=== PATIENT | female | born 1950 | race Caucasian/White ===

== ENCOUNTER 2019-07-07 09:30 | Outpatient (CLI) | payer MEDICARE, SELFPAY ==
[2019-07-07 12:10] LABS: Basophils % 0.2 %; Eosinophils # 0.1 10^3/uL (0.0-0.8); Eosinophils % 2.2 %; Hematocrit 41.1 % (37.0-47.0); Hemoglobin 12.5 g/dL (11.5-15.3); Lymphocytes # 1.5 10^3/uL (0.8-4.8); Lymphocytes % 29.2 %; Mean Corpuscular HGB Conc 30.4 g/dL (30.0-36.0); Mean Corpuscular Hemoglobin 26.9 pg (28.0-34.0); Mean Corpuscular Volume 88.4 fL (81-99); Mean Platelet Volume 10.2 fL (7.4-10.4); Monocytes # 0.3 10^3/uL (0.2-0.9); Monocytes % 6.5 %; Neutrophils # 3.1 10^3/uL (1.8-7.7); Neutrophils % 61.5 %; Nucleated Red Blood Cells % 0 %; Platelet Count 188 10^3/cmm (130-400); Red Blood Count 4.65 10^6/uL (4.1-5.3); Red Cell Distribution Width 13.8 % (12.1-15.1); White Blood Count 5.1 10^3/uL (4.0-10.0)
[2019-07-07 12:29] LABS: Alanine Aminotransferase 13 U/L (0-33); Albumin Level 3.9 g/dL (3.5-5.2); Alkaline Phosphatase 105 IU/L (35-105); Anion Gap 13.3 (5-19); Aspartate Amino Transferase 22 U/L (0-32); Blood Urea Nitrogen 20 mg/dL (8-23); Carbon Dioxide 29 mmol/L (22-29); Chloride 99 mmol/L (98-107); Globulin 3.7 g/dL (1.3-4.6); Glomerular Filtration Rate 54.8 mL/min (90-130); Glucose 108 mg/dL (74-106); Potassium 3.3 mmol/L (3.5-5.1); Sodium 138 mmol/L (136-145); Total Bilirubin 0.4 mg/dL (0.15-1.2); Total Protein 7.6 g/dL (6.6-8.7)
== END 2019-07-07 09:31 | disposition home or self-care (01) ==
PROVIDERS: Family Provider Physician Assistant Medical; Visit Provider Internal Medicine Hematology & Oncology
DX: C50.111 Malignant neoplasm of central portion of right female breast (principal)
CPT/HCPCS: 80053; 85025

== ENCOUNTER 2019-07-11 10:58 | Outpatient (CLI) | payer MEDICARE, SELFPAY ==
--- NOTE | 2019-07-11 14:46 | ONC FU_ITS ---
Dr. Burris follow up note Patient: Neeta Roche Unit #: [id number]: 1950 Dicatated By: Gilmer Burris M.D.Date of Visit:Jul 11, 2019 Onc Med Follow-up/Prog Note History of Present Illness: Mrs. Neeta Roche is a 68 -year-old female who was recently diagnosed with right breast cancer. As per patient about 5 months ago she did notice bloody discharge from her right nipple and subsequently felt a mass in her right breast and on 03/01/2018 underwent bilateral mammogram which showed large linear opacity on the posterior nipple line right breast at the 12:00 position measuring 1.9 x 7.1 cm with a diffuse pleomorphic calcification and it was a new finding when compared with mammogram from 2009. Patient underwent ultrasound-guided biopsy of right breast on 06/06/2018 and biopsy showed infiltrating ductal carcinoma ER moderately positive and MS negative and HER-2/yanna negative and with a high Ki-67. CT PET scan done on 06/25/2018 showed 2.8 cm hypermetabolic lesion right breast in the subareolar region with SUV of 5.3 now right exited lymph node present or distant metastases. Status post right modified mastectomy done on 08/03/2018, showed infiltrating ductal carcinoma, tumor size 2.3 x 1.5 cm, 25% of the tumor volume was DCIS. Lymphovascular space involvement was seen. 0 out of 3 right axillary lymph node showed metastatic disease. Oncotype DX is 45, e.g. high, distant recurrence risk at 9 years with aromatase inhibitor or tamoxifen alone is about 33% and absolute chemotherapy benefit more than 15%.Being a high risk patient was offered adjuvant chemotherapy followed by hormonal therapy but patient refused but opted for hormonal therapy so she was started on Arimidex 1 mg by mouth daily for 5 years on 01/24/2019. Patient is wheelchair-bound due to morbid obesity and other comorbid conditions and has chronic back pain and now worsening, denies any trauma to her back, Has history of CVA Came for follow-up, denies any specific complaints, no fever or chills, no nausea or vomiting, no bony pains, no jaundice, no headaches or blurred vision or double vision, occasionally hot flashes, tolerating Arimidex well otherwise Medications: AmLODIPine Besylate 1 Tablet (of 5 mg) Oral b.i.d., Atorvastatin Calcium 1 Tablet (of 40 mg) Oral daily, Citalopram Hydrobromide 1 Tablet (of 20 mg) Oral daily, Furosemide 1 Tablet (of 40 mg) Oral daily, Hydrocodone-Acetaminophen 0.5 Tablet (of 5-325 mg) Oral PRN, LevETIRAcetam 1 Tablet (of 750 mg) Oral daily, Metoprolol Tartrate 1 Tablet (of 100 mg) Oral b.i.d., Montelukast Sodium 1 Tablet (of 10 mg) Oral daily, Oxybutynin Chloride 1 Tablet (of 5 mg) Oral b.i.d., Potassium Chloride ER 1 Tablet (of 20 meq) Tablet, controlled release Oral on Every Other Day Allergies: No Known Allergies. Review of Systems: Constitutional - Appetite is good and weight is stable. No fever, chills, hot flashes, or night sweats. Energy level is poor, ENMT - No sinus congestion/drainage. No mouth sores. No sore throat or difficulty swallowing, Hematologic/Lymphatic - No abnormal bruising or bleeding, Respiratory - Positive for shortness of breath. No cough. No pleuritic pain or hemoptysis, Cardiovascular - No angina pain. No palpitations, Gastrointestinal - No nausea or vomiting. No heartburn or acid reflux. No diarrhea or constipation. No blood in the stool or black stools, Genitourinary (F) - No dysuria or hematuria. No urinary frequency. No urgency or incontinence, Musculoskeletal - No joint or bone pain, Neurologic - No headache or dizziness. No numbness/paresthesias. Pt has hx of CVA, Psychiatric - Positive for anxiety. No insomnia. Vital Signs: Performed on Jul 11, 2019 11:50 Height - 64.00 in Weight - lbs Temperature - 97.4 F (LOW) Pulse - 61 /min Respiration - 22 /min BP - 130/58 mm(hg) O2 Sat - 88 % (LOW) Pain - 7 Performance Status: 2 - Ambulatory/capable of all self-care, unable to perform any work activities. Up and about more than 50% of waking hours. (ECOG) Physical Examination: Respiratory - Lungs are clear to auscultation without rhonchi or wheezing, Cardiovascular - Regular rate and rhythm of heart, Extremities - To 1+ edema. Lab/Imaging: Test performed on Jul 07, 2019 09:30 Glucose 108 mg/dL BUN 20 mg/dL Creatinine 1.0 mg/dL Sodium 138 mmol/L Potassium 3.3 mmol/L Chloride 99 mmol/L CO2 29 mmol/L Calcium 10.0 mg/dL Protein, Total 7.6 g/dL Albumin 3.9 g/dL Globulin 3.7 g/dL Bilirubin, Total 0.4 mg/dL Alkaline Phosphatase 105 IU/L AST (SGOT) 22 IU/L ALT (SGPT) 13 IU/L WBC 5.1 10^9/L RBC 4.65 10^12/L HGB 12.5 g/dL HCT 41.1 % MCV 88.4 fl MCH 26.9 pg MCHC 30.4 g/dL RDW 13.8 % Platelet Count 188 10^9/L MPV 10.2 fL Neutrophils (Gran) 3.1 10^9/L Lymphocytes 1.5 10^9/L Monocytes 0.3 10^9/L Eosinophils 0.1 10^9/L Basophils 0.0 10^9/L Neutrophil % 2.2 % Manual Lymphocytes 29.2 % Manual Monocytes 6.5 % Manual Eosinophils 2.2 % Manual Basophils 0.2 % NRBCs 0.0 /100 WBC Test performed on Jan 23, 2019 07:15 CA 27.29 28.26 U/mL Impression: Status post right modified radical mastectomy done on 08/03/2018 Final pathology report showed infiltrating ductal carcinoma Tumor size 2.3 x 1.5 cm, 25% of tumor volume was DCIS. Clear margins but lymphovascular space invasion seen T2 0 out of 3 right axillary lymph node showed metastatic disease N0 pathological stage IIa estrogen receptor positive, 32% of cells stain e.g. moderate intensity Progesterone receptor less than 1% negative Ki-67 26% unfavorable risk HER-2/yanna 2+, negative for HER-2/yanna overexpression by IHC and over amplification by FISH Oncotype DX score done on 07/12/2018 showed recurrence score 45 e.g. high, distant recurrence risk at 9 years with aromatase inhibitor and tamoxifen alone is about 33%, absolute chemotherapy benefit is more than 15%. Adjuvant chemotherapy was offered but patient refused, knowing all the risk versus benefits involved and agreed for Arimidex 1 mg by mouth daily for 5 years along with vitamin D/calcium supplement which was started on 10/25/2018. Bilateral Mammogram done on 03/01/2018 showed 1.9 x 7.1 cm retroareolar mass in right breast CT PET scan done on 06/25/2018 showed 2.8 cm hypermetabolic mass in the subareolar region of right breast with SUV of 5.3 now right axillary lymphadenopathy or distant metastases. History of CVA in 2017 Morbid obesity, wheelchair-bound Diabetes mellitus Plan: Discussed with patient regarding her labs white blood count 5.1 hemoglobin 12.5 crit 41.1 platelets 188,000 CMP within normal limit except potassium 3.3 Clinically, patient is doing well, tolerating adjuvant therapy with Arimidex well but with expected side effects. Patient has a no signs symptoms suggestive of recurrence of disease. We'll continue with same. As far as mild hypokalemia is concerned patient is noncompliant with her potassium supplement. Patient was advised to take her potassium supplement as directed. And also reorder her follow-up mammogram and then she will return to clinic in 6 months with CBC CMP and mammogram. Signed By: Gilmer Burris M.D. <<Signature on File>>
== END 2019-07-11 10:59 | disposition home or self-care (01) ==
LOC: ONCMED 11:00
PROVIDERS: Family Provider Physician Assistant Medical; Visit Provider Internal Medicine Hematology & Oncology
DX: C50.111 Malignant neoplasm of central portion of right female breast (principal); T50.3X6A Underdosing of electrolytic, caloric and water-balance agents, initial encounter; Z91.128 Patient's intentional underdosing of medication regimen for other reason; Z17.0 Estrogen receptor positive status [ER+]; E66.01 Morbid (severe) obesity due to excess calories; G89.29 Other chronic pain; M54.9 Dorsalgia, unspecified; F41.9 Anxiety disorder, unspecified; E11.9 Type 2 diabetes mellitus without complications; E87.6 Hypokalemia; Z99.3 Dependence on wheelchair; Z79.891 Long term (current) use of opiate analgesic; Z79.811 Long term (current) use of aromatase inhibitors; Z86.73 Personal history of transient ischemic attack (TIA), and cerebral infarction without residual deficits; Z90.11 Acquired absence of right breast and nipple
CPT/HCPCS: 99214

== ENCOUNTER 2020-04-03 14:41 | Outpatient (CLI) | payer MEDICARE, SELFPAY ==
--- NOTE | 2020-04-03 14:44 | MM_ITS ---
WS: [id number] BILATERAL DIGITAL DIAGNOSTIC MAMMOGRAM MAMMOGRAPHY WITH CAD CLINICAL INFORMATION: HX OF BREAST CA HISTORY: History of right breast cancer with partial meniscectomy. COMPARISON: , March 01, 2018, , August 24, 2008. TECHNIQUE: Bilateral CC, MLO, and ML views. 6 FINDINGS: Scattered fibroglandular densities left breast. Right subtotal mastectomy is new since the prior exam ination. Subtotal right mastectomy with a small amount of residual breast tissue. Left breast is unch anged in appearance. Heterogeneous suspicious cluster of indeterminant calcifications involving the residual right breast tissue adjacent to the chest wall inner quadrant. Recommend surgical consultation for resection. Wire localization could be attempted for surgical guidance. Patient is likely not a candidate for stereot actic biopsy considering location adjacent to chest wall and small amount of breast tissue MM/[place] [id number] IMPRESSION: BI-RADS: 4-Suspicious Finding-Biopsy Should Be Considered FOLLOW UP: Surgical Biopsy Recommended
[2020-04-03 15:13] LABS: Basophils % 0.4 %; Eosinophils # 0.1 10^3/uL (0.0-0.8); Eosinophils % 1.4 %; Hematocrit 41.1 % (37.0-47.0); Hemoglobin 11.8 g/dL (11.5-15.3); Lymphocytes % 20.5 %; Mean Corpuscular HGB Conc 28.7 g/dL (30.0-36.0); Mean Corpuscular Hemoglobin 26.2 pg (28.0-34.0); Mean Corpuscular Volume 91.3 fL (81-99); Monocytes # 0.2 10^3/uL (0.2-0.9); Neutrophils # 3.49 10^3/uL (1.8-7.7); Neutrophils % 72.1 %; Nucleated Red Blood Cells % 0 %; Platelet Count 177 10^3/cmm (130-400); Red Cell Distribution Width 14.6 % (12.1-15.1); White Blood Count 4.8 10^3/uL (4.0-10.0)
[2020-04-03 15:31] LABS: Alanine Aminotransferase 9 U/L (0-33); Albumin Level 3.8 g/dL (3.5-5.2); Alkaline Phosphatase 100 IU/L (35-105); Aspartate Amino Transferase 19 U/L (0-32); Blood Urea Nitrogen 22 mg/dL (8-23); Calcium 9.4 mg/dL (8.5-10.5); Carbon Dioxide 24 mmol/L (22-29); Chloride 99 mmol/L (98-107); Globulin 4.1 g/dL (1.3-4.6); Glucose 192 mg/dL (65-115); Osmolality Calculated 289 mOsm/kg (285-295); Sodium 135 mmol/L (136-145); Total Bilirubin 0.4 mg/dL (0.15-1.2); Total Protein 7.9 g/dL (6.6-8.7)
--- NOTE | 2020-04-26 09:24 | ONC FU_ITS ---
Dr. Burris follow up note Patient: Neeta Roche Unit #: [id number]: 1950 Dicatated By: Gilmer Burris M.D.Date of Visit:Apr 03, 2020 Onc Med Follow-up/Prog Note History of Present Illness: Mrs. Neeta Roche is a 69 -year-old female who was recently diagnosed with right breast cancer. As per patient about 5 months ago she did notice bloody discharge from her right nipple and subsequently felt a mass in her right breast and on 03/01/2018 underwent bilateral mammogram which showed large linear opacity on the posterior nipple line right breast at the 12:00 position measuring 1.9 x 7.1 cm with a diffuse pleomorphic calcification and it was a new finding when compared with mammogram from 2009. Patient underwent ultrasound-guided biopsy of right breast on 06/06/2018 and biopsy showed infiltrating ductal carcinoma ER moderately positive and MN negative and HER-2/yanna negative and with a high Ki-67. CT PET scan done on 06/25/2018 showed 2.8 cm hypermetabolic lesion right breast in the subareolar region with SUV of 5.3 now right exited lymph node present or distant metastases. Status post right modified mastectomy done on 08/03/2018, showed infiltrating ductal carcinoma, tumor size 2.3 x 1.5 cm, 25% of the tumor volume was DCIS. Lymphovascular space involvement was seen. 0 out of 3 right axillary lymph node showed metastatic disease. Oncotype DX is 45, e.g. high, distant recurrence risk at 9 years with aromatase inhibitor or tamoxifen alone is about 33% and absolute chemotherapy benefit more than 15%.Being a high risk patient was offered adjuvant chemotherapy followed by hormonal therapy but patient refused but opted for hormonal therapy so she was started on Arimidex 1 mg by mouth daily for 5 years on 01/24/2019. Patient is wheelchair-bound due to morbid obesity and other comorbid conditions and has chronic back pain and now worsening, denies any trauma to her back, Has history of CVA tolerating Arimidex well Came for follow-up, denies any specific complaints, no fever chills, no nausea or vomiting, no diarrhea constipation occasionally hot flashes otherwise no new bony pains. Patient was scheduled for mammogram prior to this visit but she canceled it twice and to this afternoon and no report is pending. Tolerating Arimidex well. Medications: AmLODIPine Besylate 1 Tablet (of 5 mg) Oral b.i.d., Atorvastatin Calcium 1 Tablet (of 40 mg) Oral daily, Citalopram Hydrobromide 1 Tablet (of 20 mg) Oral daily, Furosemide 1 Tablet (of 40 mg) Oral daily, Hydrocodone-Acetaminophen 0.5 Tablet (of 5-325 mg) Oral PRN, LevETIRAcetam 1 Tablet (of 750 mg) Oral daily, Metoprolol Tartrate 1 Tablet (of 100 mg) Oral b.i.d., Montelukast Sodium 1 Tablet (of 10 mg) Oral daily, Oxybutynin Chloride 1 Tablet (of 5 mg) Oral b.i.d., Potassium Chloride ER 1 Tablet (of 20 meq) Tablet, controlled release Oral on Every Other Day Allergies: No Known Allergies. Review of Systems: Review of Systems is not available for this patient. Vital Signs: Performed on Apr 03, 2020 15:25 Height - 64.00 in Weight - lbs Temperature - 98.0 F (LOW) Pulse - 94 /min Respiration - 24 /min BP - 153/108 mm(hg) (HIGH) O2 Sat - 92 % (LOW) Pain - 0 Performance Status: 1 - No physically strenuous activity, but ambulatory and able to carry out light or sedentary work (e.g. office work, light house work). (ECOG) Physical Examination: Respiratory - Lungs are clear to auscultation, Cardiovascular - Regular rate and rhythm of heart, Gastrointestinal - Soft, bowel sounds present, Extremities - 1+ edema bilaterally. Lab/Imaging: Most recent lab results are not available for this patient. Impression: Status post right modified radical mastectomy done on 08/03/2018 Final pathology report showed infiltrating ductal carcinoma Tumor size 2.3 x 1.5 cm, 25% of tumor volume was DCIS. Clear margins but lymphovascular space invasion seen T2 0 out of 3 right axillary lymph node showed metastatic disease N0 pathological stage IIa estrogen receptor positive, 32% of cells stain e.g. moderate intensity Progesterone receptor less than 1% negative Ki-67 26% unfavorable risk HER-2/yanna 2+, negative for HER-2/yanna overexpression by IHC and over amplification by FISH Oncotype DX score done on 07/12/2018 showed recurrence score 45 e.g. high, distant recurrence risk at 9 years with aromatase inhibitor and tamoxifen alone is about 33%, absolute chemotherapy benefit is more than 15%. Adjuvant chemotherapy was offered but patient refused, knowing all the risk versus benefits involved and agreed for Arimidex 1 mg by mouth daily for 5 years along with vitamin D/calcium supplement which was started on 10/25/2018. Bilateral Mammogram done on 03/01/2018 showed 1.9 x 7.1 cm retroareolar mass in right breast CT PET scan done on 06/25/2018 showed 2.8 cm hypermetabolic mass in the subareolar region of right breast with SUV of 5.3 now right axillary lymphadenopathy or distant metastases. History of CVA in 2017 Morbid obesity, wheelchair-bound Diabetes mellitus Plan: Discussed with patient regarding her labs white blood count 4.8 hemoglobin 11.8 hematocrit 41.1 platelets 177,000 CMP within normal limits except glucose 192 Clinically, patient doing well with no signs symptom suggestive of recurrence of disease. Tolerating Arimidex well. Along with vitamin D and calcium supplement. Patient had mammogram done today and will follow the report and then she will return to clinic in 6 months with CBC CMP Signed By: Gilmer Burris M.D. <<Signature on File>>
== END 2020-04-03 14:42 | disposition home or self-care (01) ==
LOC: RADSHAW 14:41
PROVIDERS: PCP Physician Assistant Medical; Visit Provider Internal Medicine Hematology & Oncology
DX: C50.111 Malignant neoplasm of central portion of right female breast (principal); E11.9 Type 2 diabetes mellitus without complications; E66.01 Morbid (severe) obesity due to excess calories; Z17.0 Estrogen receptor positive status [ER+]; Z90.11 Acquired absence of right breast and nipple; Z79.811 Long term (current) use of aromatase inhibitors; Z86.73 Personal history of transient ischemic attack (TIA), and cerebral infarction without residual deficits; Z99.3 Dependence on wheelchair
CPT/HCPCS: 77066; 80053; 85025; 99214

== ENCOUNTER 2020-05-07 13:13 | Inpatient (IN) | payer MEDICARE, SELFPAY ==
[2020-05-07] VITALS (12 sets, daily range): BP systolic 104–181; BP diastolic 83–125; PULSE 100–133; RESP 14–20; TEMP 36.6; O2SAT 96–100; BMI 53.1
--- NOTE | 2020-05-07 14:21 | XR_ITS ---
WS: [id number] XR chest 1V portable [id number] REASON FOR EXAM: dyspnea FINDINGS: The chest is rotated which accounts for the overall slightly increased opacity of the right hemithora x compared to the left side. There is central vascular congestion with large upper lobe pulmonary veins. There are some peripheral interstitial changes which may represent Homer B lines indicative of early congestive heart failure . No other significant interval change. XR/XR chest 1V portable [id number] IMPRESSION: Concern for early congestive heart failure.
--- NOTE | 2020-05-07 15:03 | ED_ITS ---
Documented by User: Maxi Funes DO 05/10/20 06:17 HPI - SOB/Dyspnea General: Chief Complaint: Shortness of Breath/Dyspnea Stated Complaint: trouble breathing, states pcp sent Time Seen by Provider: 05/07/20 14:10 History of Present Illness: HPI Narrative: 69-year-old female comes in complaining of shortness of breath chest discomfort. She is usually on oxygen at home at 2 L/min is now up to 4 L/min. She also has a rapid heart with palpitations. She had a little bit of loose stools as well as some cough and generalized myalgias she recently did have a flu shot a few weeks ago. She has had some loose stools but no watery diarrhea. MD elicited complaint: shortness of breath, cough and chest pain Pertinent past history: congestive heart failure and diabetes Onset (ago): day(s) Context: anxiety Timing: constant Severity: severe Exacerbating factors: exertion, movement and coughing Relieving factors: nothing, oxygen and rest Known history of: COPD and congestive heart failure Associated symptoms: Reports chest congestion and cough; Deny abdominal pain, chest pain, fever(s), nausea, orthopnea or vomiting Treatment prior to arrival: oxygen Review of Systems Const: Denies: fever(s), chills, body aches, change in appetite, fatigue or malaise ENMT: Denies: throat pain, ear or mastoid pain, nasal discharge or nasal congestion Card: Denies: chest pain, edema, dyspnea on exertion or orthopnea Resp: Reports: chest congestion GI: Denies: abdominal pain, nausea, vomiting, hematemesis, coffee ground emesis, diarrhea, constipation, bloating, hematochezia or melena : Denies: flank pain, difficulty voiding, dysuria, urinary frequency or urinary urgency Skin/Breast: Denies: rash or pruritus PFSH ED PFSH: Medical History (Updated 05/08/20 @ 16:03 by Thor Martínez MD) Breakthrough seizure After stroke on Keppra Breast cancer, right Chronic back pain COPD (chronic obstructive pulmonary disease) Diabetes Fibromyalgia Gastritis H/O: CVA (cerebrovascular accident) Hypertension Morbid obesity Oxygen dependent Stroke May 2017 Type 2 diabetes mellitus Surgical History History of bunionectomy History of tonsillectomy Family History (Updated 05/07/20 @ 21:39 by Enrique Lopes MD) Other No pertinent family history Social History (Updated 05/07/20 @ 21:40 by Enrique Lopes MD) Smoking and tobacco status: never smoked Alcohol intake: never Substance/Drug Use: never Household members: spouse Housing: House Physical Exam Const: NUTRITIONAL APPEARANCE: obese morbidly obese ORIENTATION/CONSCIOUSNESS: Yes awake, Yes oriented to person, Yes oriented to place and Yes oriented to time HENMT: COMMON NORMALS: normocephalic, atraumatic and hearing grossly normal bilaterally HEAD & SCALP: normocephalic and atraumatic Eye: COMMON NORMALS: Equal, round and reactive pupils present, EOMs intact bilaterally, conjunctivae normal and no scleral icterus CONJUNCTIVA: Yes conjunctivae normal PUPIL: Yes Equal, round and reactive pupils present Neck/C-Spine: COMMON NORMALS: full ROM, no lymphadenopathy, supple and no JVD Lymph: LYMPHATIC: no lymphadenopathy noted and no lymphedema noted Resp: AUSCULTATION: crackles, wheezes and diminished lung sounds Cardio: COMMON NORMALS: no JVD, regular rate, regular rhythm and No murmurs present (Cardio) RATE: regular rate RHYTHM: regular rhythm GI: COMMON NORMALS: Soft to palpation and No hepatosplenomegaly present AUSCULTATION: Yes normoactive bowel sounds PALPATION: Yes Soft to palpation, No Tenderness to palpation present (GI), No Guarding due to palpation present (GI) and Yes No hepatosplenomegaly present Extremity: COMMON NORMALS: normal to inspection, capillary refill normal, no clubbing, cyanosis or edema, no calf tenderness and no pedal edema Neuro: SENSORIUM/ORIENTATION: Yes oriented to person, Yes oriented to place and Yes oriented to time Skin: COMMON NORMALS: no rashes or lesions noted GENERAL SKIN EXAM: no rashes or lesions noted Course Vital Signs: Vital signs: Vital Signs Temperature 97.8 F 05/09/20 19:04 Pulse Rate 91 05/10/20 04:15 Respiratory Rate 21 H 05/10/20 04:15 Blood Pressure 132/79 05/10/20 04:15 Pulse Oximetry 96 05/10/20 04:15 MDM - SOB/Dyspnea MDM Narrative: Medical decision making narrative: Care turned over to Dr. Kulkarni at change of shift Lab Data: Labs: Lab Results 05/07/20 05/07/20 05/07/20 Range/Units 14:54 14:54 15:43 WBC (4.0-10.0) 10^3/ uL RBC (4.1-5.3) 10^6/u L Hgb (11.5-15.3) g/dL Hct (37.0-47.0) % MCV (81-99) fL MCH (28.0-34.0) pg MCHC (30.0-36.0) g/dL RDW (12.1-15.1) % Plt Count (130-400) 10^3/c mm MPV (7.4-10.4) fL Neut % (Auto) % Lymph % (Auto) % [place] % (Auto) % Eos % (Auto) % Baso % (Auto) % Neut # (Auto) (1.8-7.7) 10^3/u L Lymph # (Auto) (0.8-4.8) 10^3/u L [place] # (Auto) (0.2-0.9) 10^3/u L Eos # (Auto) (0.0-0.8) 10^3/u L Baso # (Auto) (0.0-0.1) 10^3/u L Nucleated RBC % (a uto) % Nucleated RBCs # /100WBC Fibrinogen (174-498) mg/dL D-Dimer (0-0.59) ug/mIFE U Specimen Type Arterial Sample Site Radial, right ABG pH 7.36 (7.35-7.45) ABG pCO2 45.9 H (35-45) mmHg ABG pO2 147.0 H (80.0-100.0) mmH g ABG HCO3 25.9 (22-26) mmol/L ABG Base Excess 0.0 (-2.0-2.0) mmol/ L Timothy Test Pos Hematocrit 38.5 (37-47) % O2 Delivery Device Nc O2 Liters/Min 4.0 % FiO2 36.0 % Internal Controls Analyst ID glc Sodium (136-145) mmol/L Potassium (3.5-5.1) mmol/L Chloride (98-107) mmol/L Carbon Dioxide (22-29) mmol/L Anion Gap (5-19) BUN (8-23) mg/dL Creatinine (0.5-0.9) mg/dL GFR Calculation Glucose (65-115) mg/dL Calculated Osmolal ity (285-295) mOsm/k g Lactic Acid (0.5-2.2) mmol/L Lactic Acid (Sepsi s) (0.5-2.2) mmol/L Calcium (8.5-10.5) mg/dL Ferritin (15-150) ng/mL Total Bilirubin (0.15-1.2) mg/dL AST (0-32) U/L ALT (0-33) U/L Alkaline Phosphata se (35-105) IU/L Lactate Dehydrogen ase (135-214) U/L Troponin T Baselin e (0-10) ng/L C-Reactive Protein (0.0-4.9) mg/L NT-Pro-B Natriuret Pep (0-125) pg/mL Total Protein (6.6-8.7) g/dL Albumin (3.5-5.2) g/dL Globulin (1.3-4.6) g/dL Nasal/Oral COVID-1 9 PCR Influenza Type A A g Negative (Negative) Influenza Type B A g Negative (Negative) SARS-CoV-2 Ag (Rap id) Negative (Negative) 05/07/20 05/07/20 05/07/20 Range/Units 15:53 15:53 15:53 WBC 7.0 (4.0-10.0) 10^3/ uL RBC 4.54 (4.1-5.3) 10^6/u L Hgb 11.9 (11.5-15.3) g/dL Hct 41.1 (37.0-47.0) % MCV 90.5 (81-99) fL MCH 26.2 L (28.0-34.0) pg MCHC 29.0 L (30.0-36.0) g/dL RDW 15.3 H (12.1-15.1) % Plt Count 188 (130-400) 10^3/c mm MPV 9.5 (7.4-10.4) fL Neut % (Auto) 68.6 % Lymph % (Auto) 22.9 % [place] % (Auto) 6.7 % Eos % (Auto) 1.1 % Baso % (Auto) 0.3 % Neut # (Auto) 4.83 (1.8-7.7) 10^3/u L Lymph # (Auto) 1.6 (0.8-4.8) 10^3/u L [place] # (Auto) 0.5 (0.2-0.9) 10^3/u L Eos # (Auto) 0.1 (0.0-0.8) 10^3/u L Baso # (Auto) 0.0 (0.0-0.1) 10^3/u L Nucleated RBC % (a uto) 0 % Nucleated RBCs # 0.0 /100WBC Fibrinogen 307 (174-498) mg/dL D-Dimer 3.23 H (0-0.59) ug/mIFE U Specimen Type Sample Site ABG pH (7.35-7.45) ABG pCO2 (35-45) mmHg ABG pO2 (80.0-100.0) mmH g ABG HCO3 (22-26) mmol/L ABG Base Excess (-2.0-2.0) mmol/ L Timothy Test Hematocrit (37-47) % O2 Delivery Device O2 Liters/Min % FiO2 % Internal Controls Analyst ID Sodium 139 (136-145) mmol/L Potassium 3.9 (3.5-5.1) mmol/L Chloride 99 (98-107) mmol/L Carbon Dioxide 28 (22-29) mmol/L Anion Gap 15.9 (5-19) BUN 21 (8-23) mg/dL Creatinine 1.0 H (0.5-0.9) mg/dL GFR Calculation Not Reportable Glucose 131 H (65-115) mg/dL Calculated Osmolal ity 293 (285-295) mOsm/k g Lactic Acid (0.5-2.2) mmol/L Lactic Acid (Sepsi s) (0.5-2.2) mmol/L Calcium 9.5 (8.5-10.5) mg/dL Ferritin 59 (15-150) ng/mL Total Bilirubin 0.4 (0.15-1.2) mg/dL AST 15 (0-32) U/L ALT 6 (0-33) U/L Alkaline Phosphata se 106 H (35-105) IU/L Lactate Dehydrogen ase 242 H (135-214) U/L Troponin T Baselin e (0-10) ng/L C-Reactive Protein 10.0 H (0.0-4.9) mg/L NT-Pro-B Natriuret Pep 1589 H (0-125) pg/mL Total Protein 8.3 (6.6-8.7) g/dL Albumin 4.1 (3.5-5.2) g/dL Globulin 4.2 (1.3-4.6) g/dL Nasal/Oral COVID-1 9 PCR Influenza Type A A g (Negative) Influenza Type B A g (Negative) SARS-CoV-2 Ag (Rap id) (Negative) 05/07/20 05/07/20 05/07/20 Range/Units 15:53 18:28 18:44 WBC (4.0-10.0) 10^3/ uL RBC (4.1-5.3) 10^6/u L Hgb (11.5-15.3) g/dL Hct (37.0-47.0) % MCV (81-99) fL MCH (28.0-34.0) pg MCHC (30.0-36.0) g/dL RDW (12.1-15.1) % Plt Count (130-400) 10^3/c mm MPV (7.4-10.4) fL Neut % (Auto) % Lymph % (Auto) % [place] % (Auto) % Eos % (Auto) % Baso % (Auto) % Neut # (Auto) (1.8-7.7) 10^3/u L Lymph # (Auto) (0.8-4.8) 10^3/u L [place] # (Auto) (0.2-0.9) 10^3/u L Eos # (Auto) (0.0-0.8) 10^3/u L Baso # (Auto) (0.0-0.1) 10^3/u L Nucleated RBC % (a uto) % Nucleated RBCs # /100WBC Fibrinogen (174-498) mg/dL D-Dimer (0-0.59) ug/mIFE U Specimen Type Sample Site ABG pH (7.35-7.45) ABG pCO2 (35-45) mmHg ABG pO2 (80.0-100.0) mmH g ABG HCO3 (22-26) mmol/L ABG Base Excess (-2.0-2.0) mmol/ L Timothy Test Hematocrit (37-47) % O2 Delivery Device O2 Liters/Min % FiO2 % Internal Controls Analyst ID Sodium (136-145) mmol/L Potassium (3.5-5.1) mmol/L Chloride (98-107) mmol/L Carbon Dioxide (22-29) mmol/L Anion Gap (5-19) BUN (8-23) mg/dL Creatinine (0.5-0.9) mg/dL GFR Calculation Glucose (65-115) mg/dL Calculated Osmolal ity (285-295) mOsm/k g Lactic Acid 2.8 H (0.5-2.2) mmol/L Lactic Acid (Sepsi s) 1.1 (0.5-2.2) mmol/L Calcium (8.5-10.5) mg/dL Ferritin (15-150) ng/mL Total Bilirubin (0.15-1.2) mg/dL AST (0-32) U/L ALT (0-33) U/L Alkaline Phosphata se (35-105) IU/L Lactate Dehydrogen ase (135-214) U/L Troponin T Baselin e (0-10) ng/L C-Reactive Protein (0.0-4.9) mg/L NT-Pro-B Natriuret Pep (0-125) pg/mL Total Protein (6.6-8.7) g/dL Albumin (3.5-5.2) g/dL Globulin (1.3-4.6) g/dL Nasal/Oral COVID-1 9 PCR Negative Influenza Type A A g (Negative) Influenza Type B A g (Negative) SARS-CoV-2 Ag (Rap id) (Negative) 05/07/20 Range/Units 18:44 WBC (4.0-10.0) 10^3/ uL RBC (4.1-5.3) 10^6/u L Hgb (11.5-15.3) g/dL Hct (37.0-47.0) % MCV (81-99) fL MCH (28.0-34.0) pg MCHC (30.0-36.0) g/dL RDW (12.1-15.1) % Plt Count (130-400) 10^3/c mm MPV (7.4-10.4) fL Neut % (Auto) % Lymph % (Auto) % [place] % (Auto) % Eos % (Auto) % Baso % (Auto) % Neut # (Auto) (1.8-7.7) 10^3/u L Lymph # (Auto) (0.8-4.8) 10^3/u L [place] # (Auto) (0.2-0.9) 10^3/u L Eos # (Auto) (0.0-0.8) 10^3/u L Baso # (Auto) (0.0-0.1) 10^3/u L Nucleated RBC % (a uto) % Nucleated RBCs # /100WBC Fibrinogen (174-498) mg/dL D-Dimer (0-0.59) ug/mIFE U Specimen Type Sample Site ABG pH (7.35-7.45) ABG pCO2 (35-45) mmHg ABG pO2 (80.0-100.0) mmH g ABG HCO3 (22-26) mmol/L ABG Base Excess (-2.0-2.0) mmol/ L Timothy Test Hematocrit (37-47) % O2 Delivery Device O2 Liters/Min % FiO2 % Internal Controls Analyst ID Sodium (136-145) mmol/L Potassium (3.5-5.1) mmol/L Chloride (98-107) mmol/L Carbon Dioxide (22-29) mmol/L Anion Gap (5-19) BUN (8-23) mg/dL Creatinine (0.5-0.9) mg/dL GFR Calculation Glucose (65-115) mg/dL Calculated Osmolal ity (285-295) mOsm/k g Lactic Acid (0.5-2.2) mmol/L Lactic Acid (Sepsi s) (0.5-2.2) mmol/L Calcium (8.5-10.5) mg/dL Ferritin (15-150) ng/mL Total Bilirubin (0.15-1.2) mg/dL AST (0-32) U/L ALT (0-33) U/L Alkaline Phosphata se (35-105) IU/L Lactate Dehydrogen ase (135-214) U/L Troponin T Baselin e 41 H (0-10) ng/L C-Reactive Protein (0.0-4.9) mg/L NT-Pro-B Natriuret Pep (0-125) pg/mL Total Protein (6.6-8.7) g/dL Albumin (3.5-5.2) g/dL Globulin (1.3-4.6) g/dL Nasal/Oral COVID-1 9 PCR Influenza Type A A g (Negative) Influenza Type B A g (Negative) SARS-CoV-2 Ag (Rap id) (Negative) Discharge Plan Discharge Patient Disposition: Admitted As Inpatient Admit Provider: Enrique Lopes Clinical Impression: Atrial fibrillation with RVR Congestive heart failure Qualifiers: Heart failure type: unspecified Heart failure chronicity: acute on chronic Qualified Code(s): I50.9 - Heart failure, unspecified Condition: Stable Sign Out Sign Out Data: Patient Sign Out occurred on 05/07/20 at 18:18. Patient's care was discussed, and care was transferred from to Linda Conklin. Coding Level of Care Code ED Percussion Tuner for Chg Fwd Exam Comprehensive Documented by User: Linda Conklin 05/08/20 02:59 HPI - SOB/Dyspnea General: Chief Complaint: Shortness of Breath/Dyspnea Stated Complaint: trouble breathing, states pcp sent Time Seen by Provider: 05/07/20 14:10 [facility] ED PFSH: Medical History (Updated 05/08/20 @ 16:03 by Thor Martínez MD) Breakthrough seizure After stroke on Keppra Breast cancer, right Chronic back pain COPD (chronic obstructive pulmonary disease) Diabetes Fibromyalgia Gastritis H/O: CVA (cerebrovascular accident) Hypertension Morbid obesity Oxygen dependent Stroke May 2017 Type 2 diabetes mellitus Surgical History History of bunionectomy History of tonsillectomy Family History (Updated 05/07/20 @ 21:39 by Enrique Lopes MD) Other No pertinent family history Social History (Updated 05/07/20 @ 21:40 by Enrique Lopes MD) Smoking and tobacco status: never smoked Alcohol intake: never Substance/Drug Use: never Household members: spouse Housing: House Course Vital Signs: Vital signs: Vital Signs Temperature 97.8 F 05/09/20 19:04 Pulse Rate 91 05/10/20 04:15 Respiratory Rate 21 H 05/10/20 04:15 Blood Pressure 132/79 05/10/20 04:15 Pulse Oximetry 96 05/10/20 04:15 MDM - SOB/Dyspnea MDM Narrative: Medical decision making narrative: 1844 -Case turned over to me at change of shift from Dr. Funes. Please see his note for his history, physical exam and medical decision-making notes. The patient at this time still has conversational dyspnea. I have asked the nurse to turn up her Cardizem as her rate is still elevated. It is not appear as though she has diuresed much at this point so we will keep a close eye on that. Patient denies any fevers or chills denies any chest pain currently. Patient has a positive D-dimer but is already anticoagulated with Eliquis but we will go ahead and follow-up on the CTA. 2035 -Case endorsed to Dr. Lopes, he agrees to admit for further evaluation and care. Lab Data: Attestation: I reviewed the patient's lab results. Labs: Lab Results 05/07/20 05/07/20 05/07/20 Range/Units 14:54 14:54 15:43 WBC (4.0-10.0) 10^3/ uL RBC (4.1-5.3) 10^6/u L Hgb (11.5-15.3) g/dL Hct (37.0-47.0) % MCV (81-99) fL MCH (28.0-34.0) pg MCHC (30.0-36.0) g/dL RDW (12.1-15.1) % Plt Count (130-400) 10^3/c mm MPV (7.4-10.4) fL Neut % (Auto) % Lymph % (Auto) % [place] % (Auto) % Eos % (Auto) % Baso % (Auto) % Neut # (Auto) (1.8-7.7) 10^3/u L Lymph # (Auto) (0.8-4.8) 10^3/u L [place] # (Auto) (0.2-0.9) 10^3/u L Eos # (Auto) (0.0-0.8) 10^3/u L Baso # (Auto) (0.0-0.1) 10^3/u L Nucleated RBC % (a uto) % Nucleated RBCs # /100WBC Fibrinogen (174-498) mg/dL D-Dimer (0-0.59) ug/mIFE U Specimen Type Arterial Sample Site Radial, right ABG pH 7.36 (7.35-7.45) ABG pCO2 45.9 H (35-45) mmHg ABG pO2 147.0 H (80.0-100.0) mmH g ABG HCO3 25.9 (22-26) mmol/L ABG Base Excess 0.0 (-2.0-2.0) mmol/ L Timothy Test Pos Hematocrit 38.5 (37-47) % O2 Delivery Device Nc O2 Liters/Min 4.0 % FiO2 36.0 % Internal Controls Analyst ID glc Sodium (136-145) mmol/L Potassium (3.5-5.1) mmol/L Chloride (98-107) mmol/L Carbon Dioxide (22-29) mmol/L Anion Gap (5-19) BUN (8-23) mg/dL Creatinine (0.5-0.9) mg/dL GFR Calculation Glucose (65-115) mg/dL Calculated Osmolal ity (285-295) mOsm/k g Lactic Acid (0.5-2.2) mmol/L Lactic Acid (Sepsi s) (0.5-2.2) mmol/L Calcium (8.5-10.5) mg/dL Ferritin (15-150) ng/mL Total Bilirubin (0.15-1.2) mg/dL AST (0-32) U/L ALT (0-33) U/L Alkaline Phosphata se (35-105) IU/L Lactate Dehydrogen ase (135-214) U/L Troponin T Baselin e (0-10) ng/L C-Reactive Protein (0.0-4.9) mg/L NT-Pro-B Natriuret Pep (0-125) pg/mL Total Protein (6.6-8.7) g/dL Albumin (3.5-5.2) g/dL Globulin (1.3-4.6) g/dL Nasal/Oral COVID-1 9 PCR Influenza Type A A g Negative (Negative) Influenza Type B A g Negative (Negative) SARS-CoV-2 Ag (Rap id) Negative (Negative) 05/07/20 05/07/20 05/07/20 Range/Units 15:53 15:53 15:53 WBC 7.0 (4.0-10.0) 10^3/ uL RBC 4.54 (4.1-5.3) 10^6/u L Hgb 11.9 (11.5-15.3) g/dL Hct 41.1 (37.0-47.0) % MCV 90.5 (81-99) fL MCH 26.2 L (28.0-34.0) pg MCHC 29.0 L (30.0-36.0) g/dL RDW 15.3 H (12.1-15.1) % Plt Count 188 (130-400) 10^3/c mm MPV 9.5 (7.4-10.4) fL Neut % (Auto) 68.6 % Lymph % (Auto) 22.9 % [place] % (Auto) 6.7 % Eos % (Auto) 1.1 % Baso % (Auto) 0.3 % Neut # (Auto) 4.83 (1.8-7.7) 10^3/u L Lymph # (Auto) 1.6 (0.8-4.8) 10^3/u L [place] # (Auto) 0.5 (0.2-0.9) 10^3/u L Eos # (Auto) 0.1 (0.0-0.8) 10^3/u L Baso # (Auto) 0.0 (0.0-0.1) 10^3/u L Nucleated RBC % (a uto) 0 % Nucleated RBCs # 0.0 /100WBC Fibrinogen 307 (174-498) mg/dL D-Dimer 3.23 H (0-0.59) ug/mIFE U Specimen Type Sample Site ABG pH (7.35-7.45) ABG pCO2 (35-45) mmHg ABG pO2 (80.0-100.0) mmH g ABG HCO3 (22-26) mmol/L ABG Base Excess (-2.0-2.0) mmol/ L Timothy Test Hematocrit (37-47) % O2 Delivery Device O2 Liters/Min % FiO2 % Internal Controls Analyst ID Sodium 139 (136-145) mmol/L Potassium 3.9 (3.5-5.1) mmol/L Chloride 99 (98-107) mmol/L Carbon Dioxide 28 (22-29) mmol/L Anion Gap 15.9 (5-19) BUN 21 (8-23) mg/dL Creatinine 1.0 H (0.5-0.9) mg/dL GFR Calculation Not Reportable Glucose 131 H (65-115) mg/dL Calculated Osmolal ity 293 (285-295) mOsm/k g Lactic Acid (0.5-2.2) mmol/L Lactic Acid (Sepsi s) (0.5-2.2) mmol/L Calcium 9.5 (8.5-10.5) mg/dL Ferritin 59 (15-150) ng/mL Total Bilirubin 0.4 (0.15-1.2) mg/dL AST 15 (0-32) U/L ALT 6 (0-33) U/L Alkaline Phosphata se 106 H (35-105) IU/L Lactate Dehydrogen ase 242 H (135-214) U/L Troponin T Baselin e (0-10) ng/L C-Reactive Protein 10.0 H (0.0-4.9) mg/L NT-Pro-B Natriuret Pep 1589 H (0-125) pg/mL Total Protein 8.3 (6.6-8.7) g/dL Albumin 4.1 (3.5-5.2) g/dL Globulin 4.2 (1.3-4.6) g/dL Nasal/Oral COVID-1 9 PCR Influenza Type A A g (Negative) Influenza Type B A g (Negative) SARS-CoV-2 Ag (Rap id) (Negative) 05/07/20 05/07/20 05/07/20 Range/Units 15:53 18:28 18:44 WBC (4.0-10.0) 10^3/ uL RBC (4.1-5.3) 10^6/u L Hgb (11.5-15.3) g/dL Hct (37.0-47.0) % MCV (81-99) fL MCH (28.0-34.0) pg MCHC (30.0-36.0) g/dL RDW (12.1-15.1) % Plt Count (130-400) 10^3/c mm MPV (7.4-10.4) fL Neut % (Auto) % Lymph % (Auto) % [place] % (Auto) % Eos % (Auto) % Baso % (Auto) % Neut # (Auto) (1.8-7.7) 10^3/u L Lymph # (Auto) (0.8-4.8) 10^3/u L [place] # (Auto) (0.2-0.9) 10^3/u L Eos # (Auto) (0.0-0.8) 10^3/u L Baso # (Auto) (0.0-0.1) 10^3/u L Nucleated RBC % (a uto) % Nucleated RBCs # /100WBC Fibrinogen (174-498) mg/dL D-Dimer (0-0.59) ug/mIFE U Specimen Type Sample Site ABG pH (7.35-7.45) ABG pCO2 (35-45) mmHg ABG pO2 (80.0-100.0) mmH g ABG HCO3 (22-26) mmol/L ABG Base Excess (-2.0-2.0) mmol/ L Timothy Test Hematocrit (37-47) % O2 Delivery Device O2 Liters/Min % FiO2 % Internal Controls Analyst ID Sodium (136-145) mmol/L Potassium (3.5-5.1) mmol/L Chloride (98-107) mmol/L Carbon Dioxide (22-29) mmol/L Anion Gap (5-19) BUN (8-23) mg/dL Creatinine (0.5-0.9) mg/dL GFR Calculation Glucose (65-115) mg/dL Calculated Osmolal ity (285-295) mOsm/k g Lactic Acid 2.8 H (0.5-2.2) mmol/L Lactic Acid (Sepsi s) 1.1 (0.5-2.2) mmol/L Calcium (8.5-10.5) mg/dL Ferritin (15-150) ng/mL Total Bilirubin (0.15-1.2) mg/dL AST (0-32) U/L ALT (0-33) U/L Alkaline Phosphata se (35-105) IU/L Lactate Dehydrogen ase (135-214) U/L Troponin T Baselin e (0-10) ng/L C-Reactive Protein (0.0-4.9) mg/L NT-Pro-B Natriuret Pep (0-125) pg/mL Total Protein (6.6-8.7) g/dL Albumin (3.5-5.2) g/dL Globulin (1.3-4.6) g/dL Nasal/Oral COVID-1 9 PCR Negative Influenza Type A A g (Negative) Influenza Type B A g (Negative) SARS-CoV-2 Ag (Rap id) (Negative) 05/07/20 Range/Units 18:44 WBC (4.0-10.0) 10^3/ uL RBC (4.1-5.3) 10^6/u L Hgb (11.5-15.3) g/dL Hct (37.0-47.0) % MCV (81-99) fL MCH (28.0-34.0) pg MCHC (30.0-36.0) g/dL RDW (12.1-15.1) % Plt Count (130-400) 10^3/c mm MPV (7.4-10.4) fL Neut % (Auto) % Lymph % (Auto) % [place] % (Auto) % Eos % (Auto) % Baso % (Auto) % Neut # (Auto) (1.8-7.7) 10^3/u L Lymph # (Auto) (0.8-4.8) 10^3/u L [place] # (Auto) (0.2-0.9) 10^3/u L Eos # (Auto) (0.0-0.8) 10^3/u L Baso # (Auto) (0.0-0.1) 10^3/u L Nucleated RBC % (a uto) % Nucleated RBCs # /100WBC Fibrinogen (174-498) mg/dL D-Dimer (0-0.59) ug/mIFE U Specimen Type Sample Site ABG pH (7.35-7.45) ABG pCO2 (35-45) mmHg ABG pO2 (80.0-100.0) mmH g ABG HCO3 (22-26) mmol/L ABG Base Excess (-2.0-2.0) mmol/ L Timothy Test Hematocrit (37-47) % O2 Delivery Device O2 Liters/Min % FiO2 % Internal Controls Analyst ID Sodium (136-145) mmol/L Potassium (3.5-5.1) mmol/L Chloride (98-107) mmol/L Carbon Dioxide (22-29) mmol/L Anion Gap (5-19) BUN (8-23) mg/dL Creatinine (0.5-0.9) mg/dL GFR Calculation Glucose (65-115) mg/dL Calculated Osmolal ity (285-295) mOsm/k g Lactic Acid (0.5-2.2) mmol/L Lactic Acid (Sepsi s) (0.5-2.2) mmol/L Calcium (8.5-10.5) mg/dL Ferritin (15-150) ng/mL Total Bilirubin (0.15-1.2) mg/dL AST (0-32) U/L ALT (0-33) U/L Alkaline Phosphata se (35-105) IU/L Lactate Dehydrogen ase (135-214) U/L Troponin T Baselin e 41 H (0-10) ng/L C-Reactive Protein (0.0-4.9) mg/L NT-Pro-B Natriuret Pep (0-125) pg/mL Total Protein (6.6-8.7) g/dL Albumin (3.5-5.2) g/dL Globulin (1.3-4.6) g/dL Nasal/Oral COVID-1 9 PCR Influenza Type A A g (Negative) Influenza Type B A g (Negative) SARS-CoV-2 Ag (Rap id) (Negative) Imaging Data^: CXR: Attestation: I personally reviewed and interpreted this imaging study as follows: My impression: Cardiomegaly with moderate pulmonary vascular congestion. CT Chest: Radiologist's impression: [address] [address] [address] Scan Report Signed Patient: Neeta Roche Unit #: [id number] : [id number] Acct#:[id number] Age/Sex: 69 / F ADM Date: 05/07/20 Loc: ER Room/Bed: Attending Dr: Ordering Provider/Ordering MD: Maxi Funes DO Date of Service: 05/07/20 Procedure(s): CT angio chest PE protcl [id number] Accession Number(s): [id number] Report Number: [id number] PROCEDURE INFORMATION: Exam: CT Angiography Chest With Contrast Exam date and time: 05/07/2020 6:27 PM Age: 69 years old Clinical indication: Dyspnea; Prior surgery; Surgery type: RT mastectomy, gb TECHNIQUE: Imaging protocol: Computed tomographic angiography of the chest with intravenous contrast. 3D rendering (Not supervised by radiologist): MIP and/or 3D reconstructed images were created by the technologist. Radiation optimization: All CT scans at this facility use at least one of these dose optimization techniques: automated exposure control; mA and/or kV adjustment per patient size (includes targeted exams where dose is matched to clinical indication); or iterative reconstruction. Contrast material: VISI 320; Contrast volume: 93 ml; Contrast route: INTRAVENOUS (IV); COMPARISON: CT Chest/Abdomen/Pelvis w IV* 06/21/2017 8:57 PM RADIATION DOSE METRICS: Total DLP (mGy-cm): 550.22 FINDINGS: Limitations: Study is limited due to patient body habitus. Pulmonary arteries: There is no evidence of filling defects within the pulmonary arterial circulation to suggest pulmonary embolism. Aorta: Unremarkable. No aortic aneurysm. No aortic dissection. Lungs: There is calcified granuloma in the left upper lobe. There is mosaic attenuation in regions of the lung which may represent mild gas trapping. Pleural space: Unremarkable. No pneumothorax. No pleural effusion. Heart: The heart is moderately enlarged. Lymph nodes: Unremarkable. No enlarged lymph nodes. Intraperitoneal space: There is some ascites in the upper abdomen adjacent to the liver not fully evaluated on this examination. Bones/joints: Unremarkable. No acute fracture. Soft tissues: There is a 7.5 x 7.5 x 3 cm fluid collection in the right chest wall most likely representing postoperative seroma. There has been a right mastectomy. CT/CT angio chest PE protcl [id number] IMPRESSION: 1. Old granulomatous disease. 2. No evidence of pulmonary embolism. 3. Status post right mastectomy with probable postoperative seroma. 4. Ascites Radiation Dose CTDIVOL = (mGy): DLP = 550.22 (mGy-cm) Dictated By: Srinivasan Bolton Signed By: Srinivasan Bolton Signed Date/Time: 05/07/202019 DD/ 17 EKG Data^: EKG 1: Attestation: I personally reviewed and interpreted this EKG as follows: EKG Interpretation Date: 05/07/20 EKG interpretation time: 18:44 Interpretation: Atrial fibrillation with a rapid ventricular response of 132 beats a minute, normal axis, normal intervals, nonspecific ST and T wave changes. Discharge Plan Discharge Patient Disposition: Admitted As Inpatient Admit Provider: Enrique Lopes Clinical Impression: Atrial fibrillation with RVR Congestive heart failure Qualifiers: Heart failure type: unspecified Heart failure chronicity: acute on chronic Qualified Code(s): I50.9 - Heart failure, unspecified Condition: Stable Sign Out Sign Out Data: Patient Sign Out occurred on 05/07/20 at 18:18. Patient's care was discussed, and care was transferred from to Linda Conklin. Coding Level of Care Code ED Percussion Tuner for g Fwd Exam Comprehensive
[2020-05-07 15:51] LABS: Influenza A by IFA Negative (Negative); Influenza B by IFA Negative (Negative); SARS Covid-2 Antigen Negative (Negative)
[2020-05-07 15:55] LABS: ABG PCO2 45.9 mmHg (35-45); ABG PH Result 7.36 (7.35-7.45); Arterial Blood Gas Hematocrit 38.5 % (37-47); Blood Gas Allen Test Pos; Blood Gas Operator Identificat glc; Blood Gas Sample Site Radial, right; Blood Gas Sample Type Arterial; HCO3 ABG 25.9 mmol/L (22-26); Oxygen Device NC
[2020-05-07 16:01] LABS: Basophils % 0.3 %; Eosinophils # 0.1 10^3/uL (0.0-0.8); Eosinophils % 1.1 %; Hematocrit 41.1 % (37.0-47.0); Hemoglobin 11.9 g/dL (11.5-15.3); Lymphocytes # 1.6 10^3/uL (0.8-4.8); Lymphocytes % 22.9 %; Mean Corpuscular Hemoglobin 26.2 pg (28.0-34.0); Mean Corpuscular Volume 90.5 fL (81-99); Mean Platelet Volume 9.5 fL (7.4-10.4); Monocytes # 0.5 10^3/uL (0.2-0.9); Monocytes % 6.7 %; Neutrophils # 4.83 10^3/uL (1.8-7.7); Neutrophils % 68.6 %; Nucleated Red Blood Cells % 0 %; Platelet Count 188 10^3/cmm (130-400); Red Blood Count 4.54 10^6/uL (4.1-5.3); Red Cell Distribution Width 15.3 % (12.1-15.1)
[2020-05-07 16:18] LABS: Fibrinogen 307 mg/dL (174-498)
[2020-05-07 16:21] LABS: D Dimer 3.23 ug/mIFEU (0-0.59)
[2020-05-07 16:22] LABS: Lactic Sepsis W/Reflex 2.8 mmol/L (0.5-2.2)
[2020-05-07 16:32] LABS: Alanine Aminotransferase 6 U/L (0-33); Albumin Level 4.1 g/dL (3.5-5.2); Alkaline Phosphatase 106 IU/L (35-105); Anion Gap 15.9 (5-19); Aspartate Amino Transferase 15 U/L (0-32); Blood Urea Nitrogen 21 mg/dL (8-23); Calcium 9.5 mg/dL (8.5-10.5); Carbon Dioxide 28 mmol/L (22-29); Chloride 99 mmol/L (98-107); Ferritin 59 ng/mL (15-150); Globulin 4.2 g/dL (1.3-4.6); Glucose 131 mg/dL (65-115); Lactate Dehydrogenase 242 U/L (135-214); NT Pro B Type Natriuretic Pept 1589 pg/mL (0-125); Osmolality Calculated 293 mOsm/kg (285-295); Potassium 3.9 mmol/L (3.5-5.1); Sodium 139 mmol/L (136-145); Total Bilirubin 0.4 mg/dL (0.15-1.2); Total Protein 8.3 g/dL (6.6-8.7)
--- NOTE | 2020-05-07 16:48 | CTR_ITS ---
PROCEDURE INFORMATION: Exam: CT Angiography Chest With Contrast Exam date and time: 05/07/2020 6:27 PM Age: 69 years old Clinical indication: Dyspnea; Prior surgery; Surgery type: RT mastectomy, gb TECHNIQUE: Imaging protocol: Computed tomographic angiography of the chest with intravenous contrast. 3D rendering (Not supervised by radiologist): MIP and/or 3D reconstructed images were created by the technologist. Radiation optimization: All CT scans at this facility use at least one of these dose optimization techniques: automated exposure control; mA and/or kV adjustment per patient size (includes targeted exams where dose is matched to clinical indication); or iterative reconstruction. Contrast material: VISI 320; Contrast volume: 93 ml; Contrast route: INTRAVENOUS (IV); COMPARISON: CT Chest/Abdomen/Pelvis w IV* 06/21/2017 8:57 PM RADIATION DOSE METRICS: Total DLP (mGy-cm): 550.22 FINDINGS: Limitations: Study is limited due to patient body habitus. Pulmonary arteries: There is no evidence of filling defects within the pulmonary arterial circulation to suggest pulmonary embolism. Aorta: Unremarkable. No aortic aneurysm. No aortic dissection. Lungs: There is calcified granuloma in the left upper lobe. There is mosaic attenuation in regions of the lung which may represent mild gas trapping. Pleural space: Unremarkable. No pneumothorax. No pleural effusion. Heart: The heart is moderately enlarged. Lymph nodes: Unremarkable. No enlarged lymph nodes. Intraperitoneal space: There is some ascites in the upper abdomen adjacent to the liver not fully evaluated on this examination. Bones/joints: Unremarkable. No acute fracture. Soft tissues: There is a 7.5 x 7.5 x 3 cm fluid collection in the right chest wall most likely representing postoperative seroma. There has been a right mastectomy. CT/CT angio chest PE protcl [id number] IMPRESSION: 1. Old granulomatous disease. 2. No evidence of pulmonary embolism. 3. Status post right mastectomy with probable postoperative seroma. 4. Ascites Radiation Dose CTDIVOL = (mGy): DLP = 550.22 (mGy-cm)
[2020-05-07] MEDS: FUROsemide 10 mg/mL SDV 4mL 40 MG IVP (17:00)
[2020-05-07 17:44] LABS: Reflex Lactate Order REFLEX LACTIC ORDERD
--- NOTE | 2020-05-07 18:32 | ECG_ITS ---
[facility] Test Date: 2020-05-07 Pat Name: Neeta Roche Department: Room: Gender: Female Maxillofacial Pathology: : 1950 Requested By: Linda Jacobo Order Number: [id number] Lilly MD: Amador Lynn M.D. Measurements Intervals Mona Rate: 132 P: UT: -1 QRS: 23 QRSD: 89 T: 60 QT: 331 QTc: 491 Interpretive Statements ATRIAL FIBRILLATION WITH RAPID VENTRICULAR RESPONSE LOW QRS VOLTAGE IN PRECORDIAL LEADS [QRS DEFLECTION < 1.0 mV IN CHEST LEADS] NONSPECIFIC T-WAVE ABNORMALITY ABNORMAL RHYTHM ECG Compared to ECG 07/26/2018 12:49:11 Low QRS voltage now present T-wave abnormality now present Junctional rhythm no longer present Electronically Signed On 05-07-2020 19:20:28 MANAGER LPN by Amador Lynn M.D. [id number]
--- NOTE | 2020-05-07 19:01 | PC.NURSE ---
patient report received from ÁNGEL Perdomo and care transferred to ÁNGEL Worthy
[2020-05-07 19:16] LABS: Lactic Acid level (Lactate) 1.1 mmol/L (0.5-2.2); Troponin(5th) Baseline 41 ng/L (0-10)
--- NOTE | 2020-05-07 19:34 | PC.NURSE ---
patient to CT
[2020-05-07] MEDS: iodixanol 320 mg/mL 100mL Btl IV (19:59)
--- NOTE | 2020-05-07 20:05 | PC.NURSE ---
back from CT
--- NOTE | 2020-05-07 20:32 | ECG_ITS ---
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 Measurements Intervals [place] Rate: 107 P: ME: -1 QRS: 29 QRSD: 90 T: 93 QT: 362 QTc: 485 Interpretive Statements ATRIAL FIBRILLATION WITH RAPID VENTRICULAR RESPONSE LOW QRS VOLTAGE IN PRECORDIAL LEADS [QRS DEFLECTION < 1.0 mV IN CHEST LEADS] NONSPECIFIC T-WAVE ABNORMALITY Compared to ECG 05/07/2020 14:51:57 No significant changes Electronically Signed On 05-08-2020 10:18:50 FLAT HAMMERER by Moris Basilio M.D. [id number]
--- NOTE | 2020-05-07 20:51 | PC.NURSE ---
HOSPITALIST IN ROOM WITH PATIENT
--- NOTE | 2020-05-07 21:12 | PC.NURSE ---
PATIENT READJUSTED IN BED FOR COMFORT, PATIENT GIVEN FOOD PER HCP APPROVAL.
--- NOTE | 2020-05-07 21:21 | PC.NURSE ---
PATIENT DAUGHTER UPDATED ON PATIENT CARE PLAN.
--- NOTE | 2020-05-07 21:31 | PM.HP ---
Providers/Chief Complaint Primary Care Provider: Yaya Lara Chief Complaint: trouble breathing, states pcp sent History of Present Illness Neeta Roche is a 69 year old female who has history of right breast cancer currently on adjuvant therapy with Arimidex, oxygen dependent COPD uses 2 L, morbidly obese, came in with chief complaint of worsening shortness of breath. Patient is stating that her symptoms started about 4 to 6 weeks ago, at baseline she is not very active, she tries to use wheelchair or a walker at home, lately she has been experiencing orthopnea, PND increase swelling of her lower extremities, her PCP increased her Lasix frequency to twice a day, her symptoms did not improve with increasing frequency of Lasix, however she is not sure about the dosage(previous records revealed Lasix 40 mg a day), she decided to come to the hospital for worsening shortness of breath and fatigue. Patient is denying fever, diarrhea, chest pain, productive cough, headaches. Diagnosis in the ER revealed CHF exacerbation, high D-dimer currently she is on Eliquis, patient is stating that she is compliant with her medications, at the time my evaluation she was very upset for being in the bed for so long, she is not endorsing any chest pain, shortness of breath currently she is on 4 L nasal cannula, Currently she is in A. fib RVR heart rate fluctuating between 1 20-1 50s, she is on Cardizem drip at 10. Review of Systems Const: Reports: chills, body aches, change in appetite, fatigue and malaise; Denies: fever(s) Eyes: Denies: change in vision ENMT: Denies: throat pain Card: Reports: chest pain, irregular heart rhythm, swelling of feet/ankles, dyspnea on exertion and orthopnea Resp: Reports: dyspnea; Denies: productive cough or non-productive cough GI: Denies: abdominal pain, nausea, vomiting, diarrhea or constipation : Denies: flank pain Musc: Reports: extremity swelling Skin/Breast: Reports: lesions Neuro: Reports: difficulty walking Psych: Reports: irritability Endo: Denies: polyuria Herb/Lymph: Denies: easy bruising All/Imm: Denies: urticaria Medications/Allergies Home Medications Medication Instructions Recorded Confirmed Last Taken Type atorvastatin 40 mg tablet 40 mg PO DAILY 04/25/20 05/07/20 Unknown History citalopram 20 mg tablet 20 mg PO DAILY 04/25/20 05/07/20 Unknown History furosemide 40 mg tablet 40 mg PO DAILY 04/25/20 05/07/20 Unknown History hydrocodone 5 mg-acetaminophen 325 1 tab PO Q8H PRN MDD 3 TABS 04/25/20 05/07/20 Unknown History mg tablet levetiracetam 750 mg tablet 750 mg PO BID 04/25/20 05/07/20 Unknown History montelukast 10 mg tablet 10 mg PO DAILY 04/25/20 05/07/20 Unknown History [place] See Rx Instructions .ROUTE .COMPLEX 05/07/20 05/07/20 Unknown History amitriptyline 10 mg PO BID 05/07/20 05/07/20 Unknown History anastrozole 1 mg PO DAILY 05/07/20 05/07/20 Unknown History apixaban [Eliquis] 5 mg PO BID 05/07/20 05/07/20 Unknown History aspirin [Aspir-81] 81 mg PO DAILY 05/07/20 05/07/20 Unknown History cholecalciferol (vitamin D3) See Rx Instructions .ROUTE .COMPLEX 05/07/20 05/07/20 Unknown History [Vitamin D3] insulin lispro [Humalog KwikPen 12 unit SUBCUT BID 05/07/20 05/07/20 Unknown History Insulin] Allergies Allergy/AdvReac Type Severity Reaction Status Date / Time No Known Allergies Allergy Verified 05/07/20 16:00 PFSH Acute PFSH: Medical History (Updated 05/07/20 @ 21:44 by Enrique Lopes MD) Breakthrough seizure After stroke on Keppra Breast cancer, right Chronic back pain COPD (chronic obstructive pulmonary disease) Diabetes Fibromyalgia Gastritis H/O: CVA (cerebrovascular accident) Hypertension Morbid obesity Oxygen dependent Stroke May 2017 Type 2 diabetes mellitus Surgical History History of bunionectomy History of tonsillectomy Family History (Updated 05/07/20 @ 21:39 by Enrique Lopes MD) Other No pertinent family history Social History (Updated 05/07/20 @ 21:40 by Enrique Lopes MD) Smoking and tobacco status: never smoked Alcohol intake: never Substance/Drug Use: never Household members: spouse Housing: House Vitals/I&O/Wt Last Vital Signs Temp 97.9 F 05/07/20 13:30 Pulse 115 H 05/07/20 21:11 Resp 17 05/07/20 20:13 BP 137/88 05/07/20 21:11 Pulse Ox 98 05/07/20 21:11 05/07/20 05/07/20 05/07/20 06:59 14:59 22:59 Intake Total 13.75 / 13.75 Balance 13.75 / 13.75 Weight last 48 hrs Weight 136.078 kg Physical Exam Narrative: EXAM NARRATIVE: This is a morbidly obese female no in any acute distress at the time my evaluation Appears stated age Normocephalic atraumatic EOMI, PERRLA Supple neck, Clinically fluid overloaded Variable S1-S2 A. fib RVR 150 currently on Cardizem drip at 10, hypertensive Bilateral breath sounds, shallow, no active wheezing Abdomen soft, distended, obese obesity, abdominal pannus, no active signs of cellulitis Lower extremity venous stasis dermatitis Lower symmetry edema 2+, pedal edema2+ No sign of ischemia or gangrene No active bleeding No cyanosis or clubbing No acute respiratory distress Irritable mood No gross cranial nerve abnormality noted, patient does take some time to answer to my questions Urinary Catheter Management^: Sorensen: Cath Placed During This Visit: yes Urinary Catheter Date of Insertion: 05/07/20 Urinary Catheter Time of Insertion: 18:11 Data : 05/07/20 15:53 05/07/20 15:53 A&P Assessment and plan (1) Atrial fibrillation with RVR: Status: Acute (2) Acute exacerbation of CHF (congestive heart failure): Status: Acute (3) Morbid obesity: Status: Acute (4) Acute and chronic respiratory failure with hypoxia: Status: Acute Additional A&P Information Acute CHF exacerbation Preserved ejection fraction, history of grade 1 diastolic dysfunction EF 55%, echo was done in 2017 High BNP, clinical signs of fluid overload I would use Bumex instead of Lasix No acute signs of ischemia or infarction on EKG, troponin not significantly high Patient might benefit from obstructive sleep apnea evaluation Repeat echo Acute on chronic hypoxic respiratory failure Her oxygen requirement has increased from 2 L to 4 L Currently no acute respiratory stress or chest pain Doing well on 4L nasal cannula saturating well CTA rule out PE, Covid antigen negative No signs of pneumonia Atrial fibrillation with acute onset RVR Heart rate fluctuate between 1 30-1 50s currently on Cardizem drip rate at 10 Admit to telemetry floor Hypertensive Continue Eliquis She does have history of ischemic stroke in the past Full code Cardiac diet DVT prophylaxis not needed currently on Eliquis High inflammatory markers high D-dimer, LDH, COVID-19 PCR has been requested however she has been afebrile no signs of leukocyte abnormality, avoid antibiotics for now Attestations Medical Necessity Statement*: I am anticipating patient might stay more than 2 midnights in the hospital currently she is on Cardizem drip, has acute exacerbation of CHF, acute on chronic hypoxic respiratory failure requiring 4 L of nasal cannula oxygenation Time Spent in Patient Care: (>than 50% of time spent in counselling and/or direct pt care on unit). 40 minutes Coding Level of Care Code Acute Machine Adjuster Helper for Soni [place] Diagnoses Atrial fibrillation with RVR I48.91 Acute exacerbation of CHF (congestive heart failure) I50.9 Morbid obesity E66.01 Acute and chronic respiratory failure with hypoxia J96.21
[2020-05-07 23:18] LABS: Troponin 5 2HR 44.08 ng/L (0-10)
[2020-05-08] VITALS (51 sets, daily range): BP systolic 100–162; BP diastolic 67–120; PULSE 51–123; RESP 10–35; TEMP 35.8–36.7; O2SAT 86–100
--- NOTE | 2020-05-08 00:44 | USCV_ITS ---
Neeta Roche Age: 69 Gender: F : 1950 Exam Date: 05/08/2020 05:45 Ordering Phys: Enrique Lopes MD Technologist: Sandra Gómez [place]am Location[place] [facility] [place]: CHF AFIB BP: 128 / 81 HR: 103 Rhythm: Atrial fibrillation Technical Quality: Very technically difficult study MEASUREMENTS (Male / Female) Normal Values 2D ECHO LV Diastolic Diameter PLAX 4.1 cm 4.2 - 5.9 / 3.9 - 5.3 cm LV Systolic Diameter PLAX 2.6 cm LV Chamber Size 3.6 cm IVS Diastolic Thickness 1.3 cm 0.6 - 1.0 / 0.6 - 0.9 cm IVS Systolic Thickness 1.8 cm LVPW Diastolic Thickness 1.2 cm 0.6 - 1.0 / 0.6 - 0.9 cm LVPW Systolic Thickness 1.6 cm RV Chamber Size 3.1 cm LVOT Diameter 2.0 cm LV Ejection Fraction 2D Teich 65.2 % LV Ejection Fraction MOD 2C 45.7 % LV Ejection Fraction 2C AL 44.8 % LA Diameter 4.4 cm LA Width 2.8 cm LA Height 4.3 cm RA Width 3.9 cm RA Height 5.1 cm Aorta at Sinotubular Diameter 3.2 cm M-MODE LV Diastolic Diameter MM 4.4 cm 4.2 - 5.9 / 3.9 - 5.3 cm LV Systolic Diameter MM 2.8 cm LV Ejection Fraction MM Teich 66.1 % IVS Diastolic Thickness MM 1.3 cm 0.6 - 1.0 / 0.6 - 0.9 cm IVS Systolic Thickness MM 1.6 cm LVPW Diastolic Thickness MM 1.2 cm 0.6 - 1.0 / 0.6 - 0.9 cm LVPW Systolic Thickness MM 1.7 cm RV Diastolic Diameter MM 2.6 cm Aortic Annulus Diameter 2.9 cm LA Ao Ratio MM 1.6 MV E Point Septal Separation 0.7 cm DOPPLER AV Peak Velocity 155.0 cm/s LVOT Peak Velocity 74.8 cm/s AV Area Cont Eq vti 1.5 cm squared AV Area Cont Eq pk 1.5 cm squared MV Area PHT 3.7 cm squared MV E' Velocity 61.0 cm/s Mitral E to MV E' Ratio 12.3 Mitral E to LV E' Lateral Ratio 16.2 Mitral E to LV E' Septal Ratio 9.9 TR Peak Velocity 324.0 cm/s TR Peak Gradient 42.0 mmHg TR Mean Velocity 243.7 cm/s TR Mean Gradient 27.1 mmHg TR Velocity Time Integral 98.0 cm TV Peak E Velocity 97.0 cm/s Right Atrial Pressure 15.0 mmHg Pulmonary Artery Systolic Pressu 57.0 mmHg PV Peak Velocity 66.7 cm/s RV Acceleration Time 0.1 s RV Ejection Time 0.3 s RV AcT/ET 0.3 FINDINGS Left Ventricle Normal left ventricular cavity size. Normal left ventricular systolic function. There appeared to be septal hypokinesis and bounceflattened septum in diastole consistent with right ventricle volume overload. In the presence of atrial fibrillation diastolic function cannot be assessed accurately. Right Ventricle Moderately increased right ventricular size. Severe pulmonary hypertension, RVSP 62 mmHg. Right Atrium Severely increased right atrial size. Left Atrium The left atrium is normal in size. Mitral Valve Mildly thickened mitral valve. No mitral valve stenosis. Trace mitral valve regurgitation. Aortic Valve Moderate aortic valve calcification. No aortic valve stenosis. Trace aortic valve regurgitation. Tricuspid Valve Severe tricuspid valve regurgitation. Pulmonic Valve Structurally normal pulmonic valve without significant stenosis. There is no pulmonic regurgitation. Pericardium Normal pericardium without effusion. Aorta Normal ascending aorta dimension. CONCLUSIONS 1-Normal left ventricular cavity size. Normal left ventricular systolic function. There appeared to be septal hypokinesis and bounceflattened septum in diastole consistent with right ventricle volume overload. In the presence of atrial fibrillation diastolic function cannot be assessed accurately. 2-Moderately increased right ventricular size. Severe pulmonary hypertension, RVSP 62 mmHg. 3-Mildly thickened mitral valve. No mitral valve stenosis. Trace mitral valve regurgitation. 4-Moderate aortic valve calcification. No aortic valve stenosis. Trace aortic valve regurgitation. 5-Severe tricuspid valve regurgitation. 6-There is no pericardial effusion. 7-When compared to the prior echocardiogram dated June 22, 2017 there appeared to be severe tricuspid regurgitation, severe pulmonary hypertension , moderate to severely enlarged right ventricle, severely enlarged right atrium now. Consider pulmonary embolism and pulmonary hypertention. Enrique Roberts MD (Electronically Signed) Final Date: 08 May 2020 19:58 S
[2020-05-08] MEDS: nystatin powder 15 gm Btl 1 APPLIC TOPICAL (01:11)
--- NOTE | 2020-05-08 01:35 | PC.NURSE ---
Sorensen catheter placed while patient was in ED.
[2020-05-08 06:15] LABS: Glucose Point of Care 132 mg/dL (70-110)
[2020-05-08 06:16] LABS: Blood Urea Nitrogen 21 mg/dL (8-23); Carbon Dioxide 27 mmol/L (22-29); Chloride 101 mmol/L (98-107); Glucose 122 mg/dL (65-115); Osmolality Calculated 292 mOsm/kg (285-295); Sodium 139 mmol/L (136-145)
[2020-05-08 06:17] LABS: Anion Gap 15.2 (5-19); Potassium 4.2 mmol/L (3.5-5.1)
--- NOTE | 2020-05-08 06:23 | PC.NURSE ---
SHIFT SUMMARY: PT RESTING IN BED/QUIETLY. DENIES PAIN AT THIS TIME. ALL VS AND ASSESSMENTS CHARTED. NO ACUTE INCIDENTS NOTED.
[2020-05-08] MEDS: metoprolol tartrate 50 mg Tablet 100 MG PO (08:36)
[2020-05-08] MEDS: montelukast sodium 10 mg Tablet PO (08:36)
[2020-05-08] MEDS: levETIRAcetam 500 mg Tablet 750 MG PO ×2 (08:36→17:46)
[2020-05-08] MEDS: apixaban 5 mg Tablet PO ×2 (08:36→17:46)
[2020-05-08] MEDS: HYDROcodone-acetaminophen 5-325 mg Tablet 1 TAB PO ×2 (08:37→16:48)
[2020-05-08] MEDS: bumetanide 1 mg Tablet 2 MG PO (08:37)
[2020-05-08] MEDS: aspirin 81 mg EC Tablet PO (08:37)
[2020-05-08] MEDS: atorvastatin 40 mg Tablet PO (08:37)
--- NOTE | 2020-05-08 10:34 | PM.PN ---
Subjective Subjective: Interval history: Patient SOB has improved.H.R is well controlled.Has good urine output.Remained A.febrile. Labs reviewed Vitals/I&O/Wt Last Vital Signs Temp 96.4 F L 05/08/20 07:22 Pulse 91 05/08/20 07:22 Resp 15 05/08/20 07:22 BP 132/106 05/08/20 07:22 Pulse Ox 99 05/08/20 07:22 05/07/20 05/08/20 05/08/20 22:59 06:59 14:59 Intake Total 13.75 / 13.75 111.250 / 125.000 360 / 360 Output Total 2500 / 2500 Balance 13.75 / 13.75 -2388.750 / -2375.000 360 / 360 Weight last 48 hrs Weight 160.481 kg Weight 136.078 kg Physical Exam Const: COMMON NORMALS: patient oriented x3 HENMT: COMMON NORMALS: normocephalic, atraumatic, hearing grossly normal bilaterally and external ears normal HEAD & SCALP: normocephalic and atraumatic EXTERNAL EAR: Yes external ears normal Eye: COMMON NORMALS: no scleral icterus GENERAL EYE: appearance normal, both eyes and all related structures Chest: COMMONS NORMALS: normal inspection of the chest and normal palpation of entire chest wall CHEST: Yes Symmetrical chest wall rise Resp: COMMON NORMALS: normal respiratory effort, No retractions, No use of accessory muscles and clear to auscultation bilaterally EFFORT & INSPECTION: Yes symmetric chest movement AUSCULTATION: clear to auscultation bilaterally Cardio: COMMON NORMALS: regular rate, regular rhythm, S1 normal heart sound present, S2 normal heart sound present, No gallops present (Cardio), No murmurs present (Cardio), No rub (Cardio) and Peripheral pulses 2+ throughout RATE: regular rate RHYTHM: regular rhythm HEART SOUNDS: S1 normal heart sound present and S2 normal heart sound present PERIPHERAL PULSES: Peripheral pulses 2+ throughout GI: COMMON NORMALS: Normal to inspection, nondistended, normoactive bowel sounds present, Soft to palpation, non-tender, No hepatosplenomegaly present and no masses AUSCULTATION: Yes normoactive bowel sounds PALPATION: Yes Soft to palpation and Yes No hepatosplenomegaly present RECTAL EXAM: deferred OTHER: Abdomen soft, distended, obese obesity, Extremity: NARRATIVE EXTREMITY EXAM: Lower symmetry edema 2+, pedal edema2+, Lower extremity venous stasis dermatitis, No cyanosis or clubbing Neuro: COMMON NORMALS: patient oriented x3 Urinary Catheter Management^: Sorensen: Cath Placed During This Visit: yes Reason for Continuing Indwelling Catheter: Acute Urinary Retention or Obstruction Urinary Catheter Date of Insertion: 05/08/20 Urinary Catheter Time of Insertion: 18:11 Data : 05/07/20 15:53 05/08/20 05:00 A&P Assessment and plan (1) Acute exacerbation of CHF (congestive heart failure): Ac on chronic HFpEF Exacerbation. ( grade 1 diastolic dysfunction EF 55%, echo : 2017) B/L Basal crackles with diminished air entry B/L High BNP ( Even in presence of Morbid obesity ) Bumex 2 mg PO Daily Status: Acute (2) Atrial fibrillation with RVR: Currently rate is well controlled. Off Cardizem Drip Continue Metoprolol .T 100 Mg q12 h daily Status: Acute (3) Acute and chronic respiratory failure with hypoxia: likely 2/2 to Heart failure exacerbation. Currently saturating well on 4-5 Ls oxygen via NC Status: Acute (4) Diabetes: LDSSI FSG Status: Inactive (5) COPD (chronic obstructive pulmonary disease): No wheezing, no Rochii.Not in Exacerbation. Will hold off steroids for now Status: Inactive (6) Stroke: On Eliquis Status: Inactive (7) Breakthrough seizure: On Keppra Status: Inactive (8) Morbid obesity: Status: Acute (9) Breast cancer, right: Status: Inactive (10) Chronic back pain: Status: Inactive Additional A&P Information DVT PPX: On Eliuis Code Status:Full Code Disposition : Home Attestations Medical Necessity Statement*: Patient needs to be in hospital for the management of Ac HFpEF Exacerbation. Coding Level of Care Code Acute Director Of Labor Relations for g Fwd Exam Detailed Diagnoses Acute exacerbation of CHF (congestive heart failure) I50.9 Atrial fibrillation with RVR I48.91 Acute and chronic respiratory failure with hypoxia J96.21 Diabetes E11.9 COPD (chronic obstructive pulmonary disease) J44.9 Stroke I63.9 Breakthrough seizure G40.919 Morbid obesity E66.01 Breast cancer, right C50.911 Chronic back pain M54.9; G89.29
[2020-05-08 11:39] LABS: Glucose Point of Care 295 mg/dL (70-110)
[2020-05-08 16:11] LABS: Glucose Point of Care 191 mg/dL (70-110)
[2020-05-08] MEDS: ondansetron 2 mg/ML SDV 2 mL 4 MG IVP (16:48)
--- NOTE | 2020-05-08 17:12 | PC.RESP ---
Pulmonary Rehab information sent to patient.
[2020-05-08] MEDS: metoprolol tartrate 50 mg Tablet PO (17:46)
--- NOTE | 2020-05-08 18:07 | PC.NURSE ---
notified Dr lagunas of patient heart rate and verified orders to give metoprolol 100 mg PO now instructions to give only 50mg po metoprolol now and monitor Heart rate.
[2020-05-08 22:24] LABS: Glucose Point of Care 164 mg/dL (70-110)
--- NOTE | 2020-05-08 23:13 | PC.NURSE ---
NURSING NOTE: MENTAL STATUS CHANGE: AT APPROXIMATELY 2210, PT PULLING OFF TELEMETRY, PULLED OUT IV, AND NOT ABLE TO ANSWER ORIENTATION QUESTIONS APPROPRIATELY. 02 SATS BOUNCING BETWEEN UPPER 70'S AND 90'S. CONTINUALLY PULLING OFF NASAL CANULA AND THROWING IT IN THE FLOOR. DR. LOZADA TEXTED AT THIS TIME. GAVE ORDER TO OBTAIN ABG'S IF PT'S 02 SAT CONTINUES TO BOUNCE BACK AND FORTH BETWEEN 60%-90'S. CURRENTLY RESTING WITH EYES CLOSED. 02 SAT 95% ON 4L PER NC.
[2020-05-09] VITALS (68 sets, daily range): BP systolic 100–132; BP diastolic 69–101; PULSE 69–100; RESP 6–25; TEMP 36.3–36.7; O2SAT 79–99
--- NOTE | 2020-05-09 06:11 | PC.NURSE ---
NURSING NOTE: URINARY OUTPUT: PT HAS HAD PERIODS OF CONFUSION ALL SHIFT. PT CONTINUES TO PULL ON TUBES AND WIRES AND REMOVE ALL BLANKETS AND CLOTHING. DOES NOT RESPOND APPROPRIATELY TO ORIENTATION QUESTIONS. URINARY OUTPUT GREATLY DECREASED FROM PREVIOUS DAY. URINE CLEAR AT START OF SHIFT AND NOW PRESENTS CLOUDY AND THICK. CALL PLACED TO DR. LOZADA AT THIS TIME. RECEIVED ORDERS FOR UA. SPECIMEN TO LAB PER EMILY BROWN AT THIS TIME. ALL VS AND ASSESSMENTS CHARTED. WILL CONTINUE TO MONITOR.
[2020-05-09 06:30] LABS: Glucose Urine UA Norm (Normal); Protein Urine 3+ (Negative); Urine Color Yellow (Yellow)
[2020-05-09 06:31] LABS: Add Urine Microscopic? YES; Bacteria Urine 3+ /hpf; Bilirubin Urine Neg (Negative); Blood Urine 3+ (Negative); Ketones Urine 1+ (Negative); Leukocyte Esterase Urine 2+ (Negative); Nitrate Urine Negative (Negative); Urobilinogen Urine 1 mg/dL (Negative); WBC Urine TOO NUMEROUS TO CNT /hpf (0-5)
[2020-05-09 06:32] LABS: Add Urine Culture? Yes
--- NOTE | 2020-05-09 07:58 | CT_ITS ---
WS: [id number] CT HEAD TECHNIQUE: Noncontrast CT of the head obtained from the skullbase to the vertex. CLINICAL INFORMATION: mental status change COMPARISON: CT 6 9017 DLP: 709.[address] scans at [facility] use at least one of these dose optimization techniques: automat ed exposure control; mA and/or kV adjustment per patient size (includes targeted exams where dose is matched to clinical indication); or iterative reconstruction. FINDINGS: No evidence of intracranial hemorrhage or mass effect. Ventricular system and basal cisterns are marrero nt. Mild small vessel changes with mild parenchymal volume loss. Chronic appearing left parasagittal occipital and posterior temporal infarct with encephalomalacia. Additional focus of chronic appearin g ischemia in the right ge radiata extending into the internal capsule. Normal posterior fossa. L eft middle cranial fossa arachnoid cyst measuring 3.8 x 2.7 cm unchanged. Mild mucosal thickening right greater than left mastoid air cells. Paranasal sinuses are well aerated . CT/CT head wo con* [id number] IMPRESSION: 1. Chronic appearing infarcts in the left parasagittal occipital lobe and post erior temporal lobes with encephalomalacia. Ex vacuo dilatation left occipital horn. 2. Chronic appearing ischemia right ge radiata. 3. Unchanged left middle cranial fossa arachnoid cyst. 4. Mild small vessel changes with mild parenchymal volume loss. 5. No other significant findings.
--- NOTE | 2020-05-09 08:07 | PC.NURSE ---
upon assessment patient found with altered mental status patient unable to answer questions appropriately patient when asked what year it is patient stated today patient was unable to tell me her name or was able to follow some commands. DR lagunas notified of findings instructions to obtain a Stat CT head and ABG's
[2020-05-09] MEDS: levETIRAcetam 500 mg Tablet 750 MG PO ×2 (09:39→17:50)
[2020-05-09] MEDS: atorvastatin 40 mg Tablet PO (09:40)
[2020-05-09] MEDS: montelukast sodium 10 mg Tablet PO (09:40)
[2020-05-09] MEDS: bumetanide 1 mg Tablet 2 MG PO (09:40)
[2020-05-09] MEDS: apixaban 5 mg Tablet PO ×2 (09:40→17:50)
[2020-05-09] MEDS: aspirin 81 mg EC Tablet PO (09:40)
[2020-05-09] MEDS: metoprolol tartrate 50 mg Tablet PO ×2 (09:48→17:50)
[2020-05-09 09:54] LABS: Glucose Point of Care 115 mg/dL (70-110)
[2020-05-09 10:01] LABS: ABG PCO2 58.4 mmHg (35-45); ABG PH Result 7.31 (7.35-7.45); Arterial Blood Gas Hematocrit 35.7 % (37-47); Base Excess ABG 1.7 mmol/L (-2.0-2.0); Blood Gas Sample Site Brachial, right; Blood Gas Sample Type Arterial; Carboxyhemoglobin 1.6 %THgb (0.4-20.1); HCO3 ABG 29.1 mmol/L (22-26); HGB O2 Sat 94.8 % (95-100); Ionized Calcium Level - ABG 1.2 mmol/L (1.1-1.4); Methemoglobin 0.6 % (0.4-1.5); Oxygen Device NC; Oxygen Saturation ABG 96.9; PO2 ABG 91.9 mmHg (80.0-100.0); Potassium Level - ABG 4.6 mmol/L (3.5-5.0); Total Hemoglobin 11.6 g/dL (12-16)
[2020-05-09 10:09] LABS: Basophils % 0.3 %; Eosinophils # 0.1 10^3/uL (0.0-0.8); Eosinophils % 1.2 %; Hematocrit 40.2 % (37.0-47.0); Hemoglobin 11.2 g/dL (11.5-15.3); Lymphocytes # 1.4 10^3/uL (0.8-4.8); Lymphocytes % 21.1 %; Mean Corpuscular HGB Conc 27.9 g/dL (30.0-36.0); Mean Corpuscular Hemoglobin 25.7 pg (28.0-34.0); Mean Corpuscular Volume 92.2 fL (81-99); Mean Platelet Volume 10.1 fL (7.4-10.4); Monocytes # 0.5 10^3/uL (0.2-0.9); Monocytes % 7.1 %; Neutrophils # 4.54 10^3/uL (1.8-7.7); Nucleated Red Blood Cells % 0 %; Platelet Count 169 10^3/cmm (130-400); Red Blood Count 4.36 10^6/uL (4.1-5.3); Red Cell Distribution Width 15.2 % (12.1-15.1); White Blood Count 6.5 10^3/uL (4.0-10.0)
[2020-05-09 10:19] LABS: Alanine Aminotransferase 7 U/L (0-33); Albumin Level 3.5 g/dL (3.5-5.2); Alkaline Phosphatase 89 IU/L (35-105); Anion Gap 13.5 (5-19); Aspartate Amino Transferase 16 U/L (0-32); Blood Urea Nitrogen 32 mg/dL (8-23); Calcium 9.1 mg/dL (8.5-10.5); Carbon Dioxide 30 mmol/L (22-29); Chloride 99 mmol/L (98-107); Globulin 3.7 g/dL (1.3-4.6); Glucose 116 mg/dL (65-115); Magnesium 2.2 mg/dL (1.7-2.3); Osmolality Calculated 294 mOsm/kg (285-295); Potassium 4.5 mmol/L (3.5-5.1); Sodium 138 mmol/L (136-145); Total Bilirubin 0.4 mg/dL (0.15-1.2); Total Protein 7.2 g/dL (6.6-8.7)
--- NOTE | 2020-05-09 10:44 | PC.RESP ---
Patient refuses to wear bipap. Patient stated that she cannot and will not wear bipap, at all. This RT explained the dangers of her not wearing the bipap and patient still refused.
[2020-05-09 11:40] LABS: Coronavirus Lab Test PTC Negative
--- NOTE | 2020-05-09 11:51 | PC.NURSE ---
Dr Martínez notified of negative covid results ok to dc isolation precaution
--- NOTE | 2020-05-09 12:12 | PM.PN ---
Subjective Subjective: Interval history: Patient was agitated and aggressive this morning, pulling lines and removing clothes.she subsequently settled down.later in day she reported that her SOB has improved.She is making good urine ( U/O since admission 3950 ml LOS : - 2805 ) . Has remained afebrile. HR is well controlled. Medications: Reviewed: Yes Vitals/I&O/Wt Last Vital Signs Temp 97.4 F L 05/09/20 07:19 Pulse 100 05/09/20 07:19 Resp 18 05/09/20 07:19 BP 124/101 05/09/20 07:19 Pulse Ox 99 05/09/20 07:19 05/08/20 05/09/20 05/09/20 22:59 06:59 14:59 Intake Total 120 / 480 Output Total 850 / 850 300 / 1150 Balance -730 / -370 -300 / -670 Weight last 48 hrs Weight 160.481 kg Weight 136.078 kg Physical Exam Const: COMMON NORMALS: patient oriented x3 HENMT: COMMON NORMALS: normocephalic, atraumatic, hearing grossly normal bilaterally and external ears normal HEAD & SCALP: normocephalic and atraumatic EXTERNAL EAR: Yes external ears normal Eye: COMMON NORMALS: no scleral icterus GENERAL EYE: appearance normal, both eyes and all related structures Chest: COMMONS NORMALS: normal inspection of the chest and normal palpation of entire chest wall CHEST: Yes Symmetrical chest wall rise Resp: COMMON NORMALS: normal respiratory effort, No retractions, No use of accessory muscles and clear to auscultation bilaterally EFFORT & INSPECTION: Yes symmetric chest movement AUSCULTATION: clear to auscultation bilaterally Cardio: COMMON NORMALS: regular rate, regular rhythm, S1 normal heart sound present, S2 normal heart sound present, No gallops present (Cardio), No murmurs present (Cardio), No rub (Cardio) and Peripheral pulses 2+ throughout RATE: regular rate RHYTHM: regular rhythm HEART SOUNDS: S1 normal heart sound present and S2 normal heart sound present PERIPHERAL PULSES: Peripheral pulses 2+ throughout GI: COMMON NORMALS: Normal to inspection, nondistended, normoactive bowel sounds present, Soft to palpation, non-tender, No hepatosplenomegaly present and no masses AUSCULTATION: Yes normoactive bowel sounds PALPATION: Yes Soft to palpation and Yes No hepatosplenomegaly present RECTAL EXAM: deferred OTHER: Abdomen soft, distended, obese obesity, Extremity: NARRATIVE EXTREMITY EXAM: B/L L/E 2+ Pitting edema Neuro: COMMON NORMALS: patient oriented x3 Urinary Catheter Management^: Sorensen: Cath Placed During This Visit: yes Reason for Continuing Indwelling Catheter: Accurate Measurement of Urinary Output in Critically Ill Patients Urinary Catheter Date of Insertion: 05/08/20 Urinary Catheter Time of Insertion: 18:11 Data : 05/09/20 09:38 05/09/20 09:38 A&P Assessment and plan (1) Acute exacerbation of CHF (congestive heart failure): Ac on chronic HFpEF Exacerbation. ( grade 1 diastolic dysfunction EF 55%, echo : 2017) High BNP ( Even in presence of Morbid obesity ) Bumex decreased to 1 mg PO Daily from 2mg due to increase in SCR Status: Acute (2) Atrial fibrillation with RVR: Currently rate is well controlled. Off Cardizem Drip Metoprolol .T Decreased to 50 mg q12h daily from 100 Mg q12 h daily Status: Acute (3) Acute and chronic respiratory failure with hypoxia: likely 2/2 to Heart failure exacerbation. Improving Currently saturating well on 4-5 Ls oxygen via [place] moving towards baseline home oxygen (4L) ABG: Chronic (compensated) primary respiratory acidosis Status: Acute (4) Diabetes: LDSSI FSG: Well Controlled. Status: Inactive (5) COPD (chronic obstructive pulmonary disease): No wheezing, no Rochii.Not in Exacerbation. ABG: Chronic (compensated) primary respiratory acidosis. Will hold off steroids for now Status: Inactive (6) Stroke: On Eliquis Status: Inactive (7) Breakthrough seizure: On Keppra Status: Inactive (8) Morbid obesity: Status: Acute (9) Breast cancer, right: Status: Inactive (10) Chronic back pain: Status: Inactive Additional A&P Information DVT PPX: On Eliuis Code Status:Full Code Disposition : Home likely in next 48h Patient was offered BIPAP at night,she refused because of claustrophobia. Attestations Medical Necessity Statement*: Patient needs to be in hospital for the management of respiratory failure 2/2 Ac Heart failure. Coding Level of Care Code Acute Family Life Counselor for Soni Richmond Diagnoses Acute exacerbation of CHF (congestive heart failure) I50.9 Atrial fibrillation with RVR I48.91 Acute and chronic respiratory failure with hypoxia J96.21 Diabetes E11.9 COPD (chronic obstructive pulmonary disease) J44.9 Stroke I63.9 Breakthrough seizure G40.919 Morbid obesity E66.01 Breast cancer, right C50.911 Chronic back pain M54.9; G89.29
[2020-05-09] MEDS: albuterol 8 gm MDI 2 PUFF INHALATION ×2 (12:26→19:46)
[2020-05-09 12:27] LABS: Glucose Point of Care 134 mg/dL (70-110)
--- NOTE | 2020-05-09 16:21 | PC.PT ---
Patient adamantly refused 2 attempts at physical therapy evaluation and out of bed today, stating she gets plenty of exercise at home,???; Will reattempt tomorrow; of note patient refused 2 times yesterday as well.
[2020-05-09 16:35] LABS: Glucose Point of Care 154 mg/dL (70-110)
[2020-05-09 20:00] LABS: Glucose Point of Care 146 mg/dL (70-110)
--- NOTE | 2020-05-09 21:05 | PC.NURSE ---
NURSE NOTE: PT ALERT AND ORIENTED X3-4. GETS CONFUSED ON WHAT DAY IT IS. VERY DROWSY. AROUSES EASILY. MOVES ALL EXTREMITIES AND FOLLOWS ALL COMMANDS. ALL VS AND ASSESSMENTS CHARTED. DENIES PAIN. NO DISTRESS NOTED AT THIS TIME.
[2020-05-10] VITALS (63 sets, daily range): BP systolic 94–139; BP diastolic 66–86; PULSE 73–107; RESP 0–28; TEMP 36.1–37; O2SAT 92–100
--- NOTE | 2020-05-10 05:30 | PC.NURSE ---
NURSE NOTE: SHIFT SUMMARY: BIPAP PLACED ON PT PER RT AT APPROXIMATELY 2330 LAST EVENING. PT HAS TOLERATED WELL. SLEPT MOST OF SHIFT. VERY COOPERATIVE. CURRENTLY RESTING WITH EYES CLOSED. BIPAP IN PLACE. AROUSES EASILY. ALL VS AND ASSESSMENTS CHARTED. NO DISTRESS NOTED AT THIS TIME.
[2020-05-10 07:27] LABS: Glucose Point of Care 97 mg/dL (70-110)
[2020-05-10] MEDS: albuterol 8 gm MDI 2 PUFF INHALATION ×4 (07:40→21:35)
[2020-05-10] MEDS: atorvastatin 40 mg Tablet PO (08:32)
[2020-05-10] MEDS: metoprolol tartrate 50 mg Tablet PO ×2 (08:32→17:52)
[2020-05-10] MEDS: levETIRAcetam 500 mg Tablet 750 MG PO ×2 (08:32→17:51)
[2020-05-10] MEDS: aspirin 81 mg EC Tablet PO (08:32)
[2020-05-10] MEDS: apixaban 5 mg Tablet PO ×2 (08:32→17:53)
[2020-05-10] MEDS: bumetanide 1 mg Tablet PO (08:33)
[2020-05-10] MEDS: montelukast sodium 10 mg Tablet PO (08:33)
--- NOTE | 2020-05-10 09:19 | DCPLANNER ---
IMM completed on 05/10/2020 @ 0910. Copy of rights given to pt.
[2020-05-10 12:22] LABS: Glucose Point of Care 145 mg/dL (70-110)
[2020-05-10 14:44] LABS: Basophils % 0.2 %; Eosinophils # 0.1 10^3/uL (0.0-0.8); Eosinophils % 1.4 %; Hematocrit 37.4 % (37.0-47.0); Hemoglobin 10.7 g/dL (11.5-15.3); Lymphocytes # 0.8 10^3/uL (0.8-4.8); Lymphocytes % 14.5 %; Mean Corpuscular HGB Conc 28.6 g/dL (30.0-36.0); Mean Platelet Volume 9.5 fL (7.4-10.4); Monocytes # 0.3 10^3/uL (0.2-0.9); Monocytes % 5.8 %; Neutrophils % 77.7 %; Nucleated Red Blood Cells % 0 %; Platelet Count 154 10^3/cmm (130-400); Red Blood Count 4.11 10^6/uL (4.1-5.3); Red Cell Distribution Width 15.1 % (12.1-15.1); White Blood Count 5.7 10^3/uL (4.0-10.0)
--- NOTE | 2020-05-10 15:03 | P.PN_ITS ---
Subjective Subjective: Interval history: Patient has improved significantly, her SOB has improved a lot,currently at baseline home oxygen.She was complaining of rt lower extremity pain , which is chronic for her. U/O In the last 24h :750 cc Has remained afebrile, other vitals are stable. Medications: Reviewed: Yes Vitals/I&O/Wt Last Vital Signs Temp 96.9 F L 05/10/20 12:00 Pulse 96 05/10/20 12:00 Resp 22 H 05/10/20 12:00 BP 94/66 05/10/20 12:00 Pulse Ox 92 05/10/20 12:00 05/10/20 05/10/20 05/10/20 06:59 14:59 22:59 Intake Total 562 / 562 Output Total 450 / 900 Balance -450 / -360 562 / 562 Physical Exam Const: COMMON NORMALS: patient oriented x3 HENMT: COMMON NORMALS: normocephalic, atraumatic, hearing grossly normal bila terally and external ears normal HEAD & SCALP: normocephalic and atraumatic EXTERNAL EAR: Yes external ears normal Eye: COMMON NORMALS: no scleral icterus GENERAL EYE: appearance normal, both eyes and all related structures Chest: COMMONS NORMALS: normal inspection of the chest and normal palpation of entire chest wall CHEST: Yes Symmetrical chest wall rise Resp: COMMON NORMALS: normal respiratory effort, No retractions, No use of accessory muscles and clear to auscultation bilaterally EFFORT & INSPECTION: Yes symmetric chest movement AUSCULTATION: clear to auscultation bilaterally Cardio: COMMON NORMALS: regular rate, regular rhythm, S1 normal heart sound present, S2 normal heart sound present, No gallops present (Cardio), No murmurs present (Cardio), No rub (Cardio) and Peripheral pulses 2+ throughout RATE: regular rate RHYTHM: regular rhythm HEART SOUNDS: S1 normal heart sound present and S2 normal heart sound present PERIPHERAL PULSES: Peripheral pulses 2+ throughout GI: COMMON NORMALS: Normal to inspection, nondistended, normoactive bowel sounds present, Soft to palpation, non-tender, No hepatosplenomegaly present and no masses AUSCULTATION: Yes normoactive bowel sounds PALPATION: Yes Soft to palpation and Yes No hepatosplenomegaly present RECTAL EXAM: deferred OTHER: Abdomen soft, distended, obese obesity, Extremity: NARRATIVE EXTREMITY EXAM: 1+ b/l /edema Present Neuro: COMMON NORMALS: patient oriented x3 Urinary Catheter Management^: Sorensen: Cath Placed During This Visit: yes Reason for Continuing Indwelling Catheter: Acute Urinary Retention or Obstruction Urinary Catheter Date of Insertion: 05/08/20 Urinary Catheter Time of Insertion: 18:11 Data : 05/10/20 14:34 05/09/20 09:38 Micro: Microbiology 05/09/20 06:00 Urine Culture - Preliminary Urine,Clean Catch Gram Negative Rods A&P Assessment and plan (1) Acute exacerbation of CHF (congestive heart failure): Ac on chronic HFpEF Exacerbation. ( grade 1 diastolic dysfunction EF 55%, echo : 2017) High BNP ( Even in presence of Morbid obesity ) Continue Bumex 1 mg PO Daily Status: Acute (2) Atrial fibrillation with RVR: Currently rate is well controlled. Off Cardizem Drip Metoprolol .T Decreased to 50 mg q12h daily from 100 Mg q12 h daily Status: Acute (3) Acute and chronic respiratory failure with hypoxia: likely 2/2 to Heart failure exacerbation. Improving Currently saturating well on 3l Ls oxygen via [place] baseline home oxygen (4L) ABG: Chronic (compensated) primary respiratory acidosis Status: Acute (4) Diabetes: LDSSI FSG: Well Controlled. Status: Inactive (5) COPD (chronic obstructive pulmonary disease): No wheezing, no Rochii.Not in Exacerbation. ABG: Chronic (compensated) primary respiratory acidosis. Will hold off steroids for now Status: Inactive (6) Stroke: On Eliquis Status: Inactive (7) Breakthrough seizure: On Keppra Status: Inactive (8) Morbid obesity: Status: Acute (9) Breast cancer, right: Status: Inactive (10) Chronic back pain: Status: Inactive Additional A&P Information DVT PPX: On Eliuis Code Status:Full Code Disposition : Home likely in next 48h Patient was offered BIPAP at night,she refused because of claustrophobia. Attestations Medical Necessity Statement*: Patient needs to be in hospital for the management of Heart failure and hypoxic respiratory failure. Coding Level of Care Code Acute Supervisor Photocomposition for g Fwd Diagnoses Acute exacerbation of CHF (congestive heart failure) I50.9 Atrial fibrillation with RVR I48.91 Acute and chronic respiratory failure with hypoxia J96.21 Diabetes E11.9 COPD (chronic obstructive pulmonary disease) J44.9 Stroke I63.9 Breakthrough seizure G40.919 Morbid obesity E66.01 Breast cancer, right C50.911 Chronic back pain M54.9; G89.29
[2020-05-10 15:06] LABS: Alanine Aminotransferase 10 U/L (0-33); Albumin Level 3.4 g/dL (3.5-5.2); Alkaline Phosphatase 89 IU/L (35-105); Anion Gap 11.7 (5-19); Aspartate Amino Transferase 19 U/L (0-32); Blood Urea Nitrogen 35 mg/dL (8-23); Carbon Dioxide 29 mmol/L (22-29); Chloride 99 mmol/L (98-107); Globulin 3.3 g/dL (1.3-4.6); Glucose 169 mg/dL (65-115); Magnesium 2.2 mg/dL (1.7-2.3); Osmolality Calculated 292 mOsm/kg (285-295); Potassium 4.7 mmol/L (3.5-5.1); Sodium 135 mmol/L (136-145); Total Bilirubin 0.3 mg/dL (0.15-1.2); Total Protein 6.7 g/dL (6.6-8.7)
[2020-05-10 16:35] LABS: Glucose Point of Care 165 mg/dL (70-110)
[2020-05-10] MEDS: HYDROcodone-acetaminophen 5-325 mg Tablet 1 TAB PO (18:34)
[2020-05-10 20:40] LABS: Glucose Point of Care 197 mg/dL (70-110)
[2020-05-11] VITALS (77 sets, daily range): BP systolic 127–141; BP diastolic 84–117; PULSE 72–108; RESP 15–27; TEMP 36.4–37.1; O2SAT 91–99
[2020-05-11 06:35] LABS: Glucose Point of Care 123 mg/dL (70-110)
[2020-05-11] MEDS: albuterol 8 gm MDI 2 PUFF INHALATION ×4 (07:42→20:28)
[2020-05-11] MEDS: metoprolol tartrate 50 mg Tablet PO ×2 (08:29→19:19)
[2020-05-11] MEDS: atorvastatin 40 mg Tablet PO (08:29)
[2020-05-11] MEDS: levETIRAcetam 500 mg Tablet 750 MG PO ×2 (08:30→19:18)
[2020-05-11] MEDS: apixaban 5 mg Tablet PO ×2 (08:32→19:18)
[2020-05-11] MEDS: montelukast sodium 10 mg Tablet PO (08:32)
[2020-05-11] MEDS: bumetanide 1 mg Tablet PO (08:33)
[2020-05-11] MEDS: aspirin 81 mg EC Tablet PO (08:33)
[2020-05-11 10:12] LABS: Basophils % 0.2 %; Eosinophils # 0.1 10^3/uL (0.0-0.8); Eosinophils % 1.2 %; Hematocrit 37.1 % (37.0-47.0); Hemoglobin 10.4 g/dL (11.5-15.3); Lymphocytes % 19.2 %; Mean Corpuscular Hemoglobin 25.6 pg (28.0-34.0); Mean Corpuscular Volume 91.2 fL (81-99); Mean Platelet Volume 10.1 fL (7.4-10.4); Monocytes # 0.4 10^3/uL (0.2-0.9); Monocytes % 7.6 %; Neutrophils # 3.65 10^3/uL (1.8-7.7); Neutrophils % 71.4 %; Nucleated Red Blood Cells % 0 %; Platelet Count 156 10^3/cmm (130-400); Red Blood Count 4.07 10^6/uL (4.1-5.3); Red Cell Distribution Width 14.9 % (12.1-15.1); White Blood Count 5.1 10^3/uL (4.0-10.0)
[2020-05-11 10:28] LABS: Alanine Aminotransferase 8 U/L (0-33); Albumin Level 3.2 g/dL (3.5-5.2); Alkaline Phosphatase 82 IU/L (35-105); Anion Gap 14.5 (5-19); Aspartate Amino Transferase 14 U/L (0-32); Blood Urea Nitrogen 36 mg/dL (8-23); Calcium 8.8 mg/dL (8.5-10.5); Carbon Dioxide 27 mmol/L (22-29); Chloride 100 mmol/L (98-107); Globulin 3.5 g/dL (1.3-4.6); Glucose 116 mg/dL (65-115); Magnesium 2.1 mg/dL (1.7-2.3); Osmolality Calculated 293 mOsm/kg (285-295); Potassium 4.5 mmol/L (3.5-5.1); Sodium 137 mmol/L (136-145); Total Bilirubin 0.3 mg/dL (0.15-1.2); Total Protein 6.7 g/dL (6.6-8.7)
--- NOTE | 2020-05-11 11:17 | PC.CHAP ---
Pastoral Care Encounter/Spiritual Assessment Type of Contact [] Declined blackjack supervisor visit [] Patient/Family/Request visit [] Outpatient visit [] Follow-up visit [] Physician referral [] Code/Alert [] Routine visit [] Staff referral [] Actively dying [X] Patient sleeping [] Family support [] [] Out of room [] Palliative care [] [] Receiving care in room [] Pre-surgical visit [] Trauma [] Long length of stay [] ICU visit [] Other: Relational/Emotional Strength [] Patient feels connected with others/family/visitors/staff [] Distress [] Loneliness/isolation [] Abandonment Spirituality of Patient [] Person of Cha [] Attends Scientologist of their Cha [] Believes in Prayer [] Reads Bible or Scientologist materials [] There are Spiritual issues to be addressed Testing Consultant Interventions [] Prayer [] Active listening [] Non-anxious presence [] Spiritual/emotional support [] Crisis/trauma care [] Spiritual counseling [] Bereavement support [] Provided bereavement packet [] Provided Bible/devotional materials [] Provided toy/stuffed animal, coloring book to patient or family member [] Provided Communion [] Anointing/Castell [] Salvation [] Completed spiritual assessment [] Other: Impact on Illness or Injury [] Angry [] Fearful [] Anxious [] Often cries [] Exhaustion [] Unable to work [] Unable to attend temple [] Unable to walk/stand [] Unable to read [] Unable to drive [] Unable to eat/drink [] Unable to sleep [] Unable to be with family [] Patient intubated [] Other: Summary Time spent with patient
--- NOTE | 2020-05-11 11:36 | PM.PN ---
Subjective Subjective: Interval history: She was examined at bedside.She fells she has significant weakness as well as she still has SOB. She willing to let PT work with her. Vitals are stable. Labs have been reviewed. Medications: Reviewed: Yes Vitals/I&O/Wt Last Vital Signs Temp 97.7 F 05/11/20 08:00 Pulse 105 H 05/11/20 11:32 Resp 20 H 05/11/20 11:32 BP 141/117 05/11/20 11:32 Pulse Ox 96 05/11/20 11:32 05/10/20 05/11/20 05/11/20 22:59 06:59 14:59 Intake Total 422 / 984 240 / 240 Output Total 1350 / 1350 400 / 1750 200 / 200 Balance -928 / -366 -400 / -766 40 / 40 Physical Exam Const: COMMON NORMALS: patient oriented x3 HENMT: COMMON NORMALS: normocephalic and atraumatic HEAD & SCALP: normocephalic and atraumatic Eye: GENERAL EYE: appearance normal, both eyes and all related structures Resp: COMMON NORMALS: normal respiratory effort and clear to auscultation bilaterally EFFORT & INSPECTION: Yes symmetric chest movement AUSCULTATION: clear to auscultation bilaterally Cardio: COMMON NORMALS: regular rate, regular rhythm, S1 normal heart sound present, S2 normal heart sound present, No gallops present (Cardio), No murmurs present (Cardio), No rub (Cardio) and Peripheral pulses 2+ throughout RATE: regular rate RHYTHM: regular rhythm HEART SOUNDS: S1 normal heart sound present and S2 normal heart sound present PERIPHERAL PULSES: Peripheral pulses 2+ throughout GI: COMMON NORMALS: Normal to inspection, nondistended, normoactive bowel sounds present, Soft to palpation, non-tender, No hepatosplenomegaly present and no masses AUSCULTATION: Yes normoactive bowel sounds PALPATION: Yes Soft to palpation and Yes No hepatosplenomegaly present RECTAL EXAM: deferred OTHER: Obese Abdomen Extremity: NARRATIVE EXTREMITY EXAM: Trace b/l l/e edema Neuro: COMMON NORMALS: patient oriented x3 Urinary Catheter Management^: Sorensen: Cath Placed During This Visit: yes Reason for Continuing Indwelling Catheter: Accurate Measurement of Urinary Output in Critically Ill Patients Urinary Catheter Date of Insertion: 05/08/20 Urinary Catheter Time of Insertion: 18:11 Data : 05/11/20 09:14 05/11/20 09:14 Micro: Microbiology 05/09/20 06:00 Urine Culture - Preliminary Urine,Clean Catch Gram Negative Rods A&P Assessment and plan (1) Acute exacerbation of CHF (congestive heart failure): Ac on chronic HFpEF Exacerbation. ( grade 1 diastolic dysfunction EF 55%, echo : 2017) High BNP ( Even in presence of Morbid obesity ) Bumex 1 mg PO Daily held from tomorrow as SCR is trending up. Will reacess her in am for the need of Diuresis Status: Acute (2) Atrial fibrillation with RVR: Currently rate is well controlled. Off Cardizem Drip Metoprolol .T Decreased to 50 mg q12h daily from 100 Mg q12 h daily Status: Acute (3) Acute and chronic respiratory failure with hypoxia: likely 2/2 to Heart failure exacerbation. Improving Currently saturating well on 2l Ls oxygen via [place] baseline home oxygen (4L) ABG: Chronic (compensated) primary respiratory acidosis Status: Acute (4) Diabetes: LDSSI FSG: Well Controlled. Status: Inactive (5) COPD (chronic obstructive pulmonary disease): No wheezing, no Rochii.Not in Exacerbation. ABG: Chronic (compensated) primary respiratory acidosis. Will hold off steroids for now Status: Inactive (6) Stroke: On Eliquis Status: Inactive (7) Breakthrough seizure: On Keppra Status: Inactive (8) Morbid obesity: Status: Acute (9) Breast cancer, right: Status: Inactive (10) Chronic back pain: Status: Inactive Additional A&P Information DVT PPX: On Eliuis Code Status:Full Code Disposition : Home likely in next 48h Patient was offered BIPAP at night,she refused because of claustrophobia.Patient has also refused to work with PT. We had detailed discussion today and explained her the need to participate with PT.She told she will try and work with PT. Attestations Medical Necessity Statement*: Patient needs to be in hospital for the management of HF Exacerbation. Coding Level of Care Code Acute Medical Staff Credentialing Coordinator for Soni Richmond Diagnoses Acute exacerbation of CHF (congestive heart failure) I50.9 Atrial fibrillation with RVR I48.91 Acute and chronic respiratory failure with hypoxia J96.21 Diabetes E11.9 COPD (chronic obstructive pulmonary disease) J44.9 Stroke I63.9 Breakthrough seizure G40.919 Morbid obesity E66.01 Breast cancer, right C50.911 Chronic back pain M54.9; G89.29
[2020-05-11 11:38] LABS: Glucose Point of Care 110 mg/dL (70-110)
[2020-05-11 19:14] LABS: Glucose Point of Care 156 mg/dL (70-110)
--- NOTE | 2020-05-11 19:41 | PC.NURSE ---
Shift summary: Uneventful day. patient refused many assistance/consult from physical therapy. refused turning, and refused pain medication despite reporting pain. After rounding with Dr Martínez, the patient agreed to participate in PT tommorow, which we are thinking will progress patient towards discharge.
[2020-05-11 21:24] LABS: Glucose Point of Care 160 mg/dL (70-110)
[2020-05-12] VITALS (65 sets, daily range): BP systolic 118–139; BP diastolic 75–88; PULSE 79–100; RESP 14–29; TEMP 36.4–37.2; O2SAT 88–96
[2020-05-12 05:28] LABS: Basophils % 0.2 %; Eosinophils # 0.1 10^3/uL (0.0-0.8); Eosinophils % 2.1 %; Hematocrit 35.5 % (37.0-47.0); Hemoglobin 10.1 g/dL (11.5-15.3); Mean Corpuscular HGB Conc 28.5 g/dL (30.0-36.0); Mean Corpuscular Hemoglobin 25.5 pg (28.0-34.0); Mean Corpuscular Volume 89.6 fL (81-99); Mean Platelet Volume 10.3 fL (7.4-10.4); Monocytes # 0.4 10^3/uL (0.2-0.9); Neutrophils # 3.37 10^3/uL (1.8-7.7); Neutrophils % 69.5 %; Nucleated Red Blood Cells % 0 %; Platelet Count 164 10^3/cmm (130-400); Red Blood Count 3.96 10^6/uL (4.1-5.3); Red Cell Distribution Width 14.9 % (12.1-15.1); White Blood Count 4.9 10^3/uL (4.0-10.0)
[2020-05-12 05:53] LABS: Alanine Aminotransferase 7 U/L (0-33); Albumin Level 3.2 g/dL (3.5-5.2); Alkaline Phosphatase 85 IU/L (35-105); Anion Gap 11.4 (5-19); Aspartate Amino Transferase 13 U/L (0-32); Blood Urea Nitrogen 36 mg/dL (8-23); Calcium 9.2 mg/dL (8.5-10.5); Carbon Dioxide 32 mmol/L (22-29); Chloride 100 mmol/L (98-107); Globulin 3.4 g/dL (1.3-4.6); Glucose 141 mg/dL (65-115); Osmolality Calculated 299 mOsm/kg (285-295); Potassium 4.4 mmol/L (3.5-5.1); Sodium 139 mmol/L (136-145); Total Bilirubin 0.3 mg/dL (0.15-1.2); Total Protein 6.6 g/dL (6.6-8.7)
[2020-05-12 07:07] LABS: Glucose Point of Care 132 mg/dL (70-110)
[2020-05-12] MEDS: albuterol 8 gm MDI 2 PUFF INHALATION (07:32)
--- NOTE | 2020-05-12 08:39 | PC.SOCIAL ---
IMM Update Pg. 2 of IMM Updated and reviewed with patient who verbalized understanding. Copy provided.
[2020-05-12] MEDS: levETIRAcetam 500 mg Tablet 750 MG PO ×2 (09:02→17:45)
[2020-05-12] MEDS: aspirin 81 mg EC Tablet PO (09:02)
[2020-05-12] MEDS: montelukast sodium 10 mg Tablet PO (09:02)
[2020-05-12] MEDS: apixaban 5 mg Tablet PO ×2 (09:03→17:46)
[2020-05-12] MEDS: atorvastatin 40 mg Tablet PO (09:03)
[2020-05-12] MEDS: metoprolol tartrate 50 mg Tablet PO ×2 (09:03→17:46)
--- NOTE | 2020-05-12 09:11 | PC.NURSE ---
pt states that she is going home today. she is not staying again. she knows where she lives, how to get there, wants to get home to her boy and his girlfriend and the old man. pt states that she is not scared. pt asked multiple times if she felt like she was good enough to go home today and stated yes, how many times do i have to tell you. pt asked if she would participate with physical therapy so we could see how she does, she refused and says that she uses her walker at home.
--- NOTE | 2020-05-12 11:06 | PM.DCS ---
Discharge Providers Date of Admission: 05/07/20 21:59 Date of Discharge: May 12, 2020 Attending Provider at Admission: Enrique Lopes MD Attending Provider at Discharge: Thor Martínez MD Primary Care Provider: Yaya Lara Diagnoses at Discharge Discharge Diagnosis (1) Acute exacerbation of CHF (congestive heart failure): Status: Acute (2) Atrial fibrillation with RVR: Status: Acute (3) Acute and chronic respiratory failure with hypoxia: Status: Acute (4) Diabetes: Status: Inactive (5) COPD (chronic obstructive pulmonary disease): Status: Inactive (6) Stroke: Status: Inactive Permanent problem details: May 2017 (7) Breakthrough seizure: Status: Inactive Permanent problem details: After stroke on Keppra (8) Morbid obesity: Status: Acute (9) Breast cancer, right: Status: Inactive (10) Chronic back pain: Status: Inactive Reason for Visit Reason for Visit: trouble breathing, states pcp sent Hospital Course Hospital Course 69 year old female with PMH of of right breast cancer currently on adjuvant therapy with Arimidex, oxygen dependent COPD uses 2 L, HFpEF , A. fib ,morbidly obese came in with chief complaint of worsening shortness of breath, going on for the last 4 to 6 weeks, PND and orthopnea, worsening lower extremity swelling, prior to the admission, she has gone to the PCP with similar complaints, at that time her Lasix frequency was increased to every 12 hours daily, to which she did not responded well, she continued to have the symptoms. She was admitted for the management of acute on chronic exacerbation of HFpEF as well as A. fib with RVR. For heart failure exacerbation, she was kept on Bumex 1 mg p.o. daily, to which she responded very well, no shortness of breath markedly improved, and her supplemental oxygen requirement, came back to the baseline of 2 L at the time of discharge. She is being discharged on Bumex 1 mg p.o. daily. Upon admission CTA chest was done PE was ruled out, it was suggestive of old granulomatous disease, no signs of pneumonia. She was started on Cardizem drip, and later switched to metoprolol tartrate 50 mg every 12 hours daily. Her heart rate was well controlled, on the current regimen, she is being discharged on, she is being discharged on metoprolol succinate 50 mg every 12 hours daily. We encouraged the patient to participate in physical therapy, but she consistently refused, to do so. 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 2D ECHO : Done during this admission: Showed:Normal left ventricular cavity size. Normal left ventricular systolic function. Severe pulmonary hypertension, RVSP 62 mmHg.When compared to the prior echocardiogram dated June 22, 2017 there appeared to be severe tricuspid regurgitation, severe pulmonary hypertension. Physical Exam Const: COMMON NORMALS: patient oriented x3 HENMT: COMMON NORMALS: normocephalic, atraumatic, hearing grossly normal bilaterally and external ears normal HEAD & SCALP: normocephalic and atraumatic EXTERNAL EAR: Yes external ears normal Eye: COMMON NORMALS: no scleral icterus GENERAL EYE: appearance normal, both eyes and all related structures Chest: COMMONS NORMALS: normal inspection of the chest and normal palpation of entire chest wall CHEST: Yes Symmetrical chest wall rise Resp: COMMON NORMALS: normal respiratory effort, No retractions, No use of accessory muscles and clear to auscultation bilaterally EFFORT & INSPECTION: Yes symmetric chest movement AUSCULTATION: clear to auscultation bilaterally Cardio: COMMON NORMALS: regular rate, regular rhythm, S1 normal heart sound present, S2 normal heart sound present, No gallops present (Cardio), No murmurs present (Cardio), No rub (Cardio) and Peripheral pulses 2+ throughout RATE: regular rate RHYTHM: regular rhythm HEART SOUNDS: S1 normal heart sound present and S2 normal heart sound present PERIPHERAL PULSES: Peripheral pulses 2+ throughout GI: COMMON NORMALS: Normal to inspection, nondistended, normoactive bowel sounds present, Soft to palpation, non-tender, No hepatosplenomegaly present and no masses AUSCULTATION: Yes normoactive bowel sounds PALPATION: Yes Soft to palpation and Yes No hepatosplenomegaly present RECTAL EXAM: deferred Neuro: COMMON NORMALS: patient oriented x3 Urinary Catheter Management^: Sorensen: Cath Placed During This Visit: yes Reason for Continuing Indwelling Catheter: Acute Urinary Retention or Obstruction Urinary Catheter Date of Insertion: 05/08/20 Urinary Catheter Time of Insertion: 18:11 Discharge Data Data Completed and Pending: Completed Studies During Hospitalization Category Date Time Status CT angio chest PE protcl [id number] Urge nt Cat Scan 05/07/20 16:[address] head wo con* 7 0450 Stat Cat Scan 05/09/20 07:58 Completed XR chest 1V sowmya ble [id number] Stat Exams 05/07/20 14:21 Completed CV echo complete* [id number] Routine Ultrasound 05/08/20 00:44 Completed Pending at discharge Category Date Time Status CBC Auto Diff [Co mplete Blood Count w/Auto] AM LABS Lab 05/13/20 04:00 Ordered CBC Auto Diff [Co mplete Blood Count w/Auto] AM LABS Lab 05/14/20 04:00 Ordered CMP [Comprehensiv e Metabolic Panel] AM LABS Lab 05/13/20 04:00 Ordered CMP [Comprehensiv e Metabolic Panel] AM LABS Lab 05/14/20 04:00 Ordered Magnesium AM LABS Lab 05/13/20 04:00 Ordered Magnesium AM LABS Lab 05/14/20 04:00 Ordered Labs from last 24 hours 05/12/20 05/12/20 05/12/20 07:05 04:28 04:28 WBC 4.9 RBC 3.96 L Hgb 10.1 L Hct 35.5 L MCV 89.6 MCH 25.5 L MCHC 28.5 L RDW 14.9 Plt Count 164 MPV 10.3 Neut % (Auto) 69.5 Lymph % (Auto) 20.0 [place] % (Auto) 8.0 Eos % (Auto) 2.1 Baso % (Auto) 0.2 Neut # (Auto) 3.37 Lymph # (Auto) 1.0 [place] # (Auto) 0.4 Eos # (Auto) 0.1 Baso # (Auto) 0.0 Nucleated RBC % (a uto) 0 Nucleated RBCs # 0.0 Sodium 139 Potassium 4.4 Chloride 100 Carbon Dioxide 32 H Anion Gap 11.4 BUN 36 H Creatinine 1.2 H GFR Calculation Not Reportable Glucose 141 H POC Glucose 132 Calculated Osmolal ity 299 H Calcium 9.2 Magnesium 2.0 Total Bilirubin 0.3 AST 13 ALT 7 Alkaline Phosphata se 85 Total Protein 6.6 Albumin 3.2 L Globulin 3.4 05/11/20 05/11/20 05/11/20 21:09 19:11 11:30 WBC RBC Hgb Hct MCV MCH MCHC RDW Plt Count MPV Neut % (Auto) Lymph % (Auto) [place] % (Auto) Eos % (Auto) Baso % (Auto) Neut # (Auto) Lymph # (Auto) [place] # (Auto) Eos # (Auto) Baso # (Auto) Nucleated RBC % (a uto) Nucleated RBCs # Sodium Potassium Chloride Carbon Dioxide Anion Gap BUN Creatinine GFR Calculation Glucose POC Glucose 160 156 110 Calculated Osmolal ity Calcium Magnesium Total Bilirubin AST ALT Alkaline Phosphata se Total Protein Albumin Globulin Vitals: Last Vital Signs Temp 97.7 F 05/12/20 08:00 Pulse 96 05/12/20 08:00 Resp 23 H 05/12/20 08:00 BP 132/80 05/12/20 08:00 Pulse Ox 96 05/12/20 08:00 Discharge Plan Discharge Patient Disposition: Home Condition: Stable Prescriptions: New metoprolol succinate 100 mg tablet extended release 24 hr 50 mg PO Q12H Qty: 60 RF: 0 bumetanide 1 mg tablet 1 mg PO DAILY Qty: 30 RF: 0 potassium chloride 20 mEq tablet extended release 20 meq PO DAILY Qty: 30 RF: 0 levofloxacin 500 mg tablet 500 mg PO DAILY 5 Days RF: 0 Continued atorvastatin 40 mg tablet 40 mg PO DAILY RF: 0 citalopram 20 mg tablet 20 mg PO DAILY RF: 0 hydrocodone-acetaminophen [[place]] 5-325 mg tablet 1 tab PO Q8H MDD 3 TABS PRN (Reason: Pain) RF: 0 levetiracetam 750 mg tablet 750 mg PO BID RF: 0 montelukast [Singulair] 10 mg tablet 10 mg PO DAILY RF: 0 Britney-Richardson See Rx Instructions .ROUTE .COMPLEX RF: 0 anastrozole 1 mg tablet 1 mg PO DAILY RF: 0 amitriptyline 10 mg tablet 10 mg PO BID RF: 0 Vitamin D3 25 mcg (1,000 unit) Capsule See Rx Instructions .ROUTE .COMPLEX RF: 0 Humalog KwikPen Insulin 100 unit/mL Insulin Pen 12 unit SUBCUT BID RF: 0 Eliquis 5 mg tablet 5 mg PO BID RF: 0 aspirin 81 mg Tablet,Delayed Release (Dr/Ec) 81 mg PO DAILY RF: 0 Discontinued furosemide 40 mg tablet 40 mg PO DAILY RF: 0 Discharge Orders: Discharge Order (Routine); Ordered 05/12/20 Ordered By: Thor Martínez Referrals: Yaya Lara [Primary Care Provider] - (You will have a hospital follow up with Yaya Lara within one week. His office will call you with an appointment date and time. If you don't hear from them by Wednesday evening call the office to schedule an appointment. ) April Goldman FNP [Nurse Practitioner] - (You will have a Cardiology appointment arranged for you. [facility] will be calling you to arrange a date and time. If you don't hear from them soon, please call their office. ) Discharge Diet: Diabetic Discharge Activity: Increase activity as tolerated Patient Instructions: Metoprolol (By mouth), Bumetanide (By mouth), Potassium Chloride (By mouth), Atrial Fibrillation (DC), Obesity (DC), CHF Stoplight Discharge Attestations Time Spent in Discharge Care*: greater than 30 min Specific Discharge Activities: educating patient, educating and/or supporting family/caregiver, discussing with pcp/other providers, discussing with business case analyst/social workers/dc planners, documenting/other paperwork and evaluating patient/reviewing data Status at Discharge: Cognitive status at discharge: cognitively intact, Behavioral status at discharge: cooperative, Functional status at discharge: uses cane/walker Overall status at discharge: patient is back to baseline Quality Metrics Clinical Quality Measures During this hospital stay, did patient experience: None Coding Level of Care Code 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
[2020-05-12 11:22] LABS: Glucose Point of Care 293 mg/dL (70-110)
--- NOTE | 2020-05-12 12:11 | PC.CHAP ---
Pastoral Care Encounter/Spiritual Assessment Type of Contact [] Declined legal administrator visit [] Patient/Family/Request visit [] Outpatient visit [] Follow-up visit [] Physician referral [] Code/Alert [] Routine visit [] Staff referral [] Actively dying [] Patient sleeping [] Family support [] [] Out of room [] Palliative care [] [X] Receiving care in room [] Pre-surgical visit [] Trauma [] Long length of stay [] ICU visit [] Other: Relational/Emotional Strength [] Patient feels connected with others/family/visitors/staff [] Distress [] Loneliness/isolation [] Abandonment Spirituality of Patient [] Person of Cha [] Attends Hoahaoism of their Cha [] Believes in Prayer [] Reads Bible or Adventism materials [] There are Spiritual issues to be addressed Medical Insurance Claims Specialist Interventions [] Prayer [] Active listening [] Non-anxious presence [] Spiritual/emotional support [] Crisis/trauma care [] Spiritual counseling [] Bereavement support [] Provided bereavement packet [] Provided Bible/devotional materials [] Provided toy/stuffed animal, coloring book to patient or family member [] Provided Communion [] Anointing/[place] [] Salvation [] Completed spiritual assessment [] Other: Impact on Illness or Injury [] Angry [] Fearful [] Anxious [] Often cries [] Exhaustion [] Unable to work [] Unable to attend jehovah's witness [] Unable to walk/stand [] Unable to read [] Unable to drive [] Unable to eat/drink [] Unable to sleep [] Unable to be with family [] Patient intubated [] Other: Summary Time spent with patient
--- NOTE | 2020-05-12 13:00 | PC.NURSE ---
patient is outside trying to get into vehicle at this time.
--- NOTE | 2020-05-12 13:42 | PC.NURSE ---
PATIENT SHOWED UP WITH MOTORIZED WHEELCHAIR, PATIENT TO BE PLACED IN IT AND THEN TRANSFERRED TO CAR. WAS UPSET THAT WE ARE DISCHARGING HER WITH HER BEING WEAK . HE WANTED HER TO RECEIVE HOME HEALTH, DR ENNIS NOTIFIED AND ORDERED MED SET UP SINCE PATIENT HAS REFUSED PHYSICAL THERAPY SINCE BEING HERE. SAID HE FORGOT TO BRING HER OXYGEN, [facility] CONTACTED HOME, WHICH WILL BE BRINGING A TANK FOR PATIENT. AT THIS TIME WE ARE JUST AWAITING OXYGEN TANK TO BE DELIVERED SO WE CAN GET PATIENT IN WHEELCHAIR AND DISCHARGE HER.
--- NOTE | 2020-05-12 14:00 | PC.NURSE ---
patient is outside trying to get into car at this time.
--- NOTE | 2020-05-12 15:00 | PC.NURSE ---
patient is outside trying to get into vehicle at this time
[2020-05-12 17:07] LABS: Glucose Point of Care 166 mg/dL (70-110)
--- NOTE | 2020-05-12 17:10 | PC.NURSE ---
HOME fleet driver called and said it would be awhile to send patient home with portable oxygen tank that we have to ambulate patients with. nurses attempted to get patient in wheelchair. patient could not get herself to edge of the bed. nurse from er that transported patient from chair to bed upon admission came to help get patient in wheelchair. patient transferred to wheelchair with max assist and refused to use walker. patient then taken to exit where private vehicle awaited for her, patient family, and 3 staff members tried to help patient stand and get on step stool to get into the car. patient was unable to transfer like this. patient was placed back in wheelchair. patient was able to move her legs to try to get into the car. house detective contacted about helping to transfer. social service was asked about ready transport or someone that she could drive her wheelchair into, got a [facility] quote of $190. house detective, director social welfare, security and two [facility] staff members attempted to get patient into vehicle again with no success. director social welfare expressed concern about patient getting home and not being able to get back into the house. family stated that they had plenty of help to get her into the house. family was informed of the transportation [facility], and denied. after multiple attempts dr lagunas was contacted and said that patient could stay tonight, family was agreeable to [facility] placement, choices were obtained from patient and . director social welfare faxed both choices and we are awaiting responses from the facilities.
--- NOTE | 2020-05-12 17:21 | PC.NURSE ---
dr lagunas verbal order for patient to not have an iv as discharge plan is for tomorrow to a nursing facility.
[2020-05-12 20:03] LABS: Glucose Point of Care 169 mg/dL (70-110)
--- NOTE | 2020-05-12 23:06 | PC.NURSE ---
2119 patient refused letting me reposition b/p cuff and patient care. Stated Get out and leave me alone.
[2020-05-13] VITALS (8 sets, daily range): BP systolic 123–165; BP diastolic 83–121; PULSE 72–111; RESP 18–29; TEMP 36–36.8; O2SAT 2–97
--- NOTE | 2020-05-13 00:19 | PC.NURSE ---
6930 Patient awakened briefly for rounding and states she just wants to be left alone. Will continue to monitor telemetry.
[2020-05-13 04:20] LABS: Basophils % 0.2 %; Eosinophils # 0.1 10^3/uL (0.0-0.8); Hematocrit 37.3 % (37.0-47.0); Hemoglobin 10.8 g/dL (11.5-15.3); Lymphocytes # 0.9 10^3/uL (0.8-4.8); Lymphocytes % 20.8 %; Mean Corpuscular Hemoglobin 25.8 pg (28.0-34.0); Mean Corpuscular Volume 89.2 fL (81-99); Monocytes # 0.4 10^3/uL (0.2-0.9); Monocytes % 8.5 %; Neutrophils # 3.05 10^3/uL (1.8-7.7); Neutrophils % 68.3 %; Nucleated Red Blood Cells % 0 %; Platelet Count 162 10^3/cmm (130-400); Red Blood Count 4.18 10^6/uL (4.1-5.3); Red Cell Distribution Width 14.9 % (12.1-15.1); White Blood Count 4.5 10^3/uL (4.0-10.0)
[2020-05-13 04:42] LABS: Alanine Aminotransferase 8 U/L (0-33); Albumin Level 3.3 g/dL (3.5-5.2); Alkaline Phosphatase 86 IU/L (35-105); Anion Gap 11.1 (5-19); Aspartate Amino Transferase 16 U/L (0-32); Blood Urea Nitrogen 29 mg/dL (8-23); Calcium 9.1 mg/dL (8.5-10.5); Carbon Dioxide 30 mmol/L (22-29); Chloride 100 mmol/L (98-107); Globulin 3.6 g/dL (1.3-4.6); Glucose 97 mg/dL (65-115); Magnesium 2.1 mg/dL (1.7-2.3); Osmolality Calculated 290 mOsm/kg (285-295); Potassium 4.1 mmol/L (3.5-5.1); Sodium 137 mmol/L (136-145); Total Bilirubin 0.4 mg/dL (0.15-1.2); Total Protein 6.9 g/dL (6.6-8.7)
--- NOTE | 2020-05-13 06:09 | PC.NURSE ---
0530 Patient much more pleasant and cooperative incontinent of urine. PBB and CLC done,
[2020-05-13 07:05] LABS: Glucose Point of Care 106 mg/dL (70-110)
[2020-05-13] MEDS: levETIRAcetam 500 mg Tablet 750 MG PO ×2 (09:15→17:44)
[2020-05-13] MEDS: montelukast sodium 10 mg Tablet PO (09:15)
[2020-05-13] MEDS: bumetanide 1 mg Tablet PO (09:15)
[2020-05-13] MEDS: aspirin 81 mg EC Tablet PO (09:15)
[2020-05-13] MEDS: metoprolol tartrate 50 mg Tablet PO ×3 (09:16→17:45)
[2020-05-13] MEDS: apixaban 5 mg Tablet PO ×2 (09:16→17:45)
[2020-05-13] MEDS: atorvastatin 40 mg Tablet PO (09:16)
--- NOTE | 2020-05-13 10:03 | P.PN_ITS ---
Subjective Subjective: Interval history: is doing good.No Fresh complain. Vital is stable and labs reviewed. Medications: Reviewed: Yes Vitals/I&O/Wt Last Vital Signs Temp 97.6 F 05/13/20 07:45 Pulse 108 H 05/13/20 09:55 Resp 18 05/13/20 09:55 BP 165/121 05/13/20 07:45 Pulse Ox 92 05/13/20 09:55 05/12/20 05/13/20 05/13/20 22:59 06:59 14:59 Intake Total 240 / 720 120 / 840 240 / 240 Balance 240 / 240 120 / 360 240 / 240 Physical Exam Const: COMMON NORMALS: patient oriented x3 Chest: COMMONS NORMALS: normal inspection of the chest and normal palpation of entire chest wall CHEST: Yes Symmetrical chest wall rise Resp: COMMON NORMALS: normal respiratory effort and clear to auscultation bilaterally AUSCULTATION: clear to auscultation bilaterally Cardio: COMMON NORMALS: regular rate, regular rhythm, S1 normal heart sound present, S2 normal heart sound present, No gallops present (Cardio), No murmurs present (Cardio), No rub (Cardio) and Peripheral pulses 2+ throughout RATE: regular rate RHYTHM: regular rhythm HEART SOUNDS: S1 normal heart sound present and S2 normal heart sound present PERIPHERAL PULSES: Peripheral pulses 2+ throughout OTHER: S1 AND S2 Of Variable intensity, irregularly irregular GI: COMMON NORMALS: Normal to inspection, nondistended, normoactive bowel sounds present, Soft to palpation, non-tender, No hepatosplenomegaly present and no masses AUSCULTATION: Yes normoactive bowel sounds PALPATION: Yes Soft to palpation and Yes No hepatosplenomegaly present RECTAL EXAM: deferred OTHER: Obese abdomen Extremity: NARRATIVE EXTREMITY EXAM: Trace b/l l/e edema Neuro: COMMON NORMALS: patient oriented x3 Urinary Catheter Management^: Sorensen: Cath Placed During This Visit: yes, but has since been removed by the nurse Reason for Continuing Indwelling Catheter: Acute Urinary Retention or O bstruction Urinary Catheter Date of Insertion: 05/08/20 Urinary Catheter Time of Insertion: 18:11 Date Urinary Catheter Removed: 05/12/20 Time Urinary Catheter Discontinued: 12:00 Data : 05/13/20 03:45 05/13/20 03:45 A&P Assessment and plan (1) Acute exacerbation of CHF (congestive heart failure): Ac on chronic HFpEF Exacerbation. Currently Compensated. grade 1 diastolic dysfunction EF 55%, echo : 2017 High BNP ( Even in presence of Morbid obesity ) Continue Bumex 1 mg PO Daily. I/O Charting Daily weight Keep k> 4 and Mg>2 Status: Acute (2) Atrial fibrillation with RVR: Currently rate is well controlled. Off Cardizem Drip Heart rate well controlled. Metoprolol .T Decreased to 50 mg q12h daily Status: Acute (3) Acute and chronic respiratory failure with hypoxia: likely 2/2 to Heart failure exacerbation. Improving Currently saturating well on 2l Ls oxygen via [place] baseline home oxygen (4L) ABG: Chronic (compensated) primary respiratory acidosis Status: Acute (4) Diabetes: LDSSI FSG: Well Controlled. Status: Inactive (5) COPD (chronic obstructive pulmonary disease): No wheezing, no Rochii.Not in Exacerbation. ABG: Chronic (compensated) primary respiratory acidosis. Will hold off steroids for now Status: Inactive (6) Stroke: On Eliquis Status: Inactive (7) Breakthrough seizure: On Keppra Status: Inactive (8) Morbid obesity: Status: Acute (9) Breast cancer, right: Status: Inactive (10) Chronic back pain: Status: Inactive Additional A&P Information DVT PPX: On Eliuis Code Status:Full Code Disposition : Home likely in next 48h Patient was offered BIPAP at night,she refused because of claustrophobia.Patient has also refused to work with PT. We had detailed discussion today and explained her the need to participate with PT.She told she will try and work with PT. Attestations Medical Necessity Statement*: Patient is awaiting placement to SNF. 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
[2020-05-13 11:23] LABS: Glucose Point of Care 118 mg/dL (70-110)
--- NOTE | 2020-05-13 13:38 | PC.NURSE ---
Patient has refused physical therapy this morning and this afternoon.
[2020-05-13 16:04] LABS: Glucose Point of Care 177 mg/dL (70-110)
--- NOTE | 2020-05-13 18:00 | PC.NURSE ---
funeral service manager incuraged pt to get up to use bsc pt stated that she wont and refused to even try to get up pt has been inconet all day
--- NOTE | 2020-05-13 19:24 | PC.NURSE ---
Rounding: Patient resting with eyes closed at this time. telemetry stable at this time.
[2020-05-13 20:51] LABS: Glucose Point of Care 113 mg/dL (70-110)
[2020-05-14 01:18] VITALS: PULSE 100; RESP 18; O2SAT 93
[2020-05-14 04:00] VITALS: BP 148/92; PULSE 96; RESP 23; TEMP 36.8; O2SAT 95
[2020-05-14 05:39] LABS: Basophils % 0.2 %; Eosinophils # 0.1 10^3/uL (0.0-0.8); Eosinophils % 2.3 %; Hematocrit 36.1 % (37.0-47.0); Hemoglobin 10.4 g/dL (11.5-15.3); Lymphocytes % 23.6 %; Mean Corpuscular HGB Conc 28.8 g/dL (30.0-36.0); Mean Corpuscular Hemoglobin 25.6 pg (28.0-34.0); Mean Corpuscular Volume 88.7 fL (81-99); Mean Platelet Volume 9.7 fL (7.4-10.4); Monocytes # 0.3 10^3/uL (0.2-0.9); Monocytes % 7.3 %; Neutrophils # 2.91 10^3/uL (1.8-7.7); Neutrophils % 66.1 %; Nucleated Red Blood Cells % 0 %; Platelet Count 158 10^3/cmm (130-400); Red Blood Count 4.07 10^6/uL (4.1-5.3); White Blood Count 4.4 10^3/uL (4.0-10.0)
[2020-05-14 06:11] LABS: Alanine Aminotransferase 8 U/L (0-33); Albumin Level 3.2 g/dL (3.5-5.2); Alkaline Phosphatase 82 IU/L (35-105); Anion Gap 12.2 (5-19); Aspartate Amino Transferase 17 U/L (0-32); Blood Urea Nitrogen 25 mg/dL (8-23); Calcium 9.1 mg/dL (8.5-10.5); Carbon Dioxide 31 mmol/L (22-29); Chloride 101 mmol/L (98-107); Globulin 3.3 g/dL (1.3-4.6); Glucose 90 mg/dL (65-115); Osmolality Calculated 294 mOsm/kg (285-295); Potassium 4.2 mmol/L (3.5-5.1); Sodium 140 mmol/L (136-145); Total Bilirubin 0.4 mg/dL (0.15-1.2); Total Protein 6.5 g/dL (6.6-8.7)
--- NOTE | 2020-05-14 06:15 | PC.NURSE ---
Patient has had a uneventful shift. At 2200 patient was changed and laughing with staff. Voiced no concerns. patient rested the rest of the shift and did not wear her bipap. At 0500 patient was upset wanting to go home today. convinced patient to let me change her explained why pillows were underneath her to keep her from getting pressure sores. Patient understood this education. Patient was asking questions about why she needed to PT I educated the patient on benefits of PT. Patient voiced understanding. Patient was laughing and smiling by the end of the discussion.
[2020-05-14 06:40] LABS: Glucose Point of Care 88 mg/dL (70-110)
[2020-05-14 07:17] VITALS: BP 134/95; PULSE 101; RESP 27; TEMP 36.9; O2SAT 99
[2020-05-14] MEDS: aspirin 81 mg EC Tablet PO (08:06)
[2020-05-14] MEDS: bumetanide 1 mg Tablet PO (08:06)
[2020-05-14] MEDS: atorvastatin 40 mg Tablet PO (08:06)
[2020-05-14] MEDS: levETIRAcetam 500 mg Tablet 750 MG PO (08:07)
[2020-05-14] MEDS: metoprolol tartrate 50 mg Tablet PO (08:07)
[2020-05-14] MEDS: montelukast sodium 10 mg Tablet PO (08:07)
[2020-05-14] MEDS: apixaban 5 mg Tablet PO (08:07)
--- NOTE | 2020-05-14 09:57 | PC.NURSE ---
pt refuses for me to change her
--- NOTE | 2020-05-14 10:29 | PC.NURSE ---
Patient reported to nurse that she needed cleaned up because she had voided. 2 nurse assist to change linens and perform carisa care. Barrier cream applied. No skin issues noted. Patient positioned left side lying with pillows placed to support pressure areas. No further needs identified at this time. Nurse to continue to monitor.
[2020-05-14 11:00] VITALS: PULSE 97; RESP 16; O2SAT 92
[2020-05-14 11:27] VITALS: BP 145/94; PULSE 81; RESP 18; TEMP 36.6; O2SAT 98
[2020-05-14 11:33] LABS: Glucose Point of Care 123 mg/dL (70-110)
--- NOTE | 2020-05-14 11:36 | PC.NURSE ---
Patient experienced a nose bleed, states nose is dry from oxygen. Humidified applied to O2.
--- NOTE | 2020-05-14 12:10 | PC.NURSE ---
Discharge instructions given per the physicians orders. Patient verbalized understanding and did not have any further questions. Patient assisted into private vehicle by primary nurse and 3 ancillary staff. Patient did not tolerate well. Max assist and gait belt required. Patient was educated on safety and fall prevention measures. Patient verbalized understanding and did not have any further questions.
--- NOTE | 2020-05-14 12:28 | DCPLANNER ---
IMM completed on 05/14/2020 @ 0900. Copy of rights given to pt.
[2020-05-14 12:52] VITALS: BP 145/94; PULSE 81; RESP 18; TEMP 36.6; O2SAT 98
--- NOTE | 2020-05-17 09:05 | PC.SOCIAL ---
Spoke with Kiarra Hollingsworth from [employer] [facility]. She had questions regarding pt illness and we discussed she does seem to be alert and oriented however she has poor decision making regard to her care. She would not participate in therapy while here much. Risk of injury once return home. Reviewed questions that PCP office talked to Kiarra about was O2 and CPAP. We did not change her order for O2 she was to return with baseline O2 at 2L. We did not order CPAP here. Gave Kiarra my cell phone and let her PCP office can also call me. No further questions received.
== END 2020-05-14 12:10 | disposition skilled nursing facility (03) | DRG 291 ==
LOC: ER 20:37 → CSU 22:11
PROVIDERS: Family Medicine; Admitting Provider Internal Medicine; Emergency Provider Emergency Medicine; PCP Physician Assistant Medical; Visit Provider Internal Medicine
DX: I11.0 Hypertensive heart disease with heart failure (principal); J96.21 Acute and chronic respiratory failure with hypoxia; Z68.44 Body mass index [BMI] 60.0-69.9, adult; E87.2 Acidosis; I50.33 Acute on chronic diastolic (congestive) heart failure; C50.911 Malignant neoplasm of unspecified site of right female breast; Z79.811 Long term (current) use of aromatase inhibitors; Z99.81 Dependence on supplemental oxygen; J44.9 Chronic obstructive pulmonary disease, unspecified; E66.01 Morbid (severe) obesity due to excess calories; Z79.01 Long term (current) use of anticoagulants; I48.91 Unspecified atrial fibrillation; Z86.73 Personal history of transient ischemic attack (TIA), and cerebral infarction without residual deficits; G89.29 Other chronic pain; M54.9 Dorsalgia, unspecified; E11.9 Type 2 diabetes mellitus without complications; M79.7 Fibromyalgia; F40.240 Claustrophobia; I27.20 Pulmonary hypertension, unspecified; I07.1 Rheumatic tricuspid insufficiency; Z79.891 Long term (current) use of opiate analgesic; Z79.4 Long term (current) use of insulin; Z79.82 Long term (current) use of aspirin
CPT/HCPCS: 12345; 36415; 36416; 36600; 51702; 70450; 71045; 71275; 80048; 80051; 80053; 81001; 82330; 82728; 82803; 82805; 82962; 83605; 83615; 83735; 83880; 84484; 85025; 85378; 85384; 86140; 87077; 87086; 87186; 87426; 87635; 87804; 90935; 93005; 93306; 94640; 94660; 96372; 96375; 97110; 97162; 97166; 97530; 97535; 99284; J1815; J1940; J2405; J3490; J3535; Q9967

== ENCOUNTER → 2020-08-23 11:43 | Outpatient (BNVA) | payer MEDICARE, SELFPAY | PROVIDERS: PCP Physician Assistant Medical; Visit Provider Surgery | DX: Z01.812 Encounter for preprocedural laboratory examination (principal); C50.911 Malignant neoplasm of unspecified site of right female breast | CPT/HCPCS: 87635 ==

== ENCOUNTER → 2020-09-27 00:01 | Outpatient (BNVA) | payer MEDICARE, SELFPAY | PROVIDERS: PCP Physician Assistant Medical; Visit Provider Surgery | DX: Z20.822 Contact with and (suspected) exposure to COVID-19 (principal) | CPT/HCPCS: 87635 ==

== ENCOUNTER 2020-10-02 10:18 | Day surgery (SDC) | payer MEDICARE, SELFPAY ==
[2020-10-01 13:57] VITALS: BMI 49.2
--- NOTE | 2020-10-02 10:37 | US_ITS ---
WS: [id number] INDICATION: Right breast seroma TECHNIQUE: The procedure including risks benefits and complications were discussed with the patient w ho agreed to proceed. Using sterile technique patient was prepped and draped in usual sterile fashion . After 1% lidocaine, Using ultrasound guidance the right breast seroma was aspirated with a 4 [place] Yueh catheter. Approximately 40 cc of thick serosanguineous fluid was aspirated. Small residual sero ma. Ultrasound was performed an attempt to localize the calcifications seen on the prior diagnostic mammo gram March 2020. No calcifications were visualized. Patient is status post right mastectomy. Recomm end right diagnostic mammography for further evaluation. Patient is currently due for six-month follo w-up right diagnostic mammography. US/ softtissue fl dr murray [id number] IMPRESSION: 1. No calcifications were visualized on the ultrasound post seroma drainage fo r needle localization. Patient status post mastectomy and stereotactic localiza tion is not an option due to medical condition and mastectomy. 2. Recommend follow-up RIGHT diagnostic mammography with magnification views. Patient currently due for six-month follow-up from March 2020. Discussed with Mic Villar MD at 10/02/2020 12:58 PM.
[2020-10-02 10:51] VITALS: BP 140/96; PULSE 115; RESP 18; TEMP 36.6; O2SAT 97
--- NOTE | 2020-10-02 11:36 | SUR.PREOP ---
Patient sent to ultrasound by bed for needle localization at 1119
--- NOTE | 2020-10-02 11:47 | P.HP_ITS ---
Same Day Surgery H&P Indication for Procedure/HPI DATE OF PROCEDURE: October 02, 2020 CHIEF COMPLAINT/INDICATIONFOR SURGICAL PROCEDURE: Right breast calcification PREOP DIAGNOSIS: Nodule right mastectomy scar PLANNED PROCEDRUE: Operation Date: 10/02/20 11:50 Proposed Procedures p right Breast Biopsy Needle Localization and lumpectomy 59834 16683 C50.91 1(Right) - Mic Villar MD Medications/Allergies* Home Medications Medication Instructions Recorded Confirmed Type atorvastatin 40 mg tablet 40 mg PO DAILY 04/25/20 10/02/20 History citalopram 20 mg tablet 20 mg PO DAILY 04/25/20 10/02/20 History hydrocodone 5 mg-acetaminophen 325 1 tab PO Q8H PRN MDD 3 TABS 04/25/20 10/02/20 History mg tablet levetiracetam 750 mg tablet 750 mg PO BID 04/25/20 10/02/20 History montelukast 10 mg tablet 10 mg PO DAILY 04/25/20 10/02/20 History Lesli See Rx Instructions .ROUTE .COMPLEX 05/07/20 10/02/20 History Eliquis 5 mg PO BID 05/07/20 10/01/20 History amitriptyline 10 mg PO BID 05/07/20 10/02/20 History anastrozole 1 mg PO DAILY 05/07/20 10/02/20 History aspirin 81 mg PO DAILY 05/07/20 10/02/20 History cholecalciferol (vitamin D3) See Rx Instructions .ROUTE .COMPLEX 05/07/20 10/02/20 History [Vitamin D3] insulin lispro [Humalog KwikPen 12 unit SUBCUT BID 05/07/20 10/02/20 History Insulin] Allergies/Adverse Reactions Allergy/AdvReac Type Severity Reaction Status Date / Time adhesive tape Allergy ALGY-Bliste Verified 08/27/20 14:48 r Pertinent History/Comorbid Conditions* Medical History (Updated 07/06/20 @ 09:47 by Mic Villar MD) Acute and chronic respiratory failure with hypoxia Acute exacerbation of CHF (congestive heart failure) Atrial fibrillation with RVR Breakthrough seizure After stroke on Keppra Breast cancer, right Chronic back pain Congestive heart failure COPD (chronic obstructive pulmonary disease) Diabetes Fibromyalgia Gastritis H/O: CVA (cerebrovascular accident) Hypertension Oxygen dependent Stroke May 2017 Type 2 diabetes mellitus Surgical History (Updated 07/06/20 @ 09:47 by Mic Villar MD) H/O right mastectomy History of bunionectomy History of tonsillectomy Hx of cholecystectomy Family History (Updated 07/05/20 @ 11:10 by Linda Boyer LPN) No pertinent family history Denies family history of Anesthesia complication Bleeding disorder Social History Smoking and tobacco status: never smoked Alcohol intake: never Household members: spouse Housing: House Marital status: Current occupational status: retired History of recent travel: No Pertinent Exam Findings alert, oriented x 3 and regular rate & rhythm Recommendations Surgery/Procedure today Coding Level of Care Code Acute Revenue Cycle Specialist for Chg Basilio
--- NOTE | 2020-10-02 12:28 | SUR.PREOP ---
Patient returned from [facility] at 1215. Patient surgery canceled.
== END 2020-10-02 13:10 | disposition home or self-care (01) ==
PROVIDERS: PCP Physician Assistant Medical; Visit Provider Surgery
DX: N64.89 Other specified disorders of breast (principal); Z79.01 Long term (current) use of anticoagulants; I50.9 Heart failure, unspecified; J44.9 Chronic obstructive pulmonary disease, unspecified; E11.9 Type 2 diabetes mellitus without complications; Z79.4 Long term (current) use of insulin; M79.7 Fibromyalgia; Z86.73 Personal history of transient ischemic attack (TIA), and cerebral infarction without residual deficits; I10 Essential (primary) hypertension; Z99.81 Dependence on supplemental oxygen; Z53.9 Procedure and treatment not carried out, unspecified reason
CPT/HCPCS: 10030

== ENCOUNTER 2021-08-14 14:15 | Inpatient (IN) | payer MEDICARE, SELFPAY ==
[2021-08-14] VITALS (22 sets, daily range): BP systolic 113–146; BP diastolic 72–105; PULSE 103–156; RESP 18–24; TEMP 36.7–36.9; O2SAT 94–98; BMI 51.5
--- NOTE | 2021-08-14 14:34 | ECG_ITS ---
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 Measurements Intervals [place] Rate: 148 P: ME: QRS: 34 QRSD: 90 T: 0 QT: 271 QTc: 425 Interpretive Statements ATRIAL FIBRILLATION WITH RAPID VENTRICULAR RESPONSE NONSPECIFIC ST & T-WAVE ABNORMALITY Compared to ECG 05/07/2020 23:26:38 No significant changes Electronically Signed On 08-14-2021 20:48:10 PETROPHYSICIST by Moris Basilio M.D. [id number]
[2021-08-14] MEDS: magnesium sulfate premix 2 GM/50 ML PIGGYBACK IV ×2 (15:05→15:26)
[2021-08-14] MEDS: metoprolol tartrate 1 mg/1 mL SDV 5 mL 10 MG IVP (15:06)
[2021-08-14 15:09] LABS: Basophils % 0.2 %; Eosinophils # 0.1 10^3/uL (0.0-0.8); Eosinophils % 0.6 %; Hematocrit 45.7 % (37.0-47.0); Hemoglobin 14.4 g/dL (11.5-15.3); Lymphocytes % 11.6 %; Mean Corpuscular HGB Conc 31.5 g/dL (30.0-36.0); Mean Corpuscular Hemoglobin 26.7 pg (28.0-34.0); Mean Corpuscular Volume 84.8 fl (81-99); Mean Platelet Volume 10.3 fL (7.4-10.4); Monocytes # 0.4 10^3/uL (0.2-0.9); Monocytes % 4.5 %; Neutrophils # 6.87 10^3/uL (1.8-7.7); Neutrophils % 82.3 %; Nucleated Red Blood Cells % 0 %; Platelet Count 242 10^3/cmm (130-400); Red Blood Count 5.39 10^6/uL (4.1-5.3); Red Cell Distribution Width 17.6 % (12.1-15.1); White Blood Count 8.4 10^3/uL (4.0-10.0)
[2021-08-14] MEDS: sodium chloride 0.9% 1,000 ML 999 ML IV (15:10)
[2021-08-14 15:14] LABS: SARS Covid-2 Antigen Negative (Negative)
[2021-08-14] MEDS: ondansetron 2 mg/ML SDV 2 mL 4 MG IVP ×2 (15:14→15:24)
--- NOTE | 2021-08-14 15:24 | ED_ITS ---
HPI - General Adult General: Chief complaint: Nausea/Vomiting/Diarrhea Stated complaint: BED SORES Time Seen by Provider: 08/14/21 14:21 History of Present Illness: Patient is a 71-year-old female with history of atrial fibrillation, hypertension, CHF who presents the emergency room for urgent bedsore. Patient currently lives at home with his son. On arrival, patient is disheveled, covered in dirty linen. Rest of history limited given baseline altered mental status. Patient was noted to be in A. fib with RVR with heart rate to the 180s. She has had 2 episodes of vomiting in the emergency room. Onset:unknown Duration:ongoing Location:home Severity:severe Associated symptoms: Reports nausea and vomiting; Deny dyspnea Review of Systems General: Reports: ROS unobtainable due to mental status Resp: Denies: dyspnea GI: Reports: nausea and vomiting Skin/Breast: Reports: other (+Per EMS, multiple abrasions over the back) PFSH ED 2 PFSH: Medical History Acute and chronic respiratory failure with hypoxia Acute exacerbation of CHF (congestive heart failure) Atrial fibrillation with RVR Breakthrough seizure After stroke on Keppra Breast cancer, right Chronic back pain Congestive heart failure COPD (chronic obstructive pulmonary disease) Diabetes Fibromyalgia Gastritis H/O: CVA (cerebrovascular accident) Hypertension Oxygen dependent Stroke May 2017 Type 2 diabetes mellitus Surgical History H/O right mastectomy History of bunionectomy History of tonsillectomy Hx of cholecystectomy Family History Other No pertinent family history Denies family history of Anesthesia complication Bleeding disorder Social History Smoking and tobacco status: never smoked Alcohol intake: never Household members: spouse Housing: House Marital status: Current occupational status: retired History of recent travel: No Physical Exam HENMT: COMMON NORMALS: atraumatic HEAD & SCALP: atraumatic MOUTH: moist mucous membranes abnormal Eye: COMMON NORMALS: EOMs intact bilaterally and conjunctivae normal CONJUNCTIVA: Yes conjunctivae normal Neck/C-Spine: COMMON NORMALS: full ROM and supple Resp: COMMON NORMALS: normal respiratory effort and clear to auscultation bilaterally AUSCULTATION: clear to auscultation bilaterally Cardio: RATE: tachycardic and Other (irregular irregular tachycardia) GI: COMMON NORMALS: Soft to palpation and non-tender PALPATION: Yes Soft to palpation Extremity: COMMON NORMALS: full ROM Neuro: SENSORIUM/ORIENTATION: Yes Orientation impaired OTHER: +Confusion, occasionally tracking and no following commands, occasionally moving L arm to pain Psych: OTHER: +Unable to assess given baseline mental status Skin: NARRATIVE SKIN EXAM: +Disheveled, multiple abrasions of thoracic and lower back with dried poop and soiled sheets Course Vital Signs: Vital signs: Vital Signs Temperature 97.8 F 08/15/21 05:12 Pulse Rate 89 08/15/21 18:49 Respiratory Rate 14 08/15/21 18:49 Blood Pressure 119/77 08/15/21 18:49 Pulse Oximetry 93 08/15/21 18:49 MDM - General Adult Medical Decision Making 71-year-old female with history atrial fibrillation, hypertension, diabetes the emergency room with concerns for altered renal status inability to care for self and A. fib with RVR. On arrival, patient is noted to be in regular tachycardia to the 160s to 180s. + Two episodes of emesis. She received diltiazem, metoprolol, IVF, digoxin, magnesium with significant improvement in A. fib. Now afib apperasto be controlled in the low 100s. Patient is not currently on any drips. Is noted to have a lactate of 3.7. She received vancomycin and cefepime. We will fluid restrict given concerns for CHF. Patient is afebrile, has minimal white count I do not suspect active infection but will give empiric antibiotics given elevated lactic acid. Dimer appears to be elevated at 1.7. CTA is negative for PE. CT brain negative for any acute finding. Blood culture pending. Repeat lactic acid pending. Covid test positive today. She will be admitted to the hospital for needing placement, atrial fibrillation management, and evaluation of altered mental status Disposition: admission Lab Data : 08/15/21 04:04 08/15/21 04:04 Radiology Impressions Chest X-Ray 08/14/21 15:49 IMPRESSION: Stable exam, no acute findings. Head CT 08/14/21 15:49 IMPRESSION: Stable exam, no acute intracranial abnormality. Humerus X-Ray 08/14/21 15:49 IMPRESSION: No acute findings. Shoulder X-Ray 08/14/21 15:49 IMPRESSION: No acute findings. Chest/Abdomen/Pelvis CT 08/14/21 16:24 IMPRESSION: 1. Negative for pulmonary embolus. 2. Scattered prominent mediastinal lymph nodes measuring up to 11 mm short axis, nonspecific. 3. Cardiomegaly. 4. Patchy bilateral subsegmental atelectasis versus infiltrate. IMPRESSION: 1. Negative for acute inflammatory process in the abdomen or pelvis. 2. Cholecystectomy. 3. Diverticulosis without diverticulitis. Laboratory Results WBC 8.4 10^3/uL (4.0-10.0) 08/14/21 15:00 RBC 5.39 10^6/uL (4.1-5.3) H 08/14/21 15:00 Hgb 14.4 g/dL (11.5-15.3) 08/14/21 15:00 Hct 45.7 % (37.0-47.0) 08/14/21 15:00 MCV 84.8 fl (81-99) 08/14/21 15:00 MCH 26.7 pg (28.0-34.0) L 08/14/21 15:00 MCHC 31.5 g/dL (30.0-36.0) 08/14/21 15:00 RDW 17.6 % (12.1-15.1) H 08/14/21 15:00 Plt Count 242 10^3/cmm (130-400) 08/14/21 15:00 MPV 10.3 fL (7.4-10.4) 08/14/21 15:00 Neut % (Auto) 82.3 % 08/14/21 15:00 Lymph % (Auto) 11.6 % 08/14/21 15:00 Bucks % (Auto) 4.5 % 08/14/21 15:00 Eos % (Auto) 0.6 % 08/14/21 15:00 Baso % (Auto) 0.2 % 08/14/21 15:00 Neut # (Auto) 6.87 10^3/uL (1.8-7.7) 08/14/21 15:00 Lymph # (Auto) 1.0 10^3/uL (0.8-4.8) 08/14/21 15:00 Bucks # (Auto) 0.4 10^3/uL (0.2-0.9) 08/14/21 15:00 Eos # (Auto) 0.1 10^3/uL (0.0-0.8) 08/14/21 15:00 Baso # (Auto) 0.0 10^3/uL (0.0-0.1) 08/14/21 15:00 Nucleated RBC % (auto) 0 % 08/14/21 15:00 Nucleated RBCs # 0.0 /100WBC 08/14/21 15:00 D-Dimer 1.69 ug/mIFEU (0-0.59) H 08/14/21 15:51 Sodium 131 mmol/L (136-145) L 08/14/21 15:51 Potassium 4.1 mmol/L (3.5-5.1) 08/14/21 15:51 Chloride 92 mmol/L (98-107) L 08/14/21 15:51 Carbon Dioxide 24 mmol/L (22-29) 08/14/21 15:51 Anion Gap 19.1 (5-19) H 08/14/21 15:51 BUN 23 mg/dL (8-23) 08/14/21 15:51 Creatinine 0.9 mg/dL (0.5-0.9) 08/14/21 15:51 GFR Calculation Not Reportable 08/14/21 15:51 Glucose 153 mg/dL (65-115) H 08/14/21 15:51 Calculated Osmolality 279 mOsm/kg (285-295) L 08/14/21 15:51 Lactate 3.6 mmol/L (0.5-2.2) H 08/14/21 15:51 Calcium 9.6 mg/dL (8.5-10.5) 08/14/21 15:51 Total Bilirubin 0.8 mg/dL (0.15-1.2) 08/14/21 15:51 AST 26 U/L (0-32) 08/14/21 15:51 ALT 16 U/L (0-33) 08/14/21 15:51 Alkaline Phosphatase 116 IU/L (35-105) H 08/14/21 15:51 Creatine Kinase 59 U/L (26-192) 08/14/21 15:51 Troponin T Baseline 47 ng/L (0-10) H 08/14/21 15:51 Troponin T 120 Minute 44.82 ng/L (0-10) H 08/14/21 18:30 Delta Troponin T -2.18 ABS# (0-10) L 08/14/21 18:30 NT-Pro-B Natriuret Pep 2104 pg/mL (0-125) H 08/14/21 15:51 Total Protein 7.1 g/dL (6.6-8.7) 08/14/21 15:51 Albumin 2.7 g/dL (3.5-5.2) L 08/14/21 15:51 Globulin 4.4 g/dL (1.3-4.6) 08/14/21 15:51 Lipase 29 U/L (13-60) 08/14/21 15:51 Procalcitonin 0.22 ng/mL (0-0.5) 08/14/21 15:51 TSH 3.89 uIU/mL (0.27-4.20) 08/14/21 15:51 Free T4 1.08 ng/dL (0.82-1.77) 08/14/21 15:51 Urine Color Dark yellow (Yellow) 08/14/21 18:06 Urine Appearance Hazy (CLEAR) A 08/14/21 18:06 Urine pH 5 (5-7) 08/14/21 18:06 Ur Specific [place] 1.015 (1.005-1.030) 08/14/21 18:06 Urine Protein Trace (Negative) 08/14/21 18:06 Urine Glucose (UA) Norm (Normal) 08/14/21 18:06 Urine Ketones 1+ (Negative) H 08/14/21 18:06 Urine Blood 3+ (Negative) H 08/14/21 18:06 Urine Nitrate Positive (Negative) H 08/14/21 18:06 Urine Bilirubin Neg (Negative) 08/14/21 18:06 Urine Urobilinogen 1 mg/dL (Negative) H 08/14/21 18:06 Ur Leukocyte Esterase 2+ (Negative) H 08/14/21 18:06 Urine RBC 0-4 /hpf (0-2) H 08/14/21 18:06 Urine WBC 25-40 /hpf (0-5) H 08/14/21 18:06 Ur Squamous Epith Cells 0-4 /hpf (0-5) H 08/14/21 18:06 Amorphous Sediment Not Reportable 08/14/21 18:06 Urine Bacteria 2+ /hpf (NONE) H 08/14/21 18:06 Coronavirus 229E (PCR) Not detected (NOT DETECT) 08/14/21 14:44 SARS-CoV-2 (PCR) Detected (NOT DETECT) A 08/14/21 14:44 SARS-CoV-2 Ag (Rapid) Negative (Negative) 08/14/21 14:44 Imaging Data Other Imaging: Radiologist's impression: [employer] [address] XRay Report Signed Patient: Neeta Roche Unit #: [id number] : 1950 Age/Sex: 71 / F ADM Date: 08/14/21 Loc: ER Room/Bed: Attending Dr: Ordering Provider/Ordering MD: Bhavani Quiroz MD Date of Service: 08/14/21 Procedure(s): XR shoulder LT min 2V* [id number] Accession Number(s): [id number] Report Number: [id number] PROCEDURE INFORMATION: Exam: XR Left Shoulder Exam date and time: 08/14/2021 3:49 PM Age: 71 years old Clinical indication: Pain; Shoulder; Left; Patient HX: Bed sores, AMS; Additional info: Shoulder pain TECHNIQUE: Imaging protocol: XR Left shoulder. Views: 2 or more views. COMPARISON: CR XR chest 1V portable [id number] 05/07/2020 3:17 PM FINDINGS: Bones/joints: Negative for fracture or dislocation. Soft tissues: Normal. XR/XR shoulder LT min 2V* [id number] IMPRESSION: No acute findings. ? Dictated By: Baldo Payton DO Signed By: Baldo Payton DO Signed Date/Time: 08/14/21 1718 DD/ 1549 [employer] [address] XRay Report Signed Patient: Neeta Roche Unit #: [id number] : 1950 Age/Sex: 71 / F ADM Date: 08/14/21 Loc: ER Room/Bed: Attending Dr: Ordering Provider/Ordering MD: Bhavani Quiroz MD Date of Service: 08/14/21 Procedure(s): [place] [address] Accession Number(s): [id number] Report Number: [id number] PROCEDURE INFORMATION: Exam: XR Left Humerus Exam date and time: 08/14/2021 3:49 PM Age: 71 years old Clinical indication: Pain; Upper arm; Left; Patient HX: Bed sores, AMS; Additional info: Humerus pain TECHNIQUE: Imaging protocol: XR Left humerus. Views: 2 or more views. COMPARISON: CR XR chest 1V portable [id number] 05/07/2020 3:17 PM FINDINGS: Bones/joints: Left humerus is intact. Negative for fracture. Soft tissues: Normal. XR/[place] [id number] IMPRESSION: No acute findings. ? Dictated By: Baldo Payton DO Signed By: Baldo Payton DO Signed Date/Time: 08/14/21 1712 DD/ [address] [address] [address] Scan Report Signed Patient: Neeta Roche Unit #: [id number] : 1950 Age/Sex: 71 / F ADM Date: 08/14/21 Loc: ER Room/Bed: Attending Dr: Ordering Provider/Ordering MD: Bhavani Quiroz MD Date of Service: 08/14/21 Procedure(s): CT head wo con* [id number] Accession Number(s): [id number] Report Number: [id number] PROCEDURE INFORMATION: Exam: CT Head Without Contrast Exam date and time: 08/14/2021 3:49 PM Age: 71 years old Clinical indication: Altered mental status/memory loss; Additional info: AMS TECHNIQUE: Imaging protocol: Computed tomography of the head without contrast. Radiation optimization: All CT scans at this facility use at least one of these dose optimization techniques: automated exposure control; mA and/or kV adjustment per patient size (includes targeted exams where dose is matched to clinical indication); or iterative reconstruction. COMPARISON: CT head wo con* [id number] 05/09/2020 8:20 AM RADIATION DOSE METRICS: Total DLP (mGy-cm): 2177.2 FINDINGS: Brain: No hemorrhage. Redemonstrated encephalomalacia from prior infarct within the left occipital and posterior temporal lobes. Similar appearance of a 3.6 cm arachnoid cyst in the left middle cranial fossa anterior to the left temporal lobe. Moderate diffuse cerebral atrophy and sequela of chronic small vessel ischemic disease. Cerebral ventricles: No ventriculomegaly. Ex vacuo dilation of the atria of the left lateral ventricle. Paranasal sinuses: Trace fluid left ethmoid and sphenoid sinuses. Otherwise the paranasal sinuses are well pneumatized. Mastoid air cells: Visualized mastoid air cells are well aerated. Bones/joints: Unremarkable. No acute fracture. Soft tissues: Unremarkable. CT/CT head wo con* [id number] IMPRESSION: Stable exam, no acute intracranial abnormality. ? Dictated By: Baldo Payton DO Signed By: Baldo Payton DO Signed Date/Time: 08/14/21 1740 DD/ [address] [address] XRay Report Signed Patient: Neeta Roche Unit #: [id number] : 1950 Age/Sex: 71 / F ADM Date: 08/14/21 Loc: ER Room/Bed: Attending Dr: Ordering Provider/Ordering MD: Bhavani Quiroz MD Date of Service: 08/14/21 Procedure(s): XR chest 1V portable [id number] Accession Number(s): [id number] Report Number: [id number] PROCEDURE INFORMATION: Exam: XR Chest Exam date and time: 08/14/2021 3:49 PM Age: 71 years old Clinical indication: Patient HX: Bed sores, AMS TECHNIQUE: Imaging protocol: XR of the chest. Views: 1 view. COMPARISON: CR XR chest 1V portable [id number] 05/07/2020 3:17 PM FINDINGS: Lungs: Calcified granuloma at the left lung apex. No consolidation. Pleural spaces: Unremarkable. No pleural effusion. No pneumothorax. Heart/Mediastinum: Mild cardiomegaly. Bones/joints: Visualized osseous structures are intact. XR/XR chest 1V portable [id number] IMPRESSION: Stable exam, no acute findings. ? Dictated By: Baldo Payton DO Signed By: Baldo Payton DO Signed Date/Time: 08/14/21 1726 DD/ 1549 [employer] [address] [address] Scan Report Signed Patient: Neeta Roche Unit #: [id number] : 1950 Age/Sex: 71 / F ADM Date: 08/14/21 Loc: ER Room/Bed: Attending Dr: Ordering Provider/Ordering MD: Bhavani Quiroz MD Date of Service: 08/14/21 Procedure(s): CT angio chest w abd pel w con Accession Number(s): [id number] Report Number: [id number] PROCEDURE INFORMATION: Exam: CTA Chest With Contrast Exam date and time: 08/14/2021 4:24 PM Age: 71 years old Clinical indication: Nausea and vomiting; Shortness of breath; Additional info: Eval for pe TECHNIQUE: Imaging protocol: Computed tomographic angiography of the chest with contrast. 3D rendering (Not supervised by radiologist): MIP and/or 3D reconstructed images were created by the technologist. Radiation optimization: All CT scans at this facility use at least one of these dose optimization techniques: automated exposure control; mA and/or kV adjustment per patient size (includes targeted exams where dose is matched to clinical indication); or iterative reconstruction. Contrast material: OMNI 350; Contrast volume: 95 ml; Contrast route: INTRAVENOUS (IV);? COMPARISON: CT angio chest PE protcl [id number] 05/07/2020 7:55 PM RADIATION DOSE METRICS: Total DLP (mGy-cm): 2119.81 FINDINGS: Pulmonary arteries: Normal. No pulmonary emboli. Aorta: Unremarkable. No aortic aneurysm. No aortic dissection. Lungs: Patchy bilateral subsegmental atelectasis versus infiltrate. Pleural spaces: Unremarkable. No pneumothorax. No pleural effusion. Heart: Cardiomegaly. Lymph nodes: Scattered prominent mediastinal lymph nodes measuring up to 11 mm short axis, nonspecific. Bones/joints: Unremarkable. No acute fracture. Soft tissues: Unremarkable. PROCEDURE INFORMATION: Exam: CT Abdomen And Pelvis With Contrast Exam date and time: 08/14/2021 4:24 PM Age: 71 years old Clinical indication: Nausea and vomiting; Shortness of breath; Additional info: Eval for pe TECHNIQUE: Imaging protocol: Computed tomography of the abdomen and pelvis with contrast. Radiation optimization: All CT scans at this facility use at least one of these dose optimization techniques: automated exposure control; mA and/or kV adjustment per patient size (includes targeted exams where dose is matched to clinical indication); or iterative reconstruction. Contrast material: OMNI 350; Contrast volume: 95 ml; Contrast route: INTRAVENOUS (IV);? COMPARISON: CT angio chest PE protcl [id number] 05/07/2020 7:55 PM RADIATION DOSE METRICS: Total DLP (mGy-cm): 2119.81 FINDINGS: Liver: Normal. No mass. Gallbladder and bile ducts: Cholecystectomy. Pancreas: Normal. No ductal dilation. Spleen: Normal. No splenomegaly. Adrenal glands: Normal. No mass. Kidneys and ureters: Normal. No hydronephrosis. Stomach and bowel: Diverticulosis without diverticulitis. Appendix: No evidence of appendicitis. Intraperitoneal space: Unremarkable. No free air. No significant fluid collection. Vasculature: Unremarkable. No abdominal aortic aneurysm. Lymph nodes: Unremarkable. No enlarged lymph nodes. Urinary bladder: Unremarkable as visualized. Reproductive: Unremarkable as visualized. Bones/joints: Unremarkable. No acute fracture. Soft tissues: Unremarkable. CT/CT angio chest w abd pel w con IMPRESSION: 1. Negative for pulmonary embolus. 2. Scattered prominent mediastinal lymph nodes measuring up to 11 mm short axis, nonspecific. 3. Cardiomegaly. 4. Patchy bilateral subsegmental atelectasis versus infiltrate. ? ? IMPRESSION: 1. Negative for acute inflammatory process in the abdomen or pelvis. 2. Cholecystectomy. 3. Diverticulosis without diverticulitis. ? Dictated By: Osbaldo Alonso MD Signed By: Osbaldo Alonso MD Signed Date/Time: 08/14/21 2963 DD/ 1624 Critical Care Time Critical Care Time: Critical Care Time: Yes Total Critical Care Time: 35 Attestation: The high probability of a clinically significant, sudden or life threatening deterioration of the patient's Cardiovascular system(s) required my full and direct attention, intervention and personal management. The critical care time is as shown. This time is in addition to time spent performing any reported procedures but includes the following: [x] Data and vital sign review and interpretation [x] Patient assessment, examination and intervention [x] Documentation [x] Medication orders and management Discharge Plan Discharge Patient Disposition: Admitted As Inpatient Admit Provider: Enrique Lopes Clinical Impression: Atrial fibrillation with RVR, Altered mental status, COVID Condition: Stable Coding Level of Care Code ED Choke Setter for oSni Fwd Exam Comprehensive
[2021-08-14] MEDS: digoxin 250 mcg/ml INJ 2 mL IVP (15:31)
--- NOTE | 2021-08-14 15:49 | XRR_ITS ---
PROCEDURE INFORMATION: Exam: XR Chest Exam date and time: 08/14/2021 3:49 PM Age: 71 years old Clinical indication: Patient HX: Bed sores, AMS TECHNIQUE: Imaging protocol: XR of the chest. Views: 1 view. COMPARISON: CR XR chest 1V portable [id number] 05/07/2020 3:17 PM FINDINGS: Lungs: Calcified granuloma at the left lung apex. No consolidation. Pleural spaces: Unremarkable. No pleural effusion. No pneumothorax. Heart/Mediastinum: Mild cardiomegaly. Bones/joints: Visualized osseous structures are intact. XR/XR chest 1V portable [id number] IMPRESSION: Stable exam, no acute findings.
--- NOTE | 2021-08-14 15:49 | XRR_ITS ---
PROCEDURE INFORMATION: Exam: XR Left Humerus Exam date and time: 08/14/2021 3:49 PM Age: 71 years old Clinical indication: Pain; Upper arm; Left; Patient HX: Bed sores, AMS; Additional info: Humerus pain TECHNIQUE: Imaging protocol: XR Left humerus. Views: 2 or more views. COMPARISON: CR XR chest 1V portable [id number] 05/07/2020 3:17 PM FINDINGS: Bones/joints: Left humerus is intact. Negative for fracture. Soft tissues: Normal. XR/[place] [id number] IMPRESSION: No acute findings.
--- NOTE | 2021-08-14 15:49 | XRR_ITS ---
PROCEDURE INFORMATION: Exam: XR Left Shoulder Exam date and time: 08/14/2021 3:49 PM Age: 71 years old Clinical indication: Pain; Shoulder; Left; Patient HX: Bed sores, AMS; Additional info: Shoulder pain TECHNIQUE: Imaging protocol: XR Left shoulder. Views: 2 or more views. COMPARISON: CR XR chest 1V portable [id number] 05/07/2020 3:17 PM FINDINGS: Bones/joints: Negative for fracture or dislocation. Soft tissues: Normal. XR/XR shoulder LT min 2V* [id number] IMPRESSION: No acute findings.
--- NOTE | 2021-08-14 15:49 | CTR_ITS ---
PROCEDURE INFORMATION: Exam: CT Head Without Contrast Exam date and time: 08/14/2021 3:49 PM Age: 71 years old Clinical indication: Altered mental status/memory loss; Additional info: AMS TECHNIQUE: Imaging protocol: Computed tomography of the head without contrast. Radiation optimization: All CT scans at this facility use at least one of these dose optimization techniques: automated exposure control; mA and/or kV adjustment per patient size (includes targeted exams where dose is matched to clinical indication); or iterative reconstruction. COMPARISON: CT head wo con* [id number] 05/09/2020 8:20 AM RADIATION DOSE METRICS: Total DLP (mGy-cm): 2177.2 FINDINGS: Brain: No hemorrhage. Redemonstrated encephalomalacia from prior infarct within the left occipital and posterior temporal lobes. Similar appearance of a 3.6 cm arachnoid cyst in the left middle cranial fossa anterior to the left temporal lobe. Moderate diffuse cerebral atrophy and sequela of chronic small vessel ischemic disease. Cerebral ventricles: No ventriculomegaly. Ex vacuo dilation of the atria of the left lateral ventricle. Paranasal sinuses: Trace fluid left ethmoid and sphenoid sinuses. Otherwise the paranasal sinuses are well pneumatized. Mastoid air cells: Visualized mastoid air cells are well aerated. Bones/joints: Unremarkable. No acute fracture. Soft tissues: Unremarkable. CT/CT head wo con* [id number] IMPRESSION: Stable exam, no acute intracranial abnormality.
[2021-08-14] MEDS: morphine 4 mg/mL SDV 1 mL 2 MG IVP (15:56)
[2021-08-14 16:20] LABS: Lactate (Lactic Acid level) 3.6 mmol/L (0.5-2.2)
[2021-08-14 16:23] LABS: D Dimer 1.69 ug/mIFEU (0-0.59)
[2021-08-14 16:24] LABS: Troponin(5th) Baseline 47 ng/L (0-10)
--- NOTE | 2021-08-14 16:24 | CTR_ITS ---
PROCEDURE INFORMATION: Exam: CTA Chest With Contrast Exam date and time: 08/14/2021 4:24 PM Age: 71 years old Clinical indication: Nausea and vomiting; Shortness of breath; Additional info: Eval for pe TECHNIQUE: Imaging protocol: Computed tomographic angiography of the chest with contrast. 3D rendering (Not supervised by radiologist): MIP and/or 3D reconstructed images were created by the technologist. Radiation optimization: All CT scans at this facility use at least one of these dose optimization techniques: automated exposure control; mA and/or kV adjustment per patient size (includes targeted exams where dose is matched to clinical indication); or iterative reconstruction. Contrast material: OMNI 350; Contrast volume: 95 ml; Contrast route: INTRAVENOUS (IV); COMPARISON: CT angio chest PE protcl [id number] 05/07/2020 7:55 PM RADIATION DOSE METRICS: Total DLP (mGy-cm): FINDINGS: Pulmonary arteries: Normal. No pulmonary emboli. Aorta: Unremarkable. No aortic aneurysm. No aortic dissection. Lungs: Patchy bilateral subsegmental atelectasis versus infiltrate. Pleural spaces: Unremarkable. No pneumothorax. No pleural effusion. Heart: Cardiomegaly. Lymph nodes: Scattered prominent mediastinal lymph nodes measuring up to 11 mm short axis, nonspecific. Bones/joints: Unremarkable. No acute fracture. Soft tissues: Unremarkable. PROCEDURE INFORMATION: Exam: CT Abdomen And Pelvis With Contrast Exam date and time: 08/14/2021 4:24 PM Age: 71 years old Clinical indication: Nausea and vomiting; Shortness of breath; Additional info: Eval for pe TECHNIQUE: Imaging protocol: Computed tomography of the abdomen and pelvis with contrast. Radiation optimization: All CT scans at this facility use at least one of these dose optimization techniques: automated exposure control; mA and/or kV adjustment per patient size (includes targeted exams where dose is matched to clinical indication); or iterative reconstruction. Contrast material: OMNI 350; Contrast volume: 95 ml; Contrast route: INTRAVENOUS (IV); COMPARISON: CT angio chest PE protcl [id number] 05/07/2020 7:55 PM RADIATION DOSE METRICS: Total DLP (mGy-cm): 2118. FINDINGS: Liver: Normal. No mass. Gallbladder and bile ducts: Cholecystectomy. Pancreas: Normal. No ductal dilation. Spleen: Normal. No splenomegaly. Adrenal glands: Normal. No mass. Kidneys and ureters: Normal. No hydronephrosis. Stomach and bowel: Diverticulosis without diverticulitis. Appendix: No evidence of appendicitis. Intraperitoneal space: Unremarkable. No free air. No significant fluid collection. Vasculature: Unremarkable. No abdominal aortic aneurysm. Lymph nodes: Unremarkable. No enlarged lymph nodes. Urinary bladder: Unremarkable as visualized. Reproductive: Unremarkable as visualized. Bones/joints: Unremarkable. No acute fracture. Soft tissues: Unremarkable. CT/CT angio chest w abd pel w con IMPRESSION: 1. Negative for pulmonary embolus. 2. Scattered prominent mediastinal lymph nodes measuring up to 11 mm short axis, nonspecific. 3. Cardiomegaly. 4. Patchy bilateral subsegmental atelectasis versus infiltrate. IMPRESSION: 1. Negative for acute inflammatory process in the abdomen or pelvis. 2. Cholecystectomy. 3. Diverticulosis without diverticulitis.
[2021-08-14 16:30] LABS: Alanine Aminotransferase 16 U/L (0-33); Albumin Level 2.7 g/dL (3.5-5.2); Alkaline Phosphatase 116 IU/L (35-105); Anion Gap 19.1 (5-19); Aspartate Amino Transferase 26 U/L (0-32); Blood Urea Nitrogen 23 mg/dL (8-23); Calcium 9.6 mg/dL (8.5-10.5); Carbon Dioxide 24 mmol/L (22-29); Chloride 92 mmol/L (98-107); Creatine Phosphokinase 59 U/L (26-192); Free T4 Free Thyroxine 1.08 ng/dL (0.82-1.77); Globulin 4.4 g/dL (1.3-4.6); Glucose 153 mg/dL (65-115); Lipase 29 U/L (13-60); NT Pro B Type Natriuretic Pept 2104 pg/mL (0-125); Osmolality Calculated 279 mOsm/kg (285-295); Potassium 4.1 mmol/L (3.5-5.1); Sodium 131 mmol/L (136-145); Thyroid Stimulating Hormone 3.89 uIU/mL (0.27-4.20); Total Bilirubin 0.8 mg/dL (0.15-1.2); Total Protein 7.1 g/dL (6.6-8.7)
--- NOTE | 2021-08-14 16:34 | ECG_ITS ---
[facility] Test Date: 2021-08-14 Pat Name: Neeta Roche Department: Room: 111 Gender: Female Magento Developer: : 1950 Requested By: Bhavani Quiroz Order Number: [id number] Reading MD: Idania Tinajero M.D. Measurements Intervals [place] Rate: 108 P: [place]: QRS: 27 QRSD: 102 T: 163 QT: 342 QTc: 460 Interpretive Statements ATRIAL FIBRILLATION WITH RAPID VENTRICULAR RESPONSE NONSPECIFIC ST & T-WAVE ABNORMALITY Compared to ECG 08/14/2021 17:33:13 No significant changes Electronically Signed On 08-15-2021 15:29:38 REGIONAL TRAINER by Idania Tinajero M.D. [email or web address] medical [email or web address] Solutions Consulting/store/[id number]
[2021-08-14 16:39] LABS: Adenovirus Not Detected (NOT DETECT); Chlamydia Pneumoniae Not Detected (NOT DETECT); Coronavirus 229E,HKU1,NL63,OC4 Not Detected (NOT DETECT); Human Metapneumovirus Not Detected (NOT DETECT); Human Rhinovirus/Enterovirus Not Detected (NOT DETECT); Influenza A Not Detected (NOT DETECT); Influenza A H1 Not Detected (NOT DETECT); Influenza A H1-2009 Not Detected (NOT DETECT); Influenza A H3 Not Detected (NOT DETECT); Influenza B Not Detected (NOT DETECT); Mycoplasma Pneumoniae Not Detected (NOT DETECT); Parainfluenza Virus Type 1 Not Detected (NOT DETECT); Parainfluenza Virus Type 2 Not Detected (NOT DETECT); Parainfluenza Virus Type 3 Not Detected (NOT DETECT); Parainfluenza Virus Type 4 Not Detected (NOT DETECT); Respiratory Syncytial Virus A Not Detected (NOT DETECT); Respiratory Syncytial Virus B Not Detected (NOT DETECT); SARS-COV-2 Detected (NOT DETECT)
[2021-08-14] MEDS: iohexol 350 mg/mL 100 mL Btl IV (17:12)
[2021-08-14] MEDS: vancomycin 1,000 MG in sodium chloride 0.9% 250 ML 250 MG IV (17:33)
[2021-08-14] MEDS: cefepime 1,000 MG in sodium chloride 0.9% (plus) 50 ML 100 MG IV (17:33)
[2021-08-14] MEDS: eucerin cream 113 gm Jar 1 APPLIC TOPICAL (17:34)
--- NOTE | 2021-08-14 18:11 | PC.NURSE ---
1500- patient placed on tank erector and found to be tachycardic at 141 bpm irregular. provider informed and at bedside.
[2021-08-14] MEDS: dilTIAZem ER (24HR) 180 mg Capsule PO (18:33)
--- NOTE | 2021-08-14 18:39 | PM.HP ---
Providers/Chief Complaint Primary Care Provider: Yaya Lara Chief Complaint: BED SORES History of Present Illness Neeta Roche is a 71 year old female who has history of multiple strokes in the past, A. fib, breast cancer, A. fib, chronic anticoagulation with Eliquis, bedbound secondary to fibromyalgia, osteoarthritis of knees presented to the hospital from home for evaluation because of her declining functional status. Patient is not able to provide any history because of her confusion. I called her son, son and stating that her on 07/31, autopsy is pending, cause of is unknown at this point, he was not diagnosed with COVID, he was taking care of Neeta, since then her health has been declining. At baseline she is not very mobile, not been able to get up on her own for last 2 to 3 months as per the son, she is not vaccinated for COVID-19. Today when son got her up noticed multiple sacral ulcers and that prompted him to bring her to the ER for further evaluation. In the ER patient was diagnosed with A. fib RVR received digoxin, diltiazem, cefepime, vancomycin, for treatment of A. fib RVR and possible community-acquired pneumonia, COVID-19 PCR returned positive I will give her Decadron and remdesivir I updated the family Patient is currently on 2 L nasal cannula Oriented to herself Moving her upper extremities Morbid obesity Patient was pretty disabled, unkempt Foul-smelling clothes Sorensen catheter draining concentrated urine Hypertensive CTA ruled out pulmonary embolism Review of Systems General: Reports: ROS unobtainable due to medical condition (COVID-19 delirium) Medications/Allergies Home Medications Medication Instructions Recorded Confirmed Last Taken Type atorvastatin 40 mg tablet 40 mg PO DAILY 04/25/20 08/14/21 10/01/20 History citalopram 20 mg tablet 20 mg PO DAILY 04/25/20 08/14/21 10/01/20 History levetiracetam 750 mg tablet 750 mg PO BID 04/25/20 08/14/21 10/02/20 07:00 History montelukast 10 mg tablet 10 mg PO DAILY 04/25/20 08/14/21 10/01/20 History (Singulair) amitriptyline 10 mg tablet 10 mg PO BID 05/07/20 08/14/21 10/01/20 History anastrozole 1 mg tablet 1 mg PO DAILY 05/07/20 08/14/21 10/01/20 History apixaban 5 mg tablet (Eliquis) 5 mg PO BID 05/07/20 08/14/21 09/30/20 History aspirin 81 mg tablet,delayed 81 mg PO DAILY 05/07/20 08/14/21 09/30/20 History release cholecalciferol (vitamin D3) 25 25 mcg PO DAILY 05/07/20 08/14/21 10/01/20 History mcg (1,000 unit) capsule (Vitamin D3) insulin lispro 100 unit/mL 12 unit SUBCUT BID 05/07/20 08/14/21 10/01/20 20:00 History subcutaneous pen (Humalog KwikPen (U-100) Insulin) bumetanide 1 mg tablet 1 mg PO DAILY #30 tab 05/12/20 08/14/21 10/01/20 Rx metoprolol succinate 100 mg 50 mg PO Q12H #60 tab 05/12/20 08/14/21 10/02/20 07:00 Rx tablet,extended release 24 hr potassium chloride 20 mEq 20 meq PO DAILY #30 tab 05/12/20 08/14/21 10/01/20 Rx tablet,extended release hydrocodone 5 mg-acetaminophen 325 1 tab PO Q8H PRN 08/14/21 08/14/21 Unknown History mg tablet Allergies Allergy/AdvReac Type Severity Reaction Status Date / Time adhesive tape Allergy NABEELPinky-Julese Verified 08/27/20 14:48 r PFSH Acute PFSH: Medical History Acute and chronic respiratory failure with hypoxia Acute exacerbation of CHF (congestive heart failure) Atrial fibrillation with RVR Breakthrough seizure After stroke on Keppra Breast cancer, right Chronic back pain Congestive heart failure COPD (chronic obstructive pulmonary disease) Diabetes Fibromyalgia Gastritis H/O: CVA (cerebrovascular accident) Hypertension Oxygen dependent Stroke May 2017 Type 2 diabetes mellitus Surgical History H/O right mastectomy History of bunionectomy History of tonsillectomy Hx of cholecystectomy Family History Other No pertinent family history Denies family history of Anesthesia complication Bleeding disorder Social History Smoking and tobacco status: never smoked Alcohol intake: never Household members: spouse Housing: House Marital status: Current occupational status: retired History of recent travel: No Vitals/I&O/Wt Last Vital Signs Temp 98.2 F 08/14/21 17:36 Pulse 114 H 08/14/21 18:33 Resp 22 H 08/14/21 18:33 BP 129/89 08/14/21 18:33 Pulse Ox 96 08/14/21 18:33 Weight last 48 hrs Weight 136.078 kg Physical Exam Narrative: Morbidly obese elderly female Currently on 2 L nasal cannula No active conversational dyspnea Confused Moving her upper extremities I did not appreciate slurring of speech Morbid obesity Unkept disheveled appearance Distended abdomen nontender no signs of peritonitis Right mastectomy Venous stasis dermatitis Scratch carmichael on her legs No signs of cellulitis Sacral ulcer present on admission Data : 08/14/21 15:00 08/14/21 15:51 A&P Assessment and plan (1) Atrial fibrillation with RVR: Status: Acute (2) Altered mental status: Status: Acute (3) COVID: Status: Acute (4) UTI (urinary tract infection): Status: Acute Plan COVID-19 related hypoxia with underlying severe pulmonary hypertension COVID-19 related metabolic encephalopathy Currently on 2 L nasal cannula Start Decadron and remdesivir Patient is full code DuoNeb Respiratory to assess and treat Requested procalcitonin we will keep her empirical coverage with ceftriaxone She received cefepime and vancomycin in the ER Morbid obesity D-dimer is high PE ruled out A. fib RVR Continue Eliquis, AV magdiel blocking agent Might need Cardizem drip if blood pressure allows and heart rate above 110 Continue diltiazem 180 mg daily Potassium 4.1, check magnesium level TSH 3.8 Preserved ejection fraction heart failure acute exacerbation Severe tricuspid valve regurgitation Severe pulmonary hypertension Enlarged ventricle We will start Bumex from tomorrow Because of her high BMI is hard to assess her volume status Dark yellow concentrated urine noted in the ER, I would not continue fluids from 08/15 High risk intubation if needed She does not meet sepsis criteria however lactic acid is 3.6 Which could be related to increased work of breathing due to hypoxia Serial troponin and EKG Morbid obesity, sedentary lifestyle Family is requesting placement to a fpc as son is not able to take care of her anymore Consistent carb diet Sliding scale Full code, goals of care discussed with her son Attestations Medical Necessity Statement*: Monitor in CSU more than 2 midnights anticipated Time Spent in Patient Care: 35mins Coding Level of Care Code Acute Category Development Analyst for Chg Fwd Diagnoses Atrial fibrillation with RVR I48.91 Altered mental status R41.82 COVID U07.1 UTI (urinary tract infection) N39.0
[2021-08-14 18:56] LABS: Protein Urine Trace (Negative); Specific Gravity, Urine 1.015 (1.005-1.030); Urine Appearance Hazy (CLEAR); Urine Color Dark Yellow (Yellow); pH Urine 5 (5-7)
[2021-08-14 18:57] LABS: Add Urine Microscopic? YES; Bilirubin Urine Neg (Negative); Blood Urine 3+ (Negative); Glucose Urine UA Norm (Normal); Ketones Urine 1+ (Negative); Leukocyte Esterase Urine 2+ (Negative); Nitrate Urine Positive (Negative); Urobilinogen Urine 1 mg/dL (Negative)
[2021-08-14 18:58] LABS: Add Urine Culture? Yes; Bacteria Urine 2+ /hpf; RBC Urine 0-4 /hpf (0-2); Squamous Epithelial Cell Urine 0-4 /hpf (0-5); WBC Urine 25-40 /hpf (0-5)
[2021-08-14 19:02] LABS: Troponin 5 2HR 44.82 ng/L (0-10)
[2021-08-14 19:08] LABS: Troponin 5 2HR Delta -2.18 ABS# (0-10)
[2021-08-14 19:15] LABS: Procalcitonin 0.22 ng/mL (0-0.5)
--- NOTE | 2021-08-14 20:34 | ECG_ITS ---
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 Measurements Intervals [place] Rate: 109 P: [place]: QRS: 31 QRSD: 101 T: 165 QT: 340 QTc: 459 Interpretive Statements ATRIAL FIBRILLATION WITH RAPID VENTRICULAR RESPONSE LOW QRS VOLTAGE IN PRECORDIAL LEADS [QRS DEFLECTION < 1.0 mV IN CHEST LEADS] NONSPECIFIC ST & T-WAVE ABNORMALITY Compared to ECG 08/14/2021 14:28:54 Low QRS voltage now present T-wave abnormality still present Electronically Signed On 08-14-2021 20:52:31 GRINDER OUTSIDE DIAMETER by Moris Basilio M.D. [email or web address] medical [email or web address] [email or web address].[email or web address]/store/[id number]
--- NOTE | 2021-08-14 20:41 | PC.NURSE ---
Unable to complete admission assessment. When asking patient where she is, she states [facility]. When asking patient what year it is, patient states, [place]. When asking patient what month it is, patient does not reply to me. When asking patient if she wears oxygen at home, she states I don't know what happened to me. Patient appears to be hard of hearing as well as confused. Patient has multiple large areas of maceration and sloughing. Patient has multiple open wounds/pressure ulcers to inner thighs and sacrum. Interdry placed to groin areas Optifoam placed to left buttock.
[2021-08-14 21:20] LABS: Glucose Point of Care 153 mg/dL (70-110)
[2021-08-14] MEDS: dexamethasone 10 mg/mL INJ IVP (21:30)
[2021-08-14] MEDS: remdesivir 200 MG in sodium chloride 0.9% (100 ml) 60 ML 100 MG IV (21:35)
[2021-08-14] MEDS: metoprolol succinate ER (24 HR) 50 mg Tablet PO (21:35)
[2021-08-14 22:14] LABS: Troponin 5 6HR 40.98 ng/L (0-10)
[2021-08-14 22:24] LABS: Troponin 5 6HR Delta -6.02 ng/L (0-12)
--- NOTE | 2021-08-14 23:45 | PC.NURSE ---
Addendum entered by Mary Ellen English RN 08/14/21 23:53: Dr. Kohler notified of current heart rate. Original Note: Patient's heart rate ranging 80s to 90s at this time. Will continue to monitor.
[2021-08-15] VITALS (13 sets, daily range): BP systolic 118–132; BP diastolic 70–87; PULSE 69–102; RESP 14–22; TEMP 36.4–36.6; O2SAT 93–97
[2021-08-15 04:15] LABS: Basophils % 0.2 %; Hematocrit 42.1 % (37.0-47.0); Hemoglobin 12.8 g/dL (11.5-15.3); Lymphocytes # 0.5 10^3/uL (0.8-4.8); Lymphocytes % 8.2 %; Mean Corpuscular HGB Conc 30.4 g/dL (30.0-36.0); Mean Corpuscular Volume 85.6 fl (81-99); Mean Platelet Volume 9.7 fL (7.4-10.4); Monocytes # 0.1 10^3/uL (0.2-0.9); Monocytes % 1.2 %; Neutrophils # 5.15 10^3/uL (1.8-7.7); Neutrophils % 89.9 %; Nucleated Red Blood Cells % 0 %; Platelet Count 165 10^3/cmm (130-400); Red Blood Count 4.92 10^6/uL (4.1-5.3); White Blood Count 5.7 10^3/uL (4.0-10.0)
[2021-08-15 04:23] LABS: ABG PCO2 43.5 mmHg (35-45); ABG PH Result 7.41 (7.35-7.45); Arterial Blood Gas Hematocrit 40.8 % (37-47); Base Excess ABG 2.4 mmol/L (-2.0-2.0); Blood Gas Allen Test Pos; Blood Gas Sample Type Arterial; HCO3 ABG 27.5 mmol/L (22-26); PO2 ABG 71.7 mmHg (80.0-100.0)
[2021-08-15 04:24] LABS: Blood Gas Sample Site Radial, left; Oxygen Device NC
[2021-08-15 04:28] LABS: Partial Thromboplastin Time 30.3 SECONDS (23.9-36.7)
[2021-08-15 04:33] LABS: Alanine Aminotransferase 15 U/L (0-33); Albumin Level 2.3 g/dL (3.5-5.2); Alkaline Phosphatase 102 IU/L (35-105); Anion Gap 16.9 (5-19); Aspartate Amino Transferase 23 U/L (0-32); Blood Urea Nitrogen 26 mg/dL (8-23); Calcium 9.5 mg/dL (8.5-10.5); Carbon Dioxide 23 mmol/L (22-29); Chloride 95 mmol/L (98-107); Globulin 4.2 g/dL (1.3-4.6); Glucose 157 mg/dL (65-115); Osmolality Calculated 278 mOsm/kg (285-295); Potassium 4.9 mmol/L (3.5-5.1); Sodium 130 mmol/L (136-145); Total Bilirubin 0.5 mg/dL (0.15-1.2); Total Protein 6.5 g/dL (6.6-8.7)
[2021-08-15 04:34] LABS: C Reactive Protein 168.3 mg/L (0.0-4.9); Lactic Sepsis W/Reflex 1.1 mmol/L (0.5-2.2); Magnesium 2.5 mg/dL (1.7-2.3)
[2021-08-15 06:33] LABS: Glucose Point of Care 160 mg/dL (70-110)
[2021-08-15] MEDS: cefTRIAXone 1,000 MG in sodium chloride 0.9% (plus) 100 ML 200 MG IV (07:55)
[2021-08-15] MEDS: insulin lispro 100 unit/1 mL SUBCUT ×3 (07:55→20:29)
[2021-08-15] MEDS: montelukast sodium 10 mg Tablet PO (07:56)
[2021-08-15] MEDS: metoprolol succinate ER (24 HR) 50 mg Tablet PO ×2 (07:57→20:30)
[2021-08-15] MEDS: potassium chloride ER 20 mEq Tablet PO (07:57)
[2021-08-15] MEDS: cholecalciferol (vitamin D3) 1,000 unit Tablet 1000 UNIT PO (07:57)
[2021-08-15] MEDS: bumetanide 1 mg Tablet PO (07:57)
[2021-08-15] MEDS: levETIRAcetam 500 mg Tablet 750 MG PO ×2 (07:57→17:05)
[2021-08-15] MEDS: sennosides-docusate Tablet 1 TAB PO (07:57)
[2021-08-15] MEDS: aspirin 81 mg EC Tablet PO (07:58)
[2021-08-15] MEDS: apixaban 5 mg Tablet PO ×2 (07:58→17:05)
[2021-08-15] MEDS: benzonatate 100 mg Capsule PO ×3 (09:09→20:23)
[2021-08-15] MEDS: zinc gluconate 50 mg Tablet PO (09:09)
--- NOTE | 2021-08-15 10:00 | PC.NURSE ---
Informed CSU floor nurse of Positive COVID test.
[2021-08-15 11:01] LABS: Glucose Point of Care 160 mg/dL (70-110)
[2021-08-15] MEDS: famotidine 20 mg/2 mL INJ IVP ×2 (11:44→20:31)
[2021-08-15 13:21] LABS: Iron 28 ug/dL (37-145); Percent Saturation 17.7 % (20-50); Total Iron Binding Capacity 158 mcg/dl; Unsaturated Iron Binding 130 ug/dL (112-347)
--- NOTE | 2021-08-15 14:43 | PC.NURSE ---
Patient was seen by speech therapy. Speech recommends a puree diet. Thin liquids are adequate, however.
[2021-08-15 15:27] LABS: Glucose Point of Care 150 mg/dL (70-110)
--- NOTE | 2021-08-15 15:53 | P.PN_ITS ---
Subjective Subjective: Hospital course, labs appreciated. Examination patient is lying comfortably in bed, confused. As per the nursing staff and patient's son this is her baseline. Has remained hemodynamically stable and afebrile. Currently on 2 L saturating 97%. Diet change as per speech and swallow evaluation. Vitals/I&O/Wt Last Vital Signs Temp 97.8 F 08/15/21 05:12 Pulse 77 08/15/21 14:00 Resp 22 H 08/15/21 11:39 BP 132/77 08/15/21 11:39 Pulse Ox 97 08/15/21 11:39 08/15/21 08/15/21 08/15/21 06:59 14:59 22:59 Intake Total 100 / 1500 220 / 220 Output Total 350 / 1550 250 / 250 Balance -250 / -50 -30 / -30 Weight last 48 hrs Weight 128.684 kg Weight 136.078 kg Physical Exam Narrative: General: No acute distress, AO x1, on 2 L HEENT: PERRLA, pupils bilaterally equal and reactive Chest: Normal vesicular breath sounds, bilateral rhonchi diffuse all over the lung sanchez equal good air entry bilaterally CVS: S1-S2 irregularly irregular, pansystolic murmur at fourth intercostal parasternal region, no tachycardia, no gallops, no rubs Abdomen: Soft, nontender, no organomegaly, bowel sounds present Neuro: No focal deficits, no facial deformity, AO x3, power 5/5 in all limbs Urinary Catheter Management: Sorensen Latex: Cath Placed During This Visit: yes Reason for Continuing Indwelling Catheter: Assist Healing of Perineal & Sacral Wounds- Incontinent Patients Urinary Catheter Date of Insertion: 08/14/21 Urinary Catheter Time of Insertion: 17:00 Data : 08/15/21 04:04 08/15/21 04:04 Micro: Microbiology 08/14/21 21:00 MRSA Culture - Final Nose A&P Assessment and plan (1) Hypoxia: Status: Acute (2) COVID: Status: Acute (3) Atrial fibrillation with RVR: Status: Acute (4) Altered mental status: Status: Acute (5) UTI (urinary tract infection): Status: Acute Plan Hypoxia secondary to COVID-19 pneumonia: Mild to moderate disease. Oxygen supplementation keeping saturation over 88%. Dexamethasone 6 mg daily. Remdesivir to finish a 5-day course. Vitamin C, zinc. Advair, Spiriva. Pulmonary toilet with incentive spirometry flutter valve. We will monitor inflammatory markers including CRP and D-dimer every 48 hourly. D-dimer elevated. CT done negative for pulmonary embolism. Continue with home dose of Eliquis. Will monitor for anemia or blood loss. Calcitonin negative. Urine Legionella bacterial antigen not sent. Check blood cultures. Low suspicion of bacterial pneumonia. For now continue with ceftriaxone to finish a 5-day course. Given hypoxia will try to keep patient as negative as possible. Patient clinically dehydrated for now. Hold off on any further Bumex or IV hydration for now. Strict input output charting, daily weights. Atrial fibrillation: Currently rate controlled. Continue with Eliquis. Continue with home dose of metoprolol. TSH 3.8 Severe pulmonary hypertension: Echocardiogram done in 2019 shows RVSP of 62. Supposed to be on Bumex at as an outpatient. Will hold off. We will continue to monitor. UTI: Urinalysis on admission positive for nitrite and leuk esterase. History of Klebsiella UTI. Ceftriaxone will cover the UTI as well. Type 2 diabetes mellitus: Takes lispro 12 units twice daily at home. Insulin sliding scale before meals and at bedtime. Check A1c. CODE STATUS: Full code. We will confirm with the DPOA again. Swallow evaluation. Change diet accordingly. High risk of aspiration pneumonia. Famotidine for PUD prophylaxis. Eliquis has been DVT prophylaxis as well. Called son Mr. Javier on [phone]. No answer so left a message. Will call again. Attestations Medical Necessity Statement*: Requires further hospitalization for management of hypoxia secondary COVID-19 pneumonia, atrial fibrillation, UTI, dementia while safe discharge planning is sought. Time Spent in Patient Care: Greater than 35 minutes Coding Level of Care Code Acute Rotary Peel Oven Tender for [facility] Fwd Diagnoses Atrial fibrillation with RVR I48.91 Altered mental status R41.82 COVID U07.1 UTI (urinary tract infection) N39.0 Hypoxia R09.02
[2021-08-15] MEDS: ferrous gluconate 324 mg Tablet PO (17:05)
[2021-08-15] MEDS: ascorbic acid 500 mg Tablet PO (17:05)
[2021-08-15] MEDS: remdesivir 100 MG in sodium chloride 0.9% (100 ml) 100 ML IV (17:05)
[2021-08-15] MEDS: dexamethasone 10 mg/mL INJ 6 MG IVP (20:23)
[2021-08-15 21:18] LABS: Glucose Point of Care 179 mg/dL (70-110)
[2021-08-16] VITALS (20 sets, daily range): BP systolic 116–143; BP diastolic 64–95; PULSE 75–113; RESP 14–20; TEMP 36.2–36.8; O2SAT 95–98
[2021-08-16 03:33] LABS: Hematocrit 38.8 % (37.0-47.0); Lymphocytes # 0.5 10^3/uL (0.8-4.8); Lymphocytes % 6.3 %; Mean Corpuscular HGB Conc 30.9 g/dL (30.0-36.0); Mean Corpuscular Hemoglobin 26.2 pg (28.0-34.0); Mean Corpuscular Volume 84.7 fl (81-99); Mean Platelet Volume 10.1 fL (7.4-10.4); Monocytes # 0.2 10^3/uL (0.2-0.9); Monocytes % 2.6 %; Neutrophils # 6.88 10^3/uL (1.8-7.7); Neutrophils % 90.4 %; Nucleated Red Blood Cells % 0 %; Platelet Count 207 10^3/cmm (130-400); Red Blood Count 4.58 10^6/uL (4.1-5.3); Red Cell Distribution Width 17.2 % (12.1-15.1); White Blood Count 7.6 10^3/uL (4.0-10.0)
[2021-08-16 03:47] LABS: D Dimer 1.48 ug/mIFEU (0-0.59)
[2021-08-16 03:48] LABS: Estmated Average Glucose 131; Hemoglobin A1C 6.2 % (4.0-6.0)
[2021-08-16 03:51] LABS: Alanine Aminotransferase 15 U/L (0-33); Albumin Level 2.6 g/dL (3.5-5.2); Alkaline Phosphatase 110 IU/L (35-105); Anion Gap 14.8 (5-19); Aspartate Amino Transferase 21 U/L (0-32); Blood Urea Nitrogen 33 mg/dL (8-23); C Reactive Protein 100.4 mg/L (0.0-4.9); Calcium 9.8 mg/dL (8.5-10.5); Carbon Dioxide 25 mmol/L (22-29); Chloride 96 mmol/L (98-107); Chol HDL Ratio 3.07 mg/dL (0.0-4.40); Cholesterol 89 mg/dL (0-200); Globulin 4.1 g/dL (1.3-4.6); Glucose 194 mg/dL (65-115); HDL Cholesterol 29 mg/dL (60-100); LDL Cholesterol Calculated 43 mg/dL (50-129); Osmolality Calculated 285 mOsm/kg (285-295); Potassium 4.8 mmol/L (3.5-5.1); Sodium 131 mmol/L (136-145); Total Bilirubin 0.3 mg/dL (0.15-1.2); Total Protein 6.7 g/dL (6.6-8.7); Triglycerides 85 mg/dL (0-150); VLDL Cholestrol Calculation 17 mg/dL (0-30)
[2021-08-16 06:26] LABS: Glucose Point of Care 177 mg/dL (70-110)
[2021-08-16] MEDS: ferrous gluconate 324 mg Tablet PO ×2 (07:50→17:02)
[2021-08-16] MEDS: insulin lispro 100 unit/1 mL SUBCUT ×4 (07:50→20:00)
[2021-08-16] MEDS: levETIRAcetam 500 mg Tablet 750 MG PO ×2 (08:00→17:03)
[2021-08-16] MEDS: benzonatate 100 mg Capsule PO ×3 (08:00→19:55)
[2021-08-16] MEDS: zinc gluconate 50 mg Tablet PO (08:00)
[2021-08-16] MEDS: potassium chloride ER 20 mEq Tablet PO (08:01)
[2021-08-16] MEDS: cholecalciferol (vitamin D3) 1,000 unit Tablet 1000 UNIT PO (08:01)
[2021-08-16] MEDS: ascorbic acid 500 mg Tablet PO ×2 (08:01→17:03)
[2021-08-16] MEDS: apixaban 5 mg Tablet PO ×2 (08:01→17:03)
[2021-08-16] MEDS: sennosides-docusate Tablet 1 TAB PO (08:01)
[2021-08-16] MEDS: cefTRIAXone 1,000 MG in sodium chloride 0.9% (plus) 100 ML 200 MG IV (08:02)
[2021-08-16] MEDS: montelukast sodium 10 mg Tablet PO (08:02)
[2021-08-16] MEDS: famotidine 20 mg/2 mL INJ IVP ×2 (08:03→19:56)
[2021-08-16] MEDS: metoprolol succinate ER (24 HR) 50 mg Tablet PO ×2 (08:21→19:57)
[2021-08-16] MEDS: dilTIAZem 30 mg Tablet PO ×3 (11:28→16:30)
[2021-08-16] MEDS: sodium chloride 0.9% 1,000 ML 75 ML IV (11:30)
[2021-08-16] MEDS: aspirin 81 mg EC Tablet PO (11:31)
[2021-08-16 11:47] LABS: Glucose Point of Care 204 mg/dL (70-110)
--- NOTE | 2021-08-16 13:57 | PM.PN ---
Subjective Subjective: No acute events overnight.. Patient has remained hemodynamic stable and afebrile. Currently on 2 L saturating 96%. On examination patient is lying comfortably in bed. Awake and alert. Knows where she is knows her name. Patient is stating she is feeling very tired and having back pain. Denies any nausea, vomiting, headache. Diet yesterday change as per swallow evaluation. Vitals/I&O/Wt Last Vital Signs Temp 97.3 F L 08/16/21 04:00 Pulse 99 08/16/21 12:00 Resp 17 08/16/21 08:20 BP 143/95 08/16/21 12:00 Pulse Ox 95 08/16/21 12:00 08/15/21 08/16/21 08/16/21 22:59 06:59 14:59 Intake Total 320 / 540 712 / 712 Output Total 50 / 300 100 / 400 Balance 270 / 240 -100 / 140 712 / 712 Weight last 48 hrs Weight 128.684 kg Weight 136.078 kg Physical Exam Narrative: General: No acute distress, AO x2, tired appearing, on 2 L HEENT: PERRLA, pupils bilaterally equal and reactive Chest: Normal vesicular breath sounds, bilateral rhonchi diffuse all over the lung sanchez equal good air entry bilaterally CVS: S1-S2 irregularly irregular, pansystolic murmur at fourth intercostal parasternal region, no tachycardia, no gallops, no rubs Abdomen: Soft, nontender, no organomegaly, bowel sounds present Neuro: No focal deficits, no facial deformity, AO x3, power 5/5 in all limbs Const: GENERAL APPEARANCE: well kempt Psych: APPEARANCE: Yes grossly normal and Yes well kempt ATTITUDE: Yes calm, Yes Withdrawn affect present, No uncooperative, No evasive and No Guarded attititude/behavior present ACTIVITY/MOTOR BEHAVIOR: No psychomotor agitation and No psychomotor slowing SPEECH: Yes slow, Yes soft and Yes delayed MOOD & AFFECT: Yes depressed mood Urinary Catheter Management: Sorensen Latex: Cath Placed During This Visit: yes Reason for Continuing Indwelling Catheter: Accurate Measurement of Urinary Output in Critically Ill Patients Urinary Catheter Date of Insertion: 08/14/21 Urinary Catheter Time of Insertion: 17:00 Data : 08/16/21 02:54 08/16/21 02:54 Micro: Microbiology 08/14/21 18:06 Urine Culture - Preliminary Urine,Clean Catch Gram Negative Rods 08/16/21 02:57 Blood Culture - Preliminary Blood SPECIMEN COLLECTED 08/16/21 02:54 Blood Culture - Preliminary Blood SPECIMEN COLLECTED 08/14/21 21:00 MRSA Culture - Final Nose A&P Assessment and plan (1) Hypoxia: Status: Acute (2) COVID: Status: Acute (3) Atrial fibrillation with RVR: Status: Acute (4) Altered mental status: Status: Acute (5) UTI (urinary tract infection): Status: Acute (6) Depression: Status: Acute Plan Hypoxia secondary to COVID-19 pneumonia: Mild to moderate disease. Oxygen supplementation keeping saturation over 88%. Dexamethasone 6 mg daily. Remdesivir to finish a 5-day course. Vitamin C, zinc. As patient is unable to do inhalers because of poor mentation and weakness will switch over to Atrovent every 6 hours and Pulmicort twice daily. Pulmonary toilet with incentive spirometry flutter valve. We will monitor inflammatory markers including CRP and D-dimer every 48 hourly. D-dimer elevated. CT done negative for pulmonary embolism. Continue with home dose of Eliquis. Will monitor for anemia or blood loss. Procalcitonin negative. Blood cultures so far negative. Low suspicion of bacterial pneumonia. For now continue with ceftriaxone to finish a 5-day course. Given hypoxia will try to keep patient as negative as possible. Patient clinically dehydrated for now. Hold off on any further Bumex. Gentle IV hydration with normal saline at 75 cc/h for 1 bag. Strict input output charting, daily weights. Atrial fibrillation: Currently rate controlled. Continue with Eliquis. Continue with home dose of metoprolol. Add Cardizem 30 mg every 6 hourly. TSH 3.8 Severe pulmonary hypertension: Echocardiogram done in 2019 shows RVSP of 62. Supposed to be on Bumex at as an outpatient. Will hold off. We will continue to monitor. UTI: Urinalysis on admission positive for nitrite and leuk esterase. History of Klebsiella UTI. Ceftriaxone will cover the UTI as well. Type 2 diabetes mellitus: Takes lispro 12 units twice daily at home. Insulin sliding scale before meals and at bedtime. Check A1c. Depression: Chronic. Most likely slightly worsened with recent demise of her . Add Remeron. Continue with home dose of amitriptyline CODE STATUS: Full code. We will confirm with the DPOA again. Carb consistent pur?ed diet Famotidine for PUD prophylaxis. Eliquis has been DVT prophylaxis as well. Called son Mr. Javier on [phone]. No answer so left a message. Will call again. Plan for day: Start on gentle IV hydration. Continue with remdesivir. Switch over to Atrovent and Pulmicort. Add Cardizem 30 q. 8 hourly. Continue with ceftriaxone for UTI. Carb consistent. Diet as per swallow evaluation. Physical therapy. Attestations Medical Necessity Statement*: Requires further hospitalization for management of atrial fibrillation with rapid ventricular response, mild hypoxia secondary COVID-19 pneumonia in setting of moderate pulmonary hypertension while safe planning of discharge is done Time Spent in Patient Care: Greater than 35 minutes Coding Level of Care Code Acute Senior Administrative Support for g Fwd Diagnoses Hypoxia R09.02 COVID U07.1 Atrial fibrillation with RVR I48.91 Altered mental status R41.82 UTI (urinary tract infection) N39.0 Depression F32.A
[2021-08-16] MEDS: ipratropium 0.5 mg/2.5 mL Neb INHALATION ×2 (14:50→20:41)
[2021-08-16 16:40] LABS: Glucose Point of Care 215 mg/dL (70-110)
[2021-08-16] MEDS: acetaminophen 500 mg Tablet PO (16:45)
[2021-08-16] MEDS: remdesivir 100 MG in sodium chloride 0.9% (100 ml) 100 ML IV (17:44)
[2021-08-16] MEDS: dexamethasone 10 mg/mL INJ 6 MG IVP (19:54)
[2021-08-16] MEDS: dilTIAZem 30 mg Tablet 60 MG PO (19:55)
[2021-08-16 19:57] LABS: Glucose Point of Care 222 mg/dL (70-110)
[2021-08-16] MEDS: mirtazapine 30 mg Tablet PO (19:57)
[2021-08-16] MEDS: budesonide 0.5 mg/2 mL Neb INHALATION (20:41)
[2021-08-17] VITALS (35 sets, daily range): BP systolic 103–165; BP diastolic 69–106; PULSE 72–115; RESP 18–27; TEMP 36.5–36.7; O2SAT 92–98
[2021-08-17] MEDS: dilTIAZem 30 mg Tablet 60 MG PO ×4 (03:20→19:52)
[2021-08-17 03:49] LABS: Alanine Aminotransferase 14 U/L (0-33); Albumin Level 2.8 g/dL (3.5-5.2); Alkaline Phosphatase 108 IU/L (35-105); Anion Gap 15.6 (5-19); Aspartate Amino Transferase 18 U/L (0-32); Blood Urea Nitrogen 44 mg/dL (8-23); Calcium 9.9 mg/dL (8.5-10.5); Carbon Dioxide 24 mmol/L (22-29); Chloride 103 mmol/L (98-107); Globulin 3.4 g/dL (1.3-4.6); Glucose 222 mg/dL (65-115); Magnesium 2.4 mg/dL (1.7-2.3); Osmolality Calculated 302 mOsm/kg (285-295); Potassium 5.6 mmol/L (3.5-5.1); Sodium 137 mmol/L (136-145); Total Bilirubin 0.3 mg/dL (0.15-1.2); Total Protein 6.2 g/dL (6.6-8.7)
[2021-08-17 06:25] LABS: Glucose Point of Care 223 mg/dL (70-110)
[2021-08-17] MEDS: insulin lispro 100 unit/1 mL SUBCUT ×4 (07:46→19:53)
[2021-08-17] MEDS: ferrous gluconate 324 mg Tablet PO ×2 (07:55→17:34)
[2021-08-17] MEDS: aspirin 81 mg EC Tablet PO (08:00)
[2021-08-17] MEDS: montelukast sodium 10 mg Tablet PO (08:00)
[2021-08-17] MEDS: sennosides-docusate Tablet 1 TAB PO (08:00)
[2021-08-17] MEDS: cholecalciferol (vitamin D3) 1,000 unit Tablet 1000 UNIT PO (08:00)
[2021-08-17] MEDS: zinc gluconate 50 mg Tablet PO (08:00)
[2021-08-17] MEDS: ascorbic acid 500 mg Tablet PO ×2 (08:00→17:34)
[2021-08-17] MEDS: benzonatate 100 mg Capsule PO ×2 (08:00→19:52)
[2021-08-17] MEDS: famotidine 20 mg/2 mL INJ IVP (08:01)
[2021-08-17] MEDS: levETIRAcetam 500 mg Tablet 750 MG PO ×2 (08:01→17:34)
[2021-08-17] MEDS: apixaban 5 mg Tablet PO ×2 (08:01→17:34)
[2021-08-17] MEDS: cefTRIAXone 1,000 MG in sodium chloride 0.9% (plus) 100 ML 200 MG IV (08:12)
[2021-08-17] MEDS: ipratropium 0.5 mg/2.5 mL Neb INHALATION ×3 (09:23→20:48)
[2021-08-17] MEDS: budesonide 0.5 mg/2 mL Neb INHALATION ×2 (09:23→20:48)
[2021-08-17] MEDS: metoprolol succinate ER (24 HR) 50 mg Tablet PO ×2 (10:04→20:41)
--- NOTE | 2021-08-17 10:32 | CTR_ITS ---
PROCEDURE INFORMATION: Exam: CT Head Without Contrast Exam date and time: 08/17/2021 10:32 AM Age: 71 years old Clinical indication: Altered mental status/memory loss; Confusion or disorientation; Additional info: Altered mental staus TECHNIQUE: Imaging protocol: Computed tomography of the head without contrast. Radiation optimization: All CT scans at this facility use at least one of these dose optimization techniques: automated exposure control; mA and/or kV adjustment per patient size (includes targeted exams where dose is matched to clinical indication); or iterative reconstruction. 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 There is compensatory dilatation of the left lateral ventricle. There are chronic lacunar infarcts in the right basal ganglia.Periventricular and subcortical white matter low densities are present which at this age likely represent microvascular ischemic change.There is diffuse cerebral atrophy present, consistent with this patient's age.No evidence for large acute ischemic infarction. Please note acute ischemia can be occult by head CT. Left middle cranial fossa arachnoid cyst unchanged from the prior exam measures 3.2 cm in AP dimension. There is mild adjacent sulcal effacement. Cerebral ventricles: See Brain finding. Paranasal sinuses: Visualized sinuses are unremarkable. No fluid levels. Mastoid air cells: Visualized mastoid air cells are well aerated. Vasculature: Calcified plaque is present within the intracranial vasculature. Bones/joints: Unremarkable. No acute fracture. Soft tissues: Unremarkable. 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 No evidence for large acute ischemic infarction or acute intracranial injury.
--- NOTE | 2021-08-17 10:32 | PC.NURSE ---
Patient Harder to arouse than last rounding Dr Barnes notified Instructions to obtain ABG and Head CT
[2021-08-17] MEDS: sodium chloride 0.9% 1,000 ML 75 ML IV (10:38)
[2021-08-17 10:42] LABS: ABG PCO2 44.5 mmHg (35-45); ABG PH Result 7.41 (7.35-7.45); Arterial Blood Gas Hematocrit 35.4 % (37-47); Base Excess ABG 2.8 mmol/L (-2.0-2.0); Blood Gas Allen Test Pos; Blood Gas Operator Identificat MONRO; Blood Gas Sample Site Radial, left; Blood Gas Sample Type Arterial; Carboxyhemoglobin 0.9 %THgb (0.4-20.1); HGB O2 Sat 97.3 % (95-100); Ionized Calcium Level - ABG 1.4 mmol/L (1.1-1.4); Methemoglobin 0.9 % (0.4-1.5); Oxygen Device NC; Potassium Level - ABG 4.8 mmol/L (3.5-5.0); Total Hemoglobin 11.6 g/dL (12-16)
[2021-08-17 11:11] LABS: Glucose Urine UA Norm (Normal); Ketones Urine Negative (Negative); Protein Urine 1+ (Negative); Specific Gravity, Urine 1.025 (1.005-1.030); Urine Appearance Cloudy (CLEAR); Urine Color Dark Yellow (Yellow); pH Urine 5 (5-7)
[2021-08-17 11:12] LABS: Add Urine Microscopic? YES; Bacteria Urine 2+ /hpf; Bilirubin Urine 1+ (Negative); Blood Urine 3+ (Negative); Leukocyte Esterase Urine 2+ (Negative); Nitrate Urine Negative (Negative); RBC Urine 15-25 /hpf (0-2); Squamous Epithelial Cell Urine 0-4 /hpf (0-5); Urobilinogen Urine 4 mg/dL (Negative)
[2021-08-17 11:13] LABS: Add Urine Culture? Yes
[2021-08-17 11:17] LABS: Potassium, Radom Urine 63 mmol/L; Urine Creatinine 127 mg/dL (28-217)
[2021-08-17 11:20] LABS: Urine Random Sodium 10 mmol/L
[2021-08-17 11:21] LABS: Urine Random Chloride < 10 mmol/L
[2021-08-17 11:36] LABS: Glucose Point of Care 213 mg/dL (70-110)
[2021-08-17 11:46] LABS: Eosinophil Urine Eosinophils Seen; Urine Eosinophil Count 4 (0-0)
--- NOTE | 2021-08-17 12:36 | PC.NURSE ---
unable to Feed patient at this time due to mentation Unable to arouse patient to alert enough status to eat patient will open Eyes to firm touch does not stay awake with no verbal communication Dr tripp at bedside during events instructions to give half sliding scale insulin for treatment of BG of 213 will continue to monitor
--- NOTE | 2021-08-17 13:28 | PM.PN ---
Subjective Subjective: Patient seen multiple times today. No acute events. Oxygen supplementation down to 1 L. Heart rate better controlled. Today morning on examination patient was sleeping and required physical stimulus to wake up. On waking up patient was groggy. This was slightly different from her baseline so CT head and ABG was done which was within normal limits. During the day patient's mentation improved. Vitals/I&O/Wt Last Vital Signs Temp 97.8 F 08/17/21 12:00 Pulse 72 08/17/21 12:00 Resp 23 H 08/17/21 12:00 BP 137/79 08/17/21 12:00 Pulse Ox 92 08/17/21 12:00 08/16/21 08/17/21 08/17/21 22:59 06:59 14:59 Intake Total 562 / 1274 1000 / 2274 220 / 220 Output Total 250 / 250 250 / 500 Balance 312 / 1024 750 / 1774 220 / 220 Physical Exam Narrative: General: No acute distress, AO x1-2, tired appearing, on 2 L HEENT: PERRLA, pupils bilaterally equal and reactive Chest: Normal vesicular breath sounds, bilateral rhonchi diffuse all over the lung sanchez equal good air entry bilaterally CVS: S1-S2 irregularly irregular, pansystolic murmur at fourth intercostal parasternal region, no tachycardia, no gallops, no rubs Abdomen: Soft, nontender, no organomegaly, bowel sounds present Neuro: No focal deficits, no facial deformity, AO x3, power 5/5 in all limbs Const: GENERAL APPEARANCE: well kempt Psych: APPEARANCE: Yes grossly normal and Yes well kempt ATTITUDE: Yes calm, Yes Withdrawn affect present, No uncooperative, No evasive and No Guarded attititude/behavior present ACTIVITY/MOTOR BEHAVIOR: No psychomotor agitation and No psychomotor slowing SPEECH: Yes slow, Yes soft and Yes delayed MOOD & AFFECT: Yes depressed mood Urinary Catheter Management: Sorensen Latex: Cath Placed During This Visit: yes Reason for Continuing Indwelling Catheter: Accurate Measurement of Urinary Output in Critically Ill Patients Urinary Catheter Date of Insertion: 08/14/21 Urinary Catheter Time of Insertion: 17:00 Data : 08/16/21 02:54 08/17/21 03:02 Micro: Microbiology 08/14/21 18:06 Urine Culture - Final Urine,Clean Catch Klebsiella pneumoniae 08/16/21 02:57 Blood Culture - Preliminary Blood NEGATIVE TO DATE 08/16/21 02:54 Blood Culture - Preliminary Blood NEGATIVE TO DATE A&P Assessment and plan (1) SEGUNDO (acute kidney injury): Status: Acute (2) Atrial fibrillation with RVR: Status: Acute (3) Hypoxia: Status: Acute (4) COVID: Status: Acute (5) Altered mental status: Status: Acute (6) UTI (urinary tract infection): Status: Acute (7) Depression: Status: Acute Plan Acute kidney injury: Baseline creatinine normal. Up to 1.5 in 2019. Currently creatinine up to 1.5 today from 1.1 yesterday. Patient has not received any diuretic over last 48 hours. Urine study shows protein 1+, urinary cast, urine eosinophils. Fena: Check CBC to look for eosinophilia Given all the above high concerns for acute interstitial nephritis though could be contrast-induced nephropathy with contrast given for CT imaging on 08/14. IV fluids normal saline at 75 cc/h. Stop Pepcid. Stop ceftriaxone. Medical reconciliation done otherwise. Switch dexamethasone to methylprednisolone 40 mg every 8 hourly which would be equal into prednisone 1 mg/kg body weight daily. Hypoxia secondary to COVID-19 pneumonia: Mild to moderate disease. Oxygen supplementation keeping saturation over 88%. Methylprednisolone 40 mg every 8 hourly as above. On minimal oxygen requirement. Has finished 3-day course of remdesivir. Will stop. Vitamin C, zinc. Continue with Atrovent every 6 hours and Pulmicort twice daily. Pulmonary toilet with incentive spirometry flutter valve. We will monitor inflammatory markers including CRP and D-dimer every 48 hourly. D-dimer elevated. CT done negative for pulmonary embolism. Continue with home dose of Eliquis. Will monitor for anemia or blood loss. Procalcitonin negative. Blood cultures so far negative. Low suspicion of bacterial pneumonia. For now continue with ceftriaxone to finish a 5-day course. Given hypoxia will try to keep patient as negative as possible. Patient clinically dehydrated for now. Hold off on any further Bumex. Gentle IV hydration with normal saline at 75 cc/h for 1 bag. Strict input output charting, daily weights. Atrial fibrillation: Currently rate controlled. Continue with Eliquis. Continue with home dose of metoprolol and Cardizem 60 mg every 6 hourly. TSH 3.8 Severe pulmonary hypertension: Echocardiogram done in 2019 shows RVSP of 62. Supposed to be on Bumex at as an outpatient. Will hold off. We will continue to monitor. UTI: Urine culture consistent with Klebsiella. Sensitive to ceftriaxone. Has received a 3-day course. No leukocytosis, afebrile. With concerns of possible interstitial nephritis for now we will hold off on further ceftriaxone. Type 2 diabetes mellitus: Takes lispro 12 units twice daily at home. Insulin sliding scale before meals and at bedtime. Check A1c. Depression: Chronic. Most likely slightly worsened with recent demise of her . Add Remeron. CODE STATUS: Full code. We will confirm with the DPOA again. Carb consistent pur?ed diet Famotidine for PUD prophylaxis. Eliquis has been DVT prophylaxis as well. Called son Mr. Javier on [phone]. No answer so left a message. Will call again. Plan for day: Start on gentle IV hydration. Continue with remdesivir. Switch over to Atrovent and Pulmicort. Add Cardizem 30 q. 8 hourly. Continue with ceftriaxone for UTI. Carb consistent. Diet as per swallow evaluation. Physical therapy. 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
[2021-08-17 14:15] LABS: Basophils % 0.2 %; Hematocrit 37.3 % (37.0-47.0); Hemoglobin 11.3 g/dL (11.5-15.3); Lymphocytes # 0.5 10^3/uL (0.8-4.8); Lymphocytes % 7.1 %; Mean Corpuscular HGB Conc 30.3 g/dL (30.0-36.0); Mean Corpuscular Hemoglobin 26.8 pg (28.0-34.0); Mean Corpuscular Volume 88.4 fl (81-99); Mean Platelet Volume 9.4 fL (7.4-10.4); Monocytes # 0.3 10^3/uL (0.2-0.9); Neutrophils % 86.9 %; Nucleated Red Blood Cells % 0.3 %; Platelet Count 182 10^3/cmm (130-400); Red Blood Count 4.22 10^6/uL (4.1-5.3); Red Cell Distribution Width 17.5 % (12.1-15.1); White Blood Count 6.4 10^3/uL (4.0-10.0)
--- NOTE | 2021-08-17 14:40 | PC.SOCIAL ---
IMM UPDATED IMM dated and initialed and copy given to patient
[2021-08-17 16:52] LABS: Glucose Point of Care 192 mg/dL (70-110)
[2021-08-17] MEDS: levoFLOXacin 500 mg Tablet PO (17:34)
--- NOTE | 2021-08-17 17:55 | PC.NURSE ---
patient ate dinner with total assistance from Speech therapy patient sitting up right in bed with eyes alert patient does not answer any questions patient alert to self
[2021-08-17 18:53] LABS: Anion Gap 15.3 (5-19); Blood Urea Nitrogen 47 mg/dL (8-23); Calcium 9.9 mg/dL (8.5-10.5); Carbon Dioxide 25 mmol/L (22-29); Chloride 103 mmol/L (98-107); Glucose 246 mg/dL (65-115); Osmolality Calculated 306 mOsm/kg (285-295); Potassium 5.3 mmol/L (3.5-5.1); Sodium 138 mmol/L (136-145)
[2021-08-17 19:36] LABS: Glucose Point of Care 280 mg/dL (70-110)
[2021-08-17] MEDS: mirtazapine 30 mg Tablet PO (19:53)
[2021-08-18] VITALS (35 sets, daily range): BP systolic 106–163; BP diastolic 79–116; PULSE 81–122; RESP 16–27; TEMP 36.5–38.1; O2SAT 93–99
[2021-08-18] MEDS: sodium chloride 0.9% 1,000 ML 75 ML IV ×2 (00:05→13:21)
[2021-08-18] MEDS: acetaminophen 500 mg Tablet PO ×2 (02:55→11:45)
[2021-08-18] MEDS: dilTIAZem 30 mg Tablet 60 MG PO ×3 (02:55→16:46)
[2021-08-18 03:36] LABS: Hematocrit 36.7 % (37.0-47.0); Lymphocytes # 0.3 10^3/uL (0.8-4.8); Lymphocytes % 5.8 %; Mean Corpuscular Hemoglobin 26.3 pg (28.0-34.0); Mean Corpuscular Volume 87.8 fl (81-99); Monocytes # 0.2 10^3/uL (0.2-0.9); Neutrophils # 5.11 10^3/uL (1.8-7.7); Neutrophils % 90.5 %; Nucleated Red Blood Cells % 0.4 %; Platelet Count 171 10^3/cmm (130-400); Red Blood Count 4.18 10^6/uL (4.1-5.3); Red Cell Distribution Width 17.5 % (12.1-15.1); White Blood Count 5.7 10^3/uL (4.0-10.0)
[2021-08-18 03:53] LABS: D Dimer 1.03 ug/mIFEU (0-0.59)
[2021-08-18 04:03] LABS: Alanine Aminotransferase 14 U/L (0-33); Albumin Level 2.5 g/dL (3.5-5.2); Alkaline Phosphatase 104 IU/L (35-105); Blood Urea Nitrogen 46 mg/dL (8-23); C Reactive Protein 39.8 mg/L (0.0-4.9); Calcium 9.7 mg/dL (8.5-10.5); Carbon Dioxide 23 mmol/L (22-29); Chloride 107 mmol/L (98-107); Glucose 251 mg/dL (65-115); Osmolality Calculated 306 mOsm/kg (285-295); Sodium 138 mmol/L (136-145); Total Bilirubin 0.3 mg/dL (0.15-1.2); Total Protein 6.5 g/dL (6.6-8.7)
[2021-08-18 04:05] LABS: Anion Gap 13.4 (5-19); Aspartate Amino Transferase 17 U/L (0-32); Potassium 5.4 mmol/L (3.5-5.1)
[2021-08-18] MEDS: levoFLOXacin 500 mg Tablet PO (05:01)
[2021-08-18 06:27] LABS: Glucose Point of Care 239 mg/dL (70-110)
[2021-08-18] MEDS: insulin lispro 100 unit/1 mL SUBCUT ×4 (07:46→20:36)
[2021-08-18] MEDS: ipratropium 0.5 mg/2.5 mL Neb INHALATION ×3 (08:46→20:49)
[2021-08-18] MEDS: budesonide 0.5 mg/2 mL Neb INHALATION ×2 (08:46→20:49)
[2021-08-18] MEDS: ferrous gluconate 324 mg Tablet PO ×2 (09:22→17:03)
[2021-08-18] MEDS: benzonatate 100 mg Capsule PO (09:22)
[2021-08-18] MEDS: aspirin 81 mg EC Tablet PO (09:22)
[2021-08-18] MEDS: zinc gluconate 50 mg Tablet PO (09:22)
[2021-08-18] MEDS: levETIRAcetam 500 mg Tablet 750 MG PO (09:22)
[2021-08-18] MEDS: sennosides-docusate Tablet 1 TAB PO (09:22)
[2021-08-18] MEDS: cholecalciferol (vitamin D3) 1,000 unit Tablet 1000 UNIT PO (09:22)
[2021-08-18] MEDS: metoprolol succinate ER (24 HR) 50 mg Tablet PO (09:22)
[2021-08-18] MEDS: montelukast sodium 10 mg Tablet PO (09:22)
[2021-08-18] MEDS: ascorbic acid 500 mg Tablet PO ×2 (09:23→17:03)
[2021-08-18] MEDS: apixaban 5 mg Tablet PO ×2 (09:23→17:03)
[2021-08-18] MEDS: metoprolol tartrate 25 mg Tablet PO (11:45)
[2021-08-18 11:55] LABS: Glucose Point of Care 270 mg/dL (70-110)
[2021-08-18] MEDS: insulin glargine 100 units/1 mL 10 UNIT SUBCUT ×2 (12:57→20:36)
--- NOTE | 2021-08-18 15:57 | PM.PN ---
Subjective Subjective: No acute events overnight. Patient has remained hemodynamically stable. T-max in last 24 hours 100.5 in afternoon today. Patient is on room air. Patient remains fairly weak. Sleeping when entering the room. Wakes up to physical cue. Morning on waking up. Mumbling the answers to the questions. Following commands on and off. Documented urine output of around 900 cc. Vitals/I&O/Wt Last Vital Signs Temp 100.4 F H 08/18/21 12:15 Pulse 101 H 08/18/21 15:08 Resp 16 08/18/21 15:08 BP 141/109 08/18/21 12:00 Pulse Ox 93 08/18/21 15:08 08/18/21 08/18/21 08/18/21 06:59 14:59 22:59 Intake Total 1000 / 1460 1115 / 1115 Output Total 500 / 825 150 / 150 Balance 500 / 635 965 / 965 Physical Exam Narrative: General: No acute distress, AO x1-2, tired appearing, moans on waking up, on room air HEENT: PERRLA, pupils bilaterally equal and reactive Chest: Normal vesicular breath sounds, bilateral rhonchi diffuse all over the lung sanchez equal good air entry bilaterally CVS: S1-S2 irregularly irregular, pansystolic murmur at fourth intercostal parasternal region, no tachycardia, no gallops, no rubs Abdomen: Soft, nontender, no organomegaly, bowel sounds present Neuro: No focal deficits, no facial deformity, AO x3, power 5/5 in all limbs Const: GENERAL APPEARANCE: well kempt Psych: APPEARANCE: Yes grossly normal and Yes well kempt ATTITUDE: Yes calm, Yes Withdrawn affect present, No uncooperative, No evasive and No Guarded attititude/behavior present ACTIVITY/MOTOR BEHAVIOR: No psychomotor agitation and No psychomotor slowing SPEECH: Yes slow, Yes soft and Yes delayed MOOD & AFFECT: Yes depressed mood Urinary Catheter Management: Sorensen Latex: Cath Placed During This Visit: yes, but has since been removed by the nurse Reason for Continuing Indwelling Catheter: Accurate Measurement of Urinary Output in Critically Ill Patients Urinary Catheter Date of Insertion: 08/14/21 Urinary Catheter Time of Insertion: 17:00 Date Urinary Catheter Removed: 08/18/21 Time Urinary Catheter Discontinued: 10:11 Data : 08/18/21 02:43 08/18/21 02:43 A&P Assessment and plan (1) SEGUNDO (acute kidney injury): Status: Acute (2) Atrial fibrillation with RVR: Status: Acute (3) Hypoxia: Status: Acute (4) COVID: Status: Acute (5) Altered mental status: Status: Acute (6) UTI (urinary tract infection): Status: Acute (7) Depression: Status: Acute Plan Acute kidney injury: Baseline creatinine normal. Up to 1.5 in 2020. Trending down. Urine output appropriate. Given all the above high concerns for acute interstitial nephritis though could be contrast-induced nephropathy with contrast given for CT imaging on 08/14. IV fluids normal saline at 75 cc/h. Stop Pepcid. Stop ceftriaxone. Medical reconciliation done otherwise. Switched over to Levaquin to finish a 3-day course. Continue with methylprednisolone 40 mg every 8 hourly which would be equal into prednisone 1 mg/kg body weight daily. If kidney functions continue to improve can wean down within next 24 hours. Hypoxia secondary to COVID-19 pneumonia: Mild to moderate disease. Oxygen supplementation keeping saturation over 88%. Methylprednisolone 40 mg every 8 hourly as above. Weaning as above. Finished a 3-day course of remdesivir. Stop because patient is on room air. Vitamin C, zinc. Continue with Atrovent every 6 hours and Pulmicort twice daily. Pulmonary toilet with incentive spirometry flutter valve. We will monitor inflammatory markers including CRP and D-dimer every 48 hourly. D-dimer elevated. CT done negative for pulmonary embolism. Continue with home dose of Eliquis. Will monitor for anemia or blood loss. Procalcitonin negative. Blood cultures so far negative. Low suspicion of bacterial pneumonia. Levaquin as above will also help with atypical coverage. Given hypoxia will try to keep patient as negative as possible. Patient clinically dehydrated for now. Hold off on any further Bumex. Gentle IV hydration with normal saline at 75 cc/h for 1 bag. Strict input output charting, daily weights. Atrial fibrillation: Currently rate controlled. Continue with Eliquis. Continue with home dose of metoprolol and Cardizem 60 mg every 6 hourly. TSH 3.8 Severe pulmonary hypertension: Echocardiogram done in 2019 shows RVSP of 62. Supposed to be on Bumex at as an outpatient. Will hold off. We will continue to monitor. UTI: Urine culture consistent with Klebsiella. Sensitive to ceftriaxone and Levaquin. Continue Levaquin to finish a 7-day course. Type 2 diabetes mellitus: Takes lispro 12 units twice daily at home. Insulin sliding scale before meals and at bedtime. Check A1c. Depression: Chronic. Most likely slightly worsened with recent demise of her . Given poor mentation for now hold off on on sedated medications. Stop Remeron. CODE STATUS: Full code. We will confirm with the DPOA again. Carb consistent pur?ed diet Famotidine for PUD prophylaxis. Eliquis has been DVT prophylaxis as well. Spoke to son Yaya and [id number] Carmelita on phone number [phone]. All the questions were answered. As per them the number in the chart is not working. Have asked casework manager to update the chart. Attestations Medical Necessity Statement*: Requires further hospitalization for management of resolving G-tube kidney injury, COVID-19, UTI while safe discharge planning is sought. 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
[2021-08-18] MEDS: levETIRAcetam 500 mg Tablet PO (17:03)
[2021-08-18] MEDS: metoprolol succinate ER (24 HR) 50 mg Tablet 75 MG PO (17:03)
--- NOTE | 2021-08-18 17:22 | PC.NURSE ---
This Rn agrees with all charting and medication administration by nursing student Dalia Jarrell
[2021-08-18 17:23] LABS: Glucose Point of Care 214 mg/dL (70-110)
[2021-08-18 20:14] LABS: Glucose Point of Care 247 mg/dL (70-110)
--- NOTE | 2021-08-18 20:48 | PC.NURSE ---
Crushed cardizem and placed in very small amount of applesauce. Unable to coax patient into swalling meds. Patient cheeking items placed into her mouth. Removed from mouth for fear of choking hazard. Dr Crain informed.
[2021-08-19] VITALS (16 sets, daily range): BP systolic 113–157; BP diastolic 69–98; PULSE 65–132; RESP 12–21; TEMP 35.4–36.8; O2SAT 90–98
[2021-08-19] MEDS: dilTIAZem 30 mg Tablet 60 MG PO ×4 (02:56→20:44)
[2021-08-19] MEDS: sodium chloride 0.9% 1,000 ML 75 ML IV (02:57)
--- NOTE | 2021-08-19 03:06 | PC.NURSE ---
Patient able to swallow 0300 dose of cardizem crushed and placed in applesauce with moderate coaching. No cheeking of medication observed at this time.
[2021-08-19 04:38] LABS: Alanine Aminotransferase 13 U/L (0-33); Albumin Level 2.8 g/dL (3.5-5.2); Alkaline Phosphatase 83 IU/L (35-105); Anion Gap 10.9 (5-19); Aspartate Amino Transferase 13 U/L (0-32); Blood Urea Nitrogen 46 mg/dL (8-23); Calcium 9.8 mg/dL (8.5-10.5); Carbon Dioxide 26 mmol/L (22-29); Chloride 110 mmol/L (98-107); Globulin 3.5 g/dL (1.3-4.6); Glucose 202 mg/dL (65-115); Osmolality Calculated 312 mOsm/kg (285-295); Potassium 4.9 mmol/L (3.5-5.1); Sodium 142 mmol/L (136-145); Total Bilirubin 0.3 mg/dL (0.15-1.2); Total Protein 6.3 g/dL (6.6-8.7)
[2021-08-19] MEDS: levoFLOXacin 500 mg Tablet PO (06:09)
[2021-08-19] MEDS: metoprolol succinate ER (24 HR) 50 mg Tablet 75 MG PO ×2 (06:09→17:23)
--- NOTE | 2021-08-19 06:41 | PC.NURSE ---
This RN agrees with all documentation by student ÁNGEL Kelley.
[2021-08-19 06:50] LABS: Glucose Point of Care 213 mg/dL (70-110)
[2021-08-19] MEDS: ferrous gluconate 324 mg Tablet PO ×2 (08:51→17:24)
[2021-08-19] MEDS: apixaban 5 mg Tablet PO ×2 (08:52→17:24)
[2021-08-19] MEDS: insulin glargine 100 units/1 mL 10 UNIT SUBCUT (08:52)
[2021-08-19] MEDS: insulin lispro 100 unit/1 mL SUBCUT ×4 (08:52→20:44)
[2021-08-19] MEDS: benzonatate 100 mg Capsule PO ×3 (08:53→20:44)
[2021-08-19] MEDS: aspirin 81 mg EC Tablet PO (08:53)
[2021-08-19] MEDS: cholecalciferol (vitamin D3) 1,000 unit Tablet 1000 UNIT PO (08:53)
[2021-08-19] MEDS: ascorbic acid 500 mg Tablet PO (08:53)
[2021-08-19] MEDS: sennosides-docusate Tablet 1 TAB PO (08:55)
[2021-08-19] MEDS: zinc gluconate 50 mg Tablet PO (08:55)
[2021-08-19] MEDS: montelukast sodium 10 mg Tablet PO (08:55)
[2021-08-19] MEDS: levETIRAcetam 500 mg Tablet PO ×2 (08:55→17:24)
[2021-08-19] MEDS: ipratropium 0.5 mg/2.5 mL Neb INHALATION ×3 (09:15→21:54)
[2021-08-19] MEDS: budesonide 0.5 mg/2 mL Neb INHALATION ×2 (09:15→21:54)
--- NOTE | 2021-08-19 09:46 | PC.SOCIAL ---
IMM Update Pg. 2 of IMM Updated. Called to update patient's family by phone, unable to reach, voicemail left requesting call back.
[2021-08-19 11:22] LABS: Glucose Point of Care 242 mg/dL (70-110)
--- NOTE | 2021-08-19 12:45 | P.PN_ITS ---
Subjective Subjective: No acute events overnight. Patient has remained hemodynamically stable and afebrile. On examination today patient is more awake and alert. Able to take her oral medicines. Able to eat. Currently on 1 L saturating 94%. Vitals/I&O/Wt Last Vital Signs Temp 95.8 F L 08/19/21 08:00 Pulse 84 08/19/21 12:07 Resp 20 H 08/19/21 12:07 BP 138/86 08/19/21 12:07 Pulse Ox 93 08/19/21 12:07 08/18/21 08/19/21 08/19/21 22:59 06:59 14:59 Intake Total 360 / 1475 1000 / 2475 240 / 240 Balance 360 / 1325 1000 / 2325 240 / 240 Physical Exam Narrative: General: No acute distress, AO x1-2, tired appearing, moans on waking up, on room air HEENT: PERRLA, pupils bilaterally equal and reactive Chest: Normal vesicular breath sounds, bilateral rhonchi diffuse all over the leslie ng sanchez equal good air entry bilaterally CVS: S1-S2 irregularly irregular, pansystolic murmur at fourth intercostal parasternal region, no tachycardia, no gallops, no rubs Abdomen: Soft, nontender, no organomegaly, bowel sounds present Neuro: No focal deficits, no facial deformity, AO x3, power 5/5 in all limbs Const: GENERAL APPEARANCE: well kempt Psych: APPEARANCE: Yes grossly normal and Yes well kempt ATTITUDE: Yes calm, Yes Withdrawn affect present, No uncooperative, No evasive and No Guarded attititude/behavior present ACTIVITY/MOTOR BEHAVIOR: No psychomotor agitation and No psychomotor slowing SPEECH: Yes slow, Yes soft and Yes delayed MOOD & AFFECT: Yes depressed mood Urinary Catheter Management: Sorensen Latex: Cath Placed During This Visit: yes, but has since been removed by the nurse Reason for Continuing Indwelling Catheter: Accurate Measurement of Urinary Output in Critically Ill Patients Urinary Catheter Date of Insertion: 08/14/21 Urinary Catheter Time of Insertion: 17:00 Date Urinary Catheter Removed: 08/18/21 Time Urinary Catheter Discontinued: 10:11 Data : 08/18/21 02:43 08/19/21 03:44 A&P Assessment and plan (1) SEGUNDO (acute kidney injury): Status: Acute (2) Atrial fibrillation with RVR: Status: Acute (3) Hypoxia: Status: Acute (4) COVID: Status: Acute (5) Altered mental status: Status: Acute (6) UTI (urinary tract infection): Status: Acute (7) Depression: Status: Acute Plan Acute kidney injury: Resolved. Baseline creatinine normal. Up to 1.5 in 2020. Given all the above high concerns for acute interstitial nephritis though could be contrast-induced nephropathy with contrast given for CT imaging on 08/14. Stop IV fluids. Continue to hold off on PPI and Pepcid for now. Will restart tomorrow if remains stable. Switch to Levaquin for concern of AIN with ceftriaxone. Wean Solu-Medrol to 40 mg daily. Will switch to dose of dexamethasone as per Covid protocol if kidney function remains stable for next 48 hours. Hypoxia secondary to COVID-19 pneumonia: Mild to moderate disease. Oxygen supplementation keeping saturation over 88%. Methylprednisolone as above. Weaning as above. Finished a 3-day course of remdesivir. Stop because patient is on room air. Vitamin C, zinc. Continue with Atrovent every 6 hours and Pulmicort twice daily. Pulmonary toilet with incentive spirometry flutter valve. We will monitor inflammatory markers including CRP and D-dimer every 48 hourly. D-dimer elevated. CT done negative for pulmonary embolism. Continue with home dose of Eliquis. Will monitor for anemia or blood loss. Procalcitonin negative. Blood cultures so far negative. Low suspicion of bacterial pneumonia. Levaquin as above will also help with atypical coverage. Given hypoxia will try to keep patient as negative as possible. Patient clinically dehydrated for now. Hold off on any further Bumex and IV fluids for now. Strict input output charting, daily weights. Atrial fibrillation: Currently rate controlled. Continue with Eliquis. Continue with metoprolol 75 mg twice daily and Cardizem 60 mg every 6 hourly. TSH 3.8 Severe pulmonary hypertension: Echocardiogram done in 2019 shows RVSP of 62. Supposed to be on Bumex at as an outpatient. Will hold off. We will continue to monitor. UTI: Urine culture consistent with Klebsiella. Sensitive to ceftriaxone and Levaquin. Continue Levaquin to finish a 7-day course. Type 2 diabetes mellitus: Takes lispro 12 units twice daily at home. Insulin sliding scale before meals and at bedtime. A1c 6.2. Depression: Chronic. Most likely slightly worsened with recent demise of her . Given poor mentation for now hold off on on sedated medications. Stop Remeron. Await Keppra levels. Decrease dose to 500 twice daily. CODE STATUS: Full code. We will confirm with the DPOA again. Carb consistent pur?ed diet Famotidine for PUD prophylaxis. Eliquis has been DVT prophylaxis as well. Spoke to son Yaya and [id number] Carmelita on phone number [phone]. All the questions were answered. As per them the number in the chart is not working. Have asked corrections caseworker to update the chart. Plan for day: Continue Levaquin. Stop IV fluids. Continue to hold off on Remeron or sedating medications. Wean Solu-Medrol to 40 mg daily. Monitor BMP daily. Attestations Medical Necessity Statement*: Requires further hospitalization for management of hypoxia secondary COVID-19 pneumonia, atrial fibrillation, UTI, resolving SEGUNDO while safe discharge planning to SNF is sought Time Spent in Patient Care: Greater than 35 minutes Coding Level of Care Code Acute Catheterization Laboratory Technician for g Fwd Diagnoses SEGUNDO (acute kidney injury) N17.9 Atrial fibrillation with RVR I48.91 Hypoxia R09.02 COVID U07.1 Altered mental status R41.82 UTI (urinary tract infection) N39.0 Depression F32.A
[2021-08-19 16:14] LABS: Glucose Point of Care 253 mg/dL (70-110)
[2021-08-19 20:30] LABS: Glucose Point of Care 278 mg/dL (70-110)
[2021-08-20] VITALS (11 sets, daily range): BP systolic 111–157; BP diastolic 67–104; PULSE 80–103; RESP 13–22; TEMP 36.5–36.7; O2SAT 92–97
[2021-08-20] MEDS: dilTIAZem 30 mg Tablet 60 MG PO ×4 (04:06→20:56)
[2021-08-20 05:22] LABS: Hematocrit 35.3 % (37.0-47.0); Lymphocytes # 0.4 10^3/uL (0.8-4.8); Lymphocytes % 5.7 %; Mean Corpuscular HGB Conc 31.2 g/dL (30.0-36.0); Mean Corpuscular Hemoglobin 26.5 pg (28.0-34.0); Mean Corpuscular Volume 85.1 fl (81-99); Monocytes # 0.4 10^3/uL (0.2-0.9); Monocytes % 5.1 %; Neutrophils # 5.98 10^3/uL (1.8-7.7); Nucleated Red Blood Cells % 0.3 %; Platelet Count 171 10^3/cmm (130-400); Red Blood Count 4.15 10^6/uL (4.1-5.3); Red Cell Distribution Width 17.7 % (12.1-15.1); White Blood Count 6.8 10^3/uL (4.0-10.0)
[2021-08-20 05:39] LABS: Alanine Aminotransferase 15 U/L (0-33); Albumin Level 2.6 g/dL (3.5-5.2); Alkaline Phosphatase 96 IU/L (35-105); Anion Gap 12.7 (5-19); Aspartate Amino Transferase 18 U/L (0-32); Blood Urea Nitrogen 50 mg/dL (8-23); Calcium 9.5 mg/dL (8.5-10.5); Carbon Dioxide 24 mmol/L (22-29); Chloride 109 mmol/L (98-107); Globulin 2.9 g/dL (1.3-4.6); Glucose 195 mg/dL (65-115); Osmolality Calculated 311 mOsm/kg (285-295); Potassium 4.7 mmol/L (3.5-5.1); Sodium 141 mmol/L (136-145); Total Bilirubin 0.3 mg/dL (0.15-1.2); Total Protein 5.5 g/dL (6.6-8.7)
[2021-08-20 06:45] LABS: Glucose Point of Care 193 mg/dL (70-110)
[2021-08-20] MEDS: levoFLOXacin 500 mg Tablet PO (07:35)
[2021-08-20] MEDS: metoprolol succinate ER (24 HR) 50 mg Tablet 75 MG PO ×2 (07:35→17:25)
[2021-08-20] MEDS: budesonide 0.5 mg/2 mL Neb INHALATION ×2 (08:42→21:11)
[2021-08-20] MEDS: ipratropium 0.5 mg/2.5 mL Neb INHALATION ×3 (08:42→21:12)
--- NOTE | 2021-08-20 10:05 | PC.CHAP ---
Pastoral Care Encounter/Spiritual Assessment Type of Contact [] Declined flatwork tier visit [] Patient/Family/Request visit [] Outpatient visit [] Follow-up visit [] Physician referral [] Code/Alert [x] Routine visit [] Staff referral [] Actively dying [] Patient sleeping [] Family support [] [] Out of room [] Palliative care [] [] Receiving care in room [] Pre-surgical visit [] Trauma [] Long length of stay [] ICU visit [] Other: Relational/Emotional Strength [x] Patient feels connected with others/family/visitors/staff [] Distress [] Loneliness/isolation [] Abandonment Spirituality of Patient x [] Person of Cha [x] Attends Buddhist of their Cha [x] Believes in Prayer [] Reads Bible or Caodaism materials [] There are Spiritual issues to be addressed Firebreak Cutter Interventions [] Prayer [] Active listening [] Non-anxious presence [] Spiritual/emotional support [] Crisis/trauma care [] Spiritual counseling [] Bereavement support [] Provided bereavement packet [] Provided Bible/devotional materials [] Provided toy/stuffed animal, coloring book to patient or family member [] Provided Communion [] Anointing/[place] [] Salvation [x] Completed spiritual assessment [] Other: Impact on Illness or Injury [] Angry [] Fearful [] Anxious [] Often cries [] Exhaustion [] Unable to work [] Unable to attend religion [] Unable to walk/stand [] Unable to read [] Unable to drive [] Unable to eat/drink [] Unable to sleep [] Unable to be with family [] Patient intubated [] Other: Summary Time spent with patient 10 min
[2021-08-20] MEDS: insulin lispro 100 unit/1 mL SUBCUT ×3 (10:15→20:55)
[2021-08-20] MEDS: dexamethasone 10 mg/mL INJ 6 MG IVP (10:15)
[2021-08-20] MEDS: montelukast sodium 10 mg Tablet PO (10:15)
[2021-08-20] MEDS: levETIRAcetam 500 mg Tablet PO ×2 (10:15→17:24)
[2021-08-20] MEDS: aspirin 81 mg EC Tablet PO (10:15)
[2021-08-20] MEDS: zinc gluconate 50 mg Tablet PO (10:15)
[2021-08-20] MEDS: ferrous gluconate 324 mg Tablet PO ×2 (10:15→17:24)
[2021-08-20] MEDS: sennosides-docusate Tablet 1 TAB PO (10:15)
[2021-08-20] MEDS: cholecalciferol (vitamin D3) 1,000 unit Tablet 1000 UNIT PO (10:15)
[2021-08-20] MEDS: apixaban 5 mg Tablet PO ×2 (10:15→17:24)
[2021-08-20] MEDS: benzonatate 100 mg Capsule PO ×3 (10:15→20:56)
[2021-08-20 11:15] LABS: Glucose Point of Care 185 mg/dL (70-110)
--- NOTE | 2021-08-20 12:20 | PM.PN ---
Subjective Subjective: No evidence overnight. Patient awake sitting up in room. She is able to answer some questions. She is alert to herself. Not really sure why she is in the hospital. States she is not hungry. Otherwise has remained hemodynamically stable and afebrile. Currently on 1 L saturating 92%. Vitals/I&O/Wt Last Vital Signs Temp 97.7 F 08/20/21 11:39 Pulse 85 08/20/21 11:39 Resp 16 08/20/21 11:39 BP 147/74 08/20/21 11:39 Pulse Ox 92 08/20/21 11:39 08/19/21 08/20/21 08/20/21 22:59 06:59 14:59 Intake Total 1661.25 / 2261.25 240 / 240 Balance 1661.25 / 2261.25 240 / 240 Physical Exam Narrative: General: No acute distress, AO x1-2, tired appearing, moans on waking up, on room air HEENT: PERRLA, pupils bilaterally equal and reactive Chest: Normal vesicular breath sounds, bilateral rhonchi diffuse all over the lung sanchez equal good air entry bilaterally CVS: S1-S2 irregularly irregular, pansystolic murmur at fourth intercostal parasternal region, no tachycardia, no gallops, no rubs Abdomen: Soft, nontender, no organomegaly, bowel sounds present Neuro: No focal deficits, no facial deformity, AO x3, power 5/5 in all limbs Const: GENERAL APPEARANCE: well kempt Psych: APPEARANCE: Yes grossly normal and Yes well kempt ATTITUDE: Yes calm, Yes Withdrawn affect present, No uncooperative, No evasive and No Guarded attititude/behavior present ACTIVITY/MOTOR BEHAVIOR: No psychomotor agitation and No psychomotor slowing SPEECH: Yes slow, Yes soft and Yes delayed MOOD & AFFECT: Yes depressed mood Urinary Catheter Management: Sorensen Latex: Cath Placed During This Visit: yes, but has since been removed by the nurse Reason for Continuing Indwelling Catheter: Accurate Measurement of Urinary Output in Critically Ill Patients Urinary Catheter Date of Insertion: 08/14/21 Urinary Catheter Time of Insertion: 17:00 Date Urinary Catheter Removed: 08/18/21 Time Urinary Catheter Discontinued: 10:11 Data : 08/20/21 05:15 08/20/21 05:15 A&P Assessment and plan (1) SEGUNDO (acute kidney injury): Status: Acute (2) Atrial fibrillation with RVR: Status: Acute (3) Hypoxia: Status: Acute (4) COVID: Status: Acute (5) Altered mental status: Status: Acute (6) UTI (urinary tract infection): Status: Acute (7) Depression: Status: Acute Plan Acute kidney injury: Resolved. Baseline creatinine normal. Up to 1.5 in 2020. Given all the above high concerns for acute interstitial nephritis though could be contrast-induced nephropathy with contrast given for CT imaging on 08/14. Stop IV fluids. Continue to hold off on PPI and Pepcid for now. Will restart tomorrow if remains stable. Switch to Levaquin for concern of AIN with ceftriaxone. Switch to dexamethasone as patient's creatinine has remained stable. We will continue to finish a 10-day course for COVID-19 Hypoxia secondary to COVID-19 pneumonia: Mild to moderate disease. Oxygen supplementation keeping saturation over 88%. Switch to dexamethasone to finish a 10-day course for COVID-19. Finished a 3-day course of remdesivir. Stop because patient is on room air. Vitamin C, zinc. Continue with Atrovent every 6 hours and Pulmicort twice daily. Pulmonary toilet with incentive spirometry flutter valve. We will monitor inflammatory markers including CRP and D-dimer every 48 hourly. D-dimer elevated. CT done negative for pulmonary embolism. Continue with home dose of Eliquis. Will monitor for anemia or blood loss. Given hypoxia will try to keep patient as negative as possible. Patient clinically dehydrated for now. Hold off on any further Bumex and IV fluids for now. Strict input output charting, daily weights. Atrial fibrillation: Currently rate controlled. Continue with Eliquis. Continue with metoprolol 75 mg twice daily and Cardizem 60 mg every 6 hourly. TSH 3.8 Severe pulmonary hypertension: Echocardiogram done in 2019 shows RVSP of 62. Supposed to be on Bumex at as an outpatient. Will hold off. We will continue to monitor. UTI: Urine culture consistent with Klebsiella. Sensitive to ceftriaxone and Levaquin. Continue Levaquin to finish a 7-day course. Type 2 diabetes mellitus: Takes lispro 12 units twice daily at home. Insulin sliding scale before meals and at bedtime. A1c 6.2. Depression: Chronic. Most likely slightly worsened with recent demise of her . Given poor mentation for now hold off on on sedated medications. Stop Remeron. Await Keppra levels. Decrease dose to 500 twice daily. CODE STATUS: Full code. We will confirm with the DPOA again. Carb consistent pur?ed diet Famotidine for PUD prophylaxis. Eliquis has been DVT prophylaxis as well. Spoke to son Yaya and [id number] Carmelita on phone number [phone]. All the questions were answered. As per them the number in the chart is not working. Have asked briefcase sewer to update the chart. Plan for day: Continue Levaquin. Switch to dexamethasone. Oxygen supplementation keeping saturation over 88%. Safe discharge planning. PT. Attestations Medical Necessity Statement*: Requires hospitalization as patient requires continued treatment for COVID-19, UTI while safe discharge planning is sought Time Spent in Patient Care: Greater than 35 minutes Coding Level of Care Code Acute Hospitality Specialist for [facility] Fwd Diagnoses SEGUNDO (acute kidney injury) N17.9 Atrial fibrillation with RVR I48.91 Hypoxia R09.02 COVID U07.1 Altered mental status R41.82 UTI (urinary tract infection) N39.0 Depression F32.A
[2021-08-20 16:56] LABS: Glucose Point of Care 150 mg/dL (70-110)
--- NOTE | 2021-08-20 16:57 | PC.NURSE ---
AM MEDS FOR PT-SCAN NOT SAVED, DOCUMENTED MANUALLY.
[2021-08-20] MEDS: insulin glargine 100 units/1 mL 10 UNIT SUBCUT (20:56)
[2021-08-20 21:09] LABS: Glucose Point of Care 224 mg/dL (70-110)
[2021-08-21] VITALS (10 sets, daily range): BP systolic 124–162; BP diastolic 58–118; PULSE 71–95; RESP 16–20; TEMP 36.3–36.9; O2SAT 90–98
[2021-08-21 02:56] LABS: Basophils % 0.3 %; Hematocrit 36.2 % (37.0-47.0); Hemoglobin 11.3 g/dL (11.5-15.3); Lymphocytes # 0.4 10^3/uL (0.8-4.8); Lymphocytes % 5.7 %; Mean Corpuscular HGB Conc 31.2 g/dL (30.0-36.0); Mean Corpuscular Hemoglobin 26.6 pg (28.0-34.0); Mean Corpuscular Volume 85.2 fl (81-99); Mean Platelet Volume 9.6 fL (7.4-10.4); Monocytes # 0.2 10^3/uL (0.2-0.9); Monocytes % 2.9 %; Neutrophils # 6.06 10^3/uL (1.8-7.7); Neutrophils % 88.8 %; Nucleated Red Blood Cells % 0 %; Platelet Count 177 10^3/cmm (130-400); Red Blood Count 4.25 10^6/uL (4.1-5.3); Red Cell Distribution Width 18.2 % (12.1-15.1); White Blood Count 6.8 10^3/uL (4.0-10.0)
[2021-08-21 03:23] LABS: Alanine Aminotransferase 22 U/L (0-33); Albumin Level 2.7 g/dL (3.5-5.2); Alkaline Phosphatase 92 IU/L (35-105); Anion Gap 11.2 (5-19); Aspartate Amino Transferase 29 U/L (0-32); Blood Urea Nitrogen 49 mg/dL (8-23); Calcium 9.8 mg/dL (8.5-10.5); Carbon Dioxide 25 mmol/L (22-29); Chloride 109 mmol/L (98-107); Globulin 3.2 g/dL (1.3-4.6); Glucose 203 mg/dL (65-115); Osmolality Calculated 309 mOsm/kg (285-295); Potassium 5.2 mmol/L (3.5-5.1); Sodium 140 mmol/L (136-145); Total Bilirubin 0.4 mg/dL (0.15-1.2); Total Protein 5.9 g/dL (6.6-8.7)
[2021-08-21] MEDS: dilTIAZem 30 mg Tablet 60 MG PO ×2 (03:57→09:18)
[2021-08-21] MEDS: metoprolol succinate ER (24 HR) 50 mg Tablet 75 MG PO ×2 (05:48→18:00)
[2021-08-21 06:32] LABS: Glucose Point of Care 217 mg/dL (70-110)
[2021-08-21] MEDS: ipratropium-albuterol 3 mL Neb INHALATION (08:33)
[2021-08-21] MEDS: budesonide 0.5 mg/2 mL Neb INHALATION (08:33)
[2021-08-21] MEDS: insulin glargine 100 units/1 mL 10 UNIT SUBCUT ×2 (09:19→21:49)
[2021-08-21] MEDS: sennosides-docusate Tablet 1 TAB PO (09:19)
[2021-08-21] MEDS: aspirin 81 mg EC Tablet PO (09:19)
[2021-08-21] MEDS: benzonatate 100 mg Capsule PO (09:19)
[2021-08-21] MEDS: apixaban 5 mg Tablet PO ×2 (09:19→18:00)
[2021-08-21] MEDS: montelukast sodium 10 mg Tablet PO (09:19)
[2021-08-21] MEDS: zinc gluconate 50 mg Tablet PO (09:19)
[2021-08-21] MEDS: dexamethasone 10 mg/mL INJ 6 MG IVP (09:21)
[2021-08-21] MEDS: insulin lispro 100 unit/1 mL SUBCUT ×4 (09:31→21:49)
[2021-08-21 11:38] LABS: Glucose Point of Care 212 mg/dL (70-110)
--- NOTE | 2021-08-21 11:58 | P.PN_ITS ---
Subjective Subjective: No acute events overnight. Patient is at her baseline mentation. Awake examination. Alert to self. Denies any active complaints. Afebrile and hemodynamically stable. As per the nurse passing appropriate urine by herself. Sorensen removed 2 days ago. Vitals/I&O/Wt Last Vital Signs Temp 97.4 F L 08/21/21 08:00 Pulse 74 08/21/21 08:41 Resp 18 08/21/21 08:41 BP 162/118 08/21/21 08:00 Pulse Ox 94 08/21/21 08:41 08/20/21 08/21/21 08/21/21 22:59 06:59 14:59 Intake Total 360 / 840 0 / 840 Balance 360 / 840 0 / 840 Physical Exam Narrative: General: No acute distress, AO x1-2, tired appearing, moans on waking up, on room air HEENT: PERRLA, pupils bilaterally equal and reactive Chest: Normal vesicular breath sounds, bilateral rhonchi diffuse all over the lung sanchez equal good air entry bilaterally CVS: S1-S2 irregularly irregular, pansystolic murmur at fourth intercostal parasternal region, no tachycardia, no gallops, no rubs Abdomen: Soft, nontender, no organomegaly, bowel sounds present Neuro: No focal deficits, no facial deformity, AO x3, power 5/5 in all limbs Const: GENERAL APPEARANCE: well kempt Psych: APPEARANCE: Yes grossly normal and Yes well kempt ATTITUDE: Yes calm, Yes Withdrawn affect present, No uncooperative, No evasive and No Guarded attititude/behavior present ACTIVITY/MOTOR BEHAVIOR: No psychomotor agitation and No psychomotor slowing SPEECH: Yes slow, Yes soft and Yes delayed MOOD & AFFECT: Yes depressed mood Urinary Catheter Management: Sorensen Latex: Cath Placed During This Visit: yes, but has since been removed by the nurse Reason for Continuing Indwelling Catheter: Accurate Measurement of Urinary Output in Critically Ill Patients Urinary Catheter Date of Insertion: 08/14/21 Urinary Catheter Time of Insertion: 17:00 Date Urinary Catheter Removed: 08/18/21 Time Urinary Catheter Discontinued: 10:11 Data : 08/21/21 02:18 08/21/21 02:18 Micro: Microbiology 08/16/21 02:57 Blood Culture - Final Blood NO GROWTH AFTER 5 DAYS 08/16/21 02:54 Blood Culture - Final Blood NO GROWTH AFTER 5 DAYS A&P Assessment and plan (1) SEGUNDO (acute kidney injury): Status: Acute (2) Atrial fibrillation with RVR: Status: Acute (3) Hypoxia: Status: Acute (4) COVID: Status: Acute (5) Altered mental status: Status: Acute (6) UTI (urinary tract infection): Status: Acute (7) Depression: Status: Acute Plan Acute kidney injury: Resolved. Baseline creatinine normal. Up to 1.5 in 2020. Given all the above high concerns for acute interstitial nephritis though could be contrast-induced nephropathy with contrast given for CT imaging on 08/14. Stop IV fluids. Continue to hold off on PPI and Pepcid for now. Will restart tomorrow if remains stable. Switch to Levaquin for concern of AIN with ceftriaxone. Switch to dexamethasone as patient's creatinine has remained stable. We will continue to finish a 10-day course for COVID-19 Hypoxia secondary to COVID-19 pneumonia: Mild to moderate disease. Oxygen supplementation keeping saturation over 88%. Switch to dexamethasone to finish a 10-day course for COVID-19. Finished a 3-day course of remdesivir. Stop because patient is on room air. Vitamin C, zinc. Continue with Atrovent every 6 hours and Pulmicort twice daily. Pulmonary toilet with incentive spirometry flutter valve. We will monitor inflammatory markers including CRP and D-dimer every 48 hourly. D-dimer elevated. CT done negative for pulmonary embolism. Continue with home dose of Eliquis. Will monitor for anemia or blood loss. Given hypoxia will try to keep patient as negative as possible. Patient clinically dehydrated for now. Hold off on any further Bumex and IV fluids for now. Strict input output charting, daily weights. Atrial fibrillation: Currently rate controlled. Continue with Eliquis. Continue with metoprolol 75 mg twice daily and Cardizem 60 mg every 6 hourly. TSH 3.8 Severe pulmonary hypertension: Echocardiogram done in 2019 shows RVSP of 62. Supposed to be on Bumex at as an outpatient. Will hold off. We will continue to monitor. UTI: Urine culture consistent with Klebsiella. Sensitive to ceftriaxone and Levaquin. Continue Levaquin to finish a 7-day course. Type 2 diabetes mellitus: Takes lispro 12 units twice daily at home. Insulin sliding scale before meals and at bedtime. A1c 6.2. Depression: Chronic. Most likely slightly worsened with recent demise of her . Given poor mentation for now hold off on on sedated medications. Stop Remeron. Await Keppra levels. Decrease dose to 500 twice daily. CODE STATUS: Full code. We will confirm with the DPOA again. Carb consistent pur?ed diet Famotidine for PUD prophylaxis. Eliquis has been DVT prophylaxis as well. Spoke to son Yaya and [id number] Carmelita on phone number [phone]. All the questions were answered. As per them the number in the chart is not working. Have asked case packer to update the chart. Plan for day: Continue Levaquin to finish the course. D50 and 10 units insulin for hyperkalemia. Switch from Cardizem 60 every 6 to 300 mg daily. Continue to hold off on psych medications because of increased somnolence. Awaiting Keppra levels. Continue Keppra at 500 twice daily. Discharge planning: Family wants patient to be placed to SNF for long-term care. Unfortunately as patient is not skilled level we are finding it difficult for patient to be placed at SNF. Discussed with family. They are trying to see if they can get patient to SNF by private pay. Plan for discharge for now SNF versus home with home health. Attestations Medical Necessity Statement*: Requires further hospitalization for management of atrial fibrillation, UTI, COVID-19 while safe discharge planning is sought. 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
--- NOTE | 2021-08-21 12:20 | PC.SLP ---
Not seen for direct AMUSEMENT PARK RIDE MECHANIC treatment today. Nursing reported difficulty with swallowing pills in applesauce and was contacting pharmacy since unable to crush.
[2021-08-21] MEDS: insulin regular-human 10 UNIT in SYRINGE 1 EACH IVP (13:35)
--- NOTE | 2021-08-21 13:35 | PC.SOCIAL ---
IMM Updated Updated pt on IMM. No questions voiced. Provided pt a copy. Initialed, dated, & timed copy in chart.
[2021-08-21] MEDS: dextrose 50% syringe 50 mL IVP (13:36)
[2021-08-21 15:23] LABS: Glucose Point of Care 221 mg/dL (70-110)
[2021-08-21] MEDS: ipratropium 0.5 mg/2.5 mL Neb INHALATION (15:50)
[2021-08-21 17:31] LABS: Glucose Point of Care 227 mg/dL (70-110)
[2021-08-21 21:32] LABS: Glucose Point of Care 198 mg/dL (70-110)
[2021-08-22] VITALS (9 sets, daily range): BP systolic 120–160; BP diastolic 77–92; PULSE 70–102; RESP 17–20; TEMP 36.5–37; O2SAT 94–99
[2021-08-22] MEDS: metoprolol succinate ER (24 HR) 50 mg Tablet 75 MG PO ×2 (05:12→18:23)
[2021-08-22 05:50] LABS: Hemoglobin 10.8 g/dL (11.5-15.3); Lymphocytes # 0.6 10^3/uL (0.8-4.8); Lymphocytes % 9.6 %; Mean Corpuscular HGB Conc 30.9 g/dL (30.0-36.0); Mean Corpuscular Hemoglobin 26.4 pg (28.0-34.0); Mean Corpuscular Volume 85.6 fl (81-99); Mean Platelet Volume 9.4 fL (7.4-10.4); Monocytes # 0.3 10^3/uL (0.2-0.9); Monocytes % 4.6 %; Neutrophils # 4.85 10^3/uL (1.8-7.7); Neutrophils % 83.4 %; Nucleated Red Blood Cells % 0 %; Platelet Count 168 10^3/cmm (130-400); Red Blood Count 4.09 10^6/uL (4.1-5.3); Red Cell Distribution Width 17.9 % (12.1-15.1); White Blood Count 5.8 10^3/uL (4.0-10.0)
[2021-08-22 06:12] LABS: Glucose Point of Care 122 mg/dL (70-110)
[2021-08-22 06:13] LABS: Alanine Aminotransferase 18 U/L (0-33); Albumin Level 2.5 g/dL (3.5-5.2); Alkaline Phosphatase 73 IU/L (35-105); Anion Gap 9.3 (5-19); Aspartate Amino Transferase 18 U/L (0-32); Blood Urea Nitrogen 38 mg/dL (8-23); Calcium 9.2 mg/dL (8.5-10.5); Carbon Dioxide 27 mmol/L (22-29); Chloride 106 mmol/L (98-107); Globulin 2.9 g/dL (1.3-4.6); Glucose 122 mg/dL (65-115); Osmolality Calculated 296 mOsm/kg (285-295); Potassium 4.3 mmol/L (3.5-5.1); Sodium 138 mmol/L (136-145); Total Bilirubin 0.5 mg/dL (0.15-1.2); Total Protein 5.4 g/dL (6.6-8.7)
[2021-08-22] MEDS: ipratropium 0.5 mg/2.5 mL Neb INHALATION (09:09)
[2021-08-22] MEDS: budesonide 0.5 mg/2 mL Neb INHALATION ×2 (09:10→20:34)
[2021-08-22] MEDS: dexamethasone 10 mg/mL INJ 6 MG IVP (10:52)
[2021-08-22] MEDS: insulin glargine 100 units/1 mL 10 UNIT SUBCUT ×2 (10:52→21:33)
[2021-08-22 11:26] LABS: Glucose Point of Care 149 mg/dL (70-110)
--- NOTE | 2021-08-22 12:58 | P.PN_ITS ---
Subjective Subjective: Patient was sen and examined this morning , no acute events overnight, hyperkalemia resolved, potassium is 4.3, continue to remain afebrile. Currently at her baseline mentation. Vitals and labs have been reviewed. Medications: Medication Review Details: Generic Name Dose Route Start Last Admin Trade Name Freq PRN Reason Stop Dose Admin Acetaminophen 500 mg 08/14/21 19:38 08/18/21 11:45 Acetaminophen 50 0 Mg Tablet PO 500 mg Q4H PRN Administration fever Albuterol/Ipratrop ium 3 ml 08/14/21 19:38 08/21/21 08:33 Ipratropium-Albu terol 3 Ml Neb INHALATION 3 ml Q6H PRN Administration SHORTNESS OF EVELYN TH Apixaban 5 mg 08/15/21 09:00 08/22/21 12:37 Apixaban 5 Mg Ta blet PO Not Given BID JO Aspirin 81 mg 08/15/21 09:00 08/22/21 12:37 Aspirin 81 Mg Ec Tablet PO Not Given DAILY [facility] Budesonide 0.5 mg 08/16/21 20:00 08/22/21 09:10 Budesonide 0.5 M g/2 Ml Neb INHALATION 0.5 mg BID.RESPIRATORY S CH Administration Dexamethasone 6 mg 08/20/21 09:30 08/22/21 10:52 Dexamethasone 10 Mg/Ml Inj IVP 08/24/21 09:29 6 mg Q24H JO Administration Diltiazem HCl 300 mg 08/21/21 14:00 08/22/21 12:37 Diltiazem Er (24 hr) 300 Mg Capsule PO Not Given DAILY [facility] Ferrous Gluconate 324 mg 08/15/21 18:00 08/22/21 12:36 Ferrous Gluconat e 324 Mg Tablet PO Not Given BIDWM [facility] Insulin Glargine 10 unit 08/18/21 23:00 08/22/21 10:52 Insulin Glargine 100 Units/1 Ml SUBCUT 10 unit BID@0800,2000 [facility] Administration Insulin Human Lisp ro 0 unit 08/15/21 12:00 08/22/21 13:26 Insulin Lispro 1 00 Unit/1 Ml SUBCUT 6 unit WM&BEDTIME JO Administration Protocol Levetiracetam 500 mg 08/18/21 18:00 08/22/21 12:37 Levetiracetam 50 0 Mg Tablet PO Not Given BID [facility] Metoprolol Succina te 75 mg 08/18/21 18:00 08/22/21 05:12 Metoprolol Succi elder Er (24 Hr) 50 Mg Tablet PO 75 mg Q12H [facility] Administration Montelukast Sodium 10 mg 08/15/21 09:00 08/22/21 12:38 Montelukast Sodi um 10 Mg Tablet PO Not Given DAILY [facility] Senna/Docusate Sod ium 1 tab 08/15/21 09:00 08/22/21 12:38 Sennosides-Docus ate Tablet PO Not Given DAILY [facility] Vitamin D 1,000 unit 08/15/21 09:00 08/22/21 12:37 Cholecalciferol (Vitamin D3) 1,000 Unit Tablet PO Not Given DAILY [facility] Zinc Gluconate 50 mg 08/15/21 09:00 08/22/21 12:38 Zinc Gluconate 5 0 Mg Tablet PO Not Given DAILY [facility] Vitals/I&O/Wt Last Vital Signs Temp 97.8 F 08/22/21 08:00 Pulse 85 08/22/21 09:15 Resp 17 08/22/21 09:08 BP 160/92 08/22/21 08:00 Pulse Ox 94 08/22/21 09:15 08/21/21 08/22/21 08/22/21 22:59 06:59 14:59 Intake Total 0.1 / 0.1 700 / 700.1 720 / 720 Balance 0.1 / 0.1 700 / 700.1 720 / 720 Physical Exam Narrative: Alert and awake, alert to self HENMT: COMMON NORMALS: normocephalic and atraumatic HEAD & SCALP: normocephalic and atraumatic Eye: COMMON NORMALS: no scleral icterus GENERAL EYE: appearance normal, both eyes and all related structures Chest: COMMONS NORMALS: normal inspection of the chest and normal palpation of entire chest wall CHEST: Yes Symmetrical chest wall rise Resp: COMMON NORMALS: normal respiratory effort, No retractions, No use of accessory muscles and clear to auscultation bilaterally EFFORT & INSPECTION: Yes symmetric chest movement AUSCULTATION: clear to auscultation bilaterally Cardio: COMMON NORMALS: No rub (Cardio) OTHER: Irregularly irregular rhythm, S1-S2 variable intensity GI: COMMON NORMALS: Normal to inspection, nondistended, normoactive bowel sounds present, Soft to palpation, non-tender, No hepatosplenomegaly present and no masses AUSCULTATION: Yes normoactive bowel sounds PALPATION: Yes Soft to palpation and Yes No hepatosplenomegaly present RECTAL EXAM: deferred Extremity: COMMON NORMALS: no clubbing, cyanosis or edema and no pedal edema Urinary Catheter Management: Sorensen Latex: Cath Placed During This Visit: yes, but has since been removed by the nurse Reason for Continuing Indwelling Catheter: Accurate Measurement of Urinary Output in Critically Ill Patients Urinary Catheter Date of Insertion: 08/14/21 Urinary Catheter Time of Insertion: 17:00 Date Urinary Catheter Removed: 08/18/21 Time Urinary Catheter Discontinued: 10:11 Data : 08/22/21 05:11 08/22/21 05:11 A&P Assessment and plan (1) SEGUNDO (acute kidney injury): Status: Acute (2) Atrial fibrillation with RVR: Status: Acute (3) Hypoxia: Status: Acute (4) COVID: Status: Acute (5) Altered mental status: Status: Acute (6) UTI (urinary tract infection): Status: Acute (7) Depression: Status: Acute Plan Acute kidney injury: Resolved. Baseline creatinine normal. Up to 1.5 in 2020. Given all the above high concerns for acute interstitial nephritis though could be contrast-induced nephropathy with contrast given for CT imaging on 08/14. Stop IV fluids. Continue to hold off on PPI and Pepcid for now. Will restart tomorrow if remains stable. Switch to Levaquin for concern of AIN with ceftriaxone. Switch to dexamethasone as patient's creatinine has remained stable. We will continue to finish a 10-day course for COVID-19 Hypoxia secondary to COVID-19 pneumonia: Mild to moderate disease. Oxygen supplementation keeping saturation over 88%. Switch to dexamethasone to finish a 10-day course for COVID-19. Finished a 3-day course of remdesivir. Stop because patient is on room air. Vitamin C, zinc. Continue with Atrovent every 6 hours and Pulmicort twice daily. Pulmonary toilet with incentive spirometry flutter valve. We will monitor inflammatory markers including CRP and D-dimer every 48 hourly. D-dimer elevated. CT done negative for pulmonary embolism. Continue with home dose of Eliquis. Will monitor for anemia or blood loss. Given hypoxia will try to keep patient as negative as possible. Patient clinically dehydrated for now. Hold off on any further Bumex and IV fluids for now. Strict input output charting, daily weights. Atrial fibrillation: Currently rate controlled. Continue with Eliquis. Continue with metoprolol 75 mg twice daily and Cardizem 60 mg every 6 hourly. TSH 3.8 Severe pulmonary hypertension: Echocardiogram done in 2019 shows RVSP of 62. Supposed to be on Bumex at as an outpatient. Will hold off. We will continue to monitor. UTI: Urine culture consistent with Klebsiella. Sensitive to ceftriaxone and Levaquin. Continue Levaquin to finish a 7-day course. Type 2 diabetes mellitus: Takes lispro 12 units twice daily at home. Insulin sliding scale before meals and at bedtime. A1c 6.2. Depression: Chronic. Most likely slightly worsened with recent demise of her . Given poor mentation for now hold off on on sedated medications. Stop Remeron. Await Keppra levels. Decrease dose to 500 twice daily. CODE STATUS: Full code. We will confirm with the DPOA again. Carb consistent pur?ed diet Famotidine for PUD prophylaxis. Eliquis has been DVT prophylaxis as well. Spoke to son Yaya and aphxaedz-[id number] Carmelita on phone number [phone]. All the questions were answered. As per them the number in the chart is not working. Have asked continuous pillowcase cutter to update the chart. Plan for day: Continue Levaquin to finish the course. D50 and 10 units insulin for hyperkalemia. Switch from Cardizem 60 every 6 to 300 mg daily. Continue to hold off on psych medications because of increased somnolence. Awaiting Keppra levels. Continue Keppra at 500 twice daily. Discharge planning: Family wants patient to be placed to SNF for long-term care. Unfortunately as patient is not skilled level we are finding it difficult for patient to be placed at SNF. Discussed with family. They are trying to see if they can get patient to SNF by private pay. Plan for discharge for now SNF versus home with home health. Attestations Medical Necessity Statement*: Patient is currently awaiting placement. If she is not accepted by any nursing facility, will likely plan to discharge her home. Coding Level of Care Code Acute Formula Technician for [facility] Fwd Exam Detailed Diagnoses SEGUNDO (acute kidney injury) N17.9 Atrial fibrillation with RVR I48.91 Hypoxia R09.02 COVID U07.1 Altered mental status R41.82 UTI (urinary tract infection) N39.0 Depression F32.A
[2021-08-22] MEDS: insulin lispro 100 unit/1 mL SUBCUT ×3 (13:26→21:32)
[2021-08-22 17:25] LABS: Glucose Point of Care 206 mg/dL (70-110)
[2021-08-22] MEDS: apixaban 5 mg Tablet PO (18:23)
[2021-08-22 20:45] LABS: Glucose Point of Care 256 mg/dL (70-110)
[2021-08-23] VITALS (10 sets, daily range): BP systolic 112–140; BP diastolic 67–91; PULSE 80–97; RESP 16–20; TEMP 36.5–37.2; O2SAT 90–99
[2021-08-23] MEDS: metoprolol succinate ER (24 HR) 50 mg Tablet 75 MG PO ×2 (05:13→17:38)
[2021-08-23 06:22] LABS: Eosinophils % 0.1 %; Hematocrit 37.1 % (37.0-47.0); Hemoglobin 11.2 g/dL (11.5-15.3); Lymphocytes # 0.8 10^3/uL (0.8-4.8); Lymphocytes % 11.2 %; Mean Corpuscular HGB Conc 30.2 g/dL (30.0-36.0); Mean Corpuscular Hemoglobin 26.2 pg (28.0-34.0); Mean Corpuscular Volume 86.7 fl (81-99); Mean Platelet Volume 10.1 fL (7.4-10.4); Monocytes # 0.3 10^3/uL (0.2-0.9); Monocytes % 4.9 %; Neutrophils # 5.65 10^3/uL (1.8-7.7); Neutrophils % 81.1 %; Nucleated Red Blood Cells % 0 %; Platelet Count 175 10^3/cmm (130-400); Red Blood Count 4.28 10^6/uL (4.1-5.3); Red Cell Distribution Width 18.2 % (12.1-15.1)
[2021-08-23 06:35] LABS: Glucose Point of Care 158 mg/dL (70-110)
[2021-08-23 07:00] LABS: Anion Gap 12.7 (5-19); Blood Urea Nitrogen 37 mg/dL (8-23); Calcium 8.9 mg/dL (8.5-10.5); Carbon Dioxide 24 mmol/L (22-29); Chloride 104 mmol/L (98-107); Glucose 171 mg/dL (65-115); Osmolality Calculated 295 mOsm/kg (285-295); Potassium 4.7 mmol/L (3.5-5.1); Sodium 136 mmol/L (136-145)
[2021-08-23] MEDS: dilTIAZem ER (24HR) 300 mg Capsule PO (09:10)
[2021-08-23] MEDS: insulin glargine 100 units/1 mL 10 UNIT SUBCUT ×2 (09:10→21:38)
[2021-08-23] MEDS: cholecalciferol (vitamin D3) 1,000 unit Tablet 1000 UNIT PO (09:10)
[2021-08-23] MEDS: ferrous gluconate 324 mg Tablet PO ×2 (09:10→17:37)
[2021-08-23] MEDS: apixaban 5 mg Tablet PO ×2 (09:10→17:38)
[2021-08-23] MEDS: levETIRAcetam 500 mg Tablet PO ×2 (09:11→17:37)
[2021-08-23] MEDS: sennosides-docusate Tablet 1 TAB PO (09:11)
[2021-08-23] MEDS: dexamethasone 10 mg/mL INJ 6 MG IVP (09:11)
[2021-08-23] MEDS: aspirin 81 mg EC Tablet PO (09:11)
[2021-08-23] MEDS: zinc gluconate 50 mg Tablet PO (09:11)
[2021-08-23] MEDS: montelukast sodium 10 mg Tablet PO (09:11)
--- NOTE | 2021-08-23 10:39 | PM.PN ---
Subjective Subjective: Patient was sen and examined this morning , no acute events overnight, vitals and labs have been reviewed. Medications: Medication Review Details: Generic Name Dose Route Start Last Admin Trade Name Lois PRN Reason Stop Dose Admin Acetaminophen 500 mg 08/14/21 19:38 08/18/21 11:45 Acetaminophen 50 0 Mg Tablet PO 500 mg Q4H PRN Administration fever Albuterol/Ipratrop ium 3 ml 08/14/21 19:38 08/21/21 08:33 Ipratropium-Albu terol 3 Ml Neb INHALATION 3 ml Q6H PRN Administration SHORTNESS OF EVELYN TH Apixaban 5 mg 08/15/21 09:00 08/22/21 12:37 Apixaban 5 Mg Ta blet PO Not Given BID [facility] Aspirin 81 mg 08/15/21 09:00 08/22/21 12:37 Aspirin 81 Mg Ec Tablet PO Not Given DAILY JO Budesonide 0.5 mg 08/16/21 20:00 08/22/21 09:10 Budesonide 0.5 M g/2 Ml Neb INHALATION 0.5 mg BID.RESPIRATORY S CH Administration Dexamethasone 6 mg 08/20/21 09:30 08/22/21 10:52 Dexamethasone 10 Mg/Ml Inj IVP 08/24/21 09:29 6 mg Q24H JO Administration Diltiazem HCl 300 mg 08/21/21 14:00 08/22/21 12:37 Diltiazem Er (24 hr) 300 Mg Capsule PO Not Given DAILY [facility] Ferrous Gluconate 324 mg 08/15/21 18:00 08/22/21 12:36 Ferrous Gluconat e 324 Mg Tablet PO Not Given BIDWM [facility] Insulin Glargine 10 unit 08/18/21 23:00 08/22/21 10:52 Insulin Glargine 100 Units/1 Ml SUBCUT 10 unit BID@0800,2000 [facility] Administration Insulin Human Lisp ro 0 unit 08/15/21 12:00 08/22/21 13:26 Insulin Lispro 1 00 Unit/1 Ml SUBCUT 6 unit WM&BEDTIME JO Administration Protocol Levetiracetam 500 mg 08/18/21 18:00 08/22/21 12:37 Levetiracetam 50 0 Mg Tablet PO Not Given BID [facility] Metoprolol Succina te 75 mg 08/18/21 18:00 08/22/21 05:12 Metoprolol Succi elder Er (24 Hr) 50 Mg Tablet PO 75 mg Q12H JO Administration Montelukast Sodium 10 mg 08/15/21 09:00 08/22/21 12:38 Montelukast Sodi um 10 Mg Tablet PO Not Given DAILY [facility] Senna/Docusate Sod ium 1 tab 08/15/21 09:00 08/22/21 12:38 Sennosides-Docus ate Tablet PO Not Given DAILY [facility] Vitamin D 1,000 unit 08/15/21 09:00 08/22/21 12:37 Cholecalciferol (Vitamin D3) 1,000 Unit Tablet PO Not Given DAILY [facility] Zinc Gluconate 50 mg 08/15/21 09:00 08/22/21 12:38 Zinc Gluconate 5 0 Mg Tablet PO Not Given DAILY [facility] Vitals/I&O/Wt Last Vital Signs Temp 98.5 F 08/23/21 08:00 Pulse 90 08/23/21 08:35 Resp 17 08/23/21 08:35 BP 140/91 08/23/21 08:00 Pulse Ox 99 08/23/21 08:35 08/22/21 08/23/21 08/23/21 22:59 06:59 14:59 Intake Total 980 / 2320 830 / 3150 Balance 980 / 2320 830 / 3150 Physical Exam Narrative: Alert and awake, alert to self HENMT: COMMON NORMALS: normocephalic and atraumatic HEAD & SCALP: normocephalic and atraumatic Eye: COMMON NORMALS: no scleral icterus GENERAL EYE: appearance normal, both eyes and all related structures Chest: COMMONS NORMALS: normal inspection of the chest and normal palpation of entire chest wall CHEST: Yes Symmetrical chest wall rise Resp: COMMON NORMALS: normal respiratory effort, No retractions, No use of accessory muscles and clear to auscultation bilaterally EFFORT & INSPECTION: Yes symmetric chest movement AUSCULTATION: clear to auscultation bilaterally Cardio: COMMON NORMALS: No rub (Cardio) OTHER: Irregularly irregular rhythm, S1-S2 variable intensity GI: COMMON NORMALS: Normal to inspection, nondistended, normoactive bowel sounds present, Soft to palpation, non-tender, No hepatosplenomegaly present and no masses AUSCULTATION: Yes normoactive bowel sounds PALPATION: Yes Soft to palpation and Yes No hepatosplenomegaly present RECTAL EXAM: deferred Extremity: COMMON NORMALS: no clubbing, cyanosis or edema and no pedal edema Urinary Catheter Management: Sorensen Latex: Cath Placed During This Visit: yes, but has since been removed by the nurse Reason for Continuing Indwelling Catheter: Accurate Measurement of Urinary Output in Critically Ill Patients Urinary Catheter Date of Insertion: 08/14/21 Urinary Catheter Time of Insertion: 17:00 Date Urinary Catheter Removed: 08/18/21 Time Urinary Catheter Discontinued: 10:11 Data : 08/23/21 06:06 08/23/21 06:06 A&P Assessment and plan (1) SEGUNDO (acute kidney injury): Status: Acute (2) Atrial fibrillation with RVR: Status: Acute (3) Hypoxia: Status: Acute (4) COVID: Status: Acute (5) Altered mental status: Status: Acute (6) UTI (urinary tract infection): Status: Acute (7) Depression: Status: Acute Plan Acute kidney injury: Resolved. Baseline creatinine normal. Up to 1.5 in 2020. Given all the above high concerns for acute interstitial nephritis though could be contrast-induced nephropathy with contrast given for CT imaging on 08/14. Stop IV fluids. Continue to hold off on PPI and Pepcid for now. Will restart tomorrow if remains stable. Switch to Levaquin for concern of AIN with ceftriaxone. Switch to dexamethasone as patient's creatinine has remained stable. We will continue to finish a 10-day course for COVID-19 Hypoxia secondary to COVID-19 pneumonia: Mild to moderate disease. Oxygen supplementation keeping saturation over 88%. Switch to dexamethasone to finish a 10-day course for COVID-19. Finished a 3-day course of remdesivir. Stop because patient is on room air. Vitamin C, zinc. Continue with Atrovent every 6 hours and Pulmicort twice daily. Pulmonary toilet with incentive spirometry flutter valve. We will monitor inflammatory markers including CRP and D-dimer every 48 hourly. D-dimer elevated. CT done negative for pulmonary embolism. Continue with home dose of Eliquis. Will monitor for anemia or blood loss. Given hypoxia will try to keep patient as negative as possible. Patient clinically dehydrated for now. Hold off on any further Bumex and IV fluids for now. Strict input output charting, daily weights. Atrial fibrillation: Currently rate controlled. Continue with Eliquis. Continue with metoprolol 75 mg twice daily and Cardizem 60 mg every 6 hourly. TSH 3.8 Severe pulmonary hypertension: Echocardiogram done in 2019 shows RVSP of 62. Supposed to be on Bumex at as an outpatient. Will hold off. We will continue to monitor. UTI: Urine culture consistent with Klebsiella. Sensitive to ceftriaxone and Levaquin. Continue Levaquin to finish a 7-day course. Type 2 diabetes mellitus: Takes lispro 12 units twice daily at home. Insulin sliding scale before meals and at bedtime. A1c 6.2. Depression: Chronic. Most likely slightly worsened with recent demise of her . Given poor mentation for now hold off on on sedated medications. Stop Remeron. Await Keppra levels. Decrease dose to 500 twice daily. CODE STATUS: Full code. We will confirm with the DPOA again. Carb consistent pur?ed diet Famotidine for PUD prophylaxis. Eliquis has been DVT prophylaxis as well. Spoke to son Yaya and [id number] Carmelita on phone number [phone]. All the questions were answered. As per them the number in the chart is not working. Have asked case manager specialist to update the chart. Plan for day: Continue Levaquin to finish the course. D50 and 10 units insulin for hyperkalemia. Switch from Cardizem 60 every 6 to 300 mg daily. Continue to hold off on psych medications because of increased somnolence. Awaiting Keppra levels. Continue Keppra at 500 twice daily. Discharge planning: Family wants patient to be placed to SNF for long-term care. Unfortunately as patient is not skilled level we are finding it difficult for patient to be placed at SNF. Discussed with family. They are trying to see if they can get patient to SNF by private pay. Plan for discharge for now SNF versus home with home health. Attestations Medical Necessity Statement*: Patient has not been accepted by SNF , she has agreed to go home tomorrow. Coding Level of Care Code Acute [employer] for [facility] Fwd Exam Detailed Diagnoses SEGUNDO (acute kidney injury) N17.9 Atrial fibrillation with RVR I48.91 Hypoxia R09.02 COVID U07.1 Altered mental status R41.82 UTI (urinary tract infection) N39.0 Depression F32.A
--- NOTE | 2021-08-23 11:04 | PC.SOCIAL ---
IMM update IMM updated with patient's daughter in law. Verbalized an understanding. Initialled, dated, timed, and placed in chart.
[2021-08-23 12:16] LABS: Glucose Point of Care 168 mg/dL (70-110)
[2021-08-23] MEDS: insulin lispro 100 unit/1 mL SUBCUT ×3 (13:33→21:37)
[2021-08-23 17:14] LABS: Glucose Point of Care 211 mg/dL (70-110)
[2021-08-23] MEDS: ipratropium-albuterol 3 mL Neb INHALATION (19:59)
[2021-08-23] MEDS: budesonide 0.5 mg/2 mL Neb INHALATION (20:00)
[2021-08-23 20:47] LABS: Glucose Point of Care 250 mg/dL (70-110)
[2021-08-24] VITALS (7 sets, daily range): BP systolic 114–119; BP diastolic 63–78; PULSE 75–97; RESP 14–21; TEMP 36.9; O2SAT 93–97
[2021-08-24] MEDS: metoprolol succinate ER (24 HR) 50 mg Tablet 75 MG PO (05:18)
[2021-08-24 06:41] LABS: Glucose Point of Care 123 mg/dL (70-110)
[2021-08-24] MEDS: ipratropium-albuterol 3 mL Neb INHALATION (07:48)
[2021-08-24] MEDS: budesonide 0.5 mg/2 mL Neb INHALATION (07:48)
[2021-08-24] MEDS: apixaban 5 mg Tablet PO (08:37)
[2021-08-24] MEDS: aspirin 81 mg EC Tablet PO (08:37)
[2021-08-24] MEDS: zinc gluconate 50 mg Tablet PO (08:37)
[2021-08-24] MEDS: montelukast sodium 10 mg Tablet PO (08:37)
[2021-08-24] MEDS: cholecalciferol (vitamin D3) 1,000 unit Tablet 1000 UNIT PO (08:37)
[2021-08-24] MEDS: levETIRAcetam 500 mg Tablet PO (08:37)
[2021-08-24] MEDS: dilTIAZem ER (24HR) 300 mg Capsule PO (08:37)
[2021-08-24] MEDS: ferrous gluconate 324 mg Tablet PO (08:37)
[2021-08-24] MEDS: sennosides-docusate Tablet 1 TAB PO (08:38)
[2021-08-24] MEDS: insulin glargine 100 units/1 mL 10 UNIT SUBCUT (08:38)
--- NOTE | 2021-08-24 09:13 | P.DS_ITS ---
Discharge Providers Date of Admission: 08/14/21 19:36 Date of Discharge: August 24, 2021 Attending Provider at Admission: Enrique Lopes MD Attending Provider at Discharge: Thor Martínez MD Primary Care Provider: Yaya Lara Diagnoses at Discharge Discharge Diagnosis (1) SEGUNDO (acute kidney injury): Status: Acute (2) Atrial fibrillation with RVR: Status: Acute (3) Hypoxia: Status: Acute (4) COVID: Status: Acute (5) Altered mental status: Status: Acute (6) UTI (urinary tract infection): Status: Acute (7) Depression: Status: Acute Reason for Visit Reason for Visit: [facility] Hospital Course Hospital Course Neeta Roche is a 71 year old female who has history of multiple strokes in the past, A. fib, breast cancer, A. fib, chronic anticoagulation with Eliquis, bedbound secondary to fibromyalgia, osteoarthritis of knees presented to the hospital from home for evaluation because of her declining functional status. Further work-up in the ER revealed that she has Covid 19 pneumonia, A. fib with RVR. During the hospital stay she was kept on Covid protocol, completed course of remdesivir dexamethasone Was on broad-spectrum antibiotics , and other conservative respiratory support measures, duo nebs , inhaler, incentive spirometer , flutter valve , pulmonary toilet, vitamin C, ZINC, supplemental oxygen as needed, she responded well to above medical management at the time of discharge she was saturating well on room air, she was not a candidate for home oxygen, for A. fib with RVR, he was continued on metoprolol succinate 50 mg p.o. twice daily, Cardizem 300 mg p.o. daily was added, on the current regimen heart rate was better controlled, she was continued on Eliquis for anticoagulation, hospital course was also complicated by development of SEGUNDO, at the time of discharge serum creatinine was at baseline, SEGUNDO had resolved. She was also managed for UTI: Urine culture grew Klebsiella: Sensitive to Rocephin and levofloxacin, completed the antibiotic course. For history of heart failure with preserved ejection fraction, patient was compensated, slightly dry on discharge, Bumex has been kept on hold, patient will follow with her primary care physician in 2 weeks, at that point in time Bumex can be restarted, for history of severe pulmonary hypertension, she will have to continue Bumex as an outpatient. She was also managed for other comorbid conditions, initially the plan was to [facility] her to a [facility] facility, but patient was not skilleable. She was discharged home with home health. At the time of discharge patient was hemodynamically stable, responded well to above medical management And is being discharged in stable condition to home. Pertinent imaging studies during the hospital stay: CT head wo con: Old left [employer] distribution infarct.There are senescent changes of the brain as described above. No evidence for large acute ischemic infarction or acute intracranial injury. CT angio chest w abd pel w con: 1. Negative for pulmonary embolus. 2. Scattered prominent mediastinal lymph nodes measuring up to 11 mm short axis, nonspecific. 3. Cardiomegaly. 4. Patchy bilateral subsegmental atelectasis versus infiltrate. ? XR shoulder LT min 2V: No acute findings. XR humerus LT?: No acute findings. Pertinent cultures: Urine culture Klebsiella pneumoniae Blood culture and MRSA culture negative Physical Exam Const: COMMON NORMALS: patient oriented x3 HENMT: COMMON NORMALS: normocephalic and atraumatic HEAD & SCALP: normocephalic and atraumatic Chest: COMMONS NORMALS: normal inspection of the chest and normal palpation of entire chest wall CHEST: Yes Symmetrical chest wall rise Resp: COMMON NORMALS: normal respiratory effort, No retractions, No use of accessory muscles and clear to auscultation bilaterally EFFORT & INSPECTION: Yes symmetric chest movement AUSCULTATION: clear to auscultation bilaterally Cardio: COMMON NORMALS: regular rate, regular rhythm, S1 normal heart sound present, S2 normal heart sound present, No gallops present (Cardio), No murmurs present (Cardio), No rub (Cardio) and Peripheral pulses 2+ throughout RATE: regular rate RHYTHM: regular rhythm HEART SOUNDS: S1 normal heart sound present and S2 normal heart sound present PERIPHERAL PULSES: Peripheral pulses 2+ throughout GI: COMMON NORMALS: Normal to inspection, nondistended, normoactive bowel sounds present, Soft to palpation, non-tender, No hepatosplenomegaly present and no masses AUSCULTATION: Yes normoactive bowel sounds PALPATION: Yes Soft to palpation and Yes No hepatosplenomegaly present RECTAL EXAM: deferred Extremity: COMMON NORMALS: no clubbing, cyanosis or edema and no pedal edema Neuro: COMMON NORMALS: patient oriented x3 Urinary Catheter Management: Sorensen Latex: Cath Placed During This Visit: yes, but has since been removed by the nurse Reason for Continuing Indwelling Catheter: Accurate Measurement of Urinary Output in Critically Ill Patients Urinary Catheter Date of Insertion: 08/14/21 Urinary Catheter Time of Insertion: 17:00 Date Urinary Catheter Removed: 08/18/21 Time Urinary Catheter Discontinued: 10:11 Discharge Data Studies Completed and Pending Completed Studies During Hospitalization Category Date Time Status CT angio chest w abd pel w con Urgent Cat Scan 08/14/21 16:[address] head wo con* [id number] Routine Cat Scan 08/17/21 10:[address] head wo con* [id number] Urgent Cat Scan 08/14/21 15:49 Completed XR chest 1V portable [id number] Urgent Exams 08/14/21 15:49 [place] [id number] Urgent Exams 08/14/21 15:49 Completed XR shoulder LT min 2V* [id number] Urgent Exams 08/14/21 15:49 Completed Pending at discharge Category Date Time Status BMP [Basic Metabolic Panel] AM LABS Lab 08/24/21 04:00 Ordered BMP [Basic Metabolic Panel] AM LABS Lab 08/25/21 04:00 Ordered CBC Auto Diff [Complete Blood Count w/Auto] AM LABS Lab 08/24/21 04:00 Ordered CBC Auto Diff [Complete Blood Count w/Auto] AM LABS Lab 08/25/21 04:00 Ordered KEPPRA Level [Levetiracetam Keppra] Routine Lab 08/18/21 02:43 Received Radiology Impressions Chest X-Ray 08/14/21 15:49 IMPRESSION: Stable exam, no acute findings. Humerus X-Ray 08/14/21 15:49 IMPRESSION: No acute findings. Shoulder X-Ray 08/14/21 15:49 IMPRESSION: No acute findings. Chest/Abdomen/Pelvis CT 08/14/21 16:24 IMPRESSION: 1. Negative for pulmonary embolus. 2. Scattered prominent mediastinal lymph nodes measuring up to 11 mm short axis, nonspecific. 3. Cardiomegaly. 4. Patchy bilateral subsegmental atelectasis versus infiltrate. IMPRESSION: 1. Negative for acute inflammatory process in the abdomen or pelvis. 2. Cholecystectomy. 3. Diverticulosis without diverticulitis. Head CT 08/17/21 10:32 IMPRESSION: Old left [employer] distribution infarct.There are senescent changes of the brain as described above. No evidence for large acute ischemic infarction or acute intracranial injury. Laboratory Results WBC 7.0 10^3/uL (4.0-10.0) 08/23/21 06:06 RBC 4.28 10^6/uL (4.1-5.3) 08/23/21 06:06 Hgb 11.2 g/dL (11.5-15.3) L 08/23/21 06:06 Hct 37.1 % (37.0-47.0) 08/23/21 06:06 MCV 86.7 fl (81-99) 08/23/21 06:06 MCH 26.2 pg (28.0-34.0) L 08/23/21 06:06 MCHC 30.2 g/dL (30.0-36.0) 08/23/21 06:06 RDW 18.2 % (12.1-15.1) H 08/23/21 06:06 Plt Count 175 10^3/cmm (130-400) 08/23/21 06:06 MPV 10.1 fL (7.4-10.4) 08/23/21 06:06 Neut % (Auto) 81.1 % 08/23/21 06:06 Lymph % (Auto) 11.2 % 08/23/21 06:06 [place] % (Auto) 4.9 % 08/23/21 06:06 Eos % (Auto) 0.1 % 08/23/21 06:06 Baso % (Auto) 0.0 % 08/23/21 06:06 Neut # (Auto) 5.65 10^3/uL (1.8-7.7) 08/23/21 06:06 Lymph # (Auto) 0.8 10^3/uL (0.8-4.8) 08/23/21 06:06 [place] # (Auto) 0.3 10^3/uL (0.2-0.9) 08/23/21 06:06 Eos # (Auto) 0.0 10^3/uL (0.0-0.8) 08/23/21 06:06 Baso # (Auto) 0.0 10^3/uL (0.0-0.1) 08/23/21 06:06 Nucleated RBC % (auto) 0 % 08/23/21 06:06 Nucleated RBCs # 0.0 /100WBC 08/23/21 06:06 APTT 30.3 SECONDS (23.9-36.7) 08/15/21 04:04 D-Dimer 1.03 ug/mIFEU (0-0.59) H 08/18/21 02:43 Specimen Type Arterial 08/17/21 10:31 Sample Site Radial, left 08/17/21 10:31 ABG pH 7.41 (7.35-7.45) 08/17/21 10:31 ABG pCO2 44.5 mmHg (35-45) 08/17/21 10:31 ABG pO2 123.0 mmHg (80.0-100.0) H 08/17/21 10:31 ABG HCO3 28.0 mmol/L (22-26) H 08/17/21 10:31 ABG O2 Saturation 99.0 08/17/21 10:31 ABG Base Excess 2.8 mmol/L (-2.0-2.0) H 08/17/21 10:31 Timothy Test Pos 08/17/21 10:31 A-a O2 Gradient Not Reportable 08/17/21 10:31 Hematocrit 35.4 % (37-47) L 08/17/21 10:31 Hgb O2 Saturation 97.3 % (95-100) 08/17/21 10:31 Carboxyhemoglobin 0.9 %THgb (0.4-20.1) 08/17/21 10:31 Methemoglobin 0.9 % (0.4-1.5) 08/17/21 10:31 Total Hemoglobin 11.6 g/dL (12-16) L 08/17/21 10:31 Sodium 138.0 mmol/L (131-143) 08/17/21 10:31 Potassium 4.8 mmol/L (3.5-5.0) 08/17/21 10:31 Glucose 195.0 mg/dL (70-115) H 08/17/21 10:31 Ionized Calcium 1.4 mmol/L (1.1-1.4) 08/17/21 10:31 O2 Delivery Device Nc 08/17/21 10:31 O2 Liters/Min 1.0 % 08/17/21 10:31 FiO2 24.0 % 08/17/21 10:31 Insulation Power Unit Tender ID [place] 08/17/21 10:31 Sodium 136 mmol/L (136-145) 08/23/21 06:06 Potassium 4.7 mmol/L (3.5-5.1) 08/23/21 06:06 Chloride 104 mmol/L (98-107) 08/23/21 06:06 Carbon Dioxide 24 mmol/L (22-29) 08/23/21 06:06 Anion Gap 12.7 (5-19) 08/23/21 06:06 BUN 37 mg/dL (8-23) H 08/23/21 06:06 Creatinine 0.6 mg/dL (0.5-0.9) 08/23/21 06:06 GFR Calculation Not Reportable 08/23/21 06:06 Glucose 171 mg/dL (65-115) H 08/23/21 06:06 POC Glucose 123 mg/dL (70-110) H 08/24/21 06:38 Estimat Average Glucose 131 08/16/21 02:54 Hemoglobin A1c 6.2 % (4.0-6.0) H 08/16/21 02:54 Calculated Osmolality 295 mOsm/kg (285-295) 08/23/21 06:06 Lactic Acid 1.1 mmol/L (0.5-2.2) 08/15/21 04:04 Lactate 3.6 mmol/L (0.5-2.2) H 08/14/21 15:51 Calcium 8.9 mg/dL (8.5-10.5) 08/23/21 06:06 Magnesium 2.4 mg/dL (1.7-2.3) H 08/17/21 03:02 Iron 28 ug/dL (37-145) L 08/15/21 04:04 TIBC 158 mcg/dl 08/15/21 04:04 % Saturation 17.7 % (20-50) L 08/15/21 04:04 Unsat Iron Binding 130 ug/dL (112-347) 08/15/21 04:04 Total Bilirubin 0.5 mg/dL (0.15-1.2) 08/22/21 05:11 AST 18 U/L (0-32) 08/22/21 05:11 ALT 18 U/L (0-33) 08/22/21 05:11 Alkaline Phosphatase 73 IU/L (35-105) 08/22/21 05:11 Creatine Kinase 59 U/L (26-192) 08/14/21 15:51 Troponin T Baseline 47 ng/L (0-10) H 08/14/21 15:51 Troponin T 120 Minute 44.82 ng/L (0-10) H 08/14/21 18:30 Delta Troponin T -2.18 ABS# (0-10) L 08/14/21 18:30 Troponin T Hi Sens 6Hr 40.98 ng/L (0-10) H 08/14/21 21:50 Troponin T Hi Sens 6Hr Delta -6.02 ng/L (0-12) L 08/14/21 21:50 C-Reactive Protein 39.8 mg/L (0.0-4.9) H 08/18/21 02:43 NT-Pro-B Natriuret Pep 2104 pg/mL (0-125) H 08/14/21 15:51 Total Protein 5.4 g/dL (6.6-8.7) L 08/22/21 05:11 Albumin 2.5 g/dL (3.5-5.2) L 08/22/21 05:11 Globulin 2.9 g/dL (1.3-4.6) 08/22/21 05:11 Triglycerides 85 mg/dL (0-150) 08/16/21 02:54 Cholesterol 89 mg/dL (0-200) 08/16/21 02:54 LDL Cholesterol, Calc 43 mg/dL (50-129) L 08/16/21 02:54 Total VLDL Cholesterol 17 mg/dL (0-30) 08/16/21 02:54 HDL Cholesterol 29 mg/dL (60-100) L 08/16/21 02:54 Cholesterol/HDL Ratio 3.07 mg/dL (0.0-4.40) 08/16/21 02:54 Lipase 29 U/L (13-60) 08/14/21 15:51 Procalcitonin 0.22 ng/mL (0-0.5) 08/14/21 15:51 TSH 3.89 uIU/mL (0.27-4.20) 08/14/21 15:51 Free T4 1.08 ng/dL (0.82-1.77) 08/14/21 15:51 Urine Color Dark yellow (Yellow) 08/17/21 10:40 Urine Appearance Cloudy (CLEAR) 08/17/21 10:40 Urine pH 5 (5-7) 08/17/21 10:40 Ur Specific [place] 1.025 (1.005-1.030) 08/17/21 10:40 Urine Protein 1+ (Negative) H 08/17/21 10:40 Urine Glucose (UA) Norm (Normal) 08/17/21 10:40 Urine Ketones Negative (Negative) 08/17/21 10:40 Urine Blood 3+ (Negative) H 08/17/21 10:40 Urine Nitrate Negative (Negative) 08/17/21 10:40 Urine Bilirubin 1+ (Negative) H 08/17/21 10:40 Urine Urobilinogen 4 mg/dL (Negative) H 08/17/21 10:40 Ur Leukocyte Esterase 2+ (Negative) H 08/17/21 10:40 Urine RBC 15-25 /hpf (0-2) H 08/17/21 10:40 Urine WBC 5-10 /hpf (0-5) H 08/17/21 10:40 Ur Eosinophil Smear 4 (0-0) H 08/17/21 10:40 Ur Squamous Epith Cells 0-4 /hpf (0-5) H 08/17/21 10:40 Uric Acid Crystals 10-15 /hpf H 08/17/21 10:40 Amorphous Sediment Not Reportable 08/17/21 10:40 Urine Bacteria 2+ /hpf (NONE) H 08/17/21 10:40 Coarse Granular Casts 5-10 /lpf H 08/17/21 10:40 Urine Eosinophils Eosinophils seen H 08/17/21 10:40 Ur Random Sodium 10 mmol/L 08/17/21 10:40 Ur Random Potassium 63 mmol/L 08/17/21 10:40 Ur Random Chloride < 10 mmol/L 08/17/21 10:40 Urine Creatinine 127 mg/dL (28-217) 08/17/21 10:40 Coronavirus 229E (PCR) Not detected (NOT DETECT) 08/14/21 14:44 SARS-CoV-2 (PCR) Detected (NOT DETECT) A 08/14/21 14:44 SARS-CoV-2 Ag (Rapid) Negative (Negative) 08/14/21 14:44 Vitals Last Vital Signs Temp 98.5 F 08/24/21 03:10 Pulse 94 08/24/21 07:55 Resp 17 08/24/21 07:48 BP 119/78 08/24/21 03:10 Pulse Ox 97 08/24/21 07:50 Discharge Plan Discharge Patient Disposition: Home Condition: Stable Prescriptions: New diltiazem HCl 300 mg Capsule,Extended Release 24hr 300 mg PO DAILY 30 Days Qty: 30 1RF Pulmicort Flexhaler 180 mcg/actuation aerosol powdr breath activated 1 inh inhalation DAILY Qty: 1 2RF ProAir HFA 90 mcg/actuation HFA aerosol inhaler 1 inh inhalation Q6H PRN (Reason: shortness of breath or wheezing) Qty: 6.7 1RF Continued atorvastatin 40 mg tablet 40 mg PO DAILY 0RF citalopram 20 mg tablet 20 mg PO DAILY 0RF levetiracetam 750 mg tablet 750 mg PO BID 0RF montelukast [Singulair] 10 mg tablet 10 mg PO DAILY 0RF anastrozole 1 mg tablet 1 mg PO DAILY 0RF amitriptyline 10 mg tablet 10 mg PO BID 0RF cholecalciferol (vitamin D3) [Vitamin D3] 25 mcg (1,000 unit) Capsule 25 mcg PO DAILY 0RF insulin lispro [Humalog KwikPen Insulin] 100 unit/mL Insulin Pen 12 unit SUBCUT BID 0RF Eliquis 5 mg tablet 5 mg PO BID 0RF aspirin 81 mg Tablet,Delayed Release (Dr/Ec) 81 mg PO DAILY 0RF metoprolol succinate 100 mg tablet extended release 24 hr 50 mg PO Q12H Qty: 60 0RF hydrocodone-acetaminophen 5-325 mg tablet 1 tab PO Q8H PRN (Reason: Pain) 0RF Held bumetanide 1 mg tablet 1 mg PO DAILY Qty: 30 0RF Hold Instructions: Resume on 09/04/21. potassium chloride 20 mEq tablet extended release 20 meq PO DAILY Qty: 30 0RF Hold Instructions: Resume on 09/04/21. Discharge Orders: Discharge Order (Routine); Ordered 08/24/21 Ordered By: Thor Martínez Referrals: Yaya Lara [Primary Care Provider] - 2 weeks (Please call Wednesday morning to schedule a hospital follow-up appointment within 2 weeks. ) Discharge Diet: Cardiac Discharge Activity: Increase activity as tolerated Patient Instructions: Diltiazem (By mouth), Albuterol (By breathing), Budesonide (By breathing), COVID-19 (Coronavirus Disease 2019) (GEN), Opioid Safety Discharge Attestations Time Spent in Discharge Care*: greater than 30 min Specific Discharge Activities: educating patient, educating and/or supporting family/caregiver, discussing with pcp/other providers, discussing with complex case manager/social workers/dc planners, documenting/other paperwork and evaluating patient/reviewing data Status at Discharge: Cognitive status at discharge: cognitively intact , Behavioral status at discharge: cooperative , Quality Metrics Clinical Quality Measures [ No reported AMI, CVA or VTE this stay] Coding Level [facility] note Diagnoses SEGUNDO (acute kidney injury) N17.9 Atrial fibrillation with RVR I48.91 Hypoxia R09.02 COVID U07.1 Altered mental status R41.82 UTI (urinary tract infection) N39.0 Depression F32.A
[2021-08-24 10:27] LABS: Levetiracetam Keppra 46.2 mcg/mL
[2021-08-24 11:13] LABS: Glucose Point of Care 100 mg/dL (70-110)
== END 2021-08-24 14:40 | disposition home or self-care (01) | DRG 177 ==
LOC: ER 18:19 → MEDSURG 18:48 → CSU 20:04 → MEDSURG 08-15 05:54 → CSU 08-19 16:13 → MEDSURG 08-19 18:24
PROVIDERS: Student in an Organized Health Care Education/Training Program; Admitting Provider Internal Medicine; Emergency Provider Emergency Medicine; PCP Physician Assistant Medical; Visit Provider Internal Medicine
DX: U07.1 COVID-19 (principal); J12.82 Pneumonia due to coronavirus disease 2019; G93.41 Metabolic encephalopathy; I50.33 Acute on chronic diastolic (congestive) heart failure; N39.0 Urinary tract infection, site not specified; Z68.42 Body mass index [BMI] 45.0-49.9, adult; N17.9 Acute kidney failure, unspecified; I48.91 Unspecified atrial fibrillation; L89.152 Pressure ulcer of sacral region, stage 2; B96.1 Klebsiella pneumoniae [K. pneumoniae] as the cause of diseases classified elsewhere; E66.01 Morbid (severe) obesity due to excess calories; I11.0 Hypertensive heart disease with heart failure; I27.20 Pulmonary hypertension, unspecified; E11.9 Type 2 diabetes mellitus without complications; M79.7 Fibromyalgia; M17.0 Bilateral primary osteoarthritis of knee; I87.2 Venous insufficiency (chronic) (peripheral); R79.1 Abnormal coagulation profile; E86.0 Dehydration; F32.A Depression, unspecified; E87.5 Hyperkalemia; R56.9 Unspecified convulsions; Z79.4 Long term (current) use of insulin; Z79.82 Long term (current) use of aspirin; Z79.01 Long term (current) use of anticoagulants; Z74.01 Bed confinement status; Z86.73 Personal history of transient ischemic attack (TIA), and cerebral infarction without residual deficits; Z85.3 Personal history of malignant neoplasm of breast; Z90.11 Acquired absence of right breast and nipple; Z99.81 Dependence on supplemental oxygen; Z74.1 Need for assistance with personal care; Z87.440 Personal history of urinary (tract) infections; Z63.4 Disappearance and death of family member; Z79.891 Long term (current) use of opiate analgesic
CPT/HCPCS: 36415; 36416; 36600; 51702; 70450; 71045; 71275; 73030; 73060; 74177; 80048; 80051; 80053; 80061; 80177; 81001; 82330; 82436; 82550; 82570; 82803; 82805; 82962; 83036; 83540; 83550; 83605; 83690; 83735; 83880; 84133; 84145; 84300; 84439; 84443; 84484; 85025; 85378; 85730; 85999; 86140; 87040; 87077; 87086; 87186; 87426; 87635; 87641; 92507; 92523; 92526; 92610; 93005; 94640; 94664; 96365; 96366; 96367; 96372; 96375; 96376; 97161; 99291; 99292; J0692; J0696; J1100; J1160; J1815 ×2; J2270; J2405; J2920; J3370; J3475; J3490; J7030; J7050; J7626; J7644; Q9967

== ENCOUNTER 2021-09-15 21:54 | Inpatient (IN) | payer MEDICARE, SELFPAY ==
[2021-09-15 21:59] VITALS: BP 168/131; PULSE 135; RESP 18; TEMP 36.6; O2SAT 89; BMI 70.3
--- NOTE | 2021-09-15 22:00 | CTR_ITS ---
PROCEDURE INFORMATION: Exam: CT Head Without Contrast Exam date and time: 09/15/2021 10:58 PM Age: 71 years old Clinical indication: Altered mental status/memory loss; Patient HX: AMS TECHNIQUE: Imaging protocol: Computed tomography of the head without contrast. Radiation optimization: All CT scans at this facility use at least one of these dose optimization techniques: automated exposure control; mA and/or kV adjustment per patient size (includes targeted exams where dose is matched to clinical indication); or iterative reconstruction. COMPARISON: CT head wo con* [id number] 08/17/2021 11:13 AM RADIATION DOSE METRICS: Total DLP (mGy-cm): 1074.51 FINDINGS: Brain: Negative for intracranial hemorrhage.There is marked cerebral atrophy. There is marked diffuse heterogeneity of the white matter attenuation, consistent with severe chronic white matter ischemic changes. Multifocal areas of encephalomalacia and gliosis in the right frontal lobe as well as left occipital lobe. Expanded CSF space of the anterior left temporal lobe region stable from prior which may represent arachnoid cyst. No midline shift of the brain. No space-occupying intracranial mass. Right subinsular white matter low attenuation changes stable from prior representing area of gliosis. Cerebral ventricles: No ventriculomegaly. Paranasal sinuses: Visualized sinuses are unremarkable. No fluid levels. Mastoid air cells: Visualized mastoid air cells are well aerated. Orbital cavities: Symmetric orbits. Bones/joints: Unremarkable. No acute fracture. Soft tissues: Unremarkable. CT/CT head wo con* [id number] IMPRESSION: 1. Negative for acute intracranial abnormality. 2. No change from comparison.
--- NOTE | 2021-09-15 22:00 | XRR_ITS ---
PROCEDURE INFORMATION: Exam: XR Chest Exam date and time: 09/15/2021 9:48 PM Age: 71 years old Clinical indication: Patient HX: Ams/ fever TECHNIQUE: Imaging protocol: XR of the chest. Views: 1 view. COMPARISON: CR XR chest 1V portable [id number] 08/14/2021 4:04 PM FINDINGS: Lungs: Prominent central pulmonary vasculature. No focal airspace consolidation identified. Low lung volumes. Small left upper lobe calcified granuloma. Pleural spaces: Unremarkable. No pleural effusion. No pneumothorax. Heart/Mediastinum: Cardiomegaly. Bones/joints: Unremarkable. XR/XR chest 1V portable [id number] IMPRESSION: No definite focal pulmonary consolidation, however assessment is limited by low lung volumes and the cardiac enlargement obscuring views of the left lung base.
--- NOTE | 2021-09-15 22:01 | ECG_ITS ---
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 Measurements Intervals Eldred Rate: 142 P: NV: QRS: 69 QRSD: 106 T: -60 QT: 289 QTc: 444 Interpretive Statements ATRIAL FIBRILLATION WITH RAPID VENTRICULAR RESPONSE LOW QRS VOLTAGE IN PRECORDIAL LEADS MINIMAL ST DEPRESSION Compared to ECG 08/14/2021 21:18:38 Low QRS voltage now present ST (T wave) deviation now present T-wave abnormality no longer present Electronically Signed On 09-16-2021 16:42:30 CDT by Idania Tinajero M.D. [id number]
--- NOTE | 2021-09-15 22:09 | W.ED.AMS ---
HPI - Altered Mental Status General: Chief Complaint: Altered Mental Status Stated Complaint: CONFUSED/FEVER Time Seen by Provider: 09/15/21 21:55 Source: EMS Mode of arrival: EMS Limitations: altered mental status History of Present Illness: 71-year-old female who is here by EMS with fever along with altered mental status. Patient has a history of morbid obesity lives at home with son and is bedbound in a hospital bed at home. Per EMS patient has been confused since last night last known normal was 24 hours ago. Patient had a temperature of 103 by EMS no history is obtainable from patient per EMS son was also not very good historian states that she just been very confused. She has been hypertensive per EMS. Does have a history of A. fib is A. fib with RVR here Review of Systems General: Reports: ROS unobtainable due to mental status Const: Reports: fever(s) [facility] ED PFSH: Medical History (Updated 09/16/21 @ 01:11 by Darlin Muse MD) Acute and chronic respiratory failure with hypoxia Acute exacerbation of CHF (congestive heart failure) SEGUNDO (acute kidney injury) Altered mental status Atrial fibrillation with RVR Atrial fibrillation with RVR Breakthrough seizure After stroke on Keppra Breast cancer, right Chronic back pain Congestive heart failure COPD (chronic obstructive pulmonary disease) COVID Depression Diabetes Fibromyalgia Gastritis H/O: CVA (cerebrovascular accident) Hypertension Hypoxia Oxygen dependent Stroke May 2017 Type 2 diabetes mellitus UTI (urinary tract infection) Surgical History H/O right mastectomy History of bunionectomy History of tonsillectomy Hx of cholecystectomy Family History Other No pertinent family history Denies family history of Anesthesia complication Bleeding disorder Social History Smoking and tobacco status: never smoked Alcohol intake: never Household members: spouse Housing: House Marital status: Current occupational status: retired History of recent travel: No Physical Exam Const: COMMON NORMALS: alert; negative for patient oriented x3 EXAM LIMITATIONS: altered mental status GENERAL APPEARANCE: ill appearing NUTRITIONAL APPEARANCE: obese ORIENTATION/CONSCIOUSNESS: not oriented to person, not oriented to place and not oriented to time HENMT: COMMON NORMALS: normocephalic and atraumatic HEAD & SCALP: normocephalic and atraumatic Eye: COMMON NORMALS: Equal, round and reactive pupils present PUPIL: Yes Equal, round and reactive pupils present Neck/C-Spine: COMMON NORMALS: full ROM and no meningeal signs Chest: COMMONS NORMALS: normal palpation of entire chest wall; negative for normal inspection of the chest (bruises to left shoulder) Resp: COMMON NORMALS: normal respiratory effort, No retractions, No use of accessory muscles and clear to auscultation bilaterally AUSCULTATION: clear to auscultation bilaterally Cardio: RATE: tachycardic RHYTHM: abnormal rhythm irregularly irregular GI: COMMON NORMALS: Normal to inspection, nondistended, normoactive bowel sounds present and non-tender : COMMON NORMALS: Yes no CVA tenderness BLADDER/KIDNEY EXAM: Yes no CVA tenderness Back/Pelvis: COMMON NORMALS: no CVA tenderness BACK IMAGE (FEMALE): 1. Some slight skin breakdown no signs of infection Extremity: COMMON NORMALS: normal to inspection Neuro: COMMON NORMALS: negative for patient oriented x3 SENSORIUM/ORIENTATION: Yes alert, No oriented to person, No oriented to place and No oriented to time MENINGEAL SIGNS: Yes no meningeal signs Psych: COMMON NORMALS: negative for mental status grossly normal Skin: COMMON NORMALS: no rashes or lesions noted GENERAL SKIN EXAM: no rashes or lesions noted Course Vital Signs: Vital signs: Vital Signs Temperature 97.8 F 09/15/21 21:59 Pulse Rate 104 H 09/15/21 23:44 Respiratory Rate 18 09/15/21 21:59 Blood Pressure 134/96 09/15/21 23:44 Pulse Oximetry 99 09/15/21 23:44 MDM - Altered Mental Status Medical Decision Making Patient presents here with altered mental status with fever at home she has been afebrile here white count here is normal blood pressure here has been normal did give her 1 dose of Levaquin will follow blood cultures but no signs of infection currently. Head CT here is normal. She is in A. fib with RVR is currently on a Cardizem drip with improving heart rates. Spoke to the hospitalist will admit to the ICU at this time. Lab Data : 09/15/21 22:06 09/15/21 22:06 Radiology Impressions Chest X-Ray 09/15/21 22:00 IMPRESSION: No definite focal pulmonary consolidation, however assessment is limited by low lung volumes and the cardiac enlargement obscuring views of the left lung base. Head CT 09/15/21 22:00 IMPRESSION: 1. Negative for acute intracranial abnormality. 2. No change from comparison. Laboratory Results WBC 5.8 10^3/uL (4.0-10.0) 09/15/21 22:06 RBC 4.35 10^6/uL (4.1-5.3) 09/15/21 22:06 Hgb 12.0 g/dL (11.5-15.3) 09/15/21 22:06 Hct 38.2 % (37.0-47.0) 09/15/21 22:06 MCV 87.8 fl (81-99) 09/15/21 22:06 MCH 27.6 pg (28.0-34.0) L 09/15/21 22:06 MCHC 31.4 g/dL (30.0-36.0) 09/15/21 22:06 RDW 20.0 % (12.1-15.1) H 09/15/21 22:06 Plt Count 191 10^3/cmm (130-400) 09/15/21 22:06 MPV 9.2 fL (7.4-10.4) 09/15/21 22:06 Neut % (Auto) 82.5 % 09/15/21 22:06 Lymph % (Auto) 10.1 % 09/15/21 22:06 [place] % (Auto) 6.4 % 09/15/21 22:06 Eos % (Auto) 0.0 % 09/15/21 22:06 Baso % (Auto) 0.3 % 09/15/21 22:06 Neut # (Auto) 4.76 10^3/uL (1.8-7.7) 09/15/21 22:06 Lymph # (Auto) 0.6 10^3/uL (0.8-4.8) L 09/15/21 22:06 [place] # (Auto) 0.4 10^3/uL (0.2-0.9) 09/15/21 22:06 Eos # (Auto) 0.0 10^3/uL (0.0-0.8) 09/15/21 22:06 Baso # (Auto) 0.0 10^3/uL (0.0-0.1) 09/15/21 22:06 Nucleated RBC % (auto) 0 % 09/15/21 22:06 Nucleated RBCs # 0.0 /100WBC 09/15/21 22:06 PT 14.70 SECONDS (12.1-14.9) 09/15/21 22:06 INR 1.12 (0.8-1.2) 09/15/21 22:06 Sodium 134 mmol/L (136-145) L 09/15/21 22:06 Potassium 4.3 mmol/L (3.5-5.1) 09/15/21 22:06 Chloride 97 mmol/L (98-107) L 09/15/21 22:06 Carbon Dioxide 25 mmol/L (22-29) 09/15/21 22:06 Anion Gap 16.3 (5-19) 09/15/21 22:06 BUN 13 mg/dL (8-23) 09/15/21 22:06 Creatinine 0.6 mg/dL (0.5-0.9) 09/15/21 22:06 GFR Calculation Not Reportable 09/15/21 22:06 Glucose 127 mg/dL (65-115) H 09/15/21 22:06 Calculated Osmolality 280 mOsm/kg (285-295) L 09/15/21 22:06 Lactic Acid 1.9 mmol/L (0.5-2.2) 09/15/21 22:06 Calcium 8.3 mg/dL (8.5-10.5) L 09/15/21 22:06 Magnesium 1.6 mg/dL (1.7-2.3) L 09/15/21 22:06 Total Bilirubin 0.7 mg/dL (0.15-1.2) 09/15/21 22:06 AST 23 U/L (0-32) 09/15/21 22:06 ALT 10 U/L (0-33) 09/15/21 22:06 Alkaline Phosphatase 119 IU/L (35-105) H 09/15/21 22:06 Troponin T Baseline 45 ng/L (0-10) H 09/15/21 22:06 Troponin T 120 Minute 53.84 ng/L (0-10) H 09/16/21 00:37 Delta Troponin T 8.84 ABS# (0-10) 09/16/21 00:37 NT-Pro-B Natriuret Pep 4452 pg/mL (0-125) H 09/15/21 22:06 Total Protein 5.1 g/dL (6.6-8.7) L 09/15/21 22:06 Albumin 2.4 g/dL (3.5-5.2) L 09/15/21 22:06 Globulin 2.7 g/dL (1.3-4.6) 09/15/21 22:06 Lipase 8 U/L (13-60) L 09/15/21 22:06 Urine Color Dark yellow (Yellow) 09/15/21 22:40 Urine Appearance Clear (CLEAR) 09/15/21 22:40 Urine pH 5 (5-7) 09/15/21 22:40 Ur Specific [place] 1.030 (1.005-1.030) 09/15/21 22:40 Urine Protein 1+ (Negative) H 09/15/21 22:40 Urine Glucose (UA) Norm (Normal) 09/15/21 22:40 Urine Ketones 1+ (Negative) H 09/15/21 22:40 Urine Blood 2+ (Negative) H 09/15/21 22:40 Urine Nitrate Negative (Negative) 09/15/21 22:40 Urine Bilirubin 1+ (Negative) H 09/15/21 22:40 Urine Urobilinogen 4 mg/dL (Negative) H 09/15/21 22:40 Ur Leukocyte Esterase Negative (Negative) 09/15/21 22:40 Urine RBC 0-4 /hpf (0-2) H 09/15/21 22:40 Urine WBC 5-10 /hpf (0-5) H 09/15/21 22:40 Ur Squamous Epith Cells 5-10 /hpf (0-5) H 09/15/21 22:40 Amorphous Sediment 1+ /hpf 09/15/21 22:40 Urine Bacteria Trace /hpf (NONE) 09/15/21 22:40 Urine Mucus 2+ /hpf 09/15/21 22:40 Influenza Type A Ag Negative (Negative) 09/15/21 22:40 Influenza Type B Ag Negative (Negative) 09/15/21 22:40 SARS-CoV-2 Ag (Rapid) Negative (Negative) 09/15/21 22:40 EKG Data EKG 1: I personally reviewed and interpreted this EKG as follows: EKG interpretation date: 09/15/21 EKG interpretation time: 22:10 Interpretation: afib with rvr hr [address] or t wave abnrmalities qrs 106 qtc 371 Critical Care Time Critical Care Time: Critical Care Time: Yes Total Critical Care Time: 40 Attestation: The high probability of a clinically significant, sudden or life threatening deterioration of the patient's sepsis system(s) required my full and direct attention, intervention and personal management. The critical care time is as shown. This time is in addition to time spent performing any reported procedures but includes the following: [x] Data and vital sign review and interpretation [x] Patient assessment, examination and intervention [x] Documentation [x] Medication orders and management Discharge Plan Discharge Patient Disposition: Admitted As Inpatient Admit Provider: Julio C Ferrara Clinical Impression: Altered mental status, Atrial fibrillation with RVR Condition: Stable Coding Level of Care Code ED Interlocking And Signal Mechanic for Chg Fwd Exam Comprehensive
[2021-09-15 22:13] LABS: Basophils % 0.3 %; Hematocrit 38.2 % (37.0-47.0); Lymphocytes # 0.6 10^3/uL (0.8-4.8); Lymphocytes % 10.1 %; Mean Corpuscular HGB Conc 31.4 g/dL (30.0-36.0); Mean Corpuscular Hemoglobin 27.6 pg (28.0-34.0); Mean Corpuscular Volume 87.8 fl (81-99); Mean Platelet Volume 9.2 fL (7.4-10.4); Monocytes # 0.4 10^3/uL (0.2-0.9); Monocytes % 6.4 %; Neutrophils # 4.76 10^3/uL (1.8-7.7); Neutrophils % 82.5 %; Nucleated Red Blood Cells % 0 %; Platelet Count 191 10^3/cmm (130-400); Red Blood Count 4.35 10^6/uL (4.1-5.3); White Blood Count 5.8 10^3/uL (4.0-10.0)
[2021-09-15] MEDS: acetaminophen 1,000 MG/100 ML PIGGYBACK 400 MG IV (22:29)
[2021-09-15 22:31] LABS: Lactic Sepsis W/Reflex 1.9 mmol/L (0.5-2.2)
[2021-09-15 22:36] LABS: INR 1.12 (0.8-1.2)
[2021-09-15 22:42] LABS: Alanine Aminotransferase 10 U/L (0-33); Albumin Level 2.4 g/dL (3.5-5.2); Alkaline Phosphatase 119 IU/L (35-105); Anion Gap 16.3 (5-19); Aspartate Amino Transferase 23 U/L (0-32); Blood Urea Nitrogen 13 mg/dL (8-23); Calcium 8.3 mg/dL (8.5-10.5); Carbon Dioxide 25 mmol/L (22-29); Chloride 97 mmol/L (98-107); Globulin 2.7 g/dL (1.3-4.6); Glucose 127 mg/dL (65-115); Lipase 8 U/L (13-60); Magnesium 1.6 mg/dL (1.7-2.3); Osmolality Calculated 280 mOsm/kg (285-295); Potassium 4.3 mmol/L (3.5-5.1); Sodium 134 mmol/L (136-145); Total Bilirubin 0.7 mg/dL (0.15-1.2); Total Protein 5.1 g/dL (6.6-8.7)
[2021-09-15 23:13] LABS: Troponin(5th) Baseline 45 ng/L (0-10)
[2021-09-15 23:18] LABS: Influenza A by IFA Negative (Negative); Influenza B by IFA Negative (Negative); SARS Covid-2 Antigen Negative (Negative)
[2021-09-15 23:20] LABS: Add Urine Culture? No; Add Urine Microscopic? YES; Amorphous Sediment Urine 1+ /hpf; Bacteria Urine TRACE /hpf; Bilirubin Urine 1+ (Negative); Blood Urine 2+ (Negative); Glucose Urine UA Norm (Normal); Ketones Urine 1+ (Negative); Leukocyte Esterase Urine Negative (Negative); Mucus Urine 2+ /hpf; Nitrate Urine Negative (Negative); Protein Urine 1+ (Negative); RBC Urine 0-4 /hpf (0-2); Urine Appearance Clear (CLEAR); Urine Color Dark Yellow (Yellow); Urobilinogen Urine 4 mg/dL (Negative); pH Urine 5 (5-7)
[2021-09-15 23:38] LABS: NT Pro B Type Natriuretic Pept 4452 pg/mL (0-125)
[2021-09-15 23:44] VITALS: BP 134/96; PULSE 104; O2SAT 99
[2021-09-16] VITALS (194 sets, daily range): BP systolic 90–165; BP diastolic 61–120; PULSE 93–145; RESP 0–40; TEMP 36.4–37; O2SAT 72–100
--- NOTE | 2021-09-16 | MR_ITS ---
WS: [id number] MRI BRAIN WITHOUT CONTRAST HISTORY: CVA COMPARISON: 06/23/2017 TECHNIQUE: Diffusion imaging, multiplanar T1, T2 and FLAIR imaging obtained. Quality of this examination is limited by motion. Diffusion-weighted images are normal. No evidence for an acute infarct. Large remote LEFT parieto-occ ipital infarct with encephalomalacia and small foci of hemosiderin. There is volume loss resulting in ex vacuole dilatation occipital horn of the LEFT lateral ventricle. Remote infarct RIGHT ge radi lorena with encephalomalacia. There is an additional [id number] small vessel ischemic changes surr ounding the ventricles. Moderate bilateral increased signal within the nicole from ischemia. None of th gigi changes are acute. Mild progression of ischemic change since 2017. Moderate size arachnoid cyst in the LEFT middle cranial fossa. Ventricles and extra-axial spaces are mildly dilated on the basis of atrophy. No inferior displacement of cerebellar tonsils. The sella turcica and pituitary gland are unremarkabl e. Dural venous sinuses and ute of Davies demonstrate no abnormality on this unenhanced studies. Paranasal sinuses: Mild mucoperiosteal thickening in the maxillary and ethmoid sinuses. No air-fluid levels. Mastoid air cells: Small amount of fluid in the mastoid air cells. Calvarium and scalp: Intact. MR/MR head wo con* [id number] IMPRESSION: 1. No acute infarct. 2. Large remote LEFT parieto-occipital infarct with encephalomalacia and foci of hemorrhage. 3. Additional RIGHT ge radiata remote infarct with moderate microvascular ischemic disease in the periventricular white matter and the nicole. 4. No acute hemorrhage. 5. Stable LEFT middle cranial fossa arachnoid cyst.
[2021-09-16] MEDS: levofloxacin-dextrose 5 % 750 MG/150 ML PREMIX 100 MG IV (00:32)
[2021-09-16 01:09] LABS: Troponin 5 2HR 53.84 ng/L (0-10)
[2021-09-16 01:11] LABS: Troponin 5 2HR Delta 8.84 ABS# (0-10)
--- NOTE | 2021-09-16 01:45 | P.HP_ITS ---
Providers/Chief Complaint Admitting Physician: Julio C Ferrara MD Primary Care Provider: Yaya Lara Chief Complaint: CONFUSED/FEVER History of Present Illness Neeta Roche is a 71 year old female history of embolic CVAs, right frontal, left occipital, history of atrial fibrillation, should be on Eliquis? History of insulin-dependent type 2 diabetes mellitus, morbid obesity, severe pulmonary hypertension, history of seizures on Keppra, history of depression, recent hospitalization for COVID-19 pneumonia and acute kidney injury and hypoxia. Currently patient is not alert to person, not to place, not to time, she does open her eyes to sternal rub, but does not follow commands. Blood pressure 134/96, pulse 104, temp 97.8, O2 sat 99. She does withdraw from pain, pupils are reactive to light, but she tends to look upwards, has right facial drooping present. Son is at bedside and provides a history. He tells me that recently she was discharged from [facility] for COVID-19 pneumonia, hypoxia. She was living with her who , recently, so she is living with his family. Normally she does not ambulate, she is in a wheelchair, this is aft er hitting her strokes, chronic in nature, she is typically alert oriented x3, can feed herself, but does require some assistance for activities of daily living. However after the passing of her , she is been much more bedbound, has developed bedsores. He tells me that about a week ago, she really want to go to [facility], so he got her up into the car to go to [facility], in the car she possibly had a seizure-like episode she started to have diffuse shaking, eyes rolled back, but not to a few minutes her mentation came back to normal. He wanted to call EMS, but she said she was fine. According to patient she has been chronically ill, but relatively stable over the last few days. Nothing out of the ordinary last night. This morning her family woke her up at about 10 AM, she was not responding the most they never got out of her was to take 1 pill. He tells me that she was not responsive throughout the day, she had gargling in her swallowing, she went was not responding to her name, no falls, no injuries. She did have a temperature when EMS arrived, no temperature here, and has a history of UTIs. No complaints of dysuria. No significant known aspiration events to family's knowledge. No complaints of chest pain. She does use hydrocodone for pain, but is locked up in a safe, and she hardly uses it the family tells us, no history of overdose, family does not feel that she overdosed on medication as it is locked in a safe. In the emergency room patient does not have any significant leukocytosis, mag slightly low at 1.6, blood sugar 127, UA not convincing for UTI, flu negative, Covid negative, chest x-ray difficult study, no focal pneumonia, CT of the head no acute intracranial bleed. Hemodynamically stable, she was found to have A. fib with RVR placed on Cardizem drip, heart rates better controlled in the low 100s saturating 100% on room air. Does have diffuse wheezing on exam, is found in a unkempt state, but was told she has multiple bedsores on her back Review of Systems General: Reports: ROS unobtainable due to mental status Medications/Allergies Home Medications Medication Instructions Recorded Confirmed Last Taken Type atorvastatin 40 mg tablet 40 mg PO DAILY 04/25/20 08/14/21 10/01/20 History citalopram 20 mg tablet 20 mg PO DAILY 04/25/20 08/14/21 10/01/20 History levetiracetam 750 mg tablet 750 mg PO BID 04/25/20 08/14/21 10/02/20 07:00 History montelukast 10 mg tablet 10 mg PO DAILY 04/25/20 08/14/21 10/01/20 History (Singulair) amitriptyline 10 mg tablet 10 mg PO BID 05/07/20 08/14/21 10/01/20 History anastrozole 1 mg tablet 1 mg PO DAILY 05/07/20 08/14/21 10/01/20 History apixaban 5 mg tablet (Eliquis) 5 mg PO BID 05/07/20 08/14/21 09/30/20 History aspirin 81 mg tablet,delayed 81 mg PO DAILY 05/07/20 08/14/21 09/30/20 History release cholecalciferol (vitamin D3) 25 25 mcg PO DAILY 05/07/20 08/14/21 10/01/20 History mcg (1,000 unit) capsule (Vitamin D3) insulin lispro 100 unit/mL 12 unit SUBCUT BID 05/07/20 08/14/21 10/01/20 20:00 History subcutaneous pen (Humalog KwikPen (U-100) Insulin) bumetanide 1 mg tablet 1 mg PO DAILY #30 tab 05/12/20 08/14/21 10/01/20 Rx metoprolol succinate 100 mg 50 mg PO Q12H #60 tab 05/12/20 08/14/21 10/02/20 07:00 Rx tablet,extended release 24 hr potassium chloride 20 mEq 20 meq PO DAILY #30 tab 05/12/20 08/14/21 10/01/20 Rx tablet,extended release hydrocodone 5 mg-acetaminophen 325 1 tab PO Q8H PRN 08/14/21 08/14/21 Unknown History mg tablet albuterol sulfate 90 mcg/actuation 1 inh INHALATION Q6H PRN #6.7 g 08/24/21 Unknown Rx aerosol inhaler (ProAir HFA) budesonide 180 mcg/actuation 1 inh INHALATION DAILY #1 ea 08/24/21 Unknown Rx breath activated powder inhaler (Pulmicort Flexhaler) diltiazem HCl 300 mg 300 mg PO DAILY 30 Days #30 cap 08/24/21 Unknown Rx capsule,extended release 24 hr Allergies Allergy/AdvReac Type Severity Reaction Status Date / Time adhesive tape Allergy ALGY-Bliste Verified 08/27/20 14:48 r PFSH Acute PFSH: Medical History (Updated 09/16/21 @ 01:58 by Julio C Ferrara MD) Acute and chronic respiratory failure with hypoxia Acute exacerbation of CHF (congestive heart failure) SEGUNDO (acute kidney injury) Altered mental status Atrial fibrillation with RVR Atrial fibrillation with RVR Breakthrough seizure After stroke on Keppra Breast cancer, right Chronic back pain Congestive heart failure COPD (chronic obstructive pulmonary disease) COVID Depression Diabetes Fibromyalgia Gastritis H/O: CVA (cerebrovascular accident) Hypertension Hypoxia Oxygen dependent Stroke May 2017 Type 2 diabetes mellitus UTI (urinary tract infection) Surgical History H/O right mastectomy History of bunionectomy History of tonsillectomy Hx of cholecystectomy Family History Other No pertinent family history Denies family history of Anesthesia complication Bleeding disorder Social History Smoking and tobacco status: never smoked Alcohol intake: never Household members: spouse Housing: House Marital status: Current occupational status: retired History of recent travel: No Vitals/I&O/Wt Last Vital Signs Temp 97.8 F 09/15/21 21:59 Pulse 104 H 09/15/21 23:44 Resp 18 09/15/21 21:59 BP 134/96 09/15/21 23:44 Pulse Ox 99 09/15/21 23:44 Weight last 48 hrs Weight 185.973 kg Physical Exam Const: EXAM LIMITATIONS: altered mental status GENERAL APPEARANCE: disheveled and frail appearing ORIENTATION/CONSCIOUSNESS: Yes awake and Yes confused; not oriented to person, not oriented to place and not oriented to time HENMT: COMMON NORMALS: normocephalic HEAD & SCALP: normocephalic Eye: OTHER: Patient tends to look upwards, pupils equal round reactive to light Neck/C-Spine: COMMON NORMALS: no JVD Resp: COMMON NORMALS: normal respiratory effort, No retractions and No use of accessory muscles AUSCULTATION: crackles and wheezes Cardio: COMMON NORMALS: no JVD, S1 normal heart sound present and S2 normal heart sound present RATE: regular rate RHYTHM: regular rhythm HEART SOUNDS: S1 normal heart sound present and S2 normal heart sound present GI: COMMON NORMALS: Normal to inspection, nondistended, normoactive bowel sounds present, Soft to palpation, non-tender and No hepatosplenomegaly present Neuro: ASHLEY COMA SCALE: document GCS findings Ashley coma scale eye opening: To sound [place] coma scale verbal response: Sounds Ashley coma scale motor response: Localising [place] coma scale total score: 10 OTHER: Does not follow neurologic, looking upwards, right facial droop, pupil equal round reactive to light, does withdraw from pain, does localize pain, Babinski is upward going Data : 09/15/21 22:06 09/15/21 22:06 Micro: Microbiology 09/15/21 22:06 Blood Culture - Preliminary Blood SPECIMEN COLLECTED 09/15/21 21:50 Blood Culture - Preliminary Blood SPECIMEN COLLECTED A&P Assessment and plan (1) Altered mental status: Status: Acute (2) Atrial fibrillation with RVR: Status: Acute (3) Acute exacerbation of CHF (congestive heart failure): Status: Acute (4) Aspiration into respiratory tract: Status: Acute Plan Acute encephalopathy/altered mental status -UA no convincing evidence of UTI, follow urine cultures, prior hospitalization for UTI, nonetheless we will start on Zosyn -Chest x-ray difficult study given body habitus no focal pneumonia however given history there is a risk of aspiration, aspiration pneumonia, nonetheless started on Zosyn -Some of the history possibly could be seizure-like episode will give 1 loading dose of Keppra to see if it affects her mentation -Possible opiate overdose? Will give 1 dose of Narcan to see if that improves her mentation -Follow blood cultures, urine cultures, urine toxicology screen, TSH -However given patient's A. fib with RVR, concerning for possible brainstem stroke secondary to embolic event -I went over patient's medication list, patient's family is unsure if she takes Eliquis, I went through her pill bottles and could not find Eliquis -CT of the head was negative for acute stroke, but she has had prior embolic strokes -She is looking upwards, right facial droop, and based on her history she was relatively doing fine and suddenly there is a drastic change in her mentation overnight is highly concerning for neurologic event, given her global symptoms concerning for brainstem stroke -We will do carotid artery ultrasound, MRI of the brain -Neurochecks, aspiration precautions, seizure precautions NIH stroke scale -Keep n.p.o. -Allow for permissive hypertension -Continue Cardizem drip, telemetry monitoring -Avoid therapeutic anticoagulation until I can rule out stroke, risk of hemorrhagic conversion -Avoid IV fluids given evidence of fluid overload -Protonix for GI prophylaxis -SCDs and Lovenox for DVT prophylaxis -Patient's next of kin is son, , he wants her to be a full code for now but will talk to sister about future directives A. fib with RVR, Cardizem drip CHF exacerbation, 1 dose of Lasix History of seizures, loading dose of Keppra monitor mentation Type II days mellitus, low-dose sliding scale Depression Severe pulmonary hypertension, echocardiogram in 2019 shows RVSP of 62 recent hospitalization for hypoxia, COVID-19, Attestations Medical Necessity Statement*: Patient requires hospitalization, inpatient, gr eater than 2 midnights, for acute encephalopathy, Ayden veronica with RVR Coding Level of Care Code Acute Fur Machine Operator for Chg Fwd Exam Detailed Diagnoses Altered mental status R41.82 Atrial fibrillation with RVR I48.91 Acute exacerbation of CHF (congestive heart failure) I50.9 Aspiration into respiratory tract T17.908A
[2021-09-16] MEDS: naloxone 0.4 mg/ml SDV IVP (01:55)
[2021-09-16 02:16] LABS: Amphetamines Screen Urine Negative (Negative); Barbiturates Screen Urine Negative (Negative); Benzodiazepines Screen Urine Negative (Negative); Cocaine Screen Urine Negative (Negative); Opiate Screen Urine Positive (Negative); PCP Screen Urine Negative (Negative); THC Screen Urine Negative (Negative)
[2021-09-16 02:26] LABS: Acetaminophen < 5.0 ug/mL (10-30); Salicylate < 0.3 mg/dL (3-10)
[2021-09-16 02:30] LABS: Procalcitonin 0.29 ng/mL (0-0.5)
[2021-09-16 02:57] LABS: Lactic Sepsis W/Reflex 1.5 mmol/L (0.5-2.2)
--- NOTE | 2021-09-16 03:04 | USCV_ITS ---
Neeta Rcohe Age: 71 Gender: F : 1950 Exam Date: 09/16/2021 03:51 Ordering Phys: Julio C Ferrara MD Technologist: Aditya Reyes Exam Location: [facility] [place] Indication: AMS Risk Factors: Previous Vascular Surgery: Right Brachial BP: / Left Brachial BP: / Right Left Velocity (cm/s) Spectral Plaque Velocity (cm/s) Spectral Plaque Syst/Diast Broadening Syst/Diast Broadening 42.70/ 7.80 Homo Prox CCA 44.40 / 12.00 Homo 30.30/ 7.00 Homo Mid CCA 53.00 / 12.80 Homo 25.60/ 5.30 Homo Distal CCA 49.60 / 8.50 Homo 24.60/ 6.40 Homo Prox ICA 58.10 / 17.90 Homo / Homo Mid ICA 63.20 / 28.20 Homo 25.60/ 7.45 Homo Distal ICA 89.70 / 26.50 Homo 49.10 Homo ECA 50.40 Homo 0.57 ICA/CCA 1.69 Antegrade Vertebral Antegrade 26.70/ 8.00 cm/s 39.30/ 10.30 cm/s Tri Subclavian Tri 70.90 124.3 0 CONCLUSIONS TDS due to patient cooperation Right ICA stenosis <50%. Left ICA stenosis <50%. Normal antegrade Doppler flow noted in the right vertebral artery. Normal antegrade Doppler flow noted in the left vertebral artery. Ketan Ramirez MD (Electronically Signed) Final Date: 16 September 2021 12:00 S
[2021-09-16 03:32] LABS: ABG PCO2 35.5 mmHg (35-45); ABG PH Result 7.52 (7.35-7.45); Arterial Blood Gas Hematocrit 35.3 % (37-47); Base Excess ABG 6.1 mmol/L (-2.0-2.0); Blood Gas Allen Test Pos; Blood Gas Sample Site Radial, right; Blood Gas Sample Type Arterial; HCO3 ABG 29.2 mmol/L (22-26); Oxygen Device NC; PO2 ABG 78.2 mmHg (80.0-100.0)
--- NOTE | 2021-09-16 04:04 | PC.NURSE ---
Transfer Note Patient transferred to ICU from ER via stretcher. Handoff received from ÁNGEL Cyr. Patient oriented to environment and equipment. Covering service notified. Orders reviewed and will continue to monitor. Family and/or sales representative jewelry notified. Patient is confused at this time. Patient belongings include home medications.
[2021-09-16] MEDS: piperacillin-tazobactam 3.375 GM in sodium chloride 0.9% (plus) 50 ML IV (04:29)
[2021-09-16] MEDS: bumetanide 0.25 mg/mL SDV 10 mL 1 MG IVP (04:29)
[2021-09-16] MEDS: enoxaparin 40 mg/0.4 mL Syringe SUBCUT (04:30)
[2021-09-16] MEDS: pantoprazole 40 mg SDV IVP (04:30)
[2021-09-16] MEDS: magnesium sulfate premix 4 GM/100 ML PREMIX IV (04:59)
--- NOTE | 2021-09-16 05:16 | PC.NURSE ---
Shift Summary Patient had an uneventful shift, unable to complete admission assessment-patient unable to provide history at this time. Sorensen catheter drained 400 mls of urine overnight. Wounds noted to the left toe and right heel, please see wound assessment for details. Patient remains disoriented to person, place, and time, also does not follow commands.
[2021-09-16 05:21] LABS: Erythrocyte Sedimentation Rate 32 mm/hr (0-15)
[2021-09-16 05:22] LABS: Estmated Average Glucose 97
[2021-09-16 05:31] LABS: C Reactive Protein 218.8 mg/L (0.0-4.9)
[2021-09-16 05:32] LABS: Troponin 5 6HR 55.47 ng/L (0-10)
[2021-09-16 05:33] LABS: Troponin 5 6HR Delta 10.47 ng/L (0-12)
--- NOTE | 2021-09-16 05:54 | PC.NURSE ---
New Orders Received orders to hold Aspirin suppository and administer with morning medications. Also received orders not to turn/roll patient, skin assessment of back cannot be completed at this time.
[2021-09-16 06:41] LABS: Thyroid Stimulating Hormone 3.75 uIU/mL (0.27-4.20)
[2021-09-16] MEDS: nystatin powder 15 gm Btl 1 APPLIC TOPICAL ×2 (09:40→17:04)
--- NOTE | 2021-09-16 09:49 | PC.NURSE ---
Nurse completed NIHSS. Patient score 31. She was not participatory during the assessment
[2021-09-16] MEDS: aspirin 81 mg Chew Tablet PO (09:57)
[2021-09-16] MEDS: atorvastatin 40 mg Tablet PO (09:57)
--- NOTE | 2021-09-16 11:18 | PC.PHAR ---
pt unable to verify medications-pts son and daughter in law dionte [phone] verified pts medications-pt brought in medications dionte states she sent the metoprolol succinate 100mg take 50mg q12h bottle dated 05/12/2020 states the pt does not take that medication-dionte states the pt has not been taking eliquis 5mg bid last [place] 05[place]20[place] 30 d[place] the [place] has one refill on that medication-pts son states he has only been giving the pt humalog 12 units qpm bag brought in dated 04/02/2019 [facility] last filled 05/07/21 63d/s for 12 units bid-[facility] states they have the proair and pulmicort flexhaler inhalers on hold-
[2021-09-16 13:04] LABS: Glucose Point of Care 97 mg/dL (70-110)
[2021-09-16 13:04] LABS: Glucose Point of Care 104 mg/dL (70-110)
--- NOTE | 2021-09-16 16:32 | PC.OT ---
OT EVALUATION HELD TODAY
[2021-09-16 17:13] LABS: Glucose Point of Care 113 mg/dL (70-110)
[2021-09-16] MEDS: vancomycin 1,500 MG/300 ML PIGGYBACK 200 MG IV (18:20)
--- NOTE | 2021-09-16 18:35 | PC.NURSE ---
Shift SUmmary: Patient taken to MRI, transport was uneventful. Patient spent rest of the day resting in bed. Mental status has improved from unresponsive and lethargic this morning, to alert to self and easily rousable. Patient frequently moans in pain with movement. Patient is unable to verbalize a description of the pain or aggravating factors, but it appears to be related to multiple locations of open excoriation in skin folds. AFIB continues to be uncontrolled. total urine output was 1100 mL and patient had 1 bowel movement.
--- NOTE | 2021-09-16 18:59 | PM.MISC ---
Miscellaneous Note Note: SPoke to her son He is leaning towards Comfort care at home. He was informed about the bactermia with MRSa and sacral ulcer being the potential source Added rodolfo painting pt is waking up opening her eyes obese pt cant move right arm not comprehensible speech Diet changed to pureed dnr dni MRI unremarkable added vancomycin
--- NOTE | 2021-09-16 19:04 | PC.PT ---
PT evaluation on hold awaiting discussion with physician; patient last evaluated by this therapist on 08/16, and determined her prior level of function is bedbound, and requires assistance with all things and that she is not a rehab candidate.
[2021-09-16] MEDS: morphine 4 mg/mL SDV 1 mL 2 MG IVP (20:56)
[2021-09-17] VITALS (76 sets, daily range): BP systolic 68–159; BP diastolic 42–98; PULSE 85–145; RESP 12–28; TEMP 36.7–37.4; O2SAT 73–96; BMI 49.8
[2021-09-17] MEDS: dilTIAZem 30 mg Tablet PO ×4 (01:59→17:57)
[2021-09-17] MEDS: pantoprazole 40 mg SDV IVP (02:05)
[2021-09-17] MEDS: enoxaparin 40 mg/0.4 mL Syringe SUBCUT (02:05)
[2021-09-17 03:35] LABS: Glucose Point of Care 118 mg/dL (70-110)
--- NOTE | 2021-09-17 04:42 | PM.MISC ---
Miscellaneous Note Note: I was called to see ICU bed 10 at roughly 430 for concerns for word finding difficulty, aphasia, increased confusion. Patient has had multiple CVAs in the past, her MRI during this hospitalization yesterday showed 1.? No acute infarct. 2.? Large remote LEFT parieto-occipital infarct with encephalomalacia and foci of hemorrhage. 3.? Additional RIGHT ge radiata remote infarct with moderate microvascular ischemic disease in the periventricular white matter and the nicole. 4.? No acute hemorrhage. 5.? Stable LEFT middle cranial fossa arachnoid cyst -Her baseline mental status is unknown -She on examination is alert to person, not to place, not to time -She has spontaneous movement upper lower extremities she has her hands folded -She is slightly weaker on the left side -On the upper extremity it is only very slight, strength upper extremity is roughly 3 out of 5 compared to 4 out of 5 on the right -She is able to coordinate activities of upper extremities, has her hands folded into each other -Weakness on right lower extremity 3 out of 5, right upper extremity drifts and hits the bed -She definitely is weak on the left lower extremity, which falls to the bed, strength 1 out of 5 -She does follow some commands but is definitely confused -All I can get out of her is that she wants to go home, no slurring of her words -When asked her question she just stares at me, but when I asked her if she has strokes she tells me yes she has had many strokes in the past -Does have very slight right facial droop -Pupils equal round reactive to light -Has a history of atrial fibrillation, was on Eliquis, on admission I did not see in her pill pack, here she is on therapeutic anticoagulation has been A. fib -Her hospitalization was complicated with acute encephalopathy etiology likely secondary to staph aureus bacteremia secondary sacral decubitus ulcers -On admission her son does tell me that she does not ambulate, given her stroke,, which is what I can detect at baseline -The concern is of her word finding difficulty, is this new orders is chronic, and her aphasia -She does have mild to moderate aphasia, which goes along with a prior history of CVAs, location of CVA -Acute left parieto-occipital infarct, this goes along with receptive aphasia word finding difficulty which would be similar to what I am seeing on exam -Thus all in all her baseline status is unknown, clinically she has improved from her hospital admission in which she was nonresponsive, this certainly is a complicated case, her NIH stroke scale is at least 8, but is difficult to access as she does not follow commands -For now continue aspirin, statin -We will continue to examine her, daily NIH stroke scales -If there is any abrupt changes will consider full stroke evaluation -Hold off on therapeutic anticaog
--- NOTE | 2021-09-17 05:36 | PC.NURSE ---
Shift Note Frequent safety and comfort rounds continue. Orders and/or nursing care completed as indicated. Patient monitored for response to intervention and treatment(s). Education provided includes stroke scale, medications and treatment plan. Patient needs reinforcement teaching. Patient remains confused this shift she is alert to self but disoriented to place, time and situation. Patient has difficulty finding words when trying to speak and sentences are garbled. Follows some commands but not all. Redressed the left/right foot and sacrum wound, please see wound assessment for more detail. Sorensen drained 240 mls of urine overnight. Patient reported pain overnight, PRN pain medication administered. Will continue to monitor.
[2021-09-17] MEDS: vancomycin 1,500 MG/300 ML PIGGYBACK 200 MG IV (06:10)
[2021-09-17 07:05] LABS: Basophils % 0.2 %; Eosinophils # 0.1 10^3/uL (0.0-0.8); Eosinophils % 1.7 %; Hematocrit 35.3 % (37.0-47.0); Hemoglobin 11.1 g/dL (11.5-15.3); Lymphocytes # 0.8 10^3/uL (0.8-4.8); Lymphocytes % 17.8 %; Mean Corpuscular HGB Conc 31.4 g/dL (30.0-36.0); Mean Corpuscular Hemoglobin 28.5 pg (28.0-34.0); Mean Corpuscular Volume 90.5 fl (81-99); Mean Platelet Volume 9.1 fL (7.4-10.4); Monocytes # 0.3 10^3/uL (0.2-0.9); Monocytes % 7.6 %; Neutrophils # 3.01 10^3/uL (1.8-7.7); Neutrophils % 71.5 %; Nucleated Red Blood Cells % 0 %; Platelet Count 145 10^3/cmm (130-400); Red Cell Distribution Width 19.7 % (12.1-15.1); White Blood Count 4.2 10^3/uL (4.0-10.0)
[2021-09-17 07:45] LABS: Alanine Aminotransferase 9 U/L (0-33); Alkaline Phosphatase 113 IU/L (35-105); Anion Gap 13.3 (5-19); Aspartate Amino Transferase 25 U/L (0-32); Blood Urea Nitrogen 16 mg/dL (8-23); Calcium 8.1 mg/dL (8.5-10.5); Carbon Dioxide 25 mmol/L (22-29); Chloride 95 mmol/L (98-107); Creatinine Clr Calc Pharmacy 84.4948; Globulin 3.1 g/dL (1.3-4.6); Glucose 124 mg/dL (65-115); Osmolality Calculated 273 mOsm/kg (285-295); Potassium 3.3 mmol/L (3.5-5.1); Sodium 130 mmol/L (136-145); Total Bilirubin 0.4 mg/dL (0.15-1.2); Total Protein 5.1 g/dL (6.6-8.7)
[2021-09-17] MEDS: aspirin 81 mg Chew Tablet PO (08:05)
[2021-09-17] MEDS: atorvastatin 40 mg Tablet PO (08:05)
[2021-09-17] MEDS: nystatin powder 15 gm Btl 1 APPLIC TOPICAL ×2 (08:05→17:58)
--- NOTE | 2021-09-17 09:54 | P.PN_ITS ---
Subjective Subjective: Patient is able to talk to me however incomprehensible speech, she is oriented to self Able to move her upper arms Not able to follow commands completely Purposeless movement of extremities noted We will call her son today Son was leaning towards comfort care versus hospice at home, they already have hospital bed and the equipment Vitals/I&O/Wt Last Vital Signs Temp 98.0 F 09/17/21 07:46 Pulse 114 H 09/17/21 07:46 Resp 21 H 09/17/21 07:46 BP 120/70 09/17/21 07:46 Pulse Ox 87 L 09/17/21 07:46 09/16/21 09/17/21 09/17/21 22:59 06:59 14:59 Intake Total 309.75 / 579.500 600 / 1179.500 262.35 / 262.35 Output Total 1000 / 1100 240 / 1340 Balance -690.25 / -520.500 360 / -160.500 262.35 / 262.35 Weight last 48 hrs Weight 131.598 kg Weight 132.903 kg Weight 185.973 kg Weight 185.973 kg Physical Exam Narrative: Patient is oriented to herself A. fib RVR Diltiazem running at 10 Morbid obesity Sacral ulcers multiple stages 1-3 present at admission Right heel ulcer Distended abdomen, nontender Intertrigo Patient is not able to follow commands completely She does try to communicate however incomprehensible speech Makes eye contact Nonlabored breathing, currently on2L Data : 09/17/21 06:50 09/17/21 06:50 Micro: Microbiology 09/15/21 22:40 Urine Culture - Preliminary Urine Catheterized 09/15/21 21:50 Blood Culture - Preliminary Blood Staphylococcus aureus Staphylococcus epidermidis 09/15/21 22:06 Blood Culture - Preliminary Blood Staphylococcus aureus Staphylococcus epidermidis A&P Assessment and plan (1) Aspiration into respiratory tract: Status: Acute (2) Altered mental status: Status: Acute (3) Atrial fibrillation with RVR: Status: Acute (4) Acute exacerbation of CHF (congestive heart failure): Status: Acute Plan Patient is deconditioned Metabolic encephalopathy related to poor p.o. intake, dehydration with underlying CHF exacerbation Diastolic congestive heart failure exacerbation Severe primary hypertension Currently clinical signs of fluid overload Judicious use of diuretics MRI head unremarkable Clinically fluid overloaded Hypokalemia noted A. fib RVR: Continue diltiazem, overlap with p.o. Cardizem and titrate off Cardizem drip MRSA bacteremia likely sacral ulcer is the source, currently on vancomycin, Hypoventilation related hypoxia currently on 2 L Son is leaning towards comfort versus hospice care at home DNR/DNI Dysphagia diet Attestations Medical Necessity Statement*: Further decision will be made after speaking with her family today Time Spent in Patient Care: 20min Coding Level of Care Code Acute Assistant Professor Of Forestry for Chg Fwd Diagnoses Aspiration into respiratory tract T17.908A Altered mental status R41.82 Atrial fibrillation with RVR I48.91 Acute exacerbation of CHF (congestive heart failure) I50.9
--- NOTE | 2021-09-17 10:50 | PC.CHAP ---
Pastoral Care Encounter/Spiritual Assessment Type of Contact [] Declined yard person visit [] Patient/Family/Request visit [] Outpatient visit [] Follow-up visit [] Physician referral [] Code/Alert [x] Routine visit [] Staff referral [] Actively dying [] Patient sleeping [] Family support [] [] Out of room [] Palliative care [] [] Receiving care in room [] Pre-surgical visit [] Trauma [] Long length of stay [x] ICU visit [] Other: Relational/Emotional Strength [] Patient feels connected with others/family/visitors/staff [] Distress [] Loneliness/isolation [] Abandonment Spirituality of Patient [] Person of Cha [] Attends Adventism of their Cha [] Believes in Prayer [] Reads Bible or Restoration materials [] There are Spiritual issues to be addressed Forestry Technician Interventions [x] Prayer [x] Active listening [x] Non-anxious presence [x] Spiritual/emotional support [] Crisis/trauma care [] Spiritual counseling [] Bereavement support [] Provided bereavement packet [] Provided Bible/devotional materials [] Provided toy/stuffed animal, coloring book to patient or family member [] Provided Communion [] Anointing/[place] [] Salvation [x] Completed spiritual assessment [] Other: Impact on Illness or Injury [] Angry [] Fearful [] Anxious [] Often cries [] Exhaustion [] Unable to work [] Unable to attend anabaptist [] Unable to walk/stand [] Unable to read [] Unable to drive [] Unable to eat/drink [] Unable to sleep [] Unable to be with family [] Patient intubated [] Other: Summary a little confused but resting well... Time spent with patient 5 min
[2021-09-17 11:29] LABS: Glucose Point of Care 152 mg/dL (70-110)
--- NOTE | 2021-09-17 13:18 | PC.OT ---
PER DISCUSSION WITH P.T.; DOCTOR HAS DISCHARGED THERAPY ORDERS
--- NOTE | 2021-09-17 13:29 | PC.PT ---
Per rounds with care team, pt will not require therapy services. D/C PT.
--- NOTE | 2021-09-17 15:03 | PC.PT ---
After discussion with , he recommended discharge physical therapy evaluation/treatment etc., due to patient prior level of function as total dependent and bedbound.
[2021-09-17 17:29] LABS: Glucose Point of Care 190 mg/dL (70-110)
[2021-09-17 17:50] LABS: Vancomycin Trough 14.5 ug/mL (10-15)
[2021-09-17] MEDS: vancomycin 1,500 MG/300 ML PIGGYBACK 150 MG IV (17:57)
[2021-09-17] MEDS: morphine 4 mg/mL SDV 1 mL 2 MG IVP (20:38)
[2021-09-17] MEDS: potassium chloride premix 100 ML 25 MEQ IV (20:39)
[2021-09-18] VITALS (15 sets, daily range): BP systolic 104–145; BP diastolic 62–115; PULSE 76–145; RESP 13–24; TEMP 36–37.2; O2SAT 64–100; BMI 49.8
[2021-09-18] MEDS: dilTIAZem 30 mg Tablet PO ×4 (00:02→18:13)
[2021-09-18] MEDS: pantoprazole 40 mg SDV IVP (03:12)
[2021-09-18] MEDS: enoxaparin 40 mg/0.4 mL Syringe SUBCUT (03:12)
[2021-09-18] MEDS: vancomycin 1,500 MG/300 ML PIGGYBACK 150 MG IV (05:50)
[2021-09-18 08:01] LABS: Basophils % 0.5 %; Eosinophils # 0.1 10^3/uL (0.0-0.8); Eosinophils % 2.2 %; Hematocrit 32.8 % (37.0-47.0); Hemoglobin 10.4 g/dL (11.5-15.3); Lymphocytes # 1.2 10^3/uL (0.8-4.8); Lymphocytes % 28.9 %; Mean Corpuscular HGB Conc 31.7 g/dL (30.0-36.0); Mean Corpuscular Hemoglobin 28.3 pg (28.0-34.0); Mean Corpuscular Volume 89.4 fl (81-99); Mean Platelet Volume 9.3 fL (7.4-10.4); Monocytes # 0.4 10^3/uL (0.2-0.9); Neutrophils # 2.23 10^3/uL (1.8-7.7); Neutrophils % 55.7 %; Nucleated Red Blood Cells % 0 %; Platelet Count 149 10^3/cmm (130-400); Red Blood Count 3.67 10^6/uL (4.1-5.3); Red Cell Distribution Width 19.4 % (12.1-15.1)
[2021-09-18 08:09] LABS: Glucose Point of Care 83 mg/dL (70-110)
[2021-09-18 08:20] LABS: Anion Gap 11.8 (5-19); Blood Urea Nitrogen 18 mg/dL (8-23); Calcium 8.3 mg/dL (8.5-10.5); Carbon Dioxide 28 mmol/L (22-29); Chloride 100 mmol/L (98-107); Creatinine Clr Calc Pharmacy 84.4948; Glucose 92 mg/dL (65-115); Osmolality Calculated 284 mOsm/kg (285-295); Potassium 3.8 mmol/L (3.5-5.1); Sodium 136 mmol/L (136-145)
--- NOTE | 2021-09-18 09:34 | P.PN_ITS ---
Subjective Subjective: Patient opens eyes to verbal command Not able to follow commands Cardizem drip has been turned off Afebrile Currently she is on IV vancomycin Cultures negative to date Vitals/I&O/Wt Last Vital Signs Temp 98.9 F 09/18/21 04:00 Pulse 85 09/18/21 06:00 Resp 23 H 09/18/21 04:00 BP 114/78 09/18/21 04:00 Pulse Ox 100 09/18/21 04:00 09/17/21 09/18/21 09/18/21 22:59 06:59 14:59 Intake Total 387.967 / 1700.317 168.150 / 1868.467 Output Total 250 / 1490 250 / 1740 Balance 137.967 / 210.317 -81.850 / 128.467 Weight last 48 hrs Weight 131.598 kg Weight 131.598 kg Weight 132.903 kg Weight 185.973 kg Physical Exam 2 Narrative: Patient opens her eyes to verbal command Not able to follow my commands appropriately Very drowsy Fluid overloaded Anasarca Sacral ulcer Bilateral heel ulcers A. fib without RVR Variable S1-S2 Distended abdomen Intertrigo Currently on 3 L nasal cannula saturating 100% Data : 09/18/21 07:48 09/18/21 07:48 Micro: Microbiology 09/15/21 21:50 Blood Culture - Preliminary Blood Staphylococcus aureus Staphylococcus epidermidis 09/15/21 22:06 Blood Culture - Preliminary Blood Staphylococcus aureus Staphylococcus epidermidis 09/17/21 10:56 Blood Culture - Preliminary Blood SPECIMEN COLLECTED 09/17/21 11:00 Blood Culture - Preliminary Blood SPECIMEN COLLECTED 09/15/21 22:40 Urine Culture - Preliminary Urine Catheterized A&P Assessment and plan (1) MRSA bacteremia: Status: Acute (2) Altered mental status: Status: Acute (3) Atrial fibrillation with RVR: Status: Acute Plan MRSA bacteremia Repeat blood cultures negative to date Continue IV vancomycin Source sacral ulcer: Bilateral heel ulcers Afebrile Hypoxemia due to hypoventilation, currently doing well on 3 L cannula 100%, wean off oxygen to room air Altered mental status, multiple chronic severe related cerebral cortex changes on MRI No acute event Declining functional status Patient is bedbound now Son is agreeable with home hospice, for now we are treating her bacteremia with IV antibiotics, once bacteremia is cleared she will be discharged home on home hospice, human services case manager has been updated A. fib RVR: Cardizem drip has been turned off, Hypokalemia: Repleted Diastolic congestive heart failure exacerbation, low-dose Lasix Metabolic encephalopathy has not resolved DNR/DNI Attestations Medical Necessity Statement*: Can be transferred out of ICU Time Spent in Patient Care: 20min Coding Level of Care Code Acute Principal Embedded Software Engineer for [facility] Fwd Diagnoses MRSA bacteremia R78.81; B95.62 Altered mental status R41.82 Atrial fibrillation with RVR I48.91
[2021-09-18] MEDS: nystatin powder 15 gm Btl 1 APPLIC TOPICAL ×2 (10:01→18:03)
[2021-09-18 12:04] LABS: Glucose Point of Care 90 mg/dL (70-110)
[2021-09-18] MEDS: digoxin 250 mcg/ml INJ 2 mL 500 MCG IVP (15:03)
[2021-09-18 17:36] LABS: Glucose Point of Care 152 mg/dL (70-110)
[2021-09-18] MEDS: insulin lispro 100 unit/1 mL SUBCUT (18:02)
[2021-09-18] MEDS: vancomycin 1,500 MG/300 ML PIGGYBACK 200 MG IV (18:05)
--- NOTE | 2021-09-18 18:25 | PC.NURSE ---
Shift Note: Pt remained in bed throughout shift. Spent most of the day dozing. She is much more alert in the afternoon and evening than the morning. She could not be aroused for breakfast, but then cursed and yelled at staff during repositioning. She ate half of her lunch and dinner, she even held the milk herself at dinner. She used thank you and yes/no answers this evening. She also just begged to go to bed, I just need to sleep . during the afternoon, she was repositioned on her right side, she went back into a-fib with a rate 125-150, yelled and flailed around until repositioned on her back again. She received digoxin for the heart rate, rate improved to less than 105. Urine output of 600ml. Pt transferred to room 108, CSU after evening meal finished. Frequent safety and comfort rounds continue. Orders and/or nursing care completed as indicated. Patient monitored for response to intervention and treatment(s). Education provided includes Nystatin, cardizem. Patient unable to remember or completely comprehend education. Will continue to monitor.
[2021-09-19] VITALS (10 sets, daily range): BP systolic 120–150; BP diastolic 70–89; PULSE 88–112; RESP 17–24; TEMP 36.6–36.8; O2SAT 93–97
[2021-09-19] MEDS: dilTIAZem 30 mg Tablet PO (00:36)
[2021-09-19] MEDS: enoxaparin 40 mg/0.4 mL Syringe SUBCUT (05:20)
[2021-09-19] MEDS: vancomycin 1,500 MG/300 ML PIGGYBACK 150 MG IV (06:19)
[2021-09-19 06:53] LABS: Glucose Point of Care 83 mg/dL (70-110)
--- NOTE | 2021-09-19 08:51 | P.PN_ITS ---
Subjective Subjective: Staff for use noted in previous blood cultures, repeat cultures negative Patient is much more awake and alert, She would answer a few questions She is keeping her eyes open, able to make eye contact and respond Left-sided weakness noted Heart rate fluctuating between 90-1 10 A. fib, afebrile, blood pressure stable Vitals/I&O/Wt Last Vital Signs Temp 96.8 F L 09/18/21 17:30 Pulse 89 09/19/21 06:00 Resp 22 H 09/19/21 04:00 BP 144/88 09/19/21 04:00 Pulse Ox 96 09/19/21 04:00 09/18/21 09/19/21 09/19/21 22:59 06:59 14:59 Intake Total 300 / 880 300 / 1180 Output Total 600 / 600 Balance -300 / 280 300 / 580 Weight last 48 hrs Weight 131.542 kg Weight 131.598 kg Physical Exam Narrative: Patient was laying comfortably in her bed She is responding to a few questions today Keeping her eyes open Left-sided weakness noted Signs of fluid overload Bilateral heel ulcers, stage II-III, sacral ulcer multiple stages Distended abdomen, Intertrigo Patient is only oriented to herself No audible stridor or wheezing Currently on 2 L nasal cannula Variable S1-S2 Urinary Catheter Management: Sorensen: Cath Placed During This Visit: no Reason for Continuing Indwelling Catheter: Accurate Measurement of Urinary Output in Critically Ill Patients Data : 09/18/21 07:48 09/18/21 07:48 Micro: Microbiology 09/17/21 11:00 Blood Culture - Preliminary Blood NEGATIVE TO DATE 09/17/21 10:56 Blood Culture - Preliminary Blood NEGATIVE TO DATE 09/15/21 22:06 Blood Culture - Final Blood Methicillin Resis Staph Aureus Staphylococcus epidermidis 09/15/21 21:50 Blood Culture - Final Blood Methicillin Resis Staph Aureus Staphylococcus epidermidis 09/15/21 22:40 Urine Culture - Final Urine Catheterized A&P Assessment and plan (1) MRSA bacteremia: Status: Acute (2) Acute exacerbation of CHF (congestive heart failure): Status: Acute (3) Altered mental status: Status: Acute (4) Atrial fibrillation with RVR: Status: Acute Plan MRSA bacteremia: Patient is afebrile, cultures negative to date Continue IV vancomycin regimen for now with Vanco trough level target between 15-20 Hypoventilation related hypoxemia: Currently on 2 L nasal cannula wean off to room air Metabolic encephalopathy: Resolving, Multiple sacral ulcers, bilateral heel ulcers, wet-to-dry dressing with Santyl Diastolic CHF exacerbation Continue Lasix Guarded prognosis DNR/DNI Plan to discharge her back home on comfort care Attestations Medical Necessity Statement*: Discharged home on comfort care Time Spent in Patient Care: 20mins Coding Level of Care Code Acute Merchandise Complaint Adjuster for g Fwd Diagnoses MRSA bacteremia R78.81; B95.62 Acute exacerbation of CHF (congestive heart failure) I50.9 Altered mental status R41.82 Atrial fibrillation with RVR I48.91
[2021-09-19] MEDS: nystatin powder 15 gm Btl 1 APPLIC TOPICAL (12:18)
[2021-09-19 12:39] LABS: Glucose Point of Care 103 mg/dL (70-110)
--- NOTE | 2021-09-19 15:12 | PC.SOCIAL ---
Pg 2 IMM Explained to pt's son via phone, Pg 2 IMM. No questions voiced. Provided pt a copy. Initialed, dated, & timed a copy & placed in chart.
[2021-09-19 17:09] LABS: Glucose Point of Care 97 mg/dL (70-110)
[2021-09-20] VITALS (10 sets, daily range): BP systolic 143–160; BP diastolic 83–113; PULSE 92–120; RESP 18–24; TEMP 36.2–36.6; O2SAT 90–95
[2021-09-20] MEDS: nystatin powder 15 gm Btl 1 APPLIC TOPICAL (03:53)
--- NOTE | 2021-09-20 04:33 | PC.NURSE ---
pt rested quietly throughout shift. VSS. vides patent. adequate UOP. pt turned every 2 hours. pt refused all meds. education done on importance of taking medications. pt continued to refuse. frequent rounding done. all needs met.
[2021-09-20 06:23] LABS: Glucose Point of Care 74 mg/dL (70-110)
[2021-09-20 06:27] LABS: Vancomycin Trough 17.5 ug/mL (10-15)
[2021-09-20] MEDS: vancomycin 1,500 MG/300 ML PIGGYBACK 150 MG IV (06:55)
--- NOTE | 2021-09-20 10:11 | PM.PN ---
Subjective Subjective: Patient is keeping her eyes closed when I try to communicate with her repeatedly, however when I asked her how she is feeling she was able to talk appropriately (stated what do you want) did not appreciate any slurring of speech, Cultures negative to date I have tried to call her daughter and son multiple times, Son is not thinking of my call, daughter called us back stating that she cannot poultry picking machine tender the phone as she is at work Vitals/I&O/Wt Last Vital Signs Temp 97.9 F 09/20/21 07:33 Pulse 99 09/20/21 09:53 Resp 22 H 09/20/21 09:53 BP 147/95 09/20/21 09:53 Pulse Ox 90 09/20/21 09:53 09/19/21 09/20/21 09/20/21 22:59 06:59 14:59 Intake Total 0 / 300 0 / 300 300 / 300 Output Total 500 / 500 100 / 600 Balance -500 / -200 -100 / -300 300 / 300 Weight last 48 hrs Weight 131.542 kg Physical Exam Narrative: Patient is keeping her eyes closed however she is able to speak without any difficulty Did not participate much during my encounter today Morbidly obese female laying in her bed Saturating well on 2 L nasal cannula Vancomycin running at the bedside Distended abdomen no signs of peritonitis Bilateral heel ulcers Edema of legs noted Sorensen catheter in place Neuro exam limited No audible stridor or wheezing Urinary Catheter Management: Sorensen: Cath Placed During This Visit: no Reason for Continuing Indwelling Catheter: Hospice/Comfort/Palliative Care Data : 09/18/21 07:48 09/18/21 07:48 A&P Assessment and plan (1) MRSA bacteremia: Status: Acute (2) Acute exacerbation of CHF (congestive heart failure): Status: Acute (3) Altered mental status: Status: Acute (4) Atrial fibrillation with RVR: Status: Acute Plan My plan is to discharge patient home on palliative care MRSA bacteremia has cleared Cultures negative for last 72 hours, vancomycin trough level noted I will keep her on IV vancomycin until she is discharged from the hospital Today I am not able to get in touch with the family We will update pillowcase cleaner Continue diltiazem for A. fib, she is not in RVR Change diltiazem to long-acting once daily dosing Low blood sugar noted We will asked nurse to provide her a container of juice Continue aspirin, atorvastatin for now Attestations Medical Necessity Statement*: Continue medical management Time Spent in Patient Care: Discharged home on palliative care Coding Level of Care Code Acute Washing Machine Loader And Puller for g Fwd Diagnoses MRSA bacteremia R78.81; B95.62 Acute exacerbation of CHF (congestive heart failure) I50.9 Altered mental status R41.82 Atrial fibrillation with RVR I48.91
[2021-09-20 11:20] LABS: Glucose Point of Care 78 mg/dL (70-110)
--- NOTE | 2021-09-20 12:17 | PC.NURSE ---
Patient refuses medications, patient will awake when spoken too, but responds with profanity.
--- NOTE | 2021-09-20 15:48 | PC.NURSE ---
Spoke with physician regarding patient status. Patient has refused all PO medications and care today. Physician notified of patients increasing heart rate. Physician will order Cardizem IVP.
[2021-09-20] MEDS: vancomycin 1,000 MG in sodium chloride 0.9% 250 ML 250 MG IV (18:13)
--- NOTE | 2021-09-20 18:37 | PC.NURSE ---
Patient refuses to be turned. Patient has refused all hygiene care. Patient has slept majority of the day and the day has been fairly uneventful.
[2021-09-20 20:01] LABS: Glucose Point of Care 82 mg/dL (70-110)
[2021-09-21] VITALS (10 sets, daily range): BP systolic 131–154; BP diastolic 68–103; PULSE 97–135; RESP 17–27; TEMP 36.1–36.7; O2SAT 93–97
[2021-09-21] MEDS: pantoprazole 40 mg SDV IVP (02:04)
[2021-09-21] MEDS: enoxaparin 40 mg/0.4 mL Syringe SUBCUT (02:04)
--- NOTE | 2021-09-21 04:17 | PC.NURSE ---
pt rested quietly throughout shift. PRN cardizem given for HR>110. VS otherwise stable. Pt Q2 turned. Sorensen patent. Adequate UOP. Sorensen care performed. Pt refused nourishment. Hourly rounding done. All needs met.
[2021-09-21] MEDS: vancomycin 1,000 MG in sodium chloride 0.9% 250 ML 250 MG IV ×2 (06:30→18:15)
[2021-09-21 07:15] LABS: Glucose Point of Care 76 mg/dL (70-110)
--- NOTE | 2021-09-21 08:50 | PC.SOCIAL ---
IMM Update: pg 2 of IMM updated via phone w/ son Yaya, left message. Copy in chart updated and copy left in rm.
--- NOTE | 2021-09-21 09:41 | P.PN_ITS ---
Subjective Subjective: This morning patient is able to communicate, she is making eye contact, not endorsing any active complaints, when asked her about her siblings and children's name, she stated: She do not know A. fib RVR heart rate has been fluctuating between 90-1 10 Patient has been noncooperative and verbally abusive to the nursing staff For last 3 days I have not been able to get in touch with her son Yaya, yesterday I called her daughter who is in [place] We discussed about her current clinical status, and her daughter told me that Yaya has not been responding to her as well Today I spoke with her brother Terry Ramirez who is a cytopathologist in [place], he voiced his concerns related to Neeta's son Yaya, his concern is related to Yaya's ability to take care of his mother, reportedly her opioids were missing when daughter checked on her in the past and Yaya was not able to change her soiled clothes or clean her Vitals/I&O/Wt Last Vital Signs Temp 97 F L 09/21/21 03:39 Pulse 102 H 09/21/21 05:39 Resp 22 H 09/21/21 03:39 BP 147/103 09/21/21 03:39 Pulse Ox 97 09/21/21 03:39 09/20/21 09/21/21 09/21/21 22:59 06:59 14:59 Intake Total 250 / 550 0 / 550 Output Total 400 / 400 250 / 650 Balance -150 / 150 -250 / -100 Physical Exam Narrative: Patient is able to make eye contact She is able to move upper extremities, left arm weakness as compared to right Weakness of bilateral lower extremities noted Bilateral heel ulcers Sacral ulcers Multiple staged ulcers of sacral area present Abdomen is soft Distended, visceral obesity, intertrigo Patient is oriented to herself only No slurring of speech noted She does seem to frown on every question Urinary Catheter Management: Sorensen: Cath Placed During This Visit: no Reason for Continuing Indwelling Catheter: Hospice/Comfort/Palliative Care Data : 09/18/21 07:48 09/18/21 07:48 A&P Assessment and plan (1) MRSA bacteremia: Status: Acute (2) Acute exacerbation of CHF (congestive heart failure): Status: Acute (3) Altered mental status: Status: Acute (4) Atrial fibrillation with RVR: Status: Acute (5) Non-compliance: Status: Acute Plan MRSA bacteremia, repeat cultures are negative, she has been afebrile, my plan is to continue IV vancomycin until the day of discharge A. glenys RVR: She has been refusing p.o. meds, she has been getting IV push of Cardizem Disposition plan will be discussed with rn case management today I am not able to get in touch with Yaya for last 72 hours, I have spoken to his daughter and brother Teryr Ramirez. Attestations Medical Necessity Statement*: Continue medical management Time Spent in Patient Care: 30min Coding Level of Care Code Acute Quill Worker for [facility] Fwd Diagnoses MRSA bacteremia R78.81; B95.62 Acute exacerbation of CHF (congestive heart failure) I50.9 Altered mental status R41.82 Atrial fibrillation with RVR I48.91 Non-compliance Z91.19
[2021-09-21] MEDS: atorvastatin 40 mg Tablet PO (09:53)
[2021-09-21] MEDS: aspirin 81 mg Chew Tablet PO (09:53)
[2021-09-21] MEDS: dilTIAZem ER (24HR) 300 mg Capsule PO (09:53)
[2021-09-21] MEDS: nystatin powder 15 gm Btl 1 APPLIC TOPICAL ×2 (09:57→18:27)
[2021-09-21 11:19] LABS: Glucose Point of Care 103 mg/dL (70-110)
--- NOTE | 2021-09-21 13:48 | PC.NURSE ---
Pt s HR up into 130's notified Dr. Lopes, order to administer an additional dose of IV cardizem ordered.
[2021-09-21 17:03] LABS: Glucose Point of Care 117 mg/dL (70-110)
[2021-09-21 20:44] LABS: Glucose Point of Care 153 mg/dL (70-110)
--- NOTE | 2021-09-21 23:30 | PC.NURSE ---
Patient continually pulls pulse ox probe off of finger every time it is replaced.
[2021-09-21 23:33] LABS: Glucose Point of Care 140 mg/dL (70-110)
[2021-09-22] VITALS (9 sets, daily range): BP systolic 123–158; BP diastolic 68–113; PULSE 87–103; RESP 22–28; TEMP 36.1–36.6; O2SAT 93–98
[2021-09-22] MEDS: pantoprazole 40 mg SDV IVP (04:04)
[2021-09-22] MEDS: enoxaparin 40 mg/0.4 mL Syringe SUBCUT (04:04)
--- NOTE | 2021-09-22 04:09 | PC.NURSE ---
Unable to obtain weight. Possible bed scale malfunction. Weight states negative 3.8 pounds on bed scale. Unable to zero bed due to patient being bedrest.
--- NOTE | 2021-09-22 05:32 | PC.NURSE ---
Lab called to verify that they are able to see order for 0530 Vanc.
[2021-09-22 06:32] LABS: Vancomycin Trough 19.8 ug/mL (10-15)
[2021-09-22 06:33] LABS: Glucose Point of Care 126 mg/dL (70-110)
--- NOTE | 2021-09-22 06:35 | PC.NURSE ---
Pharmacy notified of vanc trough of 19.8. Told to continue Vanc as ordered.
[2021-09-22] MEDS: vancomycin 1,000 MG in sodium chloride 0.9% 250 ML 250 MG IV ×2 (06:40→18:15)
--- NOTE | 2021-09-22 09:05 | PC.NURSE ---
Patient refused medications this morning. Patient is awake and alert, but does not answer questions appropriately. Patient is resting in bed at this time. Even and unlabored breathing. Nurse will continue to monitor.
[2021-09-22 12:16] LABS: Glucose Point of Care 110 mg/dL (70-110)
--- NOTE | 2021-09-22 17:46 | PM.PN ---
Subjective Subjective: This morning it took us a while to wake patient up, With multiple painful stimuli with facial grimacing patient stated: Would you want Anna was able to get in touch with her son today Son is willing to take her home tomorrow Care plan was discussed with him by Anna Vitals/I&O/Wt Last Vital Signs Temp 97.5 F L 09/22/21 16:00 Pulse 87 09/22/21 16:00 Resp 23 H 09/22/21 16:00 BP 158/113 09/22/21 16:00 Pulse Ox 97 09/22/21 16:00 09/22/21 09/22/21 09/22/21 06:59 14:59 22:59 Intake Total 250 / 250 Output Total 850 / 950 Balance -850 / 504 250 / 250 Physical Exam Narrative: Patient does not reciprocate very well However when she talks I did not appreciate any slurring of speech She is able to move upper extremities Stays in the bed Multiple sacral ulcers Bilateral heel ulcers Does not cooperate very well for the exam, neuro exam is limited Nonlabored breathing she is saturating well on 2.5 L nasal cannula Abdomen soft Distended No audible stridor or wheezing Urinary Catheter Management: Sorensen: Cath Placed During This Visit: yes, but has since been removed by the nurse Reason for Continuing Indwelling Catheter: Hospice/Comfort/Palliative Care Date Urinary Catheter Removed: 09/21/21 Time Urinary Catheter Discontinued: 13:00 2-way Urethral: Cath Placed During This Visit: no Reason for Continuing Indwelling Catheter: Hospice/Comfort/Palliative Care Data : 09/18/21 07:48 09/18/21 07:48 Micro: Microbiology 09/17/21 11:00 Blood Culture - Final Blood NO GROWTH AFTER 5 DAYS 09/17/21 10:56 Blood Culture - Final Blood NO GROWTH AFTER 5 DAYS A&P Assessment and plan (1) Non-compliance: Status: Acute (2) MRSA bacteremia: Status: Acute (3) Altered mental status: Status: Acute (4) Atrial fibrillation with RVR: Status: Acute Plan MRSA bacteremia resolved Continue vancomycin until the day of discharge We might be able to discharge her tomorrow on home/palliative care Care plan was discussed with her son today by Anna servicing manager has spoken to the family in detail Her brother, Mr. Terry Ramirez is upset that insurance is not able to provide coverage for her correction placement A. fib without RVR Not a good candidate for anticoagulation Poor p.o. intake not a good candidate for TPN or tube feeds Patient has guarded prognosis Negative blood cultures since 09/17 DNR/DNI Attestations Medical Necessity Statement*: Plan to discharge her tomorrow discharge tomorrow home with hospice palliative care Time Spent in Patient Care: 15mins Coding Level of Care Code Acute Associate Art Director for g Fwd Diagnoses Non-compliance Z91.19 MRSA bacteremia R78.81; B95.62 Altered mental status R41.82 Atrial fibrillation with RVR I48.91
[2021-09-22 20:28] LABS: Glucose Point of Care 82 mg/dL (70-110)
[2021-09-23] VITALS (7 sets, daily range): BP systolic 139–160; BP diastolic 81–103; PULSE 81–102; RESP 22–24; TEMP 36.4–36.6; O2SAT 95–98
[2021-09-23] MEDS: enoxaparin 40 mg/0.4 mL Syringe SUBCUT (03:01)
--- NOTE | 2021-09-23 04:20 | PC.NURSE ---
pt rested quietly throughout shift. VSS. No complaints of pain. Sorensen patent. Pt Q2 turned. Hourly rounding done. All needs met.
[2021-09-23] MEDS: pantoprazole 40 mg SDV IVP (05:26)
[2021-09-23] MEDS: vancomycin 1,000 MG in sodium chloride 0.9% 250 ML 250 MG IV (05:32)
[2021-09-23 06:37] LABS: Glucose Point of Care 76 mg/dL (70-110)
--- NOTE | 2021-09-23 09:44 | PC.SOCIAL ---
IMM Updated Updated pt's son, Yaya, on IMM. No questions voiced. Provided pt/family a copy. Initialed, dated, & timed copy in chart.
--- NOTE | 2021-09-23 09:44 | PC.NURSE ---
Wound Care Provided to patient and includes daily dressing changes. Irrigate and clean wounds to right heal and left upper sole of foot. Dressing applied to right heal includes Silver Alginate, Abd pad, and Kerlex. Foam heal protector applied to prevent pressure. Silver Alginate and gauze applied to left foot. Medial sacrum cleansed with normal saline and opti foam dressing applied.
--- NOTE | 2021-09-23 11:05 | P.DS_ITS ---
Discharge Providers Date of Admission: 09/16/21 00:49 Date of Discharge: September 23, 2021 Attending Provider at Admission: Julio C Ferrara MD Attending Provider at Discharge: Enrique Lopes MD Primary Care Provider: Margret Wilson MD Diagnoses at Discharge Discharge Diagnosis (1) Non-compliance: Status: Acute (2) MRSA bacteremia: Status: Acute (3) Altered mental status: Status: Acute (4) Atrial fibrillation with RVR: Status: Acute Reason for Visit Reason for Visit: CONFUSED/FEVER Hospital Course Hospital Course Admitting note by Dr. Nika Santacruz Grisel Roche is a 71 year old female history of embolic CVAs, right frontal, left occipital, history of atrial fibrillation, should be on Eliquis?? History of insulin-dependent type 2 diabetes mellitus, morbid obesity, severe pulmonary hypertension, history of seizures on Keppra, history of depression, recent hospitalization for COVID-19 pneumonia and acute kidney injury and hypoxia.? Currently patient is not alert to person, not to place, not to time, she does open her eyes to sternal rub, but does not follow commands.? Blood pressure 134/96, pulse 104, temp 97.8, O2 sat 99.? She does withdraw from pain, pupils are reactive to light, but she tends to look upwards, has right facial drooping present.? Son is at bedside and provides a history.? He tells me that recently s he was discharged from [facility] for COVID-19 pneumonia, hypoxia.? She was living with her who , recently, so she is living with his family.? Normally she does not ambulate, she is in a wheelchair, this is after hitting her strokes, chronic in nature, she is typically alert oriented x3, can feed herself, but does require some assistance for activities of daily living.? However after the passing of her , she is been much more bedbound, has developed bedsores.? He tells me that about a week ago, [place] so [place] got [place] [facility] in the car she possibly had a seizure-like episode she started to have diffuse shaking, eyes rolled back, but not to a few minutes her mentation came back to normal.? He wanted to call EMS, but she said she was fine.? According to patient she has been chronically ill, but relatively stable over the last few days.? Nothing out of the ordinary last night.? This morning her family woke her up at about 10 AM, she was not responding the most they never got out of her was to take 1 pill.? He tells me that she was not responsive throughout the day, she had gargling in her swallowing, she went was not responding to her name, no falls, no injuries.? She did have a temperature when EMS arrived, no temperature here, and has a history of UTIs.? No complaints of dysuria.? No significant known aspiration events to family's knowledge.? No complaints of chest pain.? She does use hydrocodone for pain, but is locked up in a safe, and she hardly uses it the family tells us, no history of overdose, family does not feel that she overdosed on medication as it is locked in a safe. In the emergency room patient does not have any significant leukocytosis, mag slightly low at 1.6, blood sugar 127, UA not convincing for UTI, flu negative, Covid negative, chest x-ray difficult study, no focal pneumonia, CT of the head no acute intracranial bleed.? Hemodynamically stable, she was found to have A. fib with RVR placed on Cardizem drip, heart rates better controlled in the low 100s saturating 100% on room air.? Does have diffuse wheezing on exam, is found in a unkempt state, but was told she has multiple bedsores on her back Hospital course Patient was initially admitted for management and evaluation of metabolic encephalopathy there was some concern related to UTI and CVA. MRI head showed previous ischemic changes however no acute stroke findings were noted. Patient did well with IV fluid hydration and antibiotics. For her A. fib RVR she was kept on Cardizem drip as she was not able to tolerate p.o. diet because of her confusion. She was diagnosed with MRSA bacteremia, she remained afebrile, no worsening of leukocytosis. Source of bacteremia was sacral and bilateral heel ulcers. Her mentation did improve to the point that she was able to make her needs known however she was very noncompliant, she was refusing nursing care, she was refusing to take p.o. medications and would curse the nursing staff. Repeat blood cultures remain negative. Her family was kept updated on daily basis however there was a time when I was not able to get in touch with her son who was her caregiver. Then her daughter who is in a different state and brother who is in [place] were involved. After 4 to 5 days we were able to get in touch with Yaya with her son. Family is leaning towards comfort care/palliative care as patient is bedbound, she is refusing most of her medications, she would not cooperate for PT or nursing care of her wounds. Arrangements were made by our showcase trimmer. Her insurance was not covering senior care placement expenses that is why we were not able to place her there and family is not willing to pay [id number]. At this point we are discharging patient home on palliative care. Her brother is not happy with this plan but we have no other option other than discharging her back to her primary caregiver who is Yaya(her son). Patient has been discharged home on palliative care. Physical Exam Narrative: She would keep her eyes closed and when I tried to ask her questions repeatedly she asked me to keep my mouth shut I did not appreciate any slurring of speech She is able to move upper extremities Bedbound Multiple sacral ulcers Bilateral heel ulcers Does not cooperate very well for the exam, neuro exam is limited Nonlabored breathing she is saturating well on 2.5 L nasal cannula Abdomen soft Distended No audible stridor or wheezing Urinary Catheter Management: Sorensen: Cath Placed During This Visit: yes, but has since been removed by the nurse Reason for Continuing Indwelling Catheter: Hospice/Comfort/Palliative Care Date Urinary Catheter Removed: 09/21/21 Time Urinary Catheter Discontinued: 13:00 2-way Urethral: Cath Placed During This Visit: no Reason for Continuing Indwelling Catheter: Acute Urinary Retention or Obstruction Discharge Data Studies Completed and Pending Completed Studies During Hospitalization Category Date Time Status CT head wo con* [id number] Urgent Cat Scan 09/15/21 22:00 Completed XR chest 1V portable [id number] Urgent Exams 09/15/21 22:00 Completed MR head wo con* [id number] Urgent MRI 09/16/21 Completed CV carotid duplex BI* [id number] Urgent Ultrasound 09/16/21 03:04 Completed Radiology Impressions Chest X-Ray 09/15/21 22:00 IMPRESSION: No definite focal pulmonary consolidation, however assessment is limited by low lung volumes and the cardiac enlargement obscuring views of the left lung base. Head CT 09/15/21 22:00 IMPRESSION: 1. Negative for acute intracranial abnormality. 2. No change from comparison. Head MRI 09/16/21 00:00 IMPRESSION: 1. No acute infarct. 2. Large remote LEFT parieto-occipital infarct with encephalomalacia and foci of hemorrhage. 3. Additional RIGHT ge radiata remote infarct with moderate microvascular ischemic disease in the periventricular white matter and the nicole. 4. No acute hemorrhage. 5. Stable LEFT middle cranial fossa arachnoid cyst. Laboratory Results WBC 4.0 10^3/uL (4.0-10.0) 09/18/21 07:48 RBC 3.67 10^6/uL (4.1-5.3) L 09/18/21 07:48 Hgb 10.4 g/dL (11.5-15.3) L 09/18/21 07:48 Hct 32.8 % (37.0-47.0) L 09/18/21 07:48 MCV 89.4 fl (81-99) 09/18/21 07:48 MCH 28.3 pg (28.0-34.0) 09/18/21 07:48 MCHC 31.7 g/dL (30.0-36.0) 09/18/21 07:48 RDW 19.4 % (12.1-15.1) H 09/18/21 07:48 Plt Count 149 10^3/cmm (130-400) 09/18/21 07:48 MPV 9.3 fL (7.4-10.4) 09/18/21 07:48 Neut % (Auto) 55.7 % 09/18/21 07:48 Lymph % (Auto) 28.9 % 09/18/21 07:48 [place] % (Auto) 11.0 % 09/18/21 07:48 Eos % (Auto) 2.2 % 09/18/21 07:48 Baso % (Auto) 0.5 % 09/18/21 07:48 Neut # (Auto) 2.23 10^3/uL (1.8-7.7) 09/18/21 07:48 Lymph # (Auto) 1.2 10^3/uL (0.8-4.8) 09/18/21 07:48 [place] # (Auto) 0.4 10^3/uL (0.2-0.9) 09/18/21 07:48 Eos # (Auto) 0.1 10^3/uL (0.0-0.8) 09/18/21 07:48 Baso # (Auto) 0.0 10^3/uL (0.0-0.1) 09/18/21 07:48 Nucleated RBC % (auto) 0 % 09/18/21 07:48 Nucleated RBCs # 0.0 /100WBC 09/18/21 07:48 ESR 32 mm/hr (0-15) H 09/16/21 04:31 PT 14.70 SECONDS (12.1-14.9) 09/15/21 22:06 INR 1.12 (0.8-1.2) 09/15/21 22:06 Specimen Type Arterial 09/16/21 02:10 Sample Site Radial, right 09/16/21 02:10 ABG pH 7.52 (7.35-7.45) H 09/16/21 02:10 ABG pCO2 35.5 mmHg (35-45) 09/16/21 02:10 ABG pO2 78.2 mmHg (80.0-100.0) L 09/16/21 02:10 ABG HCO3 29.2 mmol/L (22-26) H 09/16/21 02:10 ABG Base Excess 6.1 mmol/L (-2.0-2.0) H 09/16/21 02:10 Timothy Test Pos 09/16/21 02:10 Hematocrit 35.3 % (37-47) L 09/16/21 02:10 O2 Delivery Device Nc 09/16/21 02:10 O2 Liters/Min 3.0 % 09/16/21 02:10 Duck Farmer ID ellpe 09/16/21 02:10 Sodium 136 mmol/L (136-145) 09/18/21 07:48 Potassium 3.8 mmol/L (3.5-5.1) 09/18/21 07:48 Chloride 100 mmol/L (98-107) 09/18/21 07:48 Carbon Dioxide 28 mmol/L (22-29) 09/18/21 07:48 Anion Gap 11.8 (5-19) 09/18/21 07:48 BUN 18 mg/dL (8-23) 09/18/21 07:48 Creatinine 0.6 mg/dL (0.5-0.9) 09/18/21 07:48 GFR Calculation Not Reportable 09/18/21 07:48 Glucose 92 mg/dL (65-115) 09/18/21 07:48 POC Glucose 76 mg/dL (70-110) 09/23/21 06:34 Estimat Average Glucose 97 09/16/21 04:31 Hemoglobin A1c 5.0 % (4.0-6.0) 09/16/21 04:31 Calculated Osmolality 284 mOsm/kg (285-295) L 09/18/21 07:48 Lactic Acid 1.5 mmol/L (0.5-2.2) 09/16/21 02:33 Calcium 8.3 mg/dL (8.5-10.5) L 09/18/21 07:48 Magnesium 1.6 mg/dL (1.7-2.3) L 09/15/21 22:06 Total Bilirubin 0.4 mg/dL (0.15-1.2) 09/17/21 06:50 AST 25 U/L (0-32) 09/17/21 06:50 ALT 9 U/L (0-33) 09/17/21 06:50 Alkaline Phosphatase 113 IU/L (35-105) H 09/17/21 06:50 Troponin T Baseline 45 ng/L (0-10) H 09/15/21 22:06 Troponin T 120 Minute 53.84 ng/L (0-10) H 09/16/21 00:37 Delta Troponin T 8.84 ABS# (0-10) 09/16/21 00:37 Troponin T Hi Sens 6Hr 55.47 ng/L (0-10) H 09/16/21 04:31 Troponin T Hi Sens 6Hr Delta 10.47 ng/L (0-12) 09/16/21 04:31 C-Reactive Protein 218.8 mg/L (0.0-4.9) H 09/16/21 04:31 NT-Pro-B Natriuret Pep 4452 pg/mL (0-125) H 09/15/21 22:06 Total Protein 5.1 g/dL (6.6-8.7) L 03/23/22 06:50 Albumin 2.0 g/dL (3.5-5.2) L 09/17/21 06:50 Globulin 3.1 g/dL (1.3-4.6) 09/17/21 06:50 Lipase 8 U/L (13-60) L 09/15/21 22:06 Procalcitonin 0.29 ng/mL (0-0.5) 09/15/21 22:06 TSH 3.75 uIU/mL (0.27-4.20) 09/16/21 04:31 Urine Color Dark yellow (Yellow) 09/15/21 22:40 Urine Appearance Clear (CLEAR) 09/15/21 22:40 Urine pH 5 (5-7) 09/15/21 22:40 Ur Specific Corn[place] 1.030 (1.005-1.030) 09/15/21 22:40 Urine Protein 1+ (Negative) H 09/15/21 22:40 Urine Glucose (UA) Norm (Normal) 09/15/21 22:40 Urine Ketones 1+ (Negative) H 09/15/21 22:40 Urine Blood 2+ (Negative) H 09/15/21 22:40 Urine Nitrate Negative (Negative) 09/15/21 22:40 Urine Bilirubin 1+ (Negative) H 09/15/21 22:40 Urine Urobilinogen 4 mg/dL (Negative) H 09/15/21 22:40 Ur Leukocyte Esterase Negative (Negative) 09/15/21 22:40 Urine RBC 0-4 /hpf (0-2) H 09/15/21 22:40 Urine WBC 5-10 /hpf (0-5) H 09/15/21 22:40 Ur Squamous Epith Cells 5-10 /hpf (0-5) H 09/15/21 22:40 Amorphous Sediment 1+ /hpf 09/15/21 22:40 Urine Bacteria Trace /hpf (NONE) 09/15/21 22:40 Urine Mucus 2+ /hpf 09/15/21 22:40 Vancomycin Trough 19.8 ug/mL (10-15) H 09/22/21 05:36 Salicylates < 0.3 mg/dL (3-10) L 09/15/21 22:06 Urine Opiates Screen Positive ng/mL (Negative) H 09/15/21 22:40 Acetaminophen < 5.0 ug/mL (10-30) L 09/15/21 22:06 Ur Barbiturates Screen Negative ng/mL (Negative) 09/15/21 22:40 Ur Phencyclidine Scrn Negative ng/mL (Negative) 09/15/21 22:40 Ur Amphetamines Screen Negative ng/mL (Negative) 09/15/21 22:40 U Benzodiazepines Scrn Negative ng/mL (Negative) 09/15/21 22:40 Urine Cocaine Screen Negative ng/mL (Negative) 09/15/21 22:40 U Marijuana (THC) Screen Negative ng/mL (Negative) 09/15/21 22:40 Influenza Type A Ag Negative (Negative) 09/15/21 22:40 Influenza Type B Ag Negative (Negative) 09/15/21 22:40 SARS-CoV-2 Ag (Rapid) Negative (Negative) 09/15/21 22:40 Vitals Last Vital Signs Temp 97.6 F 09/23/21 07:46 Pulse 92 09/23/21 08:56 Resp 22 H 09/23/21 07:46 BP 139/93 09/23/21 07:46 Pulse Ox 96 09/23/21 08:56 Discharge Plan Discharge Patient Disposition: Hospice - Home Condition: Stable Prescriptions: New doxycycline hyclate 100 mg tablet 100 mg PO BID 21 Days Qty: 42 0RF Continued levetiracetam 750 mg tablet 750 mg PO BID 0RF bumetanide 1 mg tablet 1 mg PO DAILY Qty: 30 0RF Hold Instructions: Resume on 09/04/21. diltiazem HCl 300 mg Capsule,Extended Release 24hr 300 mg PO DAILY 30 Days Qty: 30 1RF Pulmicort Flexhaler 180 mcg/actuation aerosol powdr breath activated 1 inh inhalation DAILY Qty: 1 2RF albuterol sulfate [ProAir HFA] 90 mcg/actuation HFA aerosol inhaler 1 inh inhalation Q6H PRN (Reason: shortness of breath or wheezing) Qty: 6.7 1RF insulin lispro 100 unit/mL insulin pen 12 unit SUBCUT QPM 0RF albuterol sulfate 2.5 mg /3 mL (0.083 %) solution for nebulization 2.5 mg inhalation Q6H PRN (Reason: Shortness Of Breath) 0RF budesonide-formoterol 160-4.5 mcg/actuation Hfa Aerosol Inhaler 2 puff INHALATION BID 0RF Discontinued atorvastatin 40 mg tablet 40 mg PO DAILY 0RF citalopram 20 mg tablet 20 mg PO DAILY 0RF montelukast [Singulair] 10 mg tablet 10 mg PO DAILY 0RF anastrozole 1 mg tablet 1 mg PO DAILY 0RF aspirin 81 mg Tablet,Delayed Release (Dr/Ec) 81 mg PO DAILY 0RF hydrocodone-acetaminophen 5-325 mg tablet 1 tab PO Q8H PRN (Reason: Pain) 0RF Discharge Orders: Discharge Order (Routine); Ordered 09/23/21 Ordered By: Enrique Lopes Referrals: Margret Wilson MD [Primary Care Provider] - (Patient to be follow-up by Hospice. ) Patient Instructions: Doxycycline (By mouth), Heart Failure (DC), A-fib (Atrial Fibrillation) (DC), MRSA (Methicillin-Resistant Staphylococcus Aureus) (DC), Aspiration Precautions (DC), CHF Stoplight Discharge Attestations Time Spent in Discharge Care*: less than 30 min Status at Discharge: Cognitive status at discharge: cognitively intact , Behavioral status at discharge: cooperative , Quality Metrics Clinical Quality Measures [ No reported AMI, CVA or VTE this stay] Coding Level of Care Code Acute Chg FW DC note Diagnoses Non-compliance Z91.19 MRSA bacteremia R78.81; B95.62 Altered mental status R41.82 Atrial fibrillation with RVR I48.91
--- NOTE | 2021-09-23 12:45 | PC.NURSE ---
Patient left via [facility]. Discharge packet sent with ems. pull worker notified son. IV removed, VS stable upon departure.
--- NOTE | 2021-09-23 13:56 | PC.NURSE ---
Medications and bed sheets were not present at bed side or in med room upon discharge.
== END 2021-09-23 13:57 | disposition hospice, home (50) | DRG 70 ==
LOC: ER 09-16 01:11 → ER IP 09-16 01:37 → ICU 09-16 02:15 → CSU 09-18 18:22
PROVIDERS: Admitting Provider Family Medicine; Emergency Provider Emergency Medicine; PCP Family Medicine; Visit Provider Internal Medicine
DX: G93.41 Metabolic encephalopathy (principal); I50.33 Acute on chronic diastolic (congestive) heart failure; R78.81 Bacteremia; L97.429 Non-pressure chronic ulcer of left heel and midfoot with unspecified severity; L97.419 Non-pressure chronic ulcer of right heel and midfoot with unspecified severity; Z68.42 Body mass index [BMI] 45.0-49.9, adult; I48.91 Unspecified atrial fibrillation; B95.62 Methicillin resistant Staphylococcus aureus infection as the cause of diseases classified elsewhere; E11.621 Type 2 diabetes mellitus with foot ulcer; Z79.4 Long term (current) use of insulin; L89.159 Pressure ulcer of sacral region, unspecified stage; Z91.19 Patient's noncompliance with other medical treatment and regimen; E66.01 Morbid (severe) obesity due to excess calories; Z86.73 Personal history of transient ischemic attack (TIA), and cerebral infarction without residual deficits; I27.20 Pulmonary hypertension, unspecified; Z86.16 Personal history of COVID-19; F32.A Depression, unspecified; E87.6 Hypokalemia; R09.02 Hypoxemia; Z66 Do not resuscitate
CPT/HCPCS: 36415; 36416; 36600; 70450; 70551; 71045; 80048; 80053; 80202; 80306; 80307; 81001; 82803; 82962; 83036; 83605; 83690; 83735; 83880; 84145; 84443; 84484; 85025; 85610; 85651; 86140; 87040; 87077; 87086; 87150; 87186; 87205; 87426; 87804; 92507; 92523; 92526; 92610; 93005; 93880; 96365; 96366; 96367; 96372; 96375; 99285; C9113; J1160; J1650; J1815; J1953; J1956; J2270; J2310; J2543; J3370; J3475; J3480; J3490; J7050

== ENCOUNTER 2022-01-07 22:13 | Observation (INO) | payer MEDICARE, SELFPAY ==
--- NOTE | 2022-01-07 22:45 | XRR_ITS ---
PROCEDURE INFORMATION: Exam: XR Chest Exam date and time: 01/07/2022 10:50 PM Age: 71 years old Clinical indication: Dyspnea TECHNIQUE: Imaging protocol: Radiologic exam of the chest. Views: 1 view. COMPARISON: CR (CHEST, ) 09/15/2021 9:48 PM FINDINGS: Lungs: Pulmonary venous congestion and mild increased interstitial markings. This may represent mild pulmonary edema versus chronic fibrosis. Pleural spaces: No pleural effusion. No pneumothorax. Heart/Mediastinum: Cardiomegaly is present. Vasculature: Tortuous, atherosclerotic thoracic aorta. Bones/joints: Degenerative thoracic spine changes are noted. XR/XR chest 1V portable [id number] IMPRESSION: 1. Cardiomegaly is present. 2. Pulmonary venous congestion and mild increased interstitial markings. This may represent mild pulmonary edema versus chronic fibrosis. 3. There is no interval change from the prior examination.
--- NOTE | 2022-01-07 22:45 | CTR_ITS ---
PROCEDURE INFORMATION: Exam: CT Head Without Contrast Exam date and time: 01/07/2022 11:42 PM Age: 71 years old Clinical indication: Condition or disease; Convulsions or seizures; Additional info: Seizure TECHNIQUE: Imaging protocol: Computed tomography of the head without contrast. Radiation optimization: All CT scans at this facility use at least one of these dose optimization techniques: automated exposure control; mA and/or kV adjustment per patient size (includes targeted exams where dose is matched to clinical indication); or iterative reconstruction. COMPARISON: MR head wo con* [id number] 09/16/2021 11:32 AM RADIATION DOSE METRICS: Total DLP (mGy-cm): 1207.98 FINDINGS: Brain: Age related parenchymal volume loss noted. There is decreased attenuation of the periventricular white matter, consistent with chronic microangiopathic white matter disease. Old left occipital lobe infarct. Old right ge radiata infarct. No parenchymal edema identified. No intracranial hemorrhage noted. Cerebral ventricles: Mild expansion of the occipital horn of the left lateral ventricle due to adjacent encephalomalacia. No hydrocephalus. Paranasal sinuses: The paranasal sinuses, as demonstrated, appear clear. Mastoid air cells: The mastoid air cells are clear bilaterally. Bones/joints: No fracture or other acute osseous abnormality. Soft tissues: Unremarkable. CT/CT head wo con* [id number] IMPRESSION: No acute intracranial abnormality demonstrated.
--- NOTE | 2022-01-07 22:46 | ECG_ITS ---
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 Measurements Intervals [place] Rate: 103 P: [place]: QRS: 24 QRSD: 122 T: 209 QT: 394 QTc: 518 Interpretive Statements ATRIAL FIBRILLATION WITH RAPID VENTRICULAR RESPONSE MODERATE INTRAVENTRICULAR CONDUCTION DELAY [110+ ms QRS DURATION] ST DEVIATION AND MODERATE T-WAVE ABNORMALITY, CONSIDER INFERIOR ISCHEMIA [-0.1+ mV T-WAVE IN II/aVF] Compared to ECG 09/15/2021 22:10:22 Intraventricular conduction delay now present T-wave abnormality now present Possible ischemia now present ST (T wave) deviation no longer present Electronically Signed On 01-07-2022 23:43:45 CDT by Amador Lynn M.D. [id number]
[2022-01-07 22:48] VITALS: BP 125/89; PULSE 112; RESP 20; TEMP 37.7; O2SAT 97; BMI 48.0
--- NOTE | 2022-01-07 22:54 | W.ED.SEIZURE ---
HPI - Seizure General: Chief Complaint: Seizure Stated Complaint: SERIZURE Time Seen by Provider: 01/07/22 22:45 History of Present Illness: HPI Narrative: 71-year-old female comes in today for concerns of seizure episode. EMS reports that patient had shaking in the right hand on their arrival to being called out for a seizure episode. Patient's blood glucose at that time was 74 they gave her dextrose and she seemed to improve. In route to the ER patient had a further shaking episode and was given 5 mg of Versed. Patient is not aphasic stroke survivor. And is unable to answer questions for self. Patient is alert. Responds with I do not know. Per EMS report patient had recently been discharged from [facility] on 03 January for sepsis and CVA. Patient is being cared for at home by her son. Associated symptoms: Deny fever(s) Review of Systems General: Reports: ROS unobtainable due to medical condition Const: Denies: fever(s) Neuro: Reports: seizure-like activity [facility] ED PFSH: Medical History Acute and chronic respiratory failure with hypoxia Acute exacerbation of CHF (congestive heart failure) SEGUNDO (acute kidney injury) Altered mental status Altered mental status Aspiration into respiratory tract Atrial fibrillation with RVR Atrial fibrillation with RVR Atrial fibrillation with RVR Breakthrough seizure After stroke on Keppra Breast cancer, right Chronic back pain Congestive heart failure COPD (chronic obstructive pulmonary disease) COVID Depression Diabetes Fibromyalgia Gastritis H/O: CVA (cerebrovascular accident) Hypertension Hypoxia Oxygen dependent Stroke May 2017 Type 2 diabetes mellitus UTI (urinary tract infection) Surgical History H/O right mastectomy History of bunionectomy History of tonsillectomy Hx of cholecystectomy Family History Other No pertinent family history Denies family history of Anesthesia complication Bleeding disorder Social History Smoking and tobacco status: never smoked Alcohol intake: never Household members: spouse Housing: House Marital status: Current occupational status: retired History of recent travel: No Physical Exam Const: COMMON NORMALS: alert HENMT: COMMON NORMALS: normocephalic HEAD & SCALP: normocephalic Eye: GENERAL EYE: appearance normal, both eyes and all related structures Neck/C-Spine: COMMON NORMALS: no meningeal signs Resp: COMMON NORMALS: normal respiratory effort and clear to auscultation bilaterally AUSCULTATION: clear to auscultation bilaterally Cardio: COMMON NORMALS: regular rate and regular rhythm RATE: regular rate RHYTHM: regular rhythm GI: COMMON NORMALS: Soft to palpation PALPATION: Yes Soft to palpation and No Tenderness to palpation present (GI) Extremity: NARRATIVE EXTREMITY EXAM: gross Weakness to the left side of the body. Neuro: SENSORIUM/ORIENTATION: Yes alert MENINGEAL SIGNS: Yes no meningeal signs Skin: COMMON NORMALS: no rashes or lesions noted GENERAL SKIN EXAM: no rashes or lesions noted Course ED course: 1223, patient has some stage II skin breakdown to the coccyx with significant excoriation of the skin to the buttocks and thighs. Nursing also reported urine soaked bedding underneath the patient. Discussed this with Dr. Muse who recommended I speak with hospitalist, Dr. Crain, for admission concerning neglect of care and need for possible social service and prison admission. 1250, attempted to contact family members by cell phone number [phone]. This is supposedly her son which is her primary caregiver. At this time the phone was not accepting phone calls. I had spoke with Dr. Crain and after review of records it seems that patient most likely will need to be discharged back to hospice care. 0105, attempted to contact the daughter Stephany Cordero at [phone], left a message on her phone to contact the emergency room back. We will go ahead and start treatment with vancomycin and ceftriaxone for the urinary tract infection. Await contact from family to decide goals of care. 0150, patient's daughter, Stephany, returned call. Further discussion with her does state that we they would like her to be treated for the urinary tract infection. Her uncle and herself are coming in from [place] and at 1 point. Her brother at this time is unable to be contacted although he does seem to be the primary caregiver. I reviewed this with Dr. Crain who agreed to admission to hospital. Vital Signs: Vital signs: Vital Signs Temperature 99.8 F H 01/07/22 22:48 Pulse Rate 112 H 01/07/22 22:48 Respiratory Rate 20 H 01/07/22 22:48 Blood Pressure 125/89 01/07/22 22:48 Pulse Oximetry 97 01/07/22 22:48 MDM - Seizure MDM Narrative Medical decision making narrative: 71-year-old female comes in today for complaints of seizure activity. EMS had reported patient having seizure activity at home on their arrival. They reported the patient was having shaking in the right hand persistently with poor response. Patient's blood glucose was 74 she was given a dose of dextrose which seemed to improve her symptoms. In route to the ER patient had return of the shaking to the right hand with and then she was given Versed. Patient had no further episode. On exam patient had significant skin breakdown to the sacral area. Respirations were even lungs are decreased in the bases. Abdomen was soft and nontender. Patient has a indwelling cath. Patient has chronic weakness on the left side. Patient also is aphasic only answering I do not know to questions. Differential diagnosis includes CVA, sepsis, urinary tract infection, pneumonia. CBC had a unremarkable white blood cell count 6.2, sodium was 135 and potassium 3.4. Urinalysis had greater than 100 white blood cells on a catheter result. Reviewed the exam with Dr. Muse who recommended patient probably be admitted for treatment of urinary tract infection and social work case manager. After contact with the family who wanted patient's urinary tract infection cared for, Dr. Crain agreed to admission. Lab Data Result diagrams: 01/08/22 00:08 01/08/22 00:08 Labs: Radiology Impressions Chest X-Ray 01/07/22 22:45 IMPRESSION: 1. Cardiomegaly is present. 2. Pulmonary venous congestion and mild increased interstitial markings. This may represent mild pulmonary edema versus chronic fibrosis. 3. There is no interval change from the prior examination. Head CT 01/07/22 22:45 IMPRESSION: No acute intracranial abnormality demonstrated. Laboratory Results WBC 6.2 10^3/uL (4.0-10.0) 01/08/22 00:08 RBC 4.29 10^6/uL (4.1-5.3) 01/08/22 00:08 Hgb 12.2 g/dL (11.5-15.3) 01/08/22 00:08 Hct 37.2 % (37.0-47.0) 01/08/22 00:08 MCV 86.7 fl (81-99) 01/08/22 00:08 MCH 28.4 pg (28.0-34.0) 01/08/22 00:08 MCHC 32.8 g/dL (30.0-36.0) 01/08/22 00:08 RDW 15.9 % (12.1-15.1) H 01/08/22 00:08 Plt Count 233 10^3/cmm (130-400) 01/08/22 00:08 MPV 9.7 fL (7.4-10.4) 01/08/22 00:08 Neut % (Auto) 74.9 % 01/08/22 00:08 Lymph % (Auto) 17.2 % 01/08/22 00:08 [place] % (Auto) 6.3 % 01/08/22 00:08 Eos % (Auto) 1.1 % 01/08/22 00:08 Baso % (Auto) 0.2 % 01/08/22 00:08 Neut # (Auto) 4.63 10^3/uL (1.8-7.7) 01/08/22 00:08 Lymph # (Auto) 1.1 10^3/uL (0.8-4.8) 01/08/22 00:08 [place] # (Auto) 0.4 10^3/uL (0.2-0.9) 01/08/22 00:08 Eos # (Auto) 0.1 10^3/uL (0.0-0.8) 01/08/22 00:08 Baso # (Auto) 0.0 10^3/uL (0.0-0.1) 01/08/22 00:08 Nucleated RBC % (auto) 0 % 01/08/22 00:08 Nucleated RBCs # 0.0 /100WBC 01/08/22 00:08 Sodium 135 mmol/L (136-145) L 01/08/22 00:08 Potassium 3.4 mmol/L (3.5-5.1) L 01/08/22 00:08 Chloride 97 mmol/L (98-107) L 01/08/22 00:08 Carbon Dioxide 27 mmol/L (22-29) 01/08/22 00:08 Anion Gap 14.4 (5-19) 01/08/22 00:08 BUN 16 mg/dL (8-23) 01/08/22 00:08 Creatinine 0.7 mg/dL (0.5-0.9) 01/08/22 00:08 GFR Calculation Not Reportable 01/08/22 00:08 Glucose 71 mg/dL (65-115) 01/08/22 00:08 Calculated Osmolality 280 mOsm/kg (285-295) L 01/08/22 00:08 Lactic Acid 1.4 mmol/L (0.5-2.2) 01/08/22 00:08 Calcium 8.8 mg/dL (8.5-10.5) 01/08/22 00:08 Total Bilirubin 0.5 mg/dL (0.15-1.2) 01/08/22 00:08 AST 25 U/L (0-32) 01/08/22 00:08 ALT 9 U/L (0-33) 01/08/22 00:08 Alkaline Phosphatase 111 IU/L (35-105) H 01/08/22 00:08 Troponin T Baseline 55 ng/L (0-10) H 01/08/22 00:08 C-Reactive Protein 48.5 mg/L (0.0-4.9) H 01/08/22 00:08 Total Protein 7.1 g/dL (6.6-8.7) 01/08/22 00:08 Albumin 3.2 g/dL (3.5-5.2) L 01/08/22 00:08 Globulin 3.9 g/dL (1.3-4.6) 01/08/22 00:08 Urine Color Dark yellow (Yellow) 01/08/22 00:30 Urine Appearance Sl hazy (CLEAR) 01/08/22 00:30 Urine pH 5 (5-7) 01/08/22 00:30 Ur Specific [place] 1.030 (1.005-1.030) 01/08/22 00:30 Urine Protein 1+ (Negative) H 01/08/22 00:30 Urine Glucose (UA) Norm (Normal) 01/08/22 00:30 Urine Ketones 1+ (Negative) H 01/08/22 00:30 Urine Blood Neg (Negative) 01/08/22 00:30 Urine Nitrate Negative (Negative) 01/08/22 00:30 Urine Bilirubin 1+ (Negative) H 01/08/22 00:30 Urine Urobilinogen 4 mg/dL (Negative) H 01/08/22 00:30 Ur Leukocyte Esterase Trace (Negative) H 01/08/22 00:30 Urine RBC 0-4 /hpf (0-2) H 01/08/22 00:30 Urine WBC >100 /hpf (0-5) H 01/08/22 00:30 Ur Squamous Epith Cells 0-4 /hpf (0-5) H 01/08/22 00:30 Amorphous Sediment 3+ /hpf 01/08/22 00:30 Urine Bacteria Trace /hpf (NONE) 01/08/22 00:30 Urine Mucus 1+ /hpf 01/08/22 00:30 Urine Yeast 3+ /hpf H 01/08/22 00:30 EKG Data EKG 1: EKG interpretation date: 01/07/22 EKG interpretation time: 23:55 Interpretation: EKG shows irregular rate at 103 bpm. Atrial fibs is noted. No ST elevation or other ectopy is noted. Discharge Plan Discharge Patient Disposition: Admitted As Inpatient Clinical Impression: UTI (urinary tract infection) due to urinary indwelling Sorensen catheter, COPD (chronic obstructive pulmonary disease), Focal seizure Decubitus skin ulcer Qualifiers: Pressure injury location: sacral region Pressure injury stage: stage 3 Qualified Code(s): L89.153 - Pressure ulcer of sacral region, stage 3 Condition: Stable Coding Level of Care Code ED Human Resources Operations Manager for [facility] Fwd Exam Comprehensive
[2022-01-08] VITALS (19 sets, daily range): BP systolic 106–171; BP diastolic 67–111; PULSE 80–109; RESP 12–22; TEMP 36.7–37.6; O2SAT 90–99
[2022-01-08 00:17] LABS: Basophils % 0.2 %; Eosinophils # 0.1 10^3/uL (0.0-0.8); Eosinophils % 1.1 %; Hematocrit 37.2 % (37.0-47.0); Hemoglobin 12.2 g/dL (11.5-15.3); Lymphocytes # 1.1 10^3/uL (0.8-4.8); Lymphocytes % 17.2 %; Mean Corpuscular HGB Conc 32.8 g/dL (30.0-36.0); Mean Corpuscular Hemoglobin 28.4 pg (28.0-34.0); Mean Corpuscular Volume 86.7 fl (81-99); Mean Platelet Volume 9.7 fL (7.4-10.4); Monocytes # 0.4 10^3/uL (0.2-0.9); Monocytes % 6.3 %; Neutrophils # 4.63 10^3/uL (1.8-7.7); Neutrophils % 74.9 %; Nucleated Red Blood Cells % 0 %; Platelet Count 233 10^3/cmm (130-400); Red Blood Count 4.29 10^6/uL (4.1-5.3); Red Cell Distribution Width 15.9 % (12.1-15.1); White Blood Count 6.2 10^3/uL (4.0-10.0)
[2022-01-08 00:31] LABS: Lactic Sepsis W/Reflex 1.4 mmol/L (0.5-2.2)
[2022-01-08 00:40] LABS: Troponin(5th) Baseline 55 ng/L (0-10)
--- NOTE | 2022-01-08 00:46 | ECG_ITS ---
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 Measurements Intervals [place] Rate: 98 P: [place]: QRS: 36 QRSD: 115 T: 226 QT: 404 QTc: 517 Interpretive Statements ATRIAL FIBRILLATION MODERATE INTRAVENTRICULAR CONDUCTION DELAY [110+ ms QRS DURATION] ST DEVIATION AND MODERATE T-WAVE ABNORMALITY, CONSIDER ANTERIOR ISCHEMIA [-0.1+ mV T-WAVE IN V3/V4] ST DEVIATION AND MODERATE T-WAVE ABNORMALITY, CONSIDER INFERIOR ISCHEMIA [-0.1+ mV T-WAVE IN II/aVF] Compared to ECG 01/07/2022 23:30:00 No significant changes Electronically Signed On 01-08-2022 22:51:22 CDT by Amador Lynn M.D. [id number]
[2022-01-08 00:48] LABS: Bilirubin Urine 1+ (Negative); Blood Urine Neg (Negative); Glucose Urine UA Norm (Normal); Ketones Urine 1+ (Negative); Nitrate Urine Negative (Negative); Protein Urine 1+ (Negative); Urine Appearance SL Hazy (CLEAR); Urine Color Dark Yellow (Yellow); pH Urine 5 (5-7)
[2022-01-08 00:49] LABS: Add Urine Culture? Yes; Add Urine Microscopic? YES; Amorphous Sediment Urine 3+ /hpf; Bacteria Urine TRACE /hpf; Leukocyte Esterase Urine Trace (Negative); Mucus Urine 1+ /hpf; RBC Urine 0-4 /hpf (0-2); Squamous Epithelial Cell Urine 0-4 /hpf (0-5); Urobilinogen Urine 4 mg/dL (Negative); WBC Urine >100 /hpf (0-5)
[2022-01-08 01:07] LABS: Alanine Aminotransferase 9 U/L (0-33); Albumin Level 3.2 g/dL (3.5-5.2); Alkaline Phosphatase 111 IU/L (35-105); Anion Gap 14.4 (5-19); Aspartate Amino Transferase 25 U/L (0-32); Blood Urea Nitrogen 16 mg/dL (8-23); C Reactive Protein 48.5 mg/L (0.0-4.9); Calcium 8.8 mg/dL (8.5-10.5); Carbon Dioxide 27 mmol/L (22-29); Chloride 97 mmol/L (98-107); Globulin 3.9 g/dL (1.3-4.6); Glucose 71 mg/dL (65-115); Osmolality Calculated 280 mOsm/kg (285-295); Potassium 3.4 mmol/L (3.5-5.1); Sodium 135 mmol/L (136-145); Total Bilirubin 0.5 mg/dL (0.15-1.2); Total Protein 7.1 g/dL (6.6-8.7)
[2022-01-08] MEDS: cefTRIAXone 1,000 MG in sodium chloride 0.9% (plus) 50 ML 100 MG IV (01:19)
[2022-01-08] MEDS: vancomycin 1,000 MG in sodium chloride 0.9% 250 ML 250 MG IV ×2 (01:51→14:17)
--- NOTE | 2022-01-08 04:46 | ECG_ITS ---
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 Measurements Intervals [place] Rate: 94 P: [place]: QRS: 33 QRSD: 90 T: 259 QT: 395 QTc: 496 Interpretive Statements ATRIAL FIBRILLATION ST DEVIATION AND MODERATE T-WAVE ABNORMALITY, CONSIDER ANTEROLATERAL ISCHEMIA [-0.1+ mV T-WAVE IN V3-V6] Compared to ECG 01/08/2022 00:58:25 Intraventricular conduction delay no longer present T-wave abnormality still present Possible ischemia still present Electronically Signed On 01-08-2022 22:52:02 CDT by Amador Lynn M.D. [id number]
[2022-01-08 06:34] LABS: Glucose Point of Care 69 mg/dL (70-110)
--- NOTE | 2022-01-08 07:16 | PM.HP ---
Providers/Chief Complaint Admitting Physician: Leandra Crain MD Primary Care Provider: Margret Wilson MD Chief Complaint: SERIZURE History of Present Illness Neeta Roche is a 71 year old female with history of embolic CVAs, right frontal, left occipital, history of atrial fibrillation, should be on Eliquis?? History of insulin-dependent type 2 diabetes mellitus, morbid obesity, severe pulmonary hypertension, history of seizures on Keppra, history of depression, recent hospitalization for COVID-19 pneumonia and acute kidney injury and hypoxia, breast cancer, refused adjuvant chemotherapy. At a baseline patient does not ambulate, is wheelchair-bound, after having multiple stroke with expressive aphasia. Review of notes shows that after admission here in August 2021 for metabolic encephalopathy, UTI, MRSA bacteremia and chronic sacral and heel decubitus ulcers she was placed on palliative/hospice care. Even on that hospitalization patient was refusing medications, refusing nursing care and resisted treatment. Attempts were made [facility] her [facility], however this was not covered by her insurance and family could not afford to pay [id number]. Per reported history from ER she recently also had a stay at [facility] for sepsis and CVA. She is brought into the emergency room today with reported seizures at home. She had not seizure in route for which she received Ativan. Patient is otherwise unable to give any history due to expressive aphasia. Keeps repeating there was a fire to all questions asked. She does however respond to being called Neeta, says mil and guerrero. Multiple attempts were made to reach her son, however there was no response on the listed phone number. Review of Systems General: Reports: ROS unobtainable due to medical condition and ROS unobtainable due to mental status Medications/Allergies Home Medications Medication Instructions Recorded Confirmed Last Taken Type levetiracetam 750 mg tablet 750 mg PO BID 04/25/20 12/04/21 10/02/20 07:00 History bumetanide 1 mg tablet 1 mg PO DAILY #30 tab 05/12/20 12/04/21 10/01/20 Rx albuterol sulfate 90 mcg/actuation 1 inh INHALATION Q6H PRN #6.7 g 08/24/21 12/04/21 Unknown Rx aerosol inhaler (ProAir HFA) budesonide 180 mcg/actuation 1 inh INHALATION DAILY #1 ea 08/24/21 12/04/21 Unknown Rx breath activated powder inhaler (Pulmicort Flexhaler) diltiazem HCl 300 mg 300 mg PO DAILY 30 Days #30 cap 08/24/21 12/04/21 Unknown Rx capsule,extended release 24 hr albuterol sulfate 2.5 mg INHALATION Q6H PRN 09/16/21 12/04/21 Unknown History budesonide-formoterol HFA 160 2 puff INHALATION BID 09/16/21 12/04/21 Unknown History mcg-4.5 mcg/actuation aerosol inhaler insulin lispro 100 unit/mL 12 unit SUBCUT QPM 09/16/21 12/04/21 Unknown History subcutaneous pen hydrocodone 5 mg-acetaminophen 325 1 tab PO Q6H PRN 7 Days #120 tab 11/26/21 12/04/21 Unknown Rx mg tablet Bed mount trapeze bar #1 ea 12/24/21 Unknown Rx Hospital Bed #1 ea 12/24/21 Unknown Rx Carmela Lift #1 ea 12/24/21 Unknown Rx Low air loss bed mattress #1 ea 12/24/21 Unknown Rx Nebulizer #1 ea 12/24/21 Unknown Rx bariatric wheelchair #1 ea 12/24/21 Unknown Rx oxygen concentrator #1 ea 12/24/21 Unknown Rx Allergies Allergy/AdvReac Type Severity Reaction Status Date / Time adhesive tape Allergy ALGY-Bliste Verified 12/04/21 13:30 r PFSH Acute PFSH: Medical History Acute and chronic respiratory failure with hypoxia Acute exacerbation of CHF (congestive heart failure) SEGUNDO (acute kidney injury) Altered mental status Altered mental status Aspiration into respiratory tract Atrial fibrillation with RVR Atrial fibrillation with RVR Atrial fibrillation with RVR Breakthrough seizure After stroke on Keppra Breast cancer, right Chronic back pain Congestive heart failure COPD (chronic obstructive pulmonary disease) COVID Depression Diabetes Fibromyalgia Gastritis H/O: CVA (cerebrovascular accident) Hypertension Hypoxia Oxygen dependent Stroke May 2017 Type 2 diabetes mellitus UTI (urinary tract infection) Surgical History H/O right mastectomy History of bunionectomy History of tonsillectomy Hx of cholecystectomy Family History Other No pertinent family history Denies family history of Anesthesia complication Bleeding disorder Social History Smoking and tobacco status: never smoked Alcohol intake: never Household members: spouse Housing: House Marital status: Current occupational status: retired History of recent travel: No Vitals/I&O/Wt Last Vital Signs Temp 98.7 F 01/08/22 04:05 Pulse 104 H 01/08/22 04:16 Resp 17 01/08/22 04:16 BP 162/102 01/08/22 04:16 Pulse Ox 95 01/08/22 04:16 01/07/22 01/08/22 01/08/22 22:59 06:59 14:59 Intake Total 420 / 420 Balance 420 / 420 Weight last 48 hrs Weight 112.4 kg Weight 127.006 kg Physical Exam Narrative: GEN: Awake, alert , expressive aphasia. Elderly chronically ill-appearing woman. CVS: S1S2 N RS: CTA B/L Abd: Soft, nt/nd , bs+ OFFICE SPECIALIST: Does not attempt to move bilateral lower extremities,, does not consistently follow commands. Moves bilateral upper extremities spontaneously. Expressive aphasia Data : 01/08/22 00:08 01/08/22 00:08 Other Labs: Radiology Impressions Chest X-Ray 01/07/22 22:45 IMPRESSION: 1. Cardiomegaly is present. 2. Pulmonary venous congestion and mild increased interstitial markings. This may represent mild pulmonary edema versus chronic fibrosis. 3. There is no interval change from the prior examination. Head CT 01/07/22 22:45 IMPRESSION: No acute intracranial abnormality demonstrated. Laboratory Results WBC 6.2 10^3/uL (4.0-10.0) 01/08/22 00:08 RBC 4.29 10^6/uL (4.1-5.3) 01/08/22 00:08 Hgb 12.2 g/dL (11.5-15.3) 01/08/22 00:08 Hct 37.2 % (37.0-47.0) 01/08/22 00:08 MCV 86.7 fl (81-99) 01/08/22 00:08 MCH 28.4 pg (28.0-34.0) 01/08/22 00:08 MCHC 32.8 g/dL (30.0-36.0) 01/08/22 00:08 RDW 15.9 % (12.1-15.1) H 01/08/22 00:08 Plt Count 233 10^3/cmm (130-400) 01/08/22 00:08 MPV 9.7 fL (7.4-10.4) 01/08/22 00:08 Neut % (Auto) 74.9 % 01/08/22 00:08 Lymph % (Auto) 17.2 % 01/08/22 00:08 [place] % (Auto) 6.3 % 01/08/22 00:08 Eos % (Auto) 1.1 % 01/08/22 00:08 Baso % (Auto) 0.2 % 01/08/22 00:08 Neut # (Auto) 4.63 10^3/uL (1.8-7.7) 01/08/22 00:08 Lymph # (Auto) 1.1 10^3/uL (0.8-4.8) 01/08/22 00:08 [place] # (Auto) 0.4 10^3/uL (0.2-0.9) 01/08/22 00:08 Eos # (Auto) 0.1 10^3/uL (0.0-0.8) 01/08/22 00:08 Baso # (Auto) 0.0 10^3/uL (0.0-0.1) 01/08/22 00:08 Nucleated RBC % (auto) 0 % 01/08/22 00:08 Nucleated RBCs # 0.0 /100WBC 01/08/22 00:08 Sodium 135 mmol/L (136-145) L 01/08/22 00:08 Potassium 3.4 mmol/L (3.5-5.1) L 01/08/22 00:08 Chloride 97 mmol/L (98-107) L 01/08/22 00:08 Carbon Dioxide 27 mmol/L (22-29) 01/08/22 00:08 Anion Gap 14.4 (5-19) 01/08/22 00:08 BUN 16 mg/dL (8-23) 01/08/22 00:08 Creatinine 0.7 mg/dL (0.5-0.9) 01/08/22 00:08 GFR Calculation Not Reportable 01/08/22 00:08 Glucose 71 mg/dL (65-115) 01/08/22 00:08 POC Glucose 69 mg/dL (70-110) L 01/08/22 06:19 Calculated Osmolality 280 mOsm/kg (285-295) L 01/08/22 00:08 Lactic Acid 1.4 mmol/L (0.5-2.2) 01/08/22 00:08 Calcium 8.8 mg/dL (8.5-10.5) 01/08/22 00:08 Total Bilirubin 0.5 mg/dL (0.15-1.2) 01/08/22 00:08 AST 25 U/L (0-32) 01/08/22 00:08 ALT 9 U/L (0-33) 01/08/22 00:08 Alkaline Phosphatase 111 IU/L (35-105) H 01/08/22 00:08 Troponin T Baseline 55 ng/L (0-10) H 01/08/22 00:08 C-Reactive Protein 48.5 mg/L (0.0-4.9) H 01/08/22 00:08 Total Protein 7.1 g/dL (6.6-8.7) 01/08/22 00:08 Albumin 3.2 g/dL (3.5-5.2) L 01/08/22 00:08 Globulin 3.9 g/dL (1.3-4.6) 01/08/22 00:08 Urine Color Dark yellow (Yellow) 01/08/22 00:30 Urine Appearance Sl hazy (CLEAR) 01/08/22 00:30 Urine pH 5 (5-7) 01/08/22 00:30 Ur Specific [place] 1.030 (1.005-1.030) 01/08/22 00:30 Urine Protein 1+ (Negative) H 01/08/22 00:30 Urine Glucose (UA) Norm (Normal) 01/08/22 00:30 Urine Ketones 1+ (Negative) H 01/08/22 00:30 Urine Blood Neg (Negative) 01/08/22 00:30 Urine Nitrate Negative (Negative) 01/08/22 00:30 Urine Bilirubin 1+ (Negative) H 01/08/22 00:30 Urine Urobilinogen 4 mg/dL (Negative) H 01/08/22 00:30 Ur Leukocyte Esterase Trace (Negative) H 01/08/22 00:30 Urine RBC 0-4 /hpf (0-2) H 01/08/22 00:30 Urine WBC >100 /hpf (0-5) H 01/08/22 00:30 Ur Squamous Epith Cells 0-4 /hpf (0-5) H 01/08/22 00:30 Amorphous Sediment 3+ /hpf 01/08/22 00:30 Urine Bacteria Trace /hpf (NONE) 01/08/22 00:30 Urine Mucus 1+ /hpf 01/08/22 00:30 Urine Yeast 3+ /hpf H 01/08/22 00:30 Micro: Microbiology 01/08/22 00:10 Blood Culture - Preliminary Blood SPECIMEN COLLECTED 01/08/22 00:08 Blood Culture - Preliminary Blood SPECIMEN COLLECTED A&P Assessment and plan (1) Seizures: Status: Acute (2) Hospice care patient: Status: Acute (3) UTI (urinary tract infection): Status: Acute Plan 71-year-old lady with multiple comorbidities as listed above, presenting today with seizures For review of notes it appears patient was on hospice care until very recently. I am not sure that this was discontinued. Patient is still receiving services. Patient has had no noted seizure episodes since arriving in the ER. We will continue Keppra 750 mg p.o. twice daily. It appears patient has a history of noncompliance with taking her medications and this may be a cause of breakthrough seizures. Urine analysis today shows multiple WBCs and positive leuk esterase, however she does have a chronic indwelling Sorensen catheter. Patient has expressive aphasia, very difficult to obtain history of to assess for any additional metabolic encephalopathy. unAble to reach at this time for any additional information. History of MRSA bacteremia in August 2021, treated with p.o. doxycycline. Source was thought to be sacral decubitus ulcers at that time. It appears that p.o. doxycycline was chosen as against IV antibiotics due to goals of care being hospice/palliative care. Empiric ceftriaxone and vancomycin for now. Pending blood and urine cultures. Attempt to reach patient's daughter and hospice company today to clarify goals of care. 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
[2022-01-08 07:25] LABS: Glucose Point of Care 76 mg/dL (70-110)
[2022-01-08] MEDS: dextrose 50% syringe 50 mL 25 ML IVP (09:40)
[2022-01-08 11:16] LABS: Glucose Point of Care 109 mg/dL (70-110)
--- NOTE | 2022-01-08 11:21 | PM.MISC ---
Miscellaneous Note Note: This morning patient was very agitated and angry when I woke her up Nurses also at the bedside Patient is not cooperating for physical exam as well I do know Neeta Roche very well She is laying supine in her bed Currently saturating well on room air Abdomen distended however soft Multiple sacral ulcers, bilateral heel ulcers No active signs of stroke S1, S2 Clinically does not look fluid overloaded or dehydrated Morbid obesity, difficult to assess her volume status Excoriation around groin Assessment and plan Touch base with her family She was on palliative care at home She has been hotlined, She seems to be getting poor care at home Skin excoriation around groin area She would not participate with physical therapy She is bedbound, Carmela lift, she carries history of noncompliance, she had history of MRSA from her sacral ulcers as well which was treated with p.o. antibiotics, She is DNR/DNI She refused her potassium this morning Currently on dysphagia diet Continue Bumex and ceftriaxone for now DVT prophylaxis Lovenox She is getting ceftriaxone for UTI and vancomycin for sacral ulcer and MRSA history
[2022-01-08] MEDS: dilTIAZem ER (24HR) 300 mg Capsule PO (12:35)
[2022-01-08] MEDS: bumetanide 1 mg Tablet PO (12:36)
[2022-01-08] MEDS: levETIRAcetam 500 mg Tablet 750 MG PO (12:36)
[2022-01-08 14:27] LABS: Glucose Point of Care 129 mg/dL (70-110)
[2022-01-08 16:56] LABS: Glucose Point of Care 113 mg/dL (70-110)
--- NOTE | 2022-01-08 18:14 | PC.NURSE ---
Notified Dr. Lopes Patient refusing Kelcra
--- NOTE | 2022-01-08 18:59 | PC.PHAR ---
pt unable to verify home meds - meds verified by ext med history
[2022-01-08 21:20] LABS: Glucose Point of Care 127 mg/dL (70-110)
[2022-01-09] VITALS (7 sets, daily range): BP systolic 106–135; BP diastolic 54–77; PULSE 73–96; RESP 13–18; TEMP 36.6–37.4; O2SAT 88–98
[2022-01-09] MEDS: vancomycin 1,000 MG in sodium chloride 0.9% 250 ML 250 MG IV (02:22)
[2022-01-09 05:05] LABS: Basophils % 0.2 %; Eosinophils # 0.2 10^3/uL (0.0-0.8); Hematocrit 32.2 % (37.0-47.0); Hemoglobin 10.5 g/dL (11.5-15.3); Lymphocytes % 20.8 %; Mean Corpuscular HGB Conc 32.6 g/dL (30.0-36.0); Mean Corpuscular Hemoglobin 28.2 pg (28.0-34.0); Mean Corpuscular Volume 86.3 fl (81-99); Mean Platelet Volume 10.1 fL (7.4-10.4); Monocytes # 0.4 10^3/uL (0.2-0.9); Monocytes % 8.3 %; Neutrophils # 3.11 10^3/uL (1.8-7.7); Neutrophils % 66.1 %; Nucleated Red Blood Cells % 0 %; Platelet Count 223 10^3/cmm (130-400); Red Blood Count 3.73 10^6/uL (4.1-5.3); Red Cell Distribution Width 16.2 % (12.1-15.1); White Blood Count 4.7 10^3/uL (4.0-10.0)
[2022-01-09 05:24] LABS: Albumin Level 2.6 g/dL (3.5-5.2); Alkaline Phosphatase 106 IU/L (35-105); Blood Urea Nitrogen 16 mg/dL (8-23); Calcium 8.5 mg/dL (8.5-10.5); Carbon Dioxide 27 mmol/L (22-29); Chloride 100 mmol/L (98-107); Globulin 3.7 g/dL (1.3-4.6); Glucose 111 mg/dL (65-115); Osmolality Calculated 284 mOsm/kg (285-295); Sodium 136 mmol/L (136-145); Total Bilirubin 0.3 mg/dL (0.15-1.2); Total Protein 6.3 g/dL (6.6-8.7)
[2022-01-09 05:43] LABS: Alanine Aminotransferase 9 U/L (0-33); Anion Gap 12.9 (5-19); Aspartate Amino Transferase 28 U/L (0-32); Potassium 3.9 mmol/L (3.5-5.1)
[2022-01-09] MEDS: cefTRIAXone 1,000 MG in sodium chloride 0.9% (plus) 50 ML 100 MG IV (06:03)
[2022-01-09] MEDS: enoxaparin 40 mg/0.4 mL Syringe SUBCUT (09:52)
[2022-01-09 10:43] LABS: Levetiracetam Immunoassy 25.2 mcg/mL (6.0-46.0)
[2022-01-09 10:56] LABS: Glucose Point of Care 93 mg/dL (70-110)
--- NOTE | 2022-01-09 11:21 | P.PN_ITS ---
Subjective Subjective: Her hospice services were discontinued in November I have spoken to her daughter and the brother who is planning to be here on Wednesday Patient 100% for lunch and took her tablets in the evening This morning she was not very cooperative Vitals/I&O/Wt Last Vital Signs Temp 98.3 F 01/09/22 08:00 Pulse 89 01/09/22 09:57 Resp 16 01/09/22 09:57 BP 107/54 01/09/22 08:00 Pulse Ox 94 01/09/22 09:57 01/08/22 01/09/22 01/09/22 22:59 06:59 14:59 Intake Total 670 / 1150 300 / 1450 Output Total 300 / 300 100 / 400 Balance 370 / 850 200 / 1050 Weight last 48 hrs Weight 112.4 kg Weight 127.006 kg Physical Exam Narrative: In the mornings patient keeps her eyes closed, with sternal rub she opens her eyes and gets very angry towards the staff and the physician Abdomen seems soft No audible stridor or wheezing Currently she is on room air She has sacral and multiple pressure ulcers of her heels Abdominal fold does seem to have intertrigo, there was some stool stuck in the abdominal fold as well Neuro exam is limited Data : 01/09/22 04:43 01/09/22 04:43 Micro: Microbiology 01/08/22 00:30 Urine Culture - Preliminary Urine,Clean Catch 01/08/22 00:10 Blood Culture - Preliminary Blood NEGATIVE TO DATE 01/08/22 00:08 Blood Culture - Preliminary Blood NEGATIVE TO DATE A&P Assessment and plan (1) UTI (urinary tract infection): Status: Acute (2) Seizures: Status: Acute (3) Decubitus skin ulcer: Status: Acute Qualifiers: Pressure injury location: sacral region Pressure injury stage: stage 3 Qualified Code(s): L89.153 - Pressure ulcer of sacral region, stage 3 (4) Fibromyalgia: Status: Acute (5) Diabetes: Status: Acute (6) COPD (chronic obstructive pulmonary disease): Status: Acute (7) Non-compliance: Status: Acute Plan Breakthrough seizure UTI She has been afebrile no signs of sepsis She has history of Klebsiella UTI in the past, her blood culture showed MRSA I will go ahead and de-escalate her antibiotics to ceftriaxone only, would use ceftriaxone and doxycycline for now She has been afebrile, cultures remain negative to date She is DNR/DNI Her family is planning to be here on Wednesday We will plan her disposition after family meeting She has been hotline for poor care at home Have asked nurse to use antifungal powder for her abdominal fold intertrigo She is emotionally labile, does not cooperate very well has history of noncompliance, I have kept her on dysphagia level 1 pur?ed diet DNR/DNI DVT prophylaxis Lovenox Continue Keppra 750 mg twice daily Attestations Medical Necessity Statement*: Continue medical management Time Spent in Patient Care: 25 Coding Level of Care Code Acute Transformation Architect for g Fwd Diagnoses UTI (urinary tract infection) N39.0 Seizures R56.9 Decubitus skin ulcer L89.153 Pressure injury location: sacral region Pressure injury stage: stage 3 Fibromyalgia M79.7 Diabetes E11.9 COPD (chronic obstructive pulmonary disease) J44.9 Non-compliance Z91.19
--- NOTE | 2022-01-09 11:56 | PC.NURSE ---
Pt refused her meals and oral meds attempted multiple times to feed and give oral morning meds, however pt refused and won't cooperate. pt stated, Stop. I said I don't need that. Dr Lopes notified via voalte phone.
[2022-01-09 16:33] LABS: Glucose Point of Care 95 mg/dL (70-110)
[2022-01-09] MEDS: doxycycline 100 mg Tablet PO (17:20)
[2022-01-09] MEDS: levETIRAcetam 500 mg Tablet 750 MG PO (17:20)
[2022-01-09] MEDS: nystatin powder 15 gm Btl 1 APPLIC TOPICAL (17:37)
[2022-01-10] VITALS (8 sets, daily range): BP systolic 103–152; BP diastolic 63–75; PULSE 67–86; RESP 16–18; TEMP 36.7–36.8; O2SAT 91–98
--- NOTE | 2022-01-10 05:10 | PC.NURSE ---
patient resting in bed without complaint. repositioned. bed at lowest level with wheels lock and call light in reach
[2022-01-10 05:25] LABS: Basophils % 0.3 %; Eosinophils # 0.3 10^3/uL (0.0-0.8); Eosinophils % 6.5 %; Hematocrit 33.4 % (37.0-47.0); Hemoglobin 10.4 g/dL (11.5-15.3); Lymphocytes # 0.9 10^3/uL (0.8-4.8); Mean Corpuscular HGB Conc 31.1 g/dL (30.0-36.0); Mean Corpuscular Hemoglobin 28.3 pg (28.0-34.0); Mean Platelet Volume 9.5 fL (7.4-10.4); Monocytes # 0.3 10^3/uL (0.2-0.9); Monocytes % 8.9 %; Neutrophils % 59.8 %; Nucleated Red Blood Cells % 0 %; Platelet Count 211 10^3/cmm (130-400); Red Blood Count 3.67 10^6/uL (4.1-5.3); Red Cell Distribution Width 16.2 % (12.1-15.1); White Blood Count 3.8 10^3/uL (4.0-10.0)
[2022-01-10 05:55] LABS: Anion Gap 13.6 (5-19); Blood Urea Nitrogen 13 mg/dL (8-23); Calcium 8.6 mg/dL (8.5-10.5); Carbon Dioxide 25 mmol/L (22-29); Chloride 104 mmol/L (98-107); Glucose 98 mg/dL (65-115); Osmolality Calculated 288 mOsm/kg (285-295); Potassium 3.6 mmol/L (3.5-5.1); Sodium 139 mmol/L (136-145)
[2022-01-10] MEDS: cefTRIAXone 1,000 MG in sodium chloride 0.9% (plus) 50 ML 100 MG IV (05:55)
[2022-01-10 08:04] LABS: Glucose Point of Care 101 mg/dL (70-110)
[2022-01-10] MEDS: enoxaparin 40 mg/0.4 mL Syringe SUBCUT (09:17)
[2022-01-10] MEDS: dilTIAZem ER (24HR) 300 mg Capsule PO (09:17)
[2022-01-10] MEDS: levETIRAcetam 500 mg Tablet 750 MG PO ×2 (09:17→17:15)
[2022-01-10] MEDS: bumetanide 1 mg Tablet PO (09:17)
[2022-01-10] MEDS: doxycycline 100 mg Tablet PO ×2 (09:17→17:15)
[2022-01-10] MEDS: nystatin powder 15 gm Btl 1 APPLIC TOPICAL ×2 (09:19→17:16)
[2022-01-10 11:16] LABS: Glucose Point of Care 119 mg/dL (70-110)
--- NOTE | 2022-01-10 12:23 | PM.PN ---
Subjective Subjective: Patient is awake and alert today however only oriented to himself Not endorsing active pain Complaining about IV lines Vitals/I&O/Wt Last Vital Signs Temp 98.0 F 01/10/22 11:31 Pulse 86 01/10/22 11:31 Resp 18 01/10/22 11:31 BP 118/71 01/10/22 11:31 Pulse Ox 93 01/10/22 11:31 01/09/22 01/10/22 01/10/22 22:59 06:59 14:59 Intake Total 712 / 712 50 / 762 120 / 120 Output Total 550 / 550 Balance 162 / 162 50 / 212 120 / 120 Physical Exam Narrative: Patient is awake and alert Pleasant and cooperative this morning Only oriented to herself Morbidly obese S1, S2 Soft abdomen Intertrigo Sorensen catheter with clear urine Lower extremity without edema Sacral ulcer, bilateral heel ulcer Data : 01/10/22 05:14 01/10/22 05:14 Micro: Microbiology 01/08/22 00:30 Urine Culture - Final Urine,Clean Catch A&P Assessment and plan (1) UTI (urinary tract infection): Status: Acute (2) Seizures: Status: Acute (3) Decubitus skin ulcer: Status: Acute Qualifiers: Pressure injury location: sacral region Pressure injury stage: stage 3 Qualified Code(s): L89.153 - Pressure ulcer of sacral region, stage 3 (4) Fibromyalgia: Status: Acute (5) Oxygen dependent: Status: Acute (6) COPD (chronic obstructive pulmonary disease): Status: Acute (7) Non-compliance: Status: Acute Plan UTI: Metabolic encephalopathy Concern for seizure Poor hygiene Bedbound Noncompliant Fibromyalgia Oxygen dependent I will discontinue the IV antibiotics She has been afebrile Cultures negative to date I would only continue doxycycline for now She has multiple stage ulcers Currently we are waiting for her placement Family is planning to arrive today in [place] She was [place] because of poor caregiving at home Her son is not able to take care of her anymore Will speak to her daughter and her brother Active signs of recurrent seizures Continue antiepileptic She wanted able to participate with PT, she is bedbound, Carmela lift DNR/DNI Guarded prognosis Attestations Medical Necessity Statement*: Awaiting placement Time Spent in Patient Care: 30 Coding Level of Care Code Acute Exercise Instructor for Chg Fwd Diagnoses UTI (urinary tract infection) N39.0 Seizures R56.9 Decubitus skin ulcer L89.153 Pressure injury location: sacral region Pressure injury stage: stage 3 Fibromyalgia M79.7 Oxygen dependent Z99.81 COPD (chronic obstructive pulmonary disease) J44.9 Non-compliance Z91.19
[2022-01-10 16:45] LABS: Glucose Point of Care 129 mg/dL (70-110)
[2022-01-11] VITALS (7 sets, daily range): BP systolic 105–120; BP diastolic 65–76; PULSE 61–85; RESP 18–20; TEMP 36.2–36.8; O2SAT 91–99
[2022-01-11] MEDS: enoxaparin 40 mg/0.4 mL Syringe SUBCUT (10:26)
[2022-01-11] MEDS: doxycycline 100 mg Tablet PO ×2 (10:27→17:48)
[2022-01-11] MEDS: bumetanide 1 mg Tablet PO (10:27)
[2022-01-11] MEDS: dilTIAZem ER (24HR) 300 mg Capsule PO (10:27)
[2022-01-11] MEDS: levETIRAcetam 500 mg Tablet 750 MG PO ×2 (10:27→17:48)
[2022-01-11] MEDS: nystatin powder 15 gm Btl 1 APPLIC TOPICAL ×2 (10:28→17:54)
[2022-01-11 16:19] LABS: Glucose Point of Care 90 mg/dL (70-110)
[2022-01-11 20:53] LABS: Glucose Point of Care 114 mg/dL (70-110)
[2022-01-12] VITALS: BP 130/75; PULSE 69; RESP 20; TEMP 36.4; O2SAT 95
[2022-01-12 04:00] VITALS: BP 134/75; PULSE 76; RESP 20; TEMP 36.2; O2SAT 94
[2022-01-12 06:37] LABS: Glucose Point of Care 116 mg/dL (70-110)
[2022-01-12 08:00] VITALS: BP 137/65; PULSE 75; PULSE 92; RESP 16; RESP 18; TEMP 36.5; O2SAT 92; O2SAT 96
[2022-01-12] MEDS: enoxaparin 40 mg/0.4 mL Syringe SUBCUT (08:07)
[2022-01-12] MEDS: nystatin powder 15 gm Btl 1 APPLIC TOPICAL ×2 (08:07→17:06)
[2022-01-12] MEDS: bumetanide 1 mg Tablet PO (08:07)
[2022-01-12] MEDS: levETIRAcetam 500 mg Tablet 750 MG PO ×2 (08:07→16:58)
[2022-01-12] MEDS: doxycycline 100 mg Tablet PO ×2 (08:07→16:58)
[2022-01-12] MEDS: dilTIAZem ER (24HR) 300 mg Capsule PO (08:09)
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
[2022-01-12 11:55] LABS: Glucose Point of Care 135 mg/dL (70-110)
[2022-01-12 16:00] VITALS: PULSE 98; RESP 18; TEMP 36.7; O2SAT 92
--- NOTE | 2022-01-12 16:14 | PC.NURSE ---
refused blood pressure
[2022-01-12] MEDS: quetiapine 25 mg Tablet PO (16:58)
[2022-01-12 17:12] LABS: Glucose Point of Care 124 mg/dL (70-110)
[2022-01-12 20:37] VITALS: PULSE 95; RESP 18; O2SAT 93
[2022-01-12 21:04] LABS: Glucose Point of Care 133 mg/dL (70-110)
[2022-01-13] VITALS (7 sets, daily range): BP systolic 108–123; BP diastolic 62–73; PULSE 57–83; RESP 16–20; TEMP 36.5–36.8; O2SAT 91–95
[2022-01-13 06:43] LABS: Glucose Point of Care 90 mg/dL (70-110)
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
--- NOTE | 2022-01-13 07:56 | PC.NURSE ---
Bedside report received from Cha SHEN
[2022-01-13] MEDS: doxycycline 100 mg Tablet PO ×2 (09:08→17:44)
[2022-01-13] MEDS: levETIRAcetam 500 mg Tablet 750 MG PO ×2 (09:08→17:44)
[2022-01-13] MEDS: bumetanide 1 mg Tablet PO (09:09)
[2022-01-13] MEDS: dilTIAZem ER (24HR) 300 mg Capsule PO (09:10)
[2022-01-13] MEDS: nystatin powder 15 gm Btl 1 APPLIC TOPICAL (09:12)
[2022-01-13 11:33] LABS: Glucose Point of Care 134 mg/dL (70-110)
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
[2022-01-13 17:10] LABS: Glucose Point of Care 107 mg/dL (70-110)
--- NOTE | 2022-01-13 19:06 | PC.NURSE ---
Bedside report given to Cha Perez
[2022-01-13 20:27] LABS: Glucose Point of Care 142 mg/dL (70-110)
[2022-01-14] VITALS (8 sets, daily range): BP systolic 104–123; BP diastolic 67–76; PULSE 69–94; RESP 15–22; TEMP 36.6–37; O2SAT 90–99
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
[2022-01-14 06:32] LABS: Glucose Point of Care 102 mg/dL (70-110)
[2022-01-14] MEDS: doxycycline 100 mg Tablet PO ×2 (09:09→18:49)
[2022-01-14] MEDS: bumetanide 1 mg Tablet PO (09:09)
[2022-01-14] MEDS: levETIRAcetam 500 mg Tablet 750 MG PO ×2 (09:09→18:49)
[2022-01-14] MEDS: nystatin powder 15 gm Btl 1 APPLIC TOPICAL (09:11)
[2022-01-14] MEDS: enoxaparin 40 mg/0.4 mL Syringe SUBCUT (09:11)
[2022-01-14] MEDS: dilTIAZem ER (24HR) 300 mg Capsule PO (09:11)
[2022-01-14 11:14] LABS: Glucose Point of Care 126 mg/dL (70-110)
[2022-01-14 16:49] LABS: Glucose Point of Care 149 mg/dL (70-110)
[2022-01-14 20:56] LABS: Glucose Point of Care 126 mg/dL (70-110)
[2022-01-14] MEDS: acetaminophen 325 mg Tablet 650 MG PO (21:48)
[2022-01-15] VITALS (7 sets, daily range): BP systolic 113–154; BP diastolic 64–80; PULSE 69–95; RESP 16–23; TEMP 36.7–37.7; O2SAT 92–99
[2022-01-15 06:32] LABS: Glucose Point of Care 105 mg/dL (70-110)
[2022-01-15] MEDS: dilTIAZem ER (24HR) 300 mg Capsule PO (08:58)
[2022-01-15] MEDS: bumetanide 1 mg Tablet PO (08:58)
[2022-01-15] MEDS: doxycycline 100 mg Tablet PO (08:58)
[2022-01-15] MEDS: levETIRAcetam 500 mg Tablet 750 MG PO ×2 (08:58→17:24)
[2022-01-15] MEDS: nystatin powder 15 gm Btl 1 APPLIC TOPICAL ×2 (08:59→17:24)
[2022-01-15] MEDS: enoxaparin 40 mg/0.4 mL Syringe SUBCUT (08:59)
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
[2022-01-15 11:27] LABS: Glucose Point of Care 151 mg/dL (70-110)
[2022-01-15 18:02] LABS: Glucose Point of Care 128 mg/dL (70-110)
[2022-01-15 21:03] LABS: Glucose Point of Care 191 mg/dL (70-110)
[2022-01-16] VITALS (7 sets, daily range): BP systolic 111–155; BP diastolic 67–77; PULSE 52–82; RESP 16–21; TEMP 36.6–37.4; O2SAT 91–97
[2022-01-16 06:24] LABS: Glucose Point of Care 92 mg/dL (70-110)
[2022-01-16] MEDS: levETIRAcetam 500 mg Tablet 750 MG PO ×2 (08:24→17:59)
[2022-01-16] MEDS: nystatin powder 15 gm Btl 1 APPLIC TOPICAL ×2 (08:24→18:02)
[2022-01-16] MEDS: dilTIAZem ER (24HR) 300 mg Capsule PO (08:24)
[2022-01-16] MEDS: enoxaparin 40 mg/0.4 mL Syringe SUBCUT (08:24)
[2022-01-16] MEDS: bumetanide 1 mg Tablet PO (08:24)
[2022-01-16 11:56] LABS: Glucose Point of Care 102 mg/dL (70-110)
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
[2022-01-16 17:06] LABS: Glucose Point of Care 126 mg/dL (70-110)
[2022-01-16 21:29] LABS: Glucose Point of Care 132 mg/dL (70-110)
[2022-01-17] VITALS (7 sets, daily range): BP systolic 124–162; BP diastolic 61–81; PULSE 61–89; RESP 12–22; TEMP 36.6–37.1; O2SAT 93–98
[2022-01-17 04:13] LABS: Anion Gap 8.6 (5-19); Blood Urea Nitrogen 23 mg/dL (8-23); Calcium 9.1 mg/dL (8.5-10.5); Carbon Dioxide 31 mmol/L (22-29); Chloride 98 mmol/L (98-107); Glucose 98 mg/dL (65-115); Osmolality Calculated 282 mOsm/kg (285-295); Potassium 3.6 mmol/L (3.5-5.1); Sodium 134 mmol/L (136-145)
[2022-01-17 06:18] LABS: Glucose Point of Care 85 mg/dL (70-110)
[2022-01-17 08:06] LABS: Glucose Point of Care 91 mg/dL (70-110)
[2022-01-17] MEDS: enoxaparin 40 mg/0.4 mL Syringe SUBCUT (09:00)
[2022-01-17] MEDS: nystatin powder 15 gm Btl 1 APPLIC TOPICAL ×2 (09:00→17:26)
[2022-01-17] MEDS: levETIRAcetam 500 mg Tablet 750 MG PO ×2 (09:01→17:25)
[2022-01-17] MEDS: dilTIAZem ER (24HR) 180 mg Capsule PO (09:02)
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
[2022-01-17 11:42] LABS: Glucose Point of Care 148 mg/dL (70-110)
[2022-01-17] MEDS: potassium chloride ER 20 mEq Tablet 40 MEQ PO (12:48)
[2022-01-17] MEDS: insulin lispro 100 unit/1 mL SUBCUT (12:49)
[2022-01-17] MEDS: acetaminophen 325 mg Tablet 650 MG PO (15:10)
[2022-01-17 16:57] LABS: Glucose Point of Care 124 mg/dL (70-110)
[2022-01-17 20:52] LABS: Glucose Point of Care 135 mg/dL (70-110)
[2022-01-18] VITALS (7 sets, daily range): BP systolic 101–150; BP diastolic 62–96; PULSE 58–86; RESP 16–21; TEMP 36.3–37.1; O2SAT 91–98
[2022-01-18 06:12] LABS: Glucose Point of Care 100 mg/dL (70-110)
[2022-01-18] MEDS: enoxaparin 40 mg/0.4 mL Syringe SUBCUT (08:54)
[2022-01-18] MEDS: levETIRAcetam 500 mg Tablet 750 MG PO ×2 (08:55→18:24)
[2022-01-18] MEDS: dilTIAZem ER (24HR) 180 mg Capsule PO (08:55)
[2022-01-18] MEDS: nystatin powder 15 gm Btl 1 APPLIC TOPICAL ×2 (09:20→18:24)
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
[2022-01-18 11:09] LABS: Glucose Point of Care 126 mg/dL (70-110)
[2022-01-18 17:18] LABS: Glucose Point of Care 96 mg/dL (70-110)
[2022-01-18] MEDS: acetaminophen 325 mg Tablet 650 MG PO (21:57)
[2022-01-18 22:02] LABS: Glucose Point of Care 115 mg/dL (70-110)
[2022-01-19] VITALS (7 sets, daily range): BP systolic 121–151; BP diastolic 48–80; PULSE 64–89; RESP 12–18; TEMP 36.3–36.8; O2SAT 90–99
[2022-01-19 06:44] LABS: Glucose Point of Care 88 mg/dL (70-110)
[2022-01-19] MEDS: nystatin powder 15 gm Btl 1 APPLIC TOPICAL ×2 (09:33→18:09)
[2022-01-19] MEDS: levETIRAcetam 500 mg Tablet 750 MG PO ×2 (09:33→18:09)
[2022-01-19] MEDS: enoxaparin 40 mg/0.4 mL Syringe SUBCUT (09:33)
[2022-01-19] MEDS: dilTIAZem ER (24HR) 180 mg Capsule PO (09:33)
[2022-01-19 11:28] LABS: Glucose Point of Care 112 mg/dL (70-110)
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
[2022-01-19 16:58] LABS: Glucose Point of Care 107 mg/dL (70-110)
[2022-01-19 21:31] LABS: Glucose Point of Care 132 mg/dL (70-110)
[2022-01-19] MEDS: acetaminophen 325 mg Tablet 650 MG PO (23:02)
[2022-01-20] VITALS (7 sets, daily range): BP systolic 114–148; BP diastolic 70–83; PULSE 73–93; RESP 15–19; TEMP 36.4–36.9; O2SAT 95–98
[2022-01-20 06:30] LABS: Glucose Point of Care 106 mg/dL (70-110)
[2022-01-20] MEDS: dilTIAZem ER (24HR) 180 mg Capsule PO (09:10)
[2022-01-20] MEDS: nystatin powder 15 gm Btl 1 APPLIC TOPICAL ×2 (09:10→18:39)
[2022-01-20] MEDS: levETIRAcetam 500 mg Tablet 750 MG PO ×2 (09:10→18:39)
[2022-01-20] MEDS: enoxaparin 40 mg/0.4 mL Syringe SUBCUT (09:10)
[2022-01-20 10:51] LABS: Glucose Point of Care 129 mg/dL (70-110)
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
[2022-01-20 17:06] LABS: Glucose Point of Care 119 mg/dL (70-110)
[2022-01-20 20:12] LABS: Glucose Point of Care 158 mg/dL (70-110)
[2022-01-20] MEDS: acetaminophen 325 mg Tablet 650 MG PO (20:20)
[2022-01-21] VITALS (8 sets, daily range): BP systolic 112–147; BP diastolic 73–91; PULSE 69–93; RESP 12–20; TEMP 36.4–37.2; O2SAT 94–100
[2022-01-21 06:22] LABS: Glucose Point of Care 92 mg/dL (70-110)
[2022-01-21] MEDS: enoxaparin 40 mg/0.4 mL Syringe SUBCUT (09:57)
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
[2022-01-21 11:15] LABS: Glucose Point of Care 103 mg/dL (70-110)
[2022-01-21] MEDS: nystatin powder 15 gm Btl 1 APPLIC TOPICAL ×2 (13:34→17:28)
[2022-01-21 17:08] LABS: Glucose Point of Care 91 mg/dL (70-110)
[2022-01-21] MEDS: levETIRAcetam 500 mg Tablet 750 MG PO (17:24)
[2022-01-22] VITALS (8 sets, daily range): BP systolic 109–132; BP diastolic 64–77; PULSE 54–86; RESP 13–24; TEMP 36.6–37.4; O2SAT 93–99
[2022-01-22 06:33] LABS: Glucose Point of Care 86 mg/dL (70-110)
[2022-01-22] MEDS: dilTIAZem ER (24HR) 180 mg Capsule PO (09:26)
[2022-01-22] MEDS: levETIRAcetam 500 mg Tablet 750 MG PO ×2 (09:26→17:39)
[2022-01-22] MEDS: enoxaparin 40 mg/0.4 mL Syringe SUBCUT (09:26)
[2022-01-22] MEDS: nystatin powder 15 gm Btl 1 APPLIC TOPICAL ×2 (09:27→17:39)
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
[2022-01-22 11:24] LABS: Glucose Point of Care 100 mg/dL (70-110)
[2022-01-22 17:12] LABS: Glucose Point of Care 119 mg/dL (70-110)
[2022-01-22 20:57] LABS: Glucose Point of Care 111 mg/dL (70-110)
[2022-01-23] VITALS: BP 128/76; PULSE 87; RESP 13; TEMP 36.8; O2SAT 93
[2022-01-23 04:00] VITALS: BP 117/67; PULSE 83; RESP 14; TEMP 36.7; O2SAT 90
[2022-01-23 06:12] LABS: Glucose Point of Care 103 mg/dL (70-110)
[2022-01-23 07:48] VITALS: BP 142/90; PULSE 89; RESP 16; TEMP 36.7; O2SAT 92
[2022-01-23 08:00] VITALS: PULSE 86; RESP 16; O2SAT 95
[2022-01-23] MEDS: enoxaparin 40 mg/0.4 mL Syringe SUBCUT (10:34)
[2022-01-23] MEDS: dilTIAZem ER (24HR) 180 mg Capsule PO (10:34)
[2022-01-23] MEDS: levETIRAcetam 500 mg Tablet 750 MG PO ×2 (10:34→17:17)
[2022-01-23] MEDS: sennosides-docusate Tablet 1 TAB PO (10:34)
[2022-01-23] MEDS: nystatin powder 15 gm Btl 1 APPLIC TOPICAL ×2 (10:35→17:18)
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
[2022-01-23 11:33] LABS: Glucose Point of Care 121 mg/dL (70-110)
[2022-01-23 11:49] VITALS: BP 112/69; PULSE 81; RESP 16; TEMP 36.8; O2SAT 93
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
[2022-01-23 16:00] VITALS: BP 146/73; PULSE 77; RESP 16; TEMP 36.6; O2SAT 96
[2022-01-23 17:03] LABS: Glucose Point of Care 128 mg/dL (70-110)
--- NOTE | 2022-01-23 18:56 | PC.NURSE ---
report called to Felipa SHEN at [facility].
== END 2022-01-23 19:30 | disposition skilled nursing facility (03) ==
LOC: ER 01-08 01:51 → MEDSURG 01-08 02:56
PROVIDERS: Admitting Provider Student in an Organized Health Care Education/Training Program; Emergency Provider Nurse Practitioner Family; PCP Family Medicine; Visit Provider Internal Medicine
DX: T74.01XA Adult neglect or abandonment, confirmed, initial encounter (principal); N39.0 Urinary tract infection, site not specified; R56.9 Unspecified convulsions; L89.153 Pressure ulcer of sacral region, stage 3; E11.9 Type 2 diabetes mellitus without complications; E66.01 Morbid (severe) obesity due to excess calories; Z68.41 Body mass index [BMI] 40.0-44.9, adult; I27.20 Pulmonary hypertension, unspecified; F32.A Depression, unspecified; Z86.16 Personal history of COVID-19; Z85.3 Personal history of malignant neoplasm of breast; Z99.3 Dependence on wheelchair; I69.820 Aphasia following other cerebrovascular disease; Z86.14 Personal history of Methicillin resistant Staphylococcus aureus infection; E11.622 Type 2 diabetes mellitus with other skin ulcer; Z51.5 Encounter for palliative care; Z99.81 Dependence on supplemental oxygen; M79.7 Fibromyalgia; Z91.19 Patient's noncompliance with other medical treatment and regimen; J44.9 Chronic obstructive pulmonary disease, unspecified; T83.511A Infection and inflammatory reaction due to indwelling urethral catheter, initial encounter; Z66 Do not resuscitate; I51.7 Cardiomegaly
CPT/HCPCS: 36415; 36416; 51701; 70450; 71045; 80048; 80053; 80177; 81001; 82962; 83605; 84484; 85025; 86140; 87040; 87086; 92507; 92523; 92526; 92610; 93005; 96365; 96366; 96367; 96372; 97161; 97165; 99285; G0378; J0696; J1650; J1815; J3370; J7050